=== PATIENT | female | born 1945 | race Caucasian/White ===

== ENCOUNTER 2022-01-03 09:57 | Emergency (ER) | payer OTHER ==
--- OUTSIDE RECORDS SUMMARY | 2022-01-03 09:59 | XMS REPORT | Continuity of Care Document ---
:1945 Author Organization [facility] t Address [address] [place] [address] Care Team Providers Name Role Phone UNKNOWN Primary Care Physician Unavailable Lisbet OLMSTEAD Attending Clinician Unavailable Aysha LOPEZ, L Attending Clinician ALFRED Attending Clinician Unavailable Brea Attending Clinician Unavailable ALFRED Admitting Clinician Unavailable Brea Admitting Clinician Unavailable Payers Payer Name Policy Type Policy Number Effective Date Expiration Date S rubi [employer]ET[employer] MEDICARE ADV [id number] 2018 00:00:00 [place]IC[place]: [id number] 1997 [place] 00:00:00 Problems Condition Condition Condition Status Onset Resolution Last Treating Co mments Source Name Details Category Date Date Treatment Clinician Date No known No known Disease Unive rs active active ity of problems problems [facility] Allergies, Adverse Reactions, Alerts Allergy Allergy Status Severity Reaction(s) Onset Inactive Treating Comm ents Source Name Type Date Date Clinician Bromphen Propensi Active Unknown - Uni vers iramin-P ty to See comments it y of hen[place] adverse [place] rin-Dm reaction Medical s Branch Chlorpro Propensi Active Unknown - Uni vers mazine ty to See comments ity of adverse [place] reaction Medical s Branch Codeine Propensi Active Unknown - Univ ers ty to See comments ity of adverse [place] reaction Medical s Branch Duloxeti Propensi Active Unknown - Uni vers ne ty to See comments ity of adverse [place] reaction Medical s Branch Rosuvast Propensi Active Unknown - Uni vers atin ty to See comments ity of adverse [place] reaction Medical s Branch Simvasta Propensi Active Unknown - Uni vers tin ty to See comments ity of adverse [place] reaction Medical s Branch Tramadol Propensi Active Unknown - Uni vers ty to See comments ity of adverse [place] reaction Medical s Branch BROMPHEN DRUG Active Unknown-Cmnt Un rafa IRAMIN-P ity of [facility] RIN-DM Medical Branch CHLORPRO DRUG Active Unknown-Cmnt Un rafa MAZINE INGREDI ity of [facility] CODEINE DRUG Active Unknown-Cmnt Uni vers INGREDI ity of [facility] DULOXETI DRUG Active Unknown-Cmnt Un rafa NE INGREDI ity of [facility] ROSUVAST DRUG Active Unknown-Cmnt Un rafa ATIN INGREDI ity of [facility] SIMVASTA DRUG Active Unknown-Cmnt Un rafa TIN INGREDI ity of [facility] TRAMADOL DRUG Active Unknown-Cmnt Un rafa INGREDI ity of [facility] Social History Social Habit Start Date Stop Date Quantity Comments Source Tobacco use and 2018-12-23 2018-12-23 Never used [facility] exposure 00:00:00 00:00:00 Medical Branch Sex Ass[birth year] [facility] 00:00:00 00:00:00 Medical Branch Smoking Status Start Date Stop Date Source Never smoker [facility] [place] [facility] Medications Ordered Filled Start Stop Current Ordering Indication Dosage Frequency Signature Comments Components Source Medication Medication Date Date Medication? Clinician (SIG) Name Name Diclofenac 2020- No [id number] 25mg Take 25 mg Univers Potassium 6- 07-05 by mouth 3 ity of (ZIPSOR) 25 00:00[place] 04:59 [place]three[place] mg Cap 00 :00 times Medical daily for Branch 30 days. hydroCHLORO Yes hydrochlor Univers thiazide 1-28 othiazide ity of 12.5 mg 13:24: 12.5 mg [place] capsule 30 capsule Medical Take 1 Branch capsule every day by oral route. hydroCHLORO 2018- Yes hydrochlor Univers thiazide 1-28 othiazide ity of 12.5 mg 13:24: 12.5 mg [place] tablet 30 tablet Medical Take 1 Branch tablet every day by oral route. hydroCHLORO Yes hydrochlor Univers thiazide 25 1-28 othiazide ity of mg tablet 13:24: 25 mg [place] 30 tablet Medical Take 1 Branch tablet every day by oral route. HYDROcodone 2018- Yes hydrocodon Univers -acetaminop 1-28 e 10 ity of hen 10-325 13:24: mg-acetami [place] mg tablet 30 nophen 325 Medi pranay mg tablet Branch Take 1 tablet every 4 hours by oral route as needed. memantine Yes Namenda 10 Un rafa (NAMENDA) 1-28 mg tablet ity o f 10 mg 13:24: Take 1 [place] tablet 30 tablet Medical twice a Branch day by oral route. memantine Yes Namenda Unive rs HCl - Titration ity of (NAMENDA 13:24: Tre [place] TITRATION 30 Medical TRE ORAL) Branch amLODIPine Yes amlodipine U nivers 5 mg tablet 1-25 5 mg ity of 09:51: tablet [place] 12 Take 1 Medical tablet Branch every day by oral route. spironolact Yes spironolac Univers one 25 mg 1-25 tone 25 mg ity of tablet 09:51: tablet [place] 12 Take 0.5 Medical tablets Branch every day by oral route. rivaroxaban Yes Xarelto 15 Univers (XARELTO) 1-25 mg tablet ity o f 15 mg 09:51: Take 1 [place] tablet 12 tablet Medical every day Branch by oral route. lithium Yes lithium Univers carbonate 1-25 carbonate ity o f CR 450 mg 09:51: ER 450 mg Berny as SR tablet 12 tablet,ext Medi pranay ended Branch release Take 1 tablet twice a day by oral route. oxybutynin Yes Univers chloride 5 1-09 ity of mg tablet 00:00: [place] 00 Medical Branch Vital Signs Vital Name Observation Time Observation Value Comments Source Systolic blood 2021-05-02 13:49:00 140 mm[Hg] [facility] [place] [facility] Diastolic blood 2021-05-02 13:49:00 86 mm[Hg] Unive rsity of [facility] Heart rate 2021-05-02 13:49:00 71 /min Universi ty of [facility] Body height 2021-05-02 13:49:00 165.1 cm [facility] Body weight 2021-05-02 13:49:00 49.442 kg [facility] BMI 2021-05-02 13:49:00 18.14 kg/m2 [facility] Procedures This patient has no known procedures. Encounters Start End Encounter Admission Attending Care Care Encounter Source Date/Time Date/Time Type Type Clinicians Facility Department ID 2021-05-02 2021-05-02 [facility] [id number] Univers 09:15:00 09:15:00 ANNEMARIE [id number] [facility] 2021-05-02 2021-05-02 [facility] [id number] Univers 09:15:00 09:15:00 [facility] 2021-05-02 2021-05-02 Office Aysha [facility] [id number] Univers 08:36:22 09:11:01 [facility] [id number] it y of Surgical [id number] Berny as Specialti [id number] Ri dical es [address] [place] 2020-08-30 2020-08-[address] [facility] [id number] Univers 11:40:00 11:40:00 [facility] 2020-08-30 2020-08-[address] [facility] [id number] Univers 11:40:00 11:40:00 [facility] 2016-07-15 2016-07-15 Outpatient Maluf_C [facility] [id number] [id number] [place] 04:35:00 04:35:00 [facility] Results Test Description Test Time Test Comments Results Result Comments Source Sed Rate ESR ([place]) 2017-06-30 05:03:00 Test Item Value Reference Range Interpretation Comme nts ESR (test code = HESR) 4 mm/Hr 0-20 N Thyroid Stimulating Hormone (TSH)2017-06-29 23:23:00 Test Item Value Reference Range Interpretation Comments TSH (test code = TSH) 1.38 mIU/mL 0.270-4.200 N Comprehensive Metabolic [id number] 23:20:00 Test Item Value Reference Range Interpretation Comments Sodium (test code = 139 mmol/L 135-145 N NA) Potassium (test 4.0 mmol/L 3.5-5.1 N code = K) Chloride (test code 103 mmol/L 98-105 N = CL) Carbon Dioxide 24 mmol/L 22-29 N (test code = CO2) Glucose (test code 106 mg/dL 70-115 N = GLU) Blood Urea Nitrogen 10 mg/dL 8-23 N (test code = BUN) Creatinine (test 1.1 mg/dL 0.5-0.9 H code = CREAT) Calcium (test code 10.6 mg/dL 8.3-10.5 H = CA) Prot Total (test 7.7 g/dL 6.4-8.3 N code = TP) Albumin (test code 4.4 g/dL 3.5-5.2 N = ALB) A/G Ratio (test 1.3 Ratio code = AGRATIO) Globulin (test code 3.3 2.9-3.1 H = GLOB) Bili Total (test 1.0 mg/dL 0.1-0.9 H code = TBIL) Alk Phos (test code 88 U/L 35-104 N = APHOS) AST (test code = 18 U/L 1-32 N AST) ALT (test code = 14 U/L 1-33 N ALT) BUN/Creatinine 9.1 Ratio (test code = BCRATIO) Anion Gap (test 12 mmol/L 7-16 N code = AGAP) Estimated GFR (test 52 eGFR (es timated code = GFR) mL/min/1.73m2 Glomerular Capo tration Rate) is an est imated value,calculate d from the patient's s daily creatinine usin g the MDRD equation.I t is NOT the patient 's actual GFR. The eGFR provides a more clinicallyusefu l measure of kidn ey disease than se rum creatinine alone.This calculation hali es sex and race into account, if the informationis provided. If th e race is not provided , and the patient isAfrican-Ameri can, multiply by 1.2 12. If sex is not prov ided, and thepatient is female, multipl y by 0.742. Results for patients <18 ye ars ofage have not been validated by th e MDRD study and liban d be interpretedwith caution.eGFR Re sult Interpretation: eGFR > or = 60 is in t he Normal RangeeGF R < 60 may mean kidney diseaseeGFR < 1 5 may mean kidney failureRange s recommended by the National Kidney Foundation,http ://nkd ep.nih.gov Lipid [id number] 23:20:00 Test Item Value Reference Range Interpretation Comments Cholesterol (test 213 mg/dL 0-200 H code = CHOL) Triglycerides (test 142 mg/dL 9-200 N code = TRIG) HDL (test code = 53 mg/dL 50-60 N HDL) Chol/HDL (test code 4.0 Ratio 0.0-4.4 N = CHOLPHDL) LDL, Calculated 132 0-130 H (NOTE)RISK O F HEART (test code = LDLC) DISEASEPu blished by [place]an Heart AssociationAnal yte Optim al Boderline Increased RiskC HOL <200 200-239 >240TRI G <150 150-199 >200HDL Male: >60 <40HDL Female: >60 <50 LDL < 100 130-15 9 >160 LDL NEAR OPTIMAL IS 100- 129 VLDL (test code = 28 mg/dL 5-40 N VLDL) LDL/HDL (test code = 2 LDLPHDL) [id number] 23:20:00 Test Item Value Reference Range Interpretation Comments NT ProBnp (test code = PBNP) 601 pg/mL 0-124 H [id number] 23:20:00 Test Item Value Reference Range Interpretation Comments [place] (test code = LI) 1.09 mmol/L 0.6-1.2 N CBC with [id number] 22:20:00 Test Item Value Reference Range Interpretation Comments WBC (test code = WBC) 7.9 K/cumm 4.4-10.5 N RBC (test code = RBC) 4.82 M/cumm 3.75-5.20 N Hemoglobin (test code = HGB) 15.1 gm/dL 12.2-14.8 H Hematocrit (test code = HCT) 48.4 % 36.5-44.4 H MCV (test code = MCV) 100.5 fL 80-100 H MCH (test code = MCH) 31.3 pg 27.0-32.5 N MCHC (test code = MCHC) 31.1 g/dL 32.0-37.5 L RDW (test code = RDW) 13.9 % 11.5-14.5 N Platelet Count (test code = 235 K/cumm 140-440 N PLTCT) MPV (test code = MPV) 10.8 fL Diff Method (test code = DIFFM) Auto Neutrophil (test code = NEUT) 63.3 % 36-70 N Lymphocyte (test code = LYMPH) 28.9 % 12-44 N Monocyte (test code = MONO) 5.8 % 0-11 N Eosinophil (test code = EOS) 1.5 % 0-7 N Basophil (test code = BASO) 0.7 % 0-2 N Neutro Abs (test code = ANEUT) 5.0 K/cumm 1.6-7.4 N Lymph Abs (test code = ALYMPH) 2.3 K/cumm 0.5-4.6 N [place] Abs (test code = AMONO) 0.5 K/cumm 0.0-1.2 N Eos Abs (test code = AEOS) 0.12 K/cumm 0.00-0.74 N Baso Abs (test code = ABASO) 0.1 K/cumm 0.00-0.21 N Hypochromic (test code = HYPO) Slight
--- NOTE | 2022-01-03 11:00 | RAD REPORT ---
EXAM DESCRIPTION: CT - Head C Spine Mpr Wo Con - 01/03/2022 10:34 am CLINICAL HISTORY: Head and neck injury status post fall. Head and neck pain COMPARISON: [address] TECHNIQUE: Computed axial tomography of the head and cervical spine was obtained. Sagittal and coronal reconstruction was performed. All CT scans are performed using dose optimization technique as appropriate and may include automated exposure control or mA/KV adjustment according to patient size. FINDINGS: An intracranial bleed is not seen. The ventricles are normal in caliber. An extra-axial fl uid collection is not noted.Fluid within the visualized sinuses and mastoids is not seen A cervical fracture is not visualized. No dislocation is noted. Mild anterior subluxation C4 on C5. 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 A cervical fracture is not visualized. If the patient continues to have symptoms to suggest intracra nial /spinal cord/ligamentous pathology then MRI would be recommended
--- NOTE | 2022-01-03 11:05 | RAD REPORT ---
EXAM DESCRIPTION: CT - Pelvis Wo Cont - 01/03/2022 10:41 am CLINICAL HISTORY: Pelvic pain status post fall COMPARISON: None. TECHNIQUE: Computed axial tomography of the pelvis was obtained. Coronal and sagittal reconstruction performed All CT scans are performed using dose optimization technique as appropriate and may include automated exposure control or mA/KV adjustment according to patient size. FINDINGS: The bones are osteoporotic. No fracture or dislocation is seen. Mild osteoarthritis involves the hips Muscles are normal size and density. No significant joint effusion IMPRESSION: No fracture seen
--- NOTE | 2022-01-03 11:24 | EDPHYS ---
Physician Documentation [facility] Name: Devonte Hager Age: 76 yrs Sex: Female : 1945 Arrival Date: 01/03/2022 Time: 10:00 Bed 19 Private MD: ED Physician Ras Peña HPI: 01/03 10:17 This 76 yrs old Female presents to ER via EMS with complaints of Fall Injury. kb 10:17 Details of fall: The patient fell from an upright position, while standing. Onset: The kb symptoms/episode began/occurred just prior to arrival. Associated injuries: The patient sustained injury to the head, pain, injury to the low back, pain. Severity of symptoms: At their worst the symptoms were moderate, in the emergency department the symptoms are unchanged. The patient has not experienced similar symptoms in the past. The patient has not recently seen a physician. Pt reports she fell in the shower just block captain. States she hit her head a few times, initially when she fell then more as she tried and failed to get up. States she was unable to get herself up so she banged on the wall until her neighbor heard her and called 911. Reports pain to tailbone and head only. . Historical: - Home Meds: 10:03 amlodipine 5 mg tab 1 tab once daily [Active]; amiodarone 200 mg Oral tab 1 tab once culeln daily [Active]; apixaban 5 mg oral tab 1 tab 2 times per day [Active]; cholecalciferol (vitamin D3) 125 mcg (5,000 unit) oral cap daily [Active]; diclofenac sodium 75 mg oral TbEC 1 tab 2 times per day [Active]; lithium carbonate 300 mg Oral tab 1 tab 2 times per day [Active]; oxybutynin chloride 5 mg Oral tr24 1 tab once daily [Active]; rivaroxaban 15 mg oral tab 1 tab once daily [Active]; spironolactone 25 mg Oral tab 1 tab once daily [Active]; - PMHx: 10:03 Unable to Obtain; cullen - PSHx: 10:03 Unable to Obtain; cullen - Immunization history:: Adult Immunizations up to date. - Social history:: Smoking status: Patient denies any tobacco usage or history of. ROS: 10:15 Constitutional: Negative for fever, chills, and weight loss. kb 10:15 Back: Positive for pain at rest, pain with movement, of the sacrum. 10:15 Neuro: Positive for headache. 10:15 All other systems are negative. Exam: 10:16 Constitutional: This is a well developed, well nourished patient who is awake, alert, kb and in no acute distress. Head/Face: Normocephalic, atraumatic. ENT: Moist Mucous membranes Cardiovascular: Regular rate and rhythm with a normal S1 and S2. No gallops, murmurs, or rubs. No pulse deficits. Respiratory: Respirations even and unlabored. No increased work of breathing. Talking in full sentences Skin: Warm, dry with normal turgor. Normal color. MS/ Extremity: Pulses equal, no cyanosis. Neurovascular intact. Full, normal range of motion. Psych: Awake, alert, with orientation to person, place and time. Behavior, mood, and affect are within normal limits. 10:16 Neuro: Orientation: is normal, Mentation: is normal, Motor: moves all fours. Vital Signs: 10:00 BP 132 / 82; Pulse 86; Resp 18; Pulse Ox 100% on R/A; Weight 44.45 kg; Height 5 ft. 5 cullen in. (165.10 cm); 11:12 BP 108 / 72; Pulse 59; Resp 16; Pulse Ox 100% on R/A; cullen 10:00 Body Mass Index 16.31 (44.45 kg, 165.10 cm) cullen MDM: 10:04 Patient medically screened. kb 10:14 Data reviewed: vital signs, nurses notes. Data interpreted: Pulse oximetry: on room air kb is 100 %. Interpretation: normal. 11:16 Counseling: I had a detailed discussion with the patient and/or guardian regarding: the kb historical points, exam findings, and any diagnostic results supporting the discharge/admit diagnosis, radiology results, the need for outpatient follow up, a family practitioner, to return to the emergency department if symptoms worsen or persist or if there are any questions or concerns that arise at home. 01/03 10:12 Order name: CT Head C Spine; Complete Time: 11:09 kb 01/03 10:12 Order name: CT Pelvis wo Cont; Complete Time: 11:09 kb Administered Medications: No medications were administered Disposition: 14:45 Co-signature as Attending Physician, Ras Peña MD I agree with the assessment and rn plan of care. Attestation: The patient's history, exam findings, diagnostics, and a summary of any interventions or procedures was reviewed in detail with Faviola ORTEZ. Disposition Summary: 01/03/22 11:23 Discharge Ordered Location: Home kb Condition: Stable kb Diagnosis - Fall on same level from slipping, tripping and stumbling without subsequent kb striking against object - Unspecified injury of head, initial encounter kb - Low back pain kb Followup: kb - With: Emergency Department - When: As needed - Reason: Worsening of condition Followup: kb - With: Private Physician - When: 2 - 3 days - Reason: Recheck today's complaints, Continuance of care, Re-evaluation by your physician Discharge Instructions: - Discharge Summary Sheet kb - Musculoskeletal Pain kb - Head Injury, Adult, [id number] kb - Fall Prevention in the Home, Adult, [id number] kb Forms: - Medication Reconciliation Form kb - Thank You Letter kb - Antibiotic Education kb - Prescription Opioid Use kb Signatures: Dispatcher [employer] EDMS Faviola Mcdonald, [employer] AD[employer]ISTRATOR-Ckb Ras Peña MD MD rn Au-StagerTaylor RN RN cullen
--- NOTE | 2022-01-03 11:24 | ER ---
Nurse's Notes [facility] Name: Devonte Hager Age: 76 yrs Sex: Female : 1945 Arrival Date: 01/03/2022 Time: 10:00 Bed 19 Private MD: Diagnosis: Fall on same level from slipping, tripping and stumbling without subsequent striking against object;Unspecified injury of head, initial encounter;Low back pain Presentation: 01/03 10:00 Chief complaint: Patient states: slip and fell hitting back of head. pt denies LOC. pt cullen reports back pain d/t being on the floor for about an hour. Coronavirus screen: Vaccine status: Patient reports receiving the 2nd dose of the covid vaccine. Ebola Screen: Patient denies travel to an Ebola-affected area in the 21 days before illness onset. Initial Sepsis Screen: Does the patient meet any 2 criteria? No. Patient's initial sepsis screen is negative. Does the patient have a suspected source of infection? No. Patient's initial sepsis screen is negative. Risk Assessment: Do you want to hurt yourself or someone else? Patient reports no desire to harm self or others. Onset of symptoms was January 03, 2022. 10:00 Method Of Arrival: EMS: [facility] cullen 10:00 Acuity: INGRIS 4 cullen Triage Assessment: 10:03 General: Appears in no apparent distress. Behavior is calm, cooperative. Pain: cullen Complains of pain in back. Historical: - Home Meds: 10:03 amlodipine 5 mg tab 1 tab once daily [Active]; amiodarone 200 mg Oral tab 1 tab once cullen daily [Active]; apixaban 5 mg oral tab 1 tab 2 times per day [Active]; cholecalciferol (vitamin D3) 125 mcg (5,000 unit) oral cap daily [Active]; diclofenac sodium 75 mg oral TbEC 1 tab 2 times per day [Active]; lithium carbonate 300 mg Oral tab 1 tab 2 times per day [Active]; oxybutynin chloride 5 mg Oral tr24 1 tab once daily [Active]; rivaroxaban 15 mg oral tab 1 tab once daily [Active]; spironolactone 25 mg Oral tab 1 tab once daily [Active]; - PMHx: 10:03 Unable to Obtain; cullen - PSHx: 10:03 Unable to Obtain; cullen - Immunization history:: Adult Immunizations up to date. - Social history:: Smoking status: Patient denies any tobacco usage or history of. Screenin:08 Abuse screen: Denies threats or abuse. Denies injuries from another. Nutritional cullen screening: No deficits noted. Tuberculosis screening: No symptoms or risk factors identified. Fall Risk Fall in past 12 months (25 points). Vital Signs: 10:00 BP 132 / 82; Pulse 86; Resp 18; Pulse Ox 100% on R/A; Weight 44.45 kg; Height 5 ft. 5 cullen in. (165.10 cm); 11:12 BP 108 / 72; Pulse 59; Resp 16; Pulse Ox 100% on R/A; cullen 10:00 Body Mass Index 16.31 (44.45 kg, 165.10 cm) cullen ED Course: 10:00 Patient arrived in ED. cullen 10:03 Triage completed. cullen 10:03 Arm band placed on. cullen 10:04 Faviola Mcdonald FNP-C is [facility]. kb 10:04 Ras Peña MD is Attending Physician. kb 10:08 Patient has correct armband on for positive identification. Bed in low position. cullen 10:08 No provider procedures requiring assistance completed. cullen 10:34 CT Head C Spine In Process Unspecified. EDMS 10:41 CT Pelvis wo Cont In Process Unspecified. EDMS 13:09 Patient did not have IV access during this emergency room visit. cullen Administered Medications: No medications were administered Outcome: 11:23 Discharge ordered by . kb 13:08 Discharged to home with friend. cullen 13:08 Condition: good 13:08 Discharge instructions given to patient. 13:09 Patient left the ED. cullen Signatures: Dispatcher [employer] EDMS Faviola Mcdonald FNP-C FNP-Ckb Au-StageTaylor amezcua RN RN cullen
[2022-01-03 13:19] VITALS: O2SAT 100
[2022-01-03 13:21] VITALS: BP 108/72
== END 2022-01-03 13:09 | disposition home or self-care (01) ==
LOC: ER 09:57
DX: S09.90XA Unspecified injury of head, initial encounter (principal); M54.50 Low back pain, unspecified; W18.2XXA Fall in (into) shower or empty bathtub, initial encounter; Y93.E1 Activity, personal bathing and showering
CPT/HCPCS: 70450; 72125; 72192; 99283

== ENCOUNTER 2022-04-03 11:19 | Day surgery (SDC) | payer OTHER ==
[2022-03-31 14:17] LABS: Absolute Lymphocytes (CBC) 1.7 K/uL (0.7-4.9); Hematocrit 37.5 % (36.0-45.0); Lymphocytes % 26.4 % (15.3-44.8); MPV 7.5 fL (7.6-11.3); RBC Red Blood Cell Count 3.83 M/uL (3.86-4.86)
--- NOTE | 2022-03-31 14:22 | RAD REPORT ---
EXAM DESCRIPTION: RAD - Chest Pa And Lat (2 Views) - 03/31/2022 2:12 pm CLINICAL HISTORY: pre op pending mass removal, pending ankle surgery COMPARISON: Single-view chest 05/06/2011 TECHNIQUE: Frontal and lateral views of the chest were obtained. FINDINGS: The lungs are fibrotic. Diaphragm is flattened with increased retrosternal space. An acute infiltrate or mass is not identified. Fibrosis could potentially mask an infiltrate but this is not suspected. Two lead left subclavian pacemaker has been placed since the prior study. Heart size is normal and central vasculature is within normal limits. No pleural effusion or pneumothorax seen. Prominent bilateral shoulder joint degenerative changes are present. Bony hypertrophy of the anterior right first rib creates nodular appearance to the right apex. No acute aortic finding. 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 No acute chest finding suspected.
[2022-03-31 14:30] LABS: Potassium 4.2 mmol/L (3.5-5.1)
--- NOTE | 2022-04-01 12:55 | EKG ---
Test Date: 2022-03-31 Test Time: 12:50:06 Inspector Poising: CATARINA MEASUREMENT RESULTS: Intervals: Rate: 60 VA: QRSD: 84 QT: 472 QTc: 472 [place]: P: VA: QRS: 61 T: 41 INTERPRETIVE STATEMENTS: Electronic atrial pacemaker Compared to ECG 05/25/2011 15:19:08 Sinus bradycardia no longer present Sinus arrhythmia no longer present Electronically Signed On 04-01-22 12:52:13 CDT by Amauri Jimenez
[2022-04-03] MEDS ORDERED: Ringers Lactate 1,000 ML IV ONE (11:42)
[2022-04-03] MEDS ORDERED: NA CHLORIDE 0.9% 50 ML ONE (11:42)
[2022-04-03] MEDS ORDERED: LIDOCAINE 1% MPF 5 ML VIAL ONE (12:43)
[2022-04-03] MEDS ORDERED: ONDANSETRON 4 MG/2 ML VIAL ONE (12:43)
[2022-04-03] MEDS ORDERED: FENTANYL CITR 100 MCG/2 ML ONE (12:43)
[2022-04-03] MEDS ORDERED: propofoL 200 MG/20 ML VIAL IV ONE (12:43)
[2022-04-03] MEDS ORDERED: MIDAZOLAM HCL 2 MG/2 ML INJ ONE (12:43)
[2022-04-03] MEDS: BUPIVACAINE 0.5% Inj,MDV 50 mL VIAL ONE ×3 (13:46→14:10)
[2022-04-03] MEDS: CEFAZOLIN SODIUM 1 GM/VIAL ONE ×2 (13:50→13:56)
--- NOTE | 2022-04-03 14:26 | P.BOP ---
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
[2022-04-03 16:13] VITALS: BP 124/80; TEMP 97; O2SAT 97
--- NOTE | 2022-04-04 02:49 | DS ---
Date of Discharge: 04/03/2022 Diagnosis: Left heel squamous cell carcinoma. Procedure: Wide excision of left heel squamous cell carcinoma. Disposition: Home. Discharge Instructions: Keep area dry for 48 hours, then may remove dressings. Clean with soap and water. Put Neosporin and a Band-Aid on it. Followup: Follow up in my office in 1 week. Call for appointment [phone]. Discharge Medications: For pain, she is going to use an anti-inflammatory that she is not allergic t o. JACKELINE/SHANA Voice ID: [id number] Report ID: [id number]
--- NOTE | 2022-04-04 02:49 | OP ---
Date of Procedure: 04/03/2022 Surgeon: Michelet Cao MD Preoperative Diagnosis: Ulcerated mass, left heel. Postoperative Diagnosis: Ulcerated mass, left heel. Left heel squamous cell carcinoma. Procedure: Wide excision with frozen section of left heel squamous cell carcinoma. Estimated Blood Loss: Less than 10 mL. Specimen: Mass. Findings: Left heel squamous cell carcinoma, margin free of tumor per Dr. Kahn. Anesthesia: General plus local. Indications For Procedure: This is the case of a female, who comes to us with an ulcerated mass on t he left heel area. Patient is scheduled for wide excision with frozen section since it is suspicious for cancer. The benefits, alternatives, and risks of excision were fully explained which include, b ut not limited to infection, bleeding, damage to adjacent structures, anesthesia complication, nonhea ling wound, LA, and even . She also understands this may require wound care. She understood, s igned a consent. The area of concern was marked by me and the patient in the holding room. We speci fied to her before surgery even though she has a sensitivity to codeine that she claims is not an all ergy; sensitivity, nausea. When I discussed today with the hospital staff, they are not sure if it i s only nausea, so the prescriptions were called in to the patient and that will be Tylenol No.3, aske d her not to take that prescription. She can only take Motrin or regular Tylenol for pain since she might be also allergic to Ultracef. She understood, the family next her understood. She is not anthony g to fill a prescription of Tylenol No.3. Procedure In Detail: She was brought to the operating room, placed in supine position. Anesthesia w as done without complication. Left heel was prepped and draped in usual sterile fashion. A local an esthesia was applied followed by wide excision of the area to make sure we include the mass completel y and have gross negative margins. This goes all the way down to near the Achilles tendon, but the t endon is not exposed. Specimen sent for the pathologist who shows the margins free of tumor. The ar ea was irrigated. Hemostasis obtained. Because of how wide it we cannot close this area completely, so we proceeded to accommodate and close some of the skin with mattress suture 3-0 nylon and the res t just covered with wet-to-dry dressing. The patient tolerated the procedure well. JACKELINE/SHANA Voice ID: [id number] Report ID: [id number]
== END 2022-04-03 15:57 | disposition home or self-care (01) ==
LOC: OR 11:19
PROVIDERS: ATTEND Surgery
PROC: 0JBR0ZZ Excision of Left Foot Subcutaneous Tissue and Fascia, Open Approach (ICD-10-PCS; principal; 2022-04-03 13:15)
DX: C44.729 Squamous cell carcinoma of skin of left lower limb, including hip (principal); Z20.822 Contact with and (suspected) exposure to COVID-19
CPT/HCPCS: 93005; 85025; 80048; 36415; 88331; 88332; 88305; 71046; 11624; U0003; J2704; J3010; J7120; J2405; J0690; J2250

== ENCOUNTER 2022-04-12 00:19 | Emergency (ER) | payer OTHER ==
--- OUTSIDE RECORDS SUMMARY | 2022-04-12 00:21 | XMS REPORT | Continuity of Care Document ---
:1945 Author Organization [facility] t Address [address] [place] [address] Care Team Providers Name Role Phone UNKNOWN Primary Care Physician Unavailable Lisbet OLMSTEAD Attending Clinician Unavailable Aysha LOPEZ L Attending Clinician ALFRED Attending Clinician Unavailable Brea Attending Clinician Unavailable ALFRED Admitting Clinician Unavailable Brea Admitting Clinician Unavailable Payers Payer Name Policy Type Policy Number Effective Date Expiration Date S rubi [employer] MEDICARE ADV [id number] 2018 00:00:00 MEDICARE B-[place]: [id number] 1997 [employer] 00:00:00 Problems Condition Condition Condition Status Onset Resolution Last Treating Co mments Source Name Details Category Date Date Treatment Clinician Date No known No known Disease Unive rs active active ity of problems problems [facility] Allergies, Adverse Reactions, Alerts Allergy Allergy Status [...] Active Unknown-Cmnt Un rafa IRAMIN-P ity of [facility] RIN-DM Medical Branch CHLORPRO DRUG Active Unknown-Cmnt Un rafa MAZINE [facility]GR[facility]I ity of [facility] CODEINE DRUG Active Unknown-Cmnt Uni vers [facility]GREDI ity of [facility] DULOXETI DRUG Active Unknown-Cmnt Un rafa NE INGREDI ity of [facility] ROSUVAST DRUG Active Unknown-Cmnt Un rafa ATIN INGREDI ity of [facility] SIMVASTA DRUG Active Unknown-Cmnt Un rafa TIN INGREDI ity of [facility] TRAMADOL DRUG Active Unknown-Cmnt Un rafa INGREDI ity of [facility] Social History Social Habit Start Date Stop Date Quantity Comments Source Tobacco use and 2018-12-23 2018-12-23 Never used [facility] exposure 00:00:00 00:00:00 Medical Branch Sex Ass[birth year] [facility] 00:00:00 00:00:00 Medical Branch Smoking Status Start Date Stop Date Source Never smoker [facility] Medications Ordered Filled Start Stop Current Ordering Indication Dosage Frequency Signature Comments Components Source Medication Medication Date Date Medication? Clinician (SIG) Name Name Diclofenac 202- No [id number] 25mg Take 25 mg [facility] Potassium 6- [...] 5 1-09 ity of mg tablet 00:00: [place] 00 [facility] Vital Signs Vital Name Observation Time Observation Value Comments Source Systolic blood 2021-05-02 13:49:00 140 mm[Hg] [facility] [place] pressure [facility] Diastolic blood 2021-05-02 13:49:00 86 mm[Hg] [facility] [place] pressure [facility] Heart rate 2021-05-02 13:49:00 71 /min [facility] Body height 2021-05-02 13:49:00 165.1 cm [facility] Body weight 2021-05-02 13:49:00 49.442 kg [facility] BMI 2021-05-02 13:49:00 18.14 kg/m2 [facility] Procedures This patient has no known procedures. Encounters Start End Encounter Admission Attending Care Care Encounter Source Date/Time Date/Time Type Type Clinicians Facility Department ID 2021-05-02 2021-05-02 [facility] [id number] [facility] 09:15:00 09:15:00 ANNEMARIE [facility] 2021-05-02 2021-05-02 [facility] [id number] Univers 09:15:00 09:15:00 ANNEMARIE [id number] [facility] 2021-05-02 2021-05-02 [facility] [id number] Univers 08:36:22 09:11:01 Visit [facility] [id number] it y of Surgical [id number] Berny as Specialti [id number] Nv dical es [address] [place] 2020-08-30 2020-08-30 Outpatient R [facility] [id number] Univers 11:40:00 11:40:00 [facility] 2020-08-30 2020-08-30 Outpatient R [facility] [id number] Univers 11:40:00 11:40:00 [facility] 2016-07-15 2016-07-15 Outpatient Maluf_C [id number] [place] 04:35:00 04:35:00 [id number] Results Test Description Test Time Test Comments Results Result Comments Source Sed Rate ESR ([place]) 2017-06-30 05:03:00 Test Item Value Reference Range Interpretation Comme nts ESR (test code = HESR) 4 mm/Hr 0-20 N Thyroid Stimulating Hormone (TSH)2017-06-29 23:23:00 Test Item Value Reference Range Interpretation Comments TSH (test code = TSH) 1.38 mIU/mL 0.270-4.200 N Lipid [id number] 23:20:00 Test Item Value Reference Range Interpretation Comments Cholesterol (test 213 mg/dL 0-200 H code = CHOL) Triglycerides (test 142 mg/dL 9-200 N code = TRIG) HDL (test code = 53 mg/dL 50-60 N HDL) Chol/HDL (test code 4.0 Ratio 0.0-4.4 N = CHOLPHDL) LDL, Calculated 132 0-130 H (NOTE)RISK O F HEART (test code = LDLC) DISEASEPu blished by [place] Heart AssociationAnal yte Optim al Boderline Increased RiskC HOL <200 200-239 >240TRI G <150 150-199 >200HDL Male: >60 <40HDL Female: >60 <50 LDL < 100 130-15 9 >160 LDL NEAR OPTIMAL IS 100- 129 VLDL (test code = 28 mg/dL 5-40 N VLDL) LDL/HDL (test code = 2 LDLPHDL) [id number] 23:20:00 Test Item Value Reference Range Interpretation Comments NT ProBnp (test code = PBNP) 601 pg/mL 0-124 H [id number] 23:20:00 Test Item Value Reference Range Interpretation Comments Railroad (test code = LI) 1.09 mmol/L 0.6-1.2 N Comprehensive Metabolic [id number] 23:20:00 Test Item Value Reference Range Interpretation [...] validated by th e MDRD study and shoul d be interpretedwith caution.eGFR Re sult Interpretation: eGFR > or = 60 is in t he Normal RangeeGF R < 60 may mean kidney diseaseeGFR < 1 5 may mean kidney failureRange s recommended by the National Kidney Foundation,http ://nkd ep.nih.gov CBC with [id number] 22:20:00 Test Item Value Reference Range Interpretation [...] code = ALYMPH) 2.3 K/cumm 0.5-4.6 N [place] Abs (test code = AMONO) 0.5 K/cumm 0.0-1.2 N Eos Abs (test code = AEOS) 0.12 K/cumm 0.00-0.74 N Baso Abs (test code = ABASO) 0.1 K/cumm 0.00-0.21 N Hypochromic (test code = HYPO) Slight
[2022-04-12 01:06] LABS: Absolute Lymphocytes (CBC) 1.2 K/uL (0.7-4.9); Hematocrit 35.5 % (36.0-45.0); Lymphocytes % 13.2 % (15.3-44.8); MPV 7.6 fL (7.6-11.3); RBC Red Blood Cell Count 3.69 M/uL (3.86-4.86)
[2022-04-12 01:19] LABS: Potassium 4.5 mmol/L (3.5-5.1)
--- NOTE | 2022-04-12 02:59 | ER ---
Nurse's Notes [facility] Name: Devonte Hager Age: 76 yrs Sex: Female : 1945 Arrival Date: 04/12/2022 Time: 00:25 Bed 30 Private MD: Diagnosis: Fall on same level, unspecified Presentation: 04/12 00:28 Chief complaint: EMS states: 2 fallls today. first was around 5p, she was in her closet jb4 and fell into her door knocking it off the hinges. The second fall was at 2300, she was getting out of bed slipped, fell and hit her head on the bed frame. She hit her head about 5 more times as she was trying to get back up and continuously slipped falling back down. Coronavirus screen: At this time, the client does not indicate any symptoms associated with coronavirus-19. Ebola Screen: No symptoms or risks identified at this time. Initial Sepsis Screen: Does the patient meet any 2 criteria? No. Patient's initial sepsis screen is negative. Does the patient have a suspected source of infection? No. Patient's initial sepsis screen is negative. Risk Assessment: Do you want to hurt yourself or someone else? Patient reports no desire to harm self or others. Onset of symptoms was April 12, 2022. Transition of care: patient was not received from another setting of care. 00:28 Method Of Arrival: EMS: [facility] jb4 00:28 Acuity: INGRIS 2 jb4 00:28 Care prior to arrival: None. Mechanism of Injury: Fall from standing position. Trauma jb4 event details: Injury occurred in the [facility]. Historical: - Allergies: 00:36 codeine sulfate; jb4 00:36 thorezine; jb4 00:36 Dimetapp Cold-Congestion; jb4 00:36 Zocor; jb4 00:36 Crestor; jb4 00:36 Vioxx; jb4 00:36 Tramadol HCl; jb4 00:36 Cymbalta; jb4 - Home Meds: 00:36 spironolactone 25 mg Oral tab 1 tab once daily [Active]; amlodipine 5 mg tab 1 tab once jb4 daily [Active]; cholecalciferol (vitamin D3) 125 mcg (5,000 unit) Oral cap daily [Active]; diclofenac sodium 75 mg Oral TbEC 1 tab 2 times per day [Active]; amiodarone 200 mg Oral tab 1 tab once daily [Active]; apixaban 5 mg Oral tab 1 tab 2 times per day [Active]; lithium carbonate 300 mg Oral tab 1 tab 2 times per day [Active]; rivaroxaban 15 mg Oral tab 1 tab once daily [Active]; oxybutynin chloride 5 mg Oral cp24 1 tab once daily [Active]; - PSHx: 00:36 tubligation; hysterectomy; jb4 - Immunization history:: Adult Immunizations up to date. - Social history:: Smoking status: Patient denies any tobacco usage or history of. - Immunization history: Last tetanus immunization: unknown. - : The history from the nurse's notes was reviewed and I agree with what is documented. Screenin:36 Abuse screen: Denies threats or abuse. Nutritional screening: No deficits noted. jb4 Tuberculosis screening: No symptoms or risk factors identified. Fall Risk Fall in past 12 months (25 points). Total Sheth Fall Scale indicates Low Risk Score (25-44 pts). Fall prevention measures have been instituted. Side Rails Up X 2 Placed close to Nursing Station Frequent Obs/Assesments occuring As available Patient and Family Educated on Fall Prevention Program and strategies. Primary Survey: 00:28 NO uncontrolled hemorrhage observed. A: The client is awake and alert. The airway is jb4 patent. Breathing/Chest: Spontaneous respiratory effort, equal unlabored respirations, breath sounds clear bilaterally, regular pattern, symmetrical chest rise and fall. Circulation: No external hemorrhage present. Regular and strong central pulse, skin warm/dry/normal color. Disability Client is alert. Exposure/Environment: All clothing and personal items were removed. Forensic evidence collection is not deemed to be indicated at this time. Items placed in patient belonging bag. 01:30 Reassessment Alertness and Airway: Awake and alert. The airway is patent. Breathing: jb4 Spontaneous respiratory effort, equal unlabored respirations, breath sounds clear bilaterally, regular pattern with symmetrical chest rise and fall. Circulation: No external hemorrhage noted. Regular and strong central pulse, skin warm/dry/normal color. Disability: Alert. Assessment: 00:35 General: Appears in no apparent distress. comfortable, Behavior is calm, cooperative, jb4 appropriate for age. Pain: Complains of pain in neck Pain does not radiate. Pain currently is 8 out of 10 on a pain scale. Neuro: Level of Consciousness is awake, alert, obeys commands, Oriented to person, place, time, situation. Cardiovascular: Patient's skin is warm and dry. Respiratory: Airway is patent Respiratory effort is even, unlabored, Respiratory pattern is regular, symmetrical. GI: No signs and/or symptoms were reported involving the gastrointestinal system. : No signs and/or symptoms were reported regarding the genitourinary system. EENT: No signs and/or symptoms were reported regarding the EENT system. Derm: Skin is intact, Skin is pink, warm \T\ dry. Musculoskeletal: Circulation, motion, and sensation intact. Range of motion: intact in all extremities. 01:30 Reassessment: Patient appears in no apparent distress at this time. Patient and/or jb4 family updated on plan of care and expected duration. Pain level reassessed. Patient is alert, oriented x 3, equal unlabored respirations, skin warm/dry/pink. 02:30 Reassessment: Patient appears in no apparent distress at this time. Patient and/or jb4 family updated on plan of care and expected duration. Pain level reassessed. Patient is alert, oriented x 3, equal unlabored respirations, skin warm/dry/pink. 03:30 Reassessment: Patient appears in no apparent distress at this time. Patient and/or jb4 family updated on plan of care and expected duration. Pain level reassessed. Patient is alert, oriented x 3, equal unlabored respirations, skin warm/dry/pink. 03:30 Reassessment: Patient appears in no apparent distress at this time. Patient and/or jb4 family updated on plan of care and expected duration. Pain level reassessed. Patient is alert, oriented x 3, equal unlabored respirations, skin warm/dry/pink. Pt voiced concern over going home and being able to get around. Provider notified of concern and current walking ability. Pt given non- slip socks to take home, provider wrote prescription for wheelchair. pt verbalized understanding of d/c and follow up instructions. Assisted out of ED via wheelchair. Vital Signs: 00:45 BP 129 / 73; Pulse 59; Resp 16; Temp 98.7(TE); Pulse Ox 99% on R/A; Weight 42.64 kg jb4 (R); Height 5 ft. 5 in. (165.10 cm); Pain 6/10; 01:45 BP 113 / 72; Pulse 59; Resp 16; Pulse Ox 100% on R/A; jb4 03:00 BP 106 / 68; Pulse 60; Resp 16; Pulse Ox 99% on R/A; jb4 00:45 Body Mass Index 15.64 (42.64 kg, 165.10 cm) jb4 Peggy Coma Score: 00:45 Eye Response: spontaneous(4). Verbal Response: oriented(5). Motor Response: obeys jb4 commands(6). Total: 15. 01:45 Eye Response: spontaneous(4). Verbal Response: oriented(5). Motor Response: obeys jb4 commands(6). Total: 15. 03:00 Eye Response: spontaneous(4). Verbal Response: oriented(5). Motor Response: obeys jb4 commands(6). Total: 15. Trauma Score (Adult): 00:45 Eye Response: spontaneous(1); Verbal Response: oriented(1); Motor Response: obeys jb4 commands(2); Systolic BP: > 89 mm Hg(4); Respiratory Rate: 10 to 29 per min(4); Peggy Score: 15; Trauma Score: 12 01:45 Eye Response: spontaneous(1); Verbal Response: oriented(1); Motor Response: obeys jb4 commands(2); Systolic BP: > 89 mm Hg(4); Respiratory Rate: 10 to 29 per min(4); [place] Score: 15; Trauma Score: 12 03:00 Eye Response: spontaneous(1); Verbal Response: oriented(1); Motor Response: obeys jb4 commands(2); Systolic BP: > 89 mm Hg(4); Respiratory Rate: 10 to 29 per min(4); Peggy Score: 15; Trauma Score: 12 ED Course: 00:25 Patient arrived in ED. jb4 00:27 Navi Costa DO is Attending Physician. ms3 00:28 Chaz Aguila, EDILBERTO is Primary Nurse. jb4 00:36 Triage completed. jb4 00:36 Arm band placed on right wrist. jb4 00:36 Patient has correct armband on for positive identification. Bed in low position. Call jb4 light in reach. Side rails up X 1. Client placed on continuous cardiac and pulse oximetry monitoring. NIBP monitoring applied. 00:45 Patient maintains SpO2 saturation greater than 95% on room air. jb4 01:04 Maintain EMS IV. Dressing intact. Good blood return noted. Site clean \T\ dry. Gauge \T\ ll 3 site: 20 G RFA. 01:05 Initial lab(s) drawn, by me, sent to lab. ll3 01:22 CT Head C Spine In Process Unspecified. EDMS 02:28 No provider procedures requiring assistance completed. jb4 04:09 Primary Nurse role handed off by Chaz Aguila, RN jb4 04:28 IV discontinued, intact, bleeding controlled, No redness/swelling at site. Pressure jb4 dressing applied. Administered Medications: No medications were administered Outcome: 02:59 Discharge ordered by MD. ms3 03:53 Patient left the ED. ag7 04:28 Discharged to home via wheelchair. jb4 04:28 Condition: stable 04:28 Discharge instructions given to patient, friend, Instructed on discharge instructions, follow up and referral plans. Demonstrated understanding of instructions, follow-up care, Prescriptions given X 1. 04:28 Patient's length of stay was not longer than 2 hours. jb4 04:30 Patient left the ED. jb4 Signatures: Dispatcher [employer] EDMS Chaz Aguila, RN RN jb4 Navi Costa DO DO ms3 Gianna Blevins, RN RN ll3 Mari Grewal, RN RN ag7 Corrections: (The following items were deleted from the chart) 01:05 01:04 Maintain EMS IV. Dressing intact. ll3 ll3 09:57 09:48 The history from the nurse's notes was reviewed and I agree with what is ms3 documented. ms3
--- NOTE | 2022-04-12 02:59 | EDPHYS ---
Physician Documentation [facility] Name: Devonte Hager Age: 76 yrs Sex: Female : 1945 Arrival Date: 04/12/2022 Time: 00:25 Bed 30 Private MD: ED Physician Navi Costa HPI: 04/12 02:59 This 76 yrs old Female presents to ER via EMS with complaints of fall. ms3 02:59 Details of fall: The patient fell from an upright position, while standing. Onset: The ms3 symptoms/episode began/occurred Fell at 5 PM and 11 PM. Associated injuries: The patient sustained injury to the head, pain, neck injury, pain, pain with movement, tenderness. Severity of symptoms: At their worst the symptoms were mild, in the emergency department the symptoms are unchanged. The patient has not experienced similar symptoms in the past. Historical: - Allergies: 00:36 codeine sulfate; jb4 00:36 thorezine; jb4 00:36 Dimetapp Cold-Congestion; jb4 00:36 Zocor; jb4 00:36 Crestor; jb4 00:36 Vioxx; jb4 00:36 Tramadol HCl; jb4 00:36 Cymbalta; jb4 - Home Meds: 00:36 spironolactone 25 mg Oral tab 1 tab once daily [Active]; amlodipine 5 mg tab 1 tab once jb4 daily [Active]; cholecalciferol (vitamin D3) 125 mcg (5,000 unit) Oral cap daily [Active]; diclofenac sodium 75 mg Oral TbEC 1 tab 2 times per day [Active]; amiodarone 200 mg Oral tab 1 tab once daily [Active]; apixaban 5 mg Oral tab 1 tab 2 times per day [Active]; lithium carbonate 300 mg Oral tab 1 tab 2 times per day [Active]; rivaroxaban 15 mg Oral tab 1 tab once daily [Active]; oxybutynin chloride 5 mg Oral cp24 1 tab once daily [Active]; - PSHx: 00:36 tubligation; hysterectomy; jb4 - Immunization history:: Adult Immunizations up to date. - Social history:: Smoking status: Patient denies any tobacco usage or history of. - Immunization history: Last tetanus immunization: unknown. - : The history from the nurse's notes was reviewed and I agree with what is documented. ROS: 02:59 Constitutional: Negative for fever, and chills. Eyes: Negative for injury, pain, ms3 redness, and discharge, Cardiovascular: Negative for chest pain, and palpitations. Respiratory: Negative for shortness of breath, cough, wheezing, and pleuritic chest pain, Abdomen/GI: Negative for abdominal pain, nausea, vomiting, diarrhea, and constipation, MS/Extremity: Negative for injury and deformity, Skin: Negative for injury, rash, and discoloration. 02:59 Neck: Positive for pain with movement. 02:59 All other systems are negative. Exam: 02:59 Respiratory: Lungs have equal breath sounds bilaterally, clear to auscultation and ms3 percussion. No rales, rhonchi or wheezes noted. No increased work of breathing, no retractions or nasal flaring. Abdomen/GI: Soft, non-tender, with normal bowel sounds. No distension or tympany. No guarding or rebound. No evidence of tenderness throughout. Skin: Warm, dry with normal turgor. Normal color with no rashes, no lesions, and no evidence of cellulitis. MS/ Extremity: Pulses equal, no cyanosis. Neurovascular intact. Full, normal range of motion. Psych: Awake, alert, with orientation to person, place and time. Behavior, mood, and affect are within normal limits. 02:59 Constitutional: This is a well developed, well nourished patient who is awake, alert, and in no acute distress. Head/Face: Normocephalic, atraumatic. Eyes: Pupils equal round and reactive to light, extra-ocular motions intact. Lids and lashes normal. Conjunctiva and sclera are non-icteric and not injected. Periorbital areas with no swelling, redness, or edema. 02:59 Neck: External neck: is normal, no acute changes, C-spine: no acute changes, C-collar placed [employer] E[employer], Trachea: is midline with no obvious abnormalities. Vital Signs: 00:45 BP 129 / 73; Pulse 59; Resp 16; Temp 98.7(TE); Pulse Ox 99% on R/A; Weight 42.64 kg jb4 (R); Height 5 ft. 5 in. (165.10 cm); Pain 6/10; 01:45 BP 113 / 72; Pulse 59; Resp 16; Pulse Ox 100% on R/A; jb4 03:00 BP 106 / 68; Pulse 60; Resp 16; Pulse Ox 99% on R/A; jb4 00:45 Body Mass Index 15.64 (42.64 kg, 165.10 cm) jb4 Peggy Coma Score: 00:45 Eye Response: spontaneous(4). Verbal Response: oriented(5). Motor Response: obeys jb4 commands(6). Total: 15. 01:45 Eye Response: spontaneous(4). Verbal Response: oriented(5). Motor Response: obeys jb4 commands(6). Total: 15. 03:00 Eye Response: spontaneous(4). Verbal Response: oriented(5). Motor Response: obeys jb4 commands(6). Total: 15. Trauma Score (Adult): 00:45 Eye Response: spontaneous(1); Verbal Response: oriented(1); Motor Response: obeys jb4 commands(2); Systolic BP: > 89 mm Hg(4); Respiratory Rate: 10 to 29 per min(4); [place] Score: 15; Trauma Score: 12 01:45 Eye Response: spontaneous(1); Verbal Response: oriented(1); Motor Response: obeys jb4 commands(2); Systolic BP: > 89 mm Hg(4); Respiratory Rate: 10 to 29 per min(4); Peggy Score: 15; Trauma Score: 12 03:00 Eye Response: spontaneous(1); Verbal Response: oriented(1); Motor Response: obeys jb4 commands(2); Systolic BP: > 89 mm Hg(4); Respiratory Rate: 10 to 29 per min(4); [place] Score: 15; Trauma Score: 12 MDM: 00:33 Patient medically screened. ms3 02:59 Differential diagnosis: abrasion, closed head injury, contusion, fracture. Data ms3 reviewed: vital signs, nurses notes, lab test result(s), radiologic studies, CT scan. 04/12 00:33 Order name: Basic Metabolic Panel; Complete Time: 02:25 ms3 04/12 00:33 Order name: CBC with Diff; Complete Time: 02:25 ms3 04/12 00:33 Order name: Type And Screen; Complete Time: 02:25 ms3 04/12 00:33 Order name: CT Head C Spine ms3 04/12 00:33 Order name: Labs collected and sent; Complete Time: 01:03 ms3 Administered Medications: No medications were administered Disposition Summary: 04/12/22 02:59 Discharge Ordered Location: Home ms3 Condition: Stable ms3 Diagnosis - Fall on same level, unspecified ms3 Followup: ms3 - With: Private Physician - When: 2 - 3 days - Reason: Recheck today's complaints Discharge Instructions: - Discharge Summary Sheet ms3 - Contusion, [id number] ms3 Forms: - Medication Reconciliation Form ms3 - Thank You Letter ms3 - Antibiotic Education ms3 - Prescription Opioid Use ms3 Prescriptions: - Wheelchair - One wheelchair unit; ; Refills: 0, Product Selection Permitted ms3 Signatures: Dispatcher [employer] EDChaz Cheung RN RN jb4 Navi Costa DO DO ms3 Corrections: (The following items were deleted from the chart) 09:54 09:48 Differential diagnosis: abrasion, closed head injury, contusion, fracture, ms3 ms3 09:54 09:48 Data reviewed: vital signs, nurses notes, lab test result(s), radiologic studies, ms3 CT scan, ms3 09:55 09:48 Constitutional: Negative for fever, and chills. Eyes: Negative for injury, pain, ms3 redness, and discharge, Cardiovascular: Negative for chest pain, and palpitations. Respiratory: Negative for shortness of breath, cough, wheezing, and pleuritic chest pain, Abdomen/GI: Negative for abdominal pain, nausea, vomiting, diarrhea, and constipation, MS/Extremity: Negative for injury and deformity, Skin: Negative for injury, rash, and discoloration, ms3 :55 09:48 All other systems are negative, ms3 ms3 09:55 09:48 Neck: Positive for pain with movement, ms3 ms3 09:55 09:48 Constitutional: This is a well developed, well nourished patient who is awake, ms3 alert, and in no acute distress. Head/Face: Normocephalic, atraumatic. Eyes: Pupils equal round and reactive to light, extra-ocular motions intact. Lids and lashes normal. Conjunctiva and sclera are non-icteric and not injected. Periorbital areas with no swelling, redness, or edema. ms3 09:55 09:48 Neck: External neck: is normal, no acute changes, C-spine: no acute changes, ms3 C-collar placed [employer], Trachea: is midline with no obvious abnormalities, ms3 09:55 09:48 Respiratory: Lungs have equal breath sounds bilaterally, clear to auscultation ms3 and percussion. No rales, rhonchi or wheezes noted. No increased work of breathing, no retractions or nasal flaring. Abdomen/GI: Soft, non-tender, with normal bowel sounds. No distension or tympany. No guarding or rebound. No evidence of tenderness throughout. Skin: Warm, dry with normal turgor. Normal color with no rashes, no lesions, and no evidence of cellulitis. MS/ Extremity: Pulses equal, no cyanosis. Neurovascular intact. Full, normal range of motion. Psych: Awake, alert, with orientation to person, place and time. Behavior, mood, and affect are within normal limits. ms3 09:56 09:48 Details of fall: The patient fell from an upright position, while standing, ms3 ms3 09:56 09:48 Onset: The symptoms/episode began/occurred Fell at 5 PM and 11 PM, ms3 ms3 09:56 09:48 Associated injuries: The patient sustained injury to the head, pain, neck injury, ms3 pain, pain with movement, tenderness, ms3 09:56 09:48 Severity of symptoms: At their worst the symptoms were mild, in the emergency ms3 department the symptoms are unchanged, ms3 09:56 09:48 The patient has not experienced similar symptoms in the past, ms3 ms3 09:56 09:48 This 76 yrs old Female presents to ER via EMS with complaints of fall. ms3 ms3 09:57 09:48 The history from the nurse's notes was reviewed and I agree with what is ms3 documented. ms3
[2022-04-12 04:04] VITALS: TEMP 98.7
[2022-04-12 04:47] VITALS: BP 106/68; O2SAT 99
--- NOTE | 2022-04-13 10:54 | RAD REPORT ---
EXAM DESCRIPTION: CT - Head C Spine Mpr Wo Con - 04/12/2022 6:59 am CLINICAL HISTORY: 76 years, Female, fall COMPARISON: 01/03/2022 FINDINGS: Multiple transaxial tomograms of the brain were obtained from the base of the skull to the vertex without contrast. 2-D multiplanar reformats and the coronal and sagittal plane were performed and reviewed. Multiple axial CT images through the cervical spine were obtained at 2 mm slice thickness at 2 mm int erval reconstruction. In addition 2-D multiplanar reformats and the sagittal coronal plane were perfo rmed and reviewed. This exam was performed according to our departmental dose-optimization protocol, which includes auto mated exposure control, adjustment of the mA and/or kV according to patient size and/or use of iterat lillie reconstruction technique. CT head: Brain parenchyma demonstrate minimal prominence of the sulci and gyri are corresponding to m ild brain atrophy. There is no midline shift and/or mass effect. There is no evidence for acute hemor rhage and/or infarction. Lateral ventricles and cisterns displace normal appearance. No intra or extra axial fluid collections were seen. The calvarium is intact with no evidence for fracture. The v isualized portions of the paranasal sinuses and orbits demonstrate to be clear. CT C-spine: The alignment of the vertebral bodies are normal. There is no evidence of fracture or s ubluxation. There is degenerative disc disease with decreased intervertebral disc height, anterior sp ondylosis and posterior osteophyte complex at C5-C7. There is mild anterolisthesis of C4 over C5 from uncovertebral degenerative changes. There is slight reversal of the lordosis of the lower cervical s pine most likely related to cervical collar. There are no significant spinal canal stenosis. There is mild right neural foraminal narrowing at C5-C7. There are uncovertebral degenerative changes C2-T1. There is no prevertebral soft tissue swelling. Sagittal coronal reformatted images demonstrate no s ubluxation or bony abnormalities. IMPRESSION: No acute intracranial hemorrhage. Mild brain atrophy. No evidence of acute fracture or subluxation of the cervical spine. Degenerative disc disease at C5-C7 with mild right neural foraminal narrowing at C5-C7. Overall no si gnificant interval change in comparison with prior study. Electronically signed by: Ilia Maciel MD 04/12/2022 1:54 AM CDT Due to temporary technical issues with the PACS/Fluency reporting system, reports are being signed by the in house radiologist without review as a courtesy to ensure prompt reporting. The interpreting r adiologist is fully responsible for the content of the report.
== END 2022-04-12 04:30 | disposition home or self-care (01) ==
LOC: ER 00:19
DX: Z04.3 Encounter for examination and observation following other accident (principal); W18.30XA Fall on same level, unspecified, initial encounter
CPT/HCPCS: 36415; 70450; 72125; 80048; 85025; 86850; 86900; 86901; 99284

== ENCOUNTER 2022-04-13 07:23 | Emergency (ER) | payer OTHER ==
--- OUTSIDE RECORDS SUMMARY | 2022-04-13 07:26 | XMS REPORT | Continuity of Care Document ---
:1945 Author Organization [facility] t Address [address] [place] [address] Care Team Providers Name Role Phone Pxaton Primary Care Physician Lisbet OLMSTEAD Attending Clinician Unavailable Leonardo LOPEZ L Attending Clinician ALFRED Attending Clinician Unavailable Brea Attending Clinician Unavailable ALFRED Admitting Clinician Unavailable Brea Admitting Clinician Unavailable Payers Payer Name Policy Type Policy Number Effective Date Expiration Date S rubi [employer] MEDICARE ADV [id number] 2018 00:00:00 MEDIC[place]: [id number] 1997 [employer] 00:00:00 Problems Condition Condition Condition Status Onset Resolution Last Treating Co mments Source Name Details Category Date Date Treatment Clinician Date No known No known Disease Unive rs active active ity of problems problems [facility] Allergies, Adverse Reactions, Alerts Allergy [...] Active Unknown-Cmnt Un rafa IRAMIN-P ity of [facility] [place] RIN-DM [facility] CHLORPRO DRUG Active Unknown-Cmnt Un rafa MAZINE INGREDI ity of [facility] CODEINE DRUG Active Unknown-Cmnt Uni vers INGREDI ity of [facility] DULOXETI DRUG Active Unknown-Cmnt Un rafa NE INGREDI ity of [facility] ROSUVAST DRUG Active Unknown-Cmnt Un rafa ATIN INGREDI ity of [facility] SIMVASTA DRUG Active Unknown-Cmnt Un rafa TIN INGREDI ity of [facility] TRAMADOL DRUG Active Unknown-Cmnt Un rafa INGREDI ity of [facility] Social History Social Habit Start Date Stop Date Quantity Comments Source Tobacco use and 2018-12-23 2018-12-23 Never used [facility] exposure 00:00:00 00:00:00 Medical Branch Sex Ass[birth year] [facility] 00:00:00 00:00:00 Medical Branch Smoking Status Start Date Stop Date Source Never smoker [facility] [place] [facility] Medications Ordered Filled Start Stop Current Ordering Indication Dosage Frequency Signature Comments Components Source Medication Medication Date Date Medication? Clinician (SIG) Name Name Diclofenac 0 202- No [id number] 25mg Take 25 mg [facility] Potassium 6-04 07-05 by mouth 3 ity of (ZIPSOR) 25 00:00: 04:59 (three) [place] mg Cap 00 :00 times Medical daily for Branch 30 days. hydroCHLORO 2018- Yes hydrochlor [facility] thiazide 1-28 othiazide ity of 12.5 mg 13:24: 12.5 mg [place] capsule 30 capsule Medical Take 1 Branch capsule every day by oral route. hydroCHLORO Yes hydrochlor [facility] thiazide 1-28 othiazide [...] route. memantine Yes Namenda Unive rs HCl -28 Titration ity of (NAMENDA 13:24: Tre [place] [...] 5 1-09 ity of mg tablet 00:00: [place] 00 [facility] Vital Signs Vital Name Observation Time Observation Value Comments Source Systolic blood 2021-05-02 13:49:00 140 mm[Hg] [facility] Diastolic blood 2021-05-02 13:49:00 86 mm[Hg] Unive rsity of [facility] Heart rate 2021-05-02 13:49:00 71 /min [facility] Body height 2021-05-02 13:49:00 165.1 cm [facility] Body weight 2021-05-02 13:49:00 49.442 kg [facility] BMI 2021-05-02 13:49:00 18.14 kg/m2 [facility] Procedures This patient has no known procedures. Encounters Start End Encounter Admission Attending Care Care Encounter Source Date/Time Date/Time Type Type Clinicians Facility Department ID 2021-05-02 2021-05-02 [id number] Univers 09:15:00 09:15:00 MAUNALOA [id number] [facility] 2021-05-02 2021-05-02 [facility] [id number] Univers 09:15:00 09:15:00 ANNEMARIE [facility] 2021-05-02 2021-05-02 [id number] Univers 08:36:22 09:11:01 Visit [facility] [id number] it y of Surgical [id number] Berny as Specialti [id number] Ak dical [address] 2020-08-30 2020-08-30 Outpatient R [facility] [id number] Univers 11:40:00 11:40:00 [facility] 2020-08-30 2020-08-30 Outpatient [facility] [id number] Univers 11:40:00 11:40:00 [facility] 2016-07-15 2016-07-15 Outpatient Maluf_C [facility] [id number] [place] 04:35:00 04:35:00 [id number] da Medical [...] TSH) 1.38 mIU/mL 0.270-4.200 N Comprehensive [facility]abolic [id number] 23:20:00 Test Item Value Reference Range Interpretation [...] ars ofage have not been validated by shruthi ann MDRD study and liban [place] be interpretedwith caution.eGFR Re sult Interpretation: eGFR > or = 60 is in t he Normal RangeeGF R < 60 may mean kidney diseaseeGFR < 1 5 may mean kidney failureRange s recommended by the National Kidney Foundation,http ://nkd ep.nih.gov Lipid [id number] 23:20:00 Test Item Value Reference Range Interpretation Comments Cholesterol (test 213 mg/dL 0-200 H code = CHOL) Triglycerides (test 142 mg/dL 9-200 N code = TRIG) HDL (test code = 53 mg/dL 50-60 N HDL) Chol/HDL (test code 4.0 Ratio 0.0-4.4 N = CHOLPHDL) LDL, Calculated 132 0-130 H (NOTE)RISK O F HEART (test code = LDLC) DISEASEPu blished by [place] Heart AssociationAnal yte Optim al Boderline Increased RiskC HOL <200 200-239 >240TRI G <150 150-199 >200HDL Male: >60 <40HDL Female: >60 <50 LDL < 100 130-15 9 >160 LDL NEAR OPTIMAL IS 100- 129 VLDL (test code = 28 mg/dL 5-40 N VLDL) LDL/HDL (test code = 2 LDLPHDL) [id number] 23:20:00 Test Item Value Reference Range Interpretation Comments NT ProBnp (test code = PBNP) 601 pg/mL 0-124 H [id number] 23:20:00 Test Item Value Reference Range Interpretation Comments Chilo (test code = LI) 1.09 mmol/L 0.6-1.2 N CBC with [id number] 22:20:00 Test Item Value Reference Range Interpretation [...] code = ALYMPH) 2.3 K/cumm 0.5-4.6 N [place] Abs (test code = AMONO) 0.5 K/cumm 0.0-1.2 N Eos Abs (test code = AEOS) 0.12 K/cumm 0.00-0.74 N Baso Abs (test code = ABASO) 0.1 K/cumm 0.00-0.21 N Hypochromic (test code = HYPO) Slight
--- NOTE | 2022-04-13 08:32 | RAD REPORT ---
EXAM DESCRIPTION: CT - Head C Spine Mpr Wo Con - 04/13/2022 7:52 am CLINICAL HISTORY: Head and neck injury status post fall. Head and neck pain COMPARISON: April 12, 2022 TECHNIQUE: Computed axial tomography of the head and cervical spine was obtained. Sagittal and coronal reconstruction was performed. All CT scans are performed using dose optimization technique as appropriate and may include automated exposure control or mA/KV adjustment according to patient size. FINDINGS: An intracranial bleed is not seen. The ventricles are normal in caliber. An extra-axial fl uid collection is not noted.Fluid within the visualized sinuses and mastoids is not seen A cervical fracture is not visualized. No dislocation is noted. Spondylosis involves cervical spine IMPRESSION: No acute intracranial abnormality is seen. A cervical fracture is not visualized. If the patient continues to have symptoms to suggest intracra nial /spinal cord pathology then MRI would be recommended
--- NOTE | 2022-04-13 09:13 | EDPHYS ---
Physician Documentation [facility] [place] [place] Name: Devonte Hager Age: 76 yrs Sex: Female : 1945 Arrival Date: 04/13/2022 Time: 07:29 Bed 13 Private MD: ED Physician Jayro Hankins HPI: 04/13 09:08 This 76 yrs old Female presents to ER via EMS with complaints of Fall Injury. divina 09:08 Details of fall: The patient fell from a height, off furniture, approximately 2 feet. divina Onset: The symptoms/episode began/occurred just prior to arrival. Associated injuries: The patient sustained injury to the head, neck injury. Severity of symptoms: At their worst the symptoms were mild, in the emergency department the symptoms are unchanged. The patient has not experienced similar symptoms in the past. Historical: - Allergies: 07:35 codeine sulfate; ww 07:35 Crestor; ww 07:35 Cymbalta; ww 07:35 Dimetapp Cold-Congestion; ww 07:35 thorezine; ww 07:35 Tramadol HCl; ww 07:35 Vioxx; ww 07:35 Zocor; ww - PMHx: 07:35 Atrial fibrillation; ww - PSHx: 07:35 hysterectomy; tubligation; ww - Immunization history: Last tetanus immunization: - up to date. - Social history:: Smoking status: Patient denies any tobacco usage or history of. - Family history:: not pertinent. ROS: 09:08 Constitutional: Negative for fever, chills, and weight loss, Eyes: Negative for injury, divina pain, redness, and discharge, ENT: Negative for injury, pain, and discharge, Cardiovascular: Negative for chest pain, palpitations, and edema, Respiratory: Negative for shortness of breath, cough, wheezing, and pleuritic chest pain, Abdomen/GI: Negative for abdominal pain, nausea, vomiting, diarrhea, and constipation, Back: Negative for injury and pain, : Negative for injury, bleeding, discharge, and swelling, MS/Extremity: Negative for injury and deformity, Skin: Negative for injury, rash, and discoloration, Neuro: Negative for headache, weakness, numbness, tingling, and seizure, Psych: Negative for depression, anxiety, suicide ideation, homicidal ideation, and hallucinations, Allergy/Immunology: Negative for hives, rash, and allergies, Endocrine: Negative for neck swelling, polydipsia, polyuria, polyphagia, and marked weight changes, Hematologic/Lymphatic: Negative for swollen nodes, abnormal bleeding, and unusual bruising. Exam: 09:08 Constitutional: This is a well developed, well nourished patient who is awake, alert, divina and in no acute distress. Head/Face: Normocephalic, atraumatic. Eyes: Pupils equal round and reactive to light, extra-ocular motions intact. Lids and lashes normal. Conjunctiva and sclera are non-icteric and not injected. Cornea within normal limits. Periorbital areas with no swelling, redness, or edema. ENT: Nares patent. No nasal discharge, no septal abnormalities noted. Tympanic membranes are normal and external auditory canals are clear. Oropharynx with no redness, swelling, or masses, exudates, or evidence of obstruction, uvula midline. Mucous membranes moist. Chest/axilla: Normal chest wall appearance and motion. Nontender with no deformity. No lesions are appreciated. Cardiovascular: Regular rate and rhythm with a normal S1 and S2. No gallops, murmurs, or rubs. Normal PMI, no JVD. No pulse deficits. Respiratory: Lungs have equal breath sounds bilaterally, clear to auscultation and percussion. No rales, rhonchi or wheezes noted. No increased work of breathing, no retractions or nasal flaring. Abdomen/GI: Soft, non-tender, with normal bowel sounds. No distension or tympany. No guarding or rebound. No evidence of tenderness throughout. Back: No spinal tenderness. No costovertebral tenderness. Full range of motion. Female : Normal external genitalia. Skin: Warm, dry with normal turgor. Normal color with no rashes, no lesions, and no evidence of cellulitis. MS/ Extremity: Pulses equal, no cyanosis. Neurovascular intact. Full, normal range of motion. Neuro: Awake and alert, GCS 15, oriented to person, place, time, and situation. Cranial nerves II-XII grossly intact. Motor strength 5/5 in all extremities. Sensory grossly intact. Cerebellar exam normal. Normal gait. Psych: Awake, alert, with orientation to person, place and time. Behavior, mood, and affect are within normal limits. 09:08 Neck: External neck: is normal, no acute changes, ROM/movement: is normal, no acute changes, pain, is not appreciated, limited range of motion, is not appreciated. Vital Signs: 07:29 BP 120 / 75; Pulse 60; Resp 18; Pulse Ox 98% on R/A; Weight 40.37 kg; Height 5 ft. 5 ww in. (165.10 cm); Pain 5/10; 07:29 Body Mass Index 14.81 (40.37 kg, 165.10 cm) ww [place] Coma Score: 07:29 Eye Response: spontaneous(4). Verbal Response: oriented(5). Motor Response: obeys commands(6). Total: 15. Trauma Score (Adult): 07:29 Eye Response: spontaneous(1); Verbal Response: oriented(1); Motor Response: obeys commands(2); Systolic BP: > 89 mm Hg(4); Respiratory Rate: 10 to 29 per min(4); Peggy Score: 15; Trauma Score: 12 MDM: 07:48 Patient medically screened. divina 09:10 Differential diagnosis: closed head injury, contusion, fracture, multiple trauma, divina sprain, strain. Data reviewed: vital signs, nurses notes, radiologic studies, CT scan. Data interpreted: monitoring manager: rate is 98 beats/min, rhythm is regular, Pulse oximetry: on room air is 98 %. Counseling: I had a detailed discussion with the patient and/or guardian regarding: the historical points, exam findings, and any diagnostic results supporting the discharge/admit diagnosis, radiology results, the need for outpatient follow up, for definitive care, 04/13 07:40 Order name: CT C Spine 04/13 07:50 Order name: Head C Spine Mpr Wo Con EDMS Administered Medications: No medications were administered Disposition Summary: 04/13/22 09:12 Discharge Ordered Location: Home divina Problem: new divina Symptoms: have improved divina Condition: Stable divina Diagnosis - Fall (on) (from) other stairs and steps - chair divina - Unspecified injury of head, initial encounter divina Followup: divina - With: Private Physician - When: 2 - 3 days - Reason: Recheck today's complaints, Continuance of care, Re-evaluation by your physician Discharge Instructions: - Discharge Summary Sheet divina - Head Injury, Adult divina - Fall Prevention in the Home, Adult divina - Fall Prevention in the Home, Adult, [id number] divina - Head Injury, Adult, [id number] divina Forms: - Medication Reconciliation Form divina - Thank You Letter divina - Antibiotic Education divina - Prescription Opioid Use divina Signatures: Dispatcher [employer] EDJayro James MD MD cha Wood, Whitney RN RN ww Corrections: (The following items were deleted from the chart) 07:50 07:43 Head Brain Wo Cont+CT.RAD.BRZ ordered. EDMS EDMS 07:51 07:45 C Spine Wo Con ordered. EDMS EDMS
--- NOTE | 2022-04-13 09:13 | ER ---
Nurse's Notes [facility] Name: Devonte Hager Age: 76 yrs Sex: Female : 1945 Arrival Date: 04/13/2022 Time: 07:29 Bed 13 Private MD: Diagnosis: Fall (on) (from) other stairs and steps-chair;Unspecified injury of head, initial encounter Presentation: 04/13 07:29 Chief complaint: Patient states: Fell from standing position and hit the back of her ww head. Complaining of pain in the back of the head radiating to the neck. Denies any LOC. Patient admits to having recent falls since Wednesday and was seen here in the Emergency room. Care prior to arrival: c-collar applied. Mechanism of Injury: Fall from standing position. Trauma event details: Injury occurred: at home. Injury occurred: April 13, 2022 Injury occurred at: 07:31. 07:29 Acuity: [facility] 3 ww 07:29 Method Of Arrival: EMS: [facility] 07:35 Coronavirus screen: Client denies travel out of the [place] in the last 14 days. Ebola ww Screen: Patient denies travel to an Ebola-affected area in the 21 days before illness onset. Initial Sepsis Screen: Does the patient meet any 2 criteria? No. Patient's initial sepsis screen is negative. Does the patient have a suspected source of infection? No. Patient's initial sepsis screen is negative. Risk Assessment: Do you want to hurt yourself or someone else? Patient reports no desire to harm self or others. Onset of symptoms was April 13, 2022. Trauma Activation: Physician: ED Physician; Name: Cr; Notified At: ; Arrived At: Physician: General Surgeon; Name: ; Notified At: ; Arrived At: Physician: Radiology; Name: ; Notified At: ; Arrived At: Physician: Respiratory; Name: ; Notified At: ; Arrived At: Physician: Lab; Name: ; Notified At: ; Arrived At: Historical: - Allergies: :35 codeine sulfate; 07:35 Crestor; 07:35 Cymbalta; 07:35 Dimetapp Cold-Congestion; 07:35 thorezine; 07:35 Tramadol HCl; 07:35 Vioxx; ww 07:35 Zocor; ww - PMHx: 07:35 Atrial fibrillation; ww - PSHx: 07:35 hysterectomy; tubligation; ww - Immunization history: Last tetanus immunization: - up to date. - Social history:: Smoking status: Patient denies any tobacco usage or history of. - Family history:: not pertinent. Screenin:29 Abuse screen: Denies threats or abuse. Denies injuries from another. Tuberculosis ww screening: No symptoms or risk factors identified. 07:40 Nutritional screening: No deficits noted. Fall Risk Fall in past 12 months (25 points). ww Secondary diagnosis (15 points) impaired mobility, No IV (0 pts). Ambulatory Aid- Crutches/Cane/Walker (15 pts). Gait- Weak (10 pts.). Mental Status- Oriented to own ability (0 pts). Total Sheth Fall Scale indicates High Risk Score (45 or more points). Fall prevention measures have been instituted. Side Rails Up X 2 Placed Close to Nursing Station 1:1 Attendant Assigned Frequent Obs/Assessments Occuring Family Present and informed to notify staff if the need to leave the bedside As available patient and family educated on Fall Prevention Program and Strategies. Primary Survey: 07:29 NO uncontrolled hemorrhage observed. Breathing/Chest: Spontaneous respiratory effort, ww equal unlabored respirations, breath sounds clear bilaterally, regular pattern, symmetrical chest rise and fall. Respiratory effort: unlabored, Breath sounds: clear, Respiratory pattern: regular. Circulation: No external hemorrhage present. Regular and strong central pulse, skin warm/dry/normal color. Skin temperature: warm. Disability Client is alert. Exposure/Environment: There is no evidence of uncontrolled external bleeding. No obvious injuries are noted at this time. 10:12 Reassessment Alertness and Airway: Awake and alert. The airway is patent. Airway Patent ww Breathing: Spontaneous respiratory effort, equal unlabored respirations, breath sounds clear bilaterally, regular pattern with symmetrical chest rise and fall. Respiratory effort Unlabored. Assessment: 07:29 General: Appears in no apparent distress. Behavior is cooperative. Pain: Complains of ww pain in scalp. Neuro: Level of Consciousness is awake, alert, obeys commands, Oriented to person, place, time, situation, Moves all extremities. tremors in all extremities. Speech is normal. Cardiovascular: Capillary refill Patient's skin is warm and dry. Chest pain is denied. Respiratory: Airway is patent Respiratory effort is even, unlabored, Respiratory pattern is regular, symmetrical. GI: No signs and/or symptoms were reported involving the gastrointestinal system. : No signs and/or symptoms were reported regarding the genitourinary system. Derm: Skin is fragile, is thin. 07:40 Reassessment: Discussed case with Dr. Valle and CT head and CT c-spine verbally ww ordered. 08:24 Reassessment: Patient appears in no apparent distress at this time. No changes from ww previously documented assessment. Patient and/or family updated on plan of care and expected duration. Pain level reassessed. Patient is alert, oriented x 3, equal unlabored respirations, skin warm/dry/pink. 09:35 Reassessment: Patient appears in no apparent distress at this time. No changes from ww previously documented assessment. Patient and/or family updated on plan of care and expected duration. Pain level reassessed. Patient is alert, oriented x 3, equal unlabored respirations, skin warm/dry/pink. informed patient of being discharged and contacting ride. Vital Signs: 07:29 BP 120 / 75; Pulse 60; Resp 18; Pulse Ox 98% on R/A; Weight 40.37 kg; Height 5 ft. 5 ww in. (165.10 cm); Pain 5/10; 07:29 Body Mass Index 14.81 (40.37 kg, 165.10 cm) ww [place] Coma Score: 07:29 Eye Response: spontaneous(4). Verbal Response: oriented(5). Motor Response: obeys commands(6). Total: 15. Trauma Score (Adult): 07:29 Eye Response: spontaneous(1); Verbal Response: oriented(1); Motor Response: obeys commands(2); Systolic BP: > 89 mm Hg(4); Respiratory Rate: 10 to 29 per min(4); Peggy Score: 15; Trauma Score: 12 ED Course: 07:29 Patient arrived in ED. ww 07:29 Patient has correct armband on for positive identification. Bed in low position. Call ww light in reach. Side rails up X2. 07:31 Triage completed. ww 07:33 Bronson Valle MD is Attending Physician. [facility] 07:41 No provider procedures requiring assistance completed. ww 07:47 Attending Physician role handed off by Bronson Valle MD [facility] 07:47 Jayro Hankins MD is Attending Physician. [facility] 07:53 Head C Spine Mpr Wo Con In Process Unspecified. EDWA 08:12 Yahaira Gibson, RN is Primary Nurse. ww 10:14 Patient did not have IV access during this emergency room visit. ww 10:14 Patient maintains SpO2 saturation greater than 95% on room air. ww Administered Medications: No medications were administered Medication: 10:14 VIS not applicable for this client. ww Output: 10:13 Urine: 0ml; Total: 0ml. ww Outcome: 09:12 Discharge ordered by . [facility] 10:13 Discharged to home via wheelchair, with friend. ww 10:13 Condition: stable 10:13 Patient's length of stay was not longer than 2 hours. 10:13 Discharge instructions given to patient, friend, Instructed on discharge instructions, ww follow up and referral plans. safety practices, Demonstrated understanding of instructions, follow-up care. 10:14 Patient left the ED. ww Signatures: Dispatcher [employer] EDWA Jayro Hankins MD MD cha Holmes, Maurice, MD MD [facility] Yahaira Gibson, RN RN ww
[2022-04-13 10:47] VITALS: BP 120/75; O2SAT 98
== END 2022-04-13 10:14 | disposition home or self-care (01) ==
LOC: ER 07:23
DX: S09.90XA Unspecified injury of head, initial encounter (principal); W10.9XXA Fall (on) (from) unspecified stairs and steps, initial encounter; Y93.9 Activity, unspecified; Y92.9 Unspecified place or not applicable; Z88.6 Allergy status to analgesic agent; Z88.8 Allergy status to other drugs, medicaments and biological substances; I48.91 Unspecified atrial fibrillation
CPT/HCPCS: 70450; 72125; 99284

== ENCOUNTER 2022-08-07 08:44 | Emergency (ER) | payer OTHER ==
--- OUTSIDE RECORDS SUMMARY | 2022-08-07 08:49 | XMS REPORT | Continuity of Care Document ---
:1945 Author Organization [facility] t Address [address] [place] [address] Care Team Providers Name Role Phone Kaitlyn Matta Primary Care Physician [id number] Attending Clinician Unavailable Doctor Unassigned, [place] Attending Clinician Unavailable Josh Osuna Attending Clinician Unavailable ANNEMARIE OLMSTEAD Attending Clinician Unavailable Annemarie Olmstead MD Attending Clinician STEVO SIMON Attending Clinician Unavailable Brea Attending Clinician Unavailable [id number] Admitting Clinician Unavailable Josh Osuna Admitting Clinician Unavailable STEVO SIMON Admitting Clinician Unavailable Brea Admitting Clinician Unavailable Payers Payer Name Policy Type Policy Number Effective Date Expiration Date S rubi AETNA MEDICARE HMO [id number] 2021 POS 00:00:00 AETM AETM [id number] AETNA MEDICARE ADV [id number] 2018 00:00:00 MEDICARE B-[place]: [id number] 1997 Twitter 00:00:00 Problems Condition Condition Condition Status Onset Resolution Last Treating Co mments Source Name Details Category Date Date Treatment Clinician Date No known No known Disease Unive rs active active ity of problems problems [place] [facility] Allergies, Adverse Reactions, Alerts Allergy Allergy Status Severity Reaction(s) Onset Inactive Treating Comm ents Source Name Type Date Date Clinician tramadol DA Active U UNKNOWN 2021-0 [facility] 5[facility]24 [place] 00:00: d 00 [facility] dextrome DA Active U UNKNOWN 2021-0 [facility] thorphan 5-24 [place] 00:00: d 00 [facility] chlorpro DA Active U UNKNOWN 2021-0 [facility] mazine 5-24 [place] 00:00: d 00 [facility] diphenhy DA Active U UNKNOWN 2021-0 [facility] dramine 5-24 [place] 00:00: d 00 [facility] chlorpro DA Active U UNKNOWN 2021-0 [facility] ethazine 5-24 [place] 00:00: d 00 [facility] rofecoxi DA Active U UNKNOWN 2021-0 [facility] b 5-24 [place] 00:00: d 00 [facility] duloxeti DA Active U UNKNOWN 2021-0 [facility] ne 5-24 [place] 00:00: d 00 [facility] rosuvast DA Active U UNKNOWN 2021-0 [facility] atin 5-24 [place] 00:00: d 00 [facility] guaifene DA Active U UNKNOWN 2021-0 [facility] sin 5-24 [place] 00:00: d 00 [facility] codeine DA Active U UNKNOWN 2021-0 [facility] 5-24 [place] 00:00: d 00 [facility] phenylep DA Active U UNKNOWN 2021-0 [facility] hrine 5-24 [place] 00:00: d 00 [facility] pseudoep DA Active U UNKNOWN 2021-0 [facility] hedrine 5-24 [place] 00:00: d 00 [facility] simvasta DA Active U UNKNOWN 2021-0 [facility] tin 5-24 [place] 00:00: d 00 [facility] Bromphen Propensi Active Unknown - Uni vers [...] Active Unknown-Cmnt Un rafa [facility] CHLORPRO DRUG Active Unknown-Cmnt Un rafa MAZINE INGREDI ity of [facility] CODEINE DRUG Active Unknown-Cmnt Uni vers INGREDI ity of [facility] DULOXETI DRUG Active Unknown-Cmnt Un rafa NE INGREDI ity of [facility] ROSUVAST DRUG Active Unknown-Cmnt Un rafa ATIN INGREDI ity of [facility] SIMVASTA DRUG Active Unknown-Cmnt Un rafa TIN INGREDI ity of [facility] TRAMADOL DRUG Active Unknown-Cmnt Un rafa INGREDI ity of [facility] Social History Social Habit Start Date Stop Date Quantity Comments Source Tobacco use and 2018-12-23 2018-12-23 Never used [facility] [place] exposure 00:00:00 00:00:00 Medical Branch Sex Assigned At [address] [facility] 00:00:00 00:00:00 [facility] Smoking Status Start Date Stop Date Source Never smoker [facility] xa Medical Branch Medications Ordered Filled Start Stop Current Ordering Indication Dosage Frequency Signature Comments Components Source Medication Medication Date Date Medication? Clinician (SIG) Name Name diclofenac Yes 75mg Take 1 Unive rs 75 mg EC 6-04 tablet by ity of tablet 00:00: mouth 2 [place] 00 (two) Medical times Branch daily with meals. Diclofenac 2020- No [id number] 25mg Take 25 mg Univers Potassium - 07-05 by mouth 3 ity of (ZIPSOR) [...] tablet every day by oral route. HYDROcodone Yes hydrocodon Univers -acetaminop 1-28 e 10 [...] route. memantine Yes Namenda Unive rs HCl 1-28 Titration ity of (NAMENDA 13:24: Tre [place] TITRATION 30 Medical TRE ORAL) Branch hydroCHLORO Yes hydrochlor Univers thiazide 1-28 othiazide [...] tablet every day by oral route. HYDROcodone Yes hydrocodon Univers -acetaminop 1-28 e 10 [...] route. memantine Yes Namenda Unive rs HCl 1-28 Titration ity of (NAMENDA 13:24: Tre [place] [...] tablet twice a day by oral route. amLODIPine Yes amlodipine U nivers 5 mg [...] mg tablet 00:00: [place] 00 Medical Branch oxybutynin Yes Univers chloride 5 1-09 ity of mg tablet 00:00: [place] 00 [facility] Branch Vital Signs Vital Name Observation Time Observation Value Comments Source Systolic blood 2021-05-02 13:49:00 140 mm[Hg] [facility]iver [facility] Diastolic blood 2021-05-02 13:49:00 86 mm[facility]Hg[facility] 2021-05-02 13:49:00 71 /min [facility] Body height 2021-05-02 13:49:00 165.1 cm [facility] Body weight 2021-05-02 13:49:00 49.442 kg [facility] BMI 2021-05-02 13:49:00 18.14 kg/m2 [facility] Procedures Procedure Date / Time Performed Performing Clinician Sourc e EXTERNAL PROVIDER 2022-05-16 05:01:00 Doctor Unassigned, No Univ [facility] RECORDS Name Medical Branch [id number] 2022-04-21 00:00:00 ARMRO.01 [facility] Plan of Care Planned Activity Planned Date Details Comments Source Future Scheduled 2022-07-30 INFLUENZA VACCINE (#1) [facility] 00:00:00 [code = INFLUENZA Medical Ce nter VACCINE (#1)] Future Scheduled 2022-02-[address] [facility] [facility] 00:00:00 WELLNESS (YEAR 2 or Medical Center FIRST YEAR if no IPPE) [code = MEDICARE ANNUAL WELLNESS (YEAR 2 or FIRST YEAR if no IPPE)] Future Scheduled 2021-11-29 FALLS RISK SCREENING [facility] 00:00:00 [code = FALLS RISK Medical C enter SCREENING] Future Scheduled 2021-11-[address] [facility] 00:00:00 (12+) [code = Medical Center DEPRESSION SCREENING (12+)] Future Scheduled 2008 PNEUMOCOCCAL 65+ YRS [facility] Test 00:00:00 (1 - PCV) [code = Medical Ce nter PNEUMOCOCCAL 65+ YRS (1 - PCV)] Future Scheduled 1993 SHINGLES VACCINES ([address] [facility] 00:00:00 of 2) [code = SHINGLES Medic al Center VACCINES (1 of 2)] Future Scheduled 1962 DTAP/TDAP/TD VACCINES [facility] 00:00:00 (1 - Tdap) [code = Medical C enter DTAP/TDAP/TD VACCINES (1 - Tdap)] Future Scheduled 1961 HEPATITIS C SCREENING [facility] 00:00:00 [code = HEPATITIS C Medical Center SCREENING] Future Scheduled 1945 COVID-19 VACCINE (#1) [facility] 00:00:00 [code = COVID-[address] VACCINE (#1)] Future Scheduled 1945 DXA SCAN [code = DXA [facility] Test 00:00:00 SCAN] Medical Center Encounters Start End Encounter Admission Attending Care Care Encounter Source Date/Time Date/Time Type Type Clinicians Facility Department ID 2022-04-[address] [facility] Neurology [id number] 01:21:33 [facility] 2022-04-19 Outpatient 3 [id number] ENC[facility] MAGO [id number] E[facility] 10:56:51 5212022-04-17 Outpatient 3 [id number] ENCPL MAGO [id number] E[facility] 09:53:42 5192022-04-16 Outpatient 3 [id number] ENCPL MAGO [id number] E[facility] 11:08:53 5182022-04-15 Outpatient 3 [id number] ENCPL REF [id number] ENC[facility] 10:49:31 5172022-05-16 2022-05-16 Orders Doctor WIMLAN [id number] Univers 00:00:00 00:00:00 Only Unassigned, RUSLAN [id number] ity of [place] [facility] [id number] Berny as [phone] [address] 2022-04-21 2022-04-24 Inpatient NICOLAS McfarlaneOsunaTARUN max TELE [id number] [facility] 06:28:00 13:57:00 Josh [id number] [facility] 2022-04-21 2022-04-24 Inpatient NICOLAS Osuna SETHJOEY TELE [id number] [facility] 06:28:00 13:57:00 Josh 30 [facility] 2021-05-02 2021-05-02 Outpatient Sheila OLMSTEAD [facility] [id number] Univers 08:47:28 23:59:00 [facility]05[facility]02 2021-05-02 Outpatient Sheila OLMSTEAD [facility] [id number] [id number] Univers 09:15:00 09:15:00 [facility] [id number] [facility] 2021-05-02 2021-05-02 [facility] [id number] Univers 08:36:22 09:11:01 Visit [facility]arie [facility] [id number] it y of Surgical [id number] Berny as Specialti [id number] Ca dical es [address] [facility] 2020-08-30 2020-08-30 Outpatient R [facility] [id number] Univers 11:40:00 11:40:00 ity [facility] [place] 2020-08-30 2020-08-30 Outpatient R [facility] [id number] Univers 11:40:00 11:40:00 [facility] 2016-07-15 2016-07-15 [place] [id number] [place] 04:35:00 04:35:00 0319 [facility] Results Test Description Test Time Test Comments Results Result Comments Source COMPREHENSIVE METABOLIC PANEL 2022-04-24 13:27:00 Test Item Value Reference Range Interpretation Comme nts SODIUM (test code = NA) 135 mmol/l 134.0-147.0 N POTASSIUM (test code = K) 4.7 mmol/L 3.6-5.2 N CHLORIDE (test code = CL) 102 mmol/l 98.0-107.0 N CARBON DIOXIDE (test code = CO2) 28.5 mmol/l 21.0-33.0 N ANION GAP (test code = GAP) 9.2 0-20 N GLUCOSE (test code = GLU) 109 mg/dl 70.0-110.0 N BLOOD UREA NITROGEN (test code = BUN) 38 mg/dl 7.0-18.0 H CREATININE (test code = CREAT) 1.27 mg/dL 0.60-1.30 N GFR NON BLACK (test code = GFRNONBLACK) 43 mL/min 70-80 L GFR BLACK (test code = GFRBLACK) 52 mL/min 85-97 L TOTAL PROTEIN (test code = PROT) 6.8 gm/dL 6.4-8.2 N ALBUMIN (test code = ALB) 3.2 gm/dl 3.2-4.7 N CALCIUM (test code = CA) 10.0 mg/dl 8.0-10.5 N BILIRUBIN TOTAL (test code = BILT) 0.4 mg/dl 0.0-1.0 N SGOT/AST (test code = AST) 18 Units/L 15-37 N SGPT/ALT (test code = ALT) 32 Units/L 12.0-78.0 N ALKALINE PHOSPHATASE TOTAL (test code = ALKP) 64 Units/L 50.0-136 .0 N [id number] 13:27:00 Test Item Value Reference Range Interpretation Comments MAGNESIUM (test code = MAG) 2.5 mg/dl 1.8-2.4 H CBC W/AUTO [id number] 13:15:00 Test Item Value Reference Range Interpretation Comments WHITE BLOOD CELL (test code = 6.8 K/mm3 4.5-11.0 N WBC) RED BLOOD CELL (test code = 3.51 M/mm3 3.80-5.20 L RBC) HEMOGLOBIN (test code = HGB) 11.4 gm/dL 12.0-16.0 L HEMATOCRIT (test code = HCT) 36.7 % 36.0-48.0 N MEAN CELL VOLUME (test code = 104.6 UM3 82.0-99.0 H MCV) MEAN CELL HGB (test code = MCH) 32.5 UUG 25.5-32.5 N MEAN CELL HGB CONCETRATION 31.1 gm/dL 29.0-35.5 N (test code = MCHC) RED CELL DISTRIBUTION WIDTH 13.2 % 11.5-15.0 N (test code = RDW) RED CELL DISTRIBUTION WIDTH SD 50.9 fL 34.8-50.2 H (test code = RDW-SD) PLATELET COUNT (test code = 253 K/mm3 150-400 N PLT) MEAN PLATELET VOLUME (test code 9.6 fl 7.4-10.4 N = MPV) NEUTROPHIL % (test code = NT%) 67.7 % 49.0-76.0 N IMMATURE GRANULOCYTE % (test 0.9 % 0.0-0.4 H code = IG%) LYMPHOCYTE % (test code = LY%) 20.3 % 23.0-38.0 L MONOCYTE % (test code = MO%) 7.7 % 1.0-10.0 N EOSINOPHIL % (test code = EO%) 2.7 % 1.0-5.0 N BASOPHIL % (test code = BA%) 0.7 % 0.0-1.0 N NUCLEATED RBC % (test code = 0.0 % 0.0-0.1 N NRBC%) NEUTROPHIL # (test code = NT#) 4.6 K/mm3 2.4-6.3 N IMMATURE GRANULOCYTE # (test 0.06 x10 3/uL 0.00-0.07 N code = IG#) LYMPHOCYTE # (test code = LY#) 1.4 K/mm3 1.2-4.0 N MONOCYTE # (test code = MO#) 0.5 K/mm3 0.0-0.6 N EOSINOPHIL # (test code = EO#) 0.2 K/MM3 0.0-0.7 N BASOPHIL # (test code = BA#) 0.1 K/mm3 0.0-0.2 N NUCLEATED RBC # (test code = 0.00 X10 3uL 0.00-0.01 N NRBC#) TROP-I HIGH [id number] 18:48:00 Test Item Value Reference Range Interpretation Comments TROP-I HIGH <4.0 pg/mL 0.0-51.4 N CAUTION: Units of the SENSITIVITY (test current TR OPI-HS test code = TROPIHS) methodology( pg/mL) differ from the prior test methodolog y (ng/mL) by afac tor of 1000. ------- ------- -----99 th Percentile: Females: 0.0-51 .4 pg/mL Males: 0. 0-76.2 pg/mLThese resu lts [facility] u [facility]. Re sults from different methodologies s hould not becompared to one another as quantitative re sults may vary bymeth od. COMPREHENSIVE METABOLIC [id number] 10:49:00 Test Item Value Reference Range Interpretation Comments SODIUM (test code = NA) 136 mmol/l 134.0-147.0 N POTASSIUM (test code = K) 4.7 mmol/L 3.6-5.2 N CHLORIDE (test code = CL) 105 mmol/l 98.0-107.0 N CARBON DIOXIDE (test code = CO2) 24.1 mmol/l 21.0-33.0 N ANION GAP (test code = GAP) 11.6 0-20 N GLUCOSE (test code = GLU) 112 mg/dl 70.0-110.0 H BLOOD UREA NITROGEN (test code = 22 mg/dl 7.0-18.0 H BUN) CREATININE (test code = CREAT) 1.11 mg/dL 0.60-1.30 N GFR NON BLACK (test code = 50 mL/min 70-80 L GFRNONBLACK) GFR BLACK (test code = GFRBLACK) 61 mL/min 85-97 L TOTAL PROTEIN (test code = PROT) 7.8 gm/dL 6.4-8.2 N ALBUMIN (test code = ALB) 3.6 gm/dl 3.2-4.7 N CALCIUM (test code = CA) 10.6 mg/dl 8.0-10.5 H BILIRUBIN TOTAL (test code = 0.5 mg/dl 0.0-1.0 N BILT) SGOT/AST (test code = AST) 32 Units/L 15-37 N SGPT/ALT (test code = ALT) 49 Units/L 12.0-78.0 N ALKALINE PHOSPHATASE TOTAL (test 72 Units/L 50.0-136.0 N code = ALKP) [id number] 10:49:00 Test Item Value Reference Range Interpretation Comments MAGNESIUM (test code = MAG) 2.3 mg/dl 1.8-2.4 N THYROID STIMULATING [id number] 10:49:00 Test Item Value Reference Range Interpretation Comments THYROID STIMULATING 1.58 IU/ML 0.47-5.01 N Result i s in HORMONE (test code = Interna tional TSH) Units/millilite r CBC W/AUTO [id number] 10:32:00 Test Item Value Reference Range Interpretation Comments WHITE BLOOD CELL (test code = 10.4 K/mm3 4.5-11.0 N WBC) RED BLOOD CELL (test code = 3.87 M/mm3 3.80-5.20 N RBC) HEMOGLOBIN (test code = HGB) 12.2 gm/dL 12.0-16.0 N HEMATOCRIT (test code = HCT) 39.6 % 36.0-48.0 N MEAN CELL VOLUME (test code = 102.3 UM3 82.0-99.0 H MCV) MEAN CELL HGB (test code = MCH) 31.5 UUG 25.5-32.5 N MEAN CELL HGB CONCETRATION 30.8 gm/dL 29.0-35.5 N (test code = MCHC) RED CELL DISTRIBUTION WIDTH 13.2 % 11.5-15.0 N (test code = RDW) RED CELL DISTRIBUTION WIDTH SD 49.3 fL 34.8-50.2 N (test code = RDW-SD) PLATELET COUNT (test code = 301 K/mm3 150-400 N PLT) MEAN PLATELET VOLUME (test code 9.8 fl 7.4-10.4 N = MPV) NEUTROPHIL % (test code = NT%) 76.9 % 49.0-76.0 H IMMATURE GRANULOCYTE % (test 1.1 % 0.0-0.4 H code = IG%) LYMPHOCYTE % (test code = LY%) 15.4 % 23.0-38.0 L MONOCYTE % (test code = MO%) 5.1 % 1.0-10.0 N EOSINOPHIL % (test code = EO%) 0.8 % 1.0-5.0 L BASOPHIL % (test code = BA%) 0.7 % 0.0-1.0 N NUCLEATED RBC % (test code = 0.0 % 0.0-0.1 N NRBC%) NEUTROPHIL # (test code = NT#) 8.0 K/mm3 2.4-6.3 H IMMATURE GRANULOCYTE # (test 0.11 x10 3/uL 0.00-0.07 H code = IG#) LYMPHOCYTE # (test code = LY#) 1.6 K/mm3 1.2-4.0 N MONOCYTE # (test code = MO#) 0.5 K/mm3 0.0-0.6 N EOSINOPHIL # (test code = EO#) 0.1 K/MM3 0.0-0.7 N BASOPHIL # (test code = BA#) 0.1 K/mm3 0.0-0.2 N NUCLEATED RBC # (test code = 0.00 X10 3uL 0.00-0.01 N NRBC#) - CT HEAD/BRAIN W/O [id number] 09:27:00 [facility] : 1945 Sex: F FAX: Kaitlynn Garza MD [phone] [place]: St: [facility] FAX: Dayo Messina [facility] [phone] Name: IRMA BRUCE [facility] : 1945 Age/S: 76/F [address] [facility] Unit: [id number] Loc: [address] Phys: [place] [id number] Acct: [id number] Dis Date: Status: ADM IN PHONE #: [phone] Exam Date: 04/21/2022905 FAX #: [phone] Reason: RULE OUT STROKE EXAMS: CPT CODE: [id number] CT HEAD/BRAIN W/O CONT 93705 INDICATION:Stroke TECHNIQUE: Noncontrast CT of the head is obtained. Comparison: No prior studies for comparison. Location: C3 CT DLP Dose: 806 mGy-cm. One or more of the following dose reduction techniques were used: Automated exposure control, adjustment of the mA and/or kV according to patient size, and/or iterative reconstruction. FINDINGS: There is mild generalized cerebralatrophy with scattered periventricular and deep white matter low-density changes. There is no CT evid ence of an acute cerebrovascular accident. There is no evidence of intracerebral hemorrhage. No masseffect is seen. No mass is seen. The brainstem structures are unremarkable. There is mild cerebellaratrophy. There is no evidence of an acute cerebrovascular accident involving the cerebellar hemispheres. The cisterns are patent. The ventricular system is unremarkable. The calvarium and skull base are normal. No calvarial or skull base fracture is seen. The extracranial soft tissues are unremarkable. Vascular calcifications are noted in the carotid siphons. IMPRESSION: 1. Mild generalized cerebral atrophy and scattered periventricular and deep white matter changes, consistent with chronic microvasc ular disease. 2. No evidence of acute stroke, hemorrhage or mass. at 09 Reported and signed by: ANTHONY GALICIA M.D. PAGE 1 Signed Report (CONTINUED) FAX: Kaitlynn Garza MD [phone] [place]: St: [facility] FAX: Dayo Messina III Name: IRMA BRUCE [facility] : 1945 Age/S: 76/F [address] [facility] Unit: [id number] Loc: [address] Phys: [place] [id number] Acct: [id number] Dis Date: Status: ADM IN PHONE #: [phone] Exam Date: 04/21/2022905 FAX #: [phone] Reason: RULE OUT STROKE EXAMS: CPT CODE: [id number] CT HEAD/BRAIN W/O CONT [id number] (Continued) CC: Kaitlynn Howe MD; Dayo Perdomo III, MD Technologist: AVIS Dyer Trnhird Dt/Tm: 04/21/2022 ([id number]) [id number] Orig Print D/T: S: 04/21/2022 ([id number] PAGE 2 Signed ReportSed Rate ESR ([place])2017-06-30 05:03:00 Test Item Value Reference Range Interpretation Comments ESR (test code = HESR) 4 mm/Hr 0-20 N Thyroid Stimulating Hormone (TSH)2017-06-29 23:23:00 Test Item Value Reference Range Interpretation Comments TSH (test code = TSH) 1.38 mIU/mL 0.270-4.200 N Comprehensive Metabolic [id number] 23:20:00 Test Item Value Reference Range Interpretation [...] the National Kidney Foundation,http ://nkd ep.nih.gov Lipid [id number] 23:20:00 Test Item Value Reference Range Interpretation Comments Cholesterol (test 213 mg/dL 0-200 H code = CHOL) Triglycerides (test 142 mg/dL 9-200 N code = TRIG) HDL (test code = 53 mg/dL 50-60 N HDL) Chol/HDL (test code 4.0 Ratio 0.0-4.4 N = CHOLPHDL) LDL, Calculated 132 0-130 H (NOTE)RISK O F HEART (test code = LDLC) DISEASEPu blished by [place] Heart AssociationAnal yte Optimal Boderli ne Increased RiskC HOL <200 200-239 >240TRI G <150 150-199 >200HDL Male: >60 <40HDL Fema le: >60 <50LDL <100 13 0-159 >160LDL NEAR OP TIMAL IS 100-129 VLDL (test code = 28 mg/dL 5-40 N VLDL) LDL/HDL (test code = 2 LDLPHDL) [id number] 23:20:00 Test Item Value Reference Range Interpretation Comments NT ProBnp (test code = PBNP) 601 pg/mL 0-124 H [id number] 23:20:00 Test Item Value Reference Range Interpretation Comments [place] (test code = LI) 1.09 mmol/L 0.6-1.2 N CBC with [id number] 22:20:00 Test Item Value Reference Range Interpretation [...] code = ALYMPH) 2.3 K/cumm 0.5-4.6 N [place] Abs (test code = AMONO) 0.5 K/cumm 0.0-1.2 N Eos Abs (test code = AEOS) 0.12 K/cumm 0.00-0.74 N Baso Abs (test code = ABASO) 0.1 K/cumm 0.00-0.21 N Hypochromic (test code = HYPO) Slight
[2022-08-07 09:15] LABS: Absolute Lymphocytes (CBC) 1.1 K/uL (0.7-4.9); Lymphocytes % 15.8 % (15.3-44.8); MCV 95.2 fL (80-100); MPV 7.3 fL (7.6-11.3)
[2022-08-07] MEDS ORDERED: ASPIRIN 81 MG CHEWABLE TABLET ONE (09:17)
--- NOTE | 2022-08-07 10:20 | RAD REPORT ---
EXAM DESCRIPTION: RAD - Chest Single View - 08/07/2022 9:51 am CLINICAL HISTORY: CHEST PAIN Chest pain. COMPARISON: Chest Pa And Lat (2 Views) dated 03/31/2022; CHEST SINGLE VIEW dated 05/06/2011; CHEST SINGL E VIEW dated 05/05/2011; CHEST PA AND LAT 2 VIEW dated 03/11/2009 FINDINGS: Portable technique limits examination quality. The lungs are grossly clear. The heart is upper limit of normal in size. No displaced fractures.Dual lead pacer device. IMPRESSION: No acute intrathoracic process suspected.
[2022-08-07 12:24] LABS: BUN Blood Urea Nitrogen 18 mg/dL (7-18); Bicarbonate 26 mmol/L (21-32); Glomerular Filtration Rate 40 ml/min (=/>90); Glucose Level 117 mg/dL (74-106); Potassium 4.5 mmol/L (3.5-5.1); Sodium Level 136 mmol/L (136-145)
[2022-08-07 12:46] LABS: Troponin High Sensitivity < 3.0 pg/mL (<58.9)
--- NOTE | 2022-08-07 12:52 | ER ---
Nurse's Notes [facility] Name: Devonte Hager Age: 77 yrs Sex: Female : 1945 Arrival Date: 08/07/2022 Time: 08:45 Bed 18 Private MD: Diagnosis: Chest pain, unspecified Presentation: 08/07 08:47 Chief complaint: Patient states: Chest pain that began at 0800 this morning while ss watching TV. Pt reports her chest feels much better at this time, but wants to be sure she is ok. Coronavirus screen: Client denies travel out of the [place] in the last 14 days. Ebola Screen: Patient denies exposure to infectious person. Patient denies travel to an Ebola-affected area in the 21 days before illness onset. Initial Sepsis Screen: Does the patient meet any 2 criteria? No. Patient's initial sepsis screen is negative. Does the patient have a suspected source of infection? No. Patient's initial sepsis screen is negative. Risk Assessment: Do you want to hurt yourself or someone else? Patient reports no desire to harm self or others. Onset of symptoms was August 07, 2022. 08:47 Method Of Arrival: Ambulatory ss 08:47 Acuity: [facility] 3 ss Historical: - Allergies: 09:01 codeine sulfate; ss 09:01 Crestor; ss 09:01 Cymbalta; ss 09:01 Dimetapp Cold-Congestion; ss 09:01 thorezine; ss 09:01 Tramadol HCl; ss 09:01 Vioxx; ss 09:01 Zocor; ss - PMHx: 09:01 Atrial fibrillation; ss - PSHx: 09:01 hysterectomy; tubligation; Pacemaker; ss - Immunization history:: Client reports receiving the 2nd dose of the Covid vaccine. - Social history:: Smoking status: Patient denies any tobacco usage or history of. Screenin:00 Abuse screen: Denies threats or abuse. Nutritional screening: No deficits noted. aa5 Tuberculosis screening: No symptoms or risk factors identified. Fall Risk IV access (20 points). Ambulatory Aid- Crutches/Cane/Walker (15 pts). Gait- Weak (10 pts.). Total Sheth Fall Scale indicates High Risk Score (45 or more points). Fall prevention measures have been instituted. Side Rails Up X 2 Placed Close to Nursing Station. Assessment: 09:00 General: Appears comfortable, Behavior is calm, cooperative. Pain: Complains of pain in aa5 chest Pain does not radiate. Pain currently is 1 out of 10 on a pain scale. Quality of pain is described as pressure, Pain began this morning while watching TV Is continuous. Neuro: Level of Consciousness is awake, alert, obeys commands, Oriented to person, place, time, situation. Cardiovascular: Reports chest pain, Denies diaphoresis, lightheadedness, nausea, palpitations, shortness of breath, syncope, vomiting, Heart tones S1 S2 present Rhythm is Paced. Respiratory: Airway is patent Respiratory effort is even, unlabored, Respiratory pattern is regular, symmetrical, Breath sounds are clear bilaterally. Denies cough, shortness of breath. GI: Abdomen is flat, Patient currently denies nausea, vomiting. : No signs and/or symptoms were reported regarding the genitourinary system. EENT: No signs and/or symptoms were reported regarding the EENT system. Derm: Skin is pink, warm \T\ dry. Musculoskeletal: Pt is ambulatory with walker. 09:20 Reassessment: Pt given warm blankets, awaiting lab and radiology results, pt notified aa5 of wait time. . Cardiovascular: Rhythm is paced. 10:52 Reassessment: Patient is alert, oriented x 3, equal unlabored respirations, skin aa5 warm/dry/pink. Pain: Pain currently is 1 out of 10 on a pain scale. Cardiovascular: Rhythm is paced. 12:00 Reassessment: Patient is alert, oriented x 3, equal unlabored respirations, skin aa5 warm/dry/pink. Pt sitting up in bed watching TV. Awaiting troponin result, lab reported delay on troponin results today. . 12:00 Pain: Pain currently is 1 out of 10 on a pain scale. aa5 14:00 Reassessment: Patient is alert, oriented x 3, equal unlabored respirations, skin aa5 warm/dry/pink. Vital Signs: 08:47 BP 151 / 80; Pulse 58; Resp 15; Temp 98.3(O); Pulse Ox 99% on R/A; Weight 40.37 kg; ss Height 5 ft. 5 in. (165.10 cm); Pain 2/10; 10:55 BP 111 / 73; Pulse 60; Resp 18 S; Pulse Ox 97% on R/A; aa5 12:00 BP 118 / 70; Pulse 60; Resp 16 S; Temp 98.0(TE); Pulse Ox 98% on R/A; aa5 13:30 BP 119 / 66; Pulse 60; Resp 18 S; Temp 97.8(TE); Pulse Ox 97% on R/A; aa5 08:47 Body Mass Index 14.81 (40.37 kg, 165.10 cm) ED Course: 08:45 Patient arrived in ED. rg4 08:50 Ilia Strange is PHCP. jl9 08:50 Jayro Hankins MD is Attending Physician. jl9 08:50 Tuyet Lora, RN is Primary Nurse. aa5 09:00 Arm band placed on right wrist. aa5 09:00 Patient has correct armband on for positive identification. Placed in gown. Bed in low aa5 position. Call light in reach. Side rails up X2. 09:00 Client placed on continuous cardiac and pulse oximetry monitoring. NIBP monitoring aa5 applied. 09:00 Initial lab(s) drawn, by ak, sent to lab. Inserted saline lock: 22 gauge in right aa5 forearm, using aseptic technique. Blood collected. 09:01 Triage completed. 09:52 XRAY Chest (1 view) In Process Unspecified. EDMS 12:00 No provider procedures requiring assistance completed. Patient maintains SpO2 aa5 saturation greater than 95% on room air. 14:00 IV discontinued, intact, bleeding controlled, No redness/swelling at site. Pressure aa5 dressing applied. Administered Medications: 09:11 Drug: Aspirin Chewable Tablet 324 mg Route: PO; aa5 10:55 Follow up: Response: No adverse reaction aa5 Medication: 14:00 VIS not applicable for this client. aa5 Outcome: 12:51 Discharge ordered by . jl9 14:00 Discharged to home via wheelchair. aa5 14:00 Condition: stable 14:00 Discharge instructions given to patient, Instructed on discharge instructions, follow up and referral plans. Demonstrated understanding of instructions, follow-up care. 14:18 Patient left the ED. dh3 Signatures: Dispatcher [employer] EDKY Tuyet Lora, EDILBERTO CASANOVA aa5 Kristal Groves RN RN Veronica Jefferson 4 Joyce Winn dh3 Ilia Strange jl9 Corrections: (The following items were deleted from the chart) 09:22 09:01 Arm band placed on right wrist. aa5
--- NOTE | 2022-08-07 12:52 | EDPHYS ---
Physician Documentation [facility] Name: Devonte Hager Age: 77 yrs Sex: Female : 1945 Arrival Date: 08/07/2022 Time: 08:45 Bed 18 Private MD: JOSE ALFREDO Physician Jayro Hankins HPI: 08/07 08:55 This 77 yrs old Female presents to ER via Ambulatory with complaints of Chest jl9 Pain. Patient reports having an episode of chest pain earlier today that has since resolved. Episode lasted approxiately 10 minutes and was sharp in nature.. 08:55 Onset: The symptoms/episode began/occurred this morning. Associated signs and symptoms: jl9 The patient has no apparent associated signs or symptoms. Modifying factors: The patient symptoms are alleviated by nothing, the patient symptoms are aggravated by nothing. The patient has not experienced similar symptoms in the past. Historical: - Allergies: 09:01 codeine sulfate; ss 09:01 Crestor; ss 09:01 Cymbalta; ss 09:01 Dimetapp Cold-Congestion; ss 09:01 thorezine; ss 09:01 Tramadol HCl; ss 09:01 Vioxx; ss 09:01 Zocor; ss - PMHx: 09:01 Atrial fibrillation; ss - PSHx: 09:01 hysterectomy; tubligation; Pacemaker; ss - Immunization history:: Client reports receiving the 2nd dose of the Covid vaccine. - Social history:: Smoking status: Patient denies any tobacco usage or history of. ROS: 09:00 Constitutional: Negative for fever, chills, and weight loss, Eyes: Negative for injury, jl9 pain, redness, and discharge, ENT: Negative for injury, pain, and discharge, Neck: Negative for injury, pain, and swelling. 09:00 Respiratory: Negative for shortness of breath, cough, wheezing, and pleuritic chest pain, Abdomen/GI: Negative for abdominal pain, nausea, vomiting, diarrhea, and constipation, Back: Negative for injury and pain, : Negative for injury, bleeding, discharge, and swelling, MS/Extremity: Negative for injury and deformity, Skin: Negative for injury, rash, and discoloration, Neuro: Negative for headache, weakness, numbness, tingling, and seizure, Psych: Negative for depression, anxiety, suicide ideation, homicidal ideation, and hallucinations, Allergy/Immunology: Negative for hives, rash, and allergies, Endocrine: Negative for neck swelling, polydipsia, polyuria, polyphagia, and marked weight changes, Hematologic/Lymphatic: Negative for swollen nodes, abnormal bleeding, and unusual bruising. 09:00 Cardiovascular: Positive for chest pain. Exam: 09:00 Constitutional: This is a well developed, well nourished patient who is awake, alert, jl9 and in no acute distress. Head/Face: Normocephalic, atraumatic. Eyes: Pupils equal round and reactive to light, extra-ocular motions intact. Lids and lashes normal. Conjunctiva and sclera are non-icteric and not injected. Cornea within normal limits. Periorbital areas with no swelling, redness, or edema. ENT: Mucous membranes moist. Neck: Trachea midline, no thyromegaly or masses palpated, and no cervical lymphadenopathy. Supple, full range of motion without nuchal rigidity, or vertebral point tenderness. No Meningismus. Chest/axilla: Normal chest wall appearance and motion. Nontender with no deformity. No lesions are appreciated. Cardiovascular: Regular rate and rhythm with a normal S1 and S2. No gallops, murmurs, or rubs. Normal PMI, no JVD. No pulse deficits. Respiratory: Lungs have equal breath sounds bilaterally, clear to auscultation and percussion. No rales, rhonchi or wheezes noted. No increased work of breathing, no retractions or nasal flaring. Abdomen/GI: Soft, non-tender, with normal bowel sounds. No distension or tympany. No guarding or rebound. No evidence of tenderness throughout. Back: No spinal tenderness. No costovertebral tenderness. Full range of motion. Skin: Warm, dry with normal turgor. Normal color with no rashes, no lesions, and no evidence of cellulitis. MS/ Extremity: Pulses equal, no cyanosis. Neurovascular intact. Full, normal range of motion. Neuro: Awake and alert, GCS 15, oriented to person, place, time, and situation. Cranial nerves II-XII grossly intact. Motor strength 5/5 in all extremities. Sensory grossly intact. Cerebellar exam normal. Normal gait. Psych: Awake, alert, with orientation to person, place and time. Behavior, mood, and affect are within normal limits. Vital Signs: 08:47 BP 151 / 80; Pulse 58; Resp 15; Temp 98.3(O); Pulse Ox 99% on R/A; Weight 40.37 kg; ss Height 5 ft. 5 in. (165.10 cm); Pain 2/10; 10:55 BP 111 / 73; Pulse 60; Resp 18 S; Pulse Ox 97% on R/A; aa5 12:00 BP 118 / 70; Pulse 60; Resp 16 S; Temp 98.0(TE); Pulse Ox 98% on R/A; aa5 13:30 BP 119 / 66; Pulse 60; Resp 18 S; Temp 97.8(TE); Pulse Ox 97% on R/A; aa5 08:47 Body Mass Index 14.81 (40.37 kg, 165.10 cm) ss MDM: 08:50 Patient medically screened. [facility] 08:52 Test interpretation: by ED physician or midlevel provider: ECG, Paced.. [facility] 12:51 Data reviewed: vital signs, nurses notes. Counseling: I had a detailed discussion with [facility] the patient and/or guardian regarding: the historical points, exam findings, and any diagnostic results supporting the discharge/admit diagnosis, lab results, radiology results, the need for outpatient follow up, to return to the emergency department if symptoms worsen or persist or if there are any questions or concerns that arise at home. 08/07 08:54 Order name: Basic Metabolic Panel; Complete Time: 12:49 08/07 08:54 Order name: CBC with Diff; Complete Time: 10:22 08/07 08:54 Order name: Troponin HS; Complete Time: 12:49 08/07 08:54 Order name: XRAY Chest (1 view); Complete Time: 10:22 08/07 08:54 Order name: EKG; Complete Time: 08:54 08/07 08:54 Order name: Cardiac monitoring; Complete Time: 08:58 08/07 08:54 Order name: EKG - Nurse/Tech; Complete Time: 08:58 08/07 08:54 Order name: IV Saline Lock; Complete Time: 09:03 08/07 08:54 Order name: Labs collected and sent; Complete Time: 09:03 08/07 08:54 Order name: O2 Per Protocol; Complete Time: 08:58 jl9 08/07 08:54 Order name: O2 Sat Monitoring; Complete Time: 08:58 jl9 Administered Medications: 09:11 Drug: Aspirin Chewable Tablet 324 mg Route: PO; aa5 10:55 Follow up: Response: No adverse reaction aa5 Disposition Summary: 08/07/22 12:51 Discharge Ordered Location: Home jl9 Problem: new jl9 Symptoms: are resolved jl9 Condition: Stable jl9 Diagnosis - Chest pain, unspecified jl9 Followup: jl9 - With: Private Physician - When: 1 - 2 days - Reason: Recheck today's complaints, Continuance of care, Re-evaluation by your physician Discharge Instructions: - Discharge Summary Sheet jl9 - Nonspecific Chest Pain, Adult, [id number] jl9 Forms: - Medication Reconciliation Form jl9 - Thank You Letter jl9 - Antibiotic Education jl9 - Prescription Opioid Use jl9 Signatures: Dispatcher [employer] Tuyet Velez RN RN aa5 Kristal Groves RN RN ss Ilia Strange jl9
[2022-08-07 14:40] VITALS: TEMP 98.3
[2022-08-07 14:42] VITALS: BP 111/73; O2SAT 97
--- NOTE | 2022-08-10 15:12 | EKG ---
Test Date: 2022-08-07 Test Time: 08:52:19 Yoga Instructor: ANAHI MEASUREMENT RESULTS: Intervals: Rate: 60 OK: 222 QRSD: 84 QT: 490 QTc: 490 [place]: P: 83 OK: 222 QRS: 95 T: 80 INTERPRETIVE STATEMENTS: Atrial-paced rhythm with prolonged AV conduction Rightward axis Prolonged QT Abnormal ECG Compared to ECG 03/31/2022 12:50:06 Right-axis deviation now present Prolonged QT interval now present Electronically Signed On 08-10-22 15:09:57 CDT by Alek Feliciano
== END 2022-08-07 14:18 | disposition home or self-care (01) ==
LOC: ER 08:44
DX: R07.9 Chest pain, unspecified (principal); I48.91 Unspecified atrial fibrillation; Z95.0 Presence of cardiac pacemaker; Z88.5 Allergy status to narcotic agent; Z88.8 Allergy status to other drugs, medicaments and biological substances
CPT/HCPCS: 36415; 71045; 80048; 84484; 85025; 93005; 99284

== ENCOUNTER 2023-08-13 11:17 | Emergency (ER) | payer OTHER ==
--- OUTSIDE RECORDS SUMMARY | 2023-08-13 11:21 | XMS REPORT | Continuity of Care Document ---
:1945 Author Organization [facility] t Address [address] [place] [address] [address] [place] [address] Care Team Providers Name Role Phone Kaitlyn Matta Primary Care Physician [id number] Attending Clinician Unavailable UZAIR ZULUAGA Attending Clinician Unavailable Doctor Unassigned, [place] Attending Clinician Unavailable Josh Osuna Attending Clinician Unavailable ANNEMARIE OLMSTEAD Attending Clinician Unavailable Annemarie [place] MD Attending Clinician STEVO SIMON Attending Clinician Unavailable Brea Attending Clinician Unavailable [id number] Admitting Clinician Unavailable Josh Osuna Admitting Clinician Unavailable STEVO SIMON Admitting Clinician Unavailable Brea Admitting Clinician Unavailable Payers Payer Name Policy Type Policy Number Effective Date Expiration Date S rubi MEDICARE PART A [id number] 2023 AND B 00:00:00 AETNA MEDICARE HMO [id number] 2021 POS 00:00:00 AETM AETM [id number] AETNA MEDICARE HMO [id number] 2021 00:00:00 AETNA MEDICARE ADV [id number] 2018 00:00:00 MEDIC[place] B-[place]: [id number] 1997 NOVITAS AccuRev 00:00:00 Problems Condition Condition Condition Status Onset Resolution Last Treating Co mments Source Name Details Category Date Date Treatment Clinician Date No known No known Disease Unive rs active active ity of problems problems [facility] Allergies, Adverse Reactions, Alerts Allergy Allergy Status Severity Reaction(s) Onset Inactive Treating Comm ents Source Name Type Date Date Clinician codeine DA Active U UNKNOWN 2021-0 [facility] 00:00: d 00 [facility] phenylep DA Active U UNKNOWN 2021-0 [facility] hrine 5-24 [place] 00:00: d 00 [facility] pseudoep DA Active U UNKNOWN 2021-0 [facility] hedrine 5-24 [place] 00:00: d 00 [facility] simvasta DA Active U UNKNOWN 2021-0 [facility] tin 5-24 [facility] 00:00: d 00 [facility] tramadol DA Active U UNKNOWN 2021-0 [facility] 00:00: d 00 [facility] dextrome DA Active U UNKNOWN 2021-0 [facility] thorphan 5-24 [facility] 00:00: d 00 [facility] chlorpro DA Active U UNKNOWN 2021-0 [facility] mazine 5-24 [place] 00:00: d 00 [facility] diphenhy DA Active U UNKNOWN 2021-0 [facility] dramine 5-24 [place] 00:00: d 00 [facility] chlorpro DA Active U UNKNOWN 2021-0 [facility] ethazine 5-24 [place] 00:00: d 00 [facility] rofecoxi DA Active U UNKNOWN 2021-0 [facility] b 5-24 [place] 00:00: d 00 [facility] duloxeti DA Active U UNKNOWN 2021-0 [facility] ne 5-24 [facility] 00:00: d 00 [facility] rosuvast DA Active U UNKNOWN 2021-0 [facility] atin 5-24 [place] 00:00: d 00 [facility] guaifene DA Active U UNKNOWN 2021-0 [facility] sin 5-24 [facility] 00:00: d 00 [facility] Bromphen Propensi Active Unknown - Uni [...] Unknown-Cmnt Un rafa IRAMIN-P ity of [place] RIN-DM Medical Branch CHLORPRO DRUG Active Unknown-Cmnt Un rafa MAZINE INGREDI ity of [facility] CODEINE DRUG Active Unknown-Cmnt Uni vers INGREDI ity of [facility] DULOXETI DRUG Active Unknown-Cmnt Un rafa NE INGREDI ity of [facility] ROSUVAST DRUG Active Unknown-Cmnt Un rafa ATIN INGREDI ity of [facility] SIMVASTA DRUG Active Unknown-Cmnt Un rafa TIN INGREDI ity of [facility] TRAMADOL DRUG Active Unknown-Cmnt Un rafa INGREDI ity of [facility] Social History Social Habit Start Date Stop Date Quantity Comments Source Tobacco use and 2018-12-23 2018-12-23 Never used [facility] [place] exposure 00:00:00 00:00:00 Medical Branch Sex Ass[birth year] [facility] 00:00:00 00:00:00 [facility] Smoking Status Start Date Stop Date Source Never smoker [facility] Branch Medications Ordered Filled Start Stop Current Ordering Indication Dosage Frequency Signature Comments Components Source Medication Medication Date Date Medication? Clinician (SIG) Name Name diclofenac Yes 75mg Take 1 Unive rs 75 mg EC 05-02 tablet by ity of tablet 00:00: mouth 2 (two) Medical times Branch daily with meals. Diclofenac 2020- No [id number] 25mg Take 25 mg Univers Potassium 05-02 07-05 by mouth 3 ity of (ZIPSOR) [...] 5 1-09 ity of mg tablet 00:00: [place] 00 Medical Branch Vital Signs Vital Name Observation Time Observation Value Comments Source Systolic blood 2021-05-02 13:49:00 140 mm[Hg] Univer [facility] pressure [facility] Diastolic blood 2021-05-02 13:49:00 86 mm[facility]Hg[facility] rate 2021-05-02 13:49:00 71 /min [facility] Body height 2021-05-02 13:49:00 165.1 cm [facility] Body weight 2021-05-02 13:49:00 49.442 kg [facility] BMI 2021-05-02 13:49:00 18.14 kg/m2 [facility] Procedures Procedure Date / Time Performed Performing Clinician Sour e EXTERNAL PROVIDER 2022-05-16 05:01:00 Doctor Unassigned, No Univ [facility] RECORDS Name Medical Branch [id number] 2022-04-21 00:00:00 DEEPAK.Keily [facility] Plan of Care Planned Activity Planned Date [...] YEAR if no IPPE)] Future Scheduled 2021-11-[address] [facility] Test 00:00:00 (12+) [code = Medical Center DEPRESSION SCREENING (12+)] Future Scheduled 2021-11-29 FALLS RISK SCREENING [facility] Test 00:00:00 [code = FALLS RISK Medical C enter SCREENING] Future Scheduled 2008 PNEUMOCOCCAL 65+ YRS [facility] [...] Date/Time Type Type Clinicians Facility Department ID 2023-05-04 Outpatient [facility] [id number] [place] 16:19:[id number] [place] [address] 2022-04-21 Inpatient UR [facility] Neurology [id number] 01:21:33 [facility] 2022-04-19 Outpatient 3 [id number] ENCPL MAGO [id number] [facility] 10:56:51 [facility] [place] 2022-04-17 Outpatient 3 [id number] ENCPL MAGO [id number] [facility] 09:53:42 [facility] [place] 2022-04-16 Outpatient 3 [id number] ENCPL MAGO [id number] [facility] 11:08:53 [facility] [place] 2022-04-15 Outpatient 3 [id number] ENCPL REF [id number] [facility] 10:49:31 [facility] [place] 2023-07-16 2023-07-16 Outpatient ZAN [facility] [id number] [place] 14:30:00 14:30:00 [facility] 2022-05-16 2022-05-16 Orders Doctor STOVALL [id number] Univers 00:00:00 00:00:00 Only Unassigned, RUSLAN [id number] ity of [place] [facility] 4.2.7.2.686 Berny as [id number] [place] [address] Branch 2022-04-21 2022-04-24 [facility] [id number] 32-20 [facility] 06:28:00 13:57:00 Josh [id number] [facility] 2022-04-21 2022-04-24 In[facility] [id number] [facility] 06:28:00 13:57:00 Josh 30 [facility] 2021-05-02 2021-05-02 [facility] [id number] Univers 08:47:28 23:59:00 ANNEMARIE [facility] 2021-05-02 2021-05-02 Office [facility] [id number] Univers 08:36:22 09:11:01 Visit Annemarie [facility] [id number] it of Surgical 4.2.7.2.686 Berny as Specialti [phone] Ak dical es 198 Branch [place] 2020-08-30 2020-08-30 Outpatient R [facility] [id number] Univers 11:40:00 11:40:00 [facility] 2016-07-15 2016-07-15 Outpatient Maluf_C MMG MMG [id number] [place] 04:35:00 04:35:00 0319 da Medical [...] = ALKP) 64 Units/L 50.0-136 .0 N [id number] 13:27:00 Test Item Value Reference Range Interpretation Comments MAGNESIUM (test code = MAG) 2.5 mg/dl 1.8-2.4 H CBC W/AUTO [id number] 13:15:00 Test Item Value Reference Range Interpretation [...] X10 3uL 0.00-0.01 N NRBC#) TROP-I HIGH [id number] 18:48:00 Test Item Value Reference Range Interpretation Comments TROP-I HIGH <4.0 pg/mL 0.0-51.4 N CAUTION: Units of the SENSITIVITY (test current TR OPI-HS test code = TROPIHS) methodology( pg/mL) differ from the prior test methodolog y (ng/mL) by afac tor of 1000. ------- ------- -----99 th Percentile: Females: 0.0-51 .4 pg/mL Males: 0. 0-76.2 pg/mLThese resu lts were obtained u [facility]. Re sults from different methodologies s hould not becompared to one another as quantitative re sults may vary bymeth od. COMPREHENSIVE METABOLIC [id number] 10:49:00 Test Item Value Reference Range Interpretation [...] 72 Units/L 50.0-136.0 N code = ALKP) [id number] 10:49:00 Test Item Value Reference Range Interpretation Comments MAGNESIUM (test code = MAG) 2.3 mg/dl 1.8-2.4 N THYROID STIMULATING [id number] 10:49:00 Test Item Value Reference Range Interpretation Comments THYROID STIMULATING 1.58 IU/ML 0.47-5.01 N Result i s in HORMONE (test code = Interna tional TSH) Units/millilite r CBC W/AUTO [id number] 10:32:00 Test Item Value Reference Range Interpretation [...] 0.00-0.01 N NRBC#) - CT HEAD/BRAIN W/O [id number] 09:27:00 [facility] : 1945 Sex: F FAX: Kaitlynn Garza MD [phone] [place]: St: [facility] FAX: Dayo Messina [facility] [phone] Name: IRMA BRUCE [facility] : 1945 Age/S: 76/F [address] [facility] Unit: [id number] Loc: [address] Phys: [place] [id number] Acct: [id number] Dis Date: Status: ADM IN PHONE #: [phone] Exam Date: 04/21/2022905 FAX #: [phone] Reason: RULE OUT STROKE EXAMS: CPT CODE: [id number] CT HEAD/BRAIN W/O CONT 84953 INDICATION:Stroke TECHNIQUE: Noncontrast CT of the head is obtained. Comparison: No prior studies for comparison. Location: C3 CT DLP Dose: 806 mGy-cm. One or more of the following dose reduction techniques were used: Automated exposure control, adjustment of the mA and/or kV according to patient size, and/or iterative reconstruction. FINDINGS: There is mild generalized cerebral atrophy with scattered periventricular and deep white matter low-density changes. There is no CT evide nce of an acute cerebrovascular accident. There is no evidence of intracerebral hemorrhage. No mass effect is seen. No mass is seen. The brainstem structures are unremarkable. There is mild cerebellar atrophy. There is no evidence of an acute cerebrovascular accident involving the cerebellar hemispheres. The cisterns are patent. The ventricular system is unremarkable. The calvarium and skull base are normal. No calvarial or skull base fracture is seen. The extracranial soft tissues are unremarkable. Vascular calcifications are noted in the carotid siphons. IMPRESSION: 1. Mild generalized cerebralatrophy and scattered periventricular and deep white matter changes, consistent with chronic microvascular disease. 2. No evidence of acute stroke, hemorrhage or mass. at 0983 Reported and signed by: ANTHONY GALICIA M.D. PAGE 1 SignedReport (CONTINUED) FAX: Kaitlynn Garza MD [phone] [place]: St: [facility] FAX: Dayo Messina [facility] [phone] Name: IRMA BRUCE [facility] : 1945 Age/S: 76/F [address] [facility] Unit: [id number]: [address] [place], [place]: [place] [id number] Acct: [id number] Dis Date: Status: ADM INPHONE #: [phone] Exam Date: 04/21/2022905 FAX #: [phone] Reason: RULE OUT STROKE EXAMS:CPT CODE: [id number] CT HEAD/BRAIN W/O CONT 96116 (Continued) CC: Kaitlynn Howe MD; Dayo Perdomo III, MD Technologist: AVIS TAVERAS; Avis Dyer Trnscrd Dt/Tm: 04/21/2022 (9217) DanteR.[id number] Orig Print D/T: S: 04/21/2022 (9591 PAGE 2 Signed ReportSed Rate ESR ([place])2017-06-30 05:03:00 Test Item Value Reference Range Interpretation Comments ESR (test code = HESR) 4 mm/Hr 0-20 N Thyroid Stimulating Hormone (TSH)2017-06-29 23:23:00 Test Item Value Reference Range Interpretation Comments TSH (test code = TSH) 1.38 mIU/mL 0.270-4.200 N Comprehensive Metabolic [id number] 23:20:00 Test Item Value Reference Range Interpretation [...] the National Kidney Foundation,http ://nkd ep.nih.gov Lipid [id number] 23:20:00 Test Item Value Reference Range Interpretation Comments Cholesterol (test 213 mg/dL 0-200 H code = CHOL) Triglycerides (test 142 mg/dL 9-200 N code = TRIG) HDL (test code = 53 mg/dL 50-60 N HDL) Chol/HDL (test code 4.0 Ratio 0.0-4.4 N = CHOLPHDL) LDL, Calculated 132 0-130 H (NOTE)RISK O F HEART (test code = LDLC) DISEASEPu blished by [place] Heart AssociationAnal yte Optimal Boderli ne Increased RiskC HOL <200 200-239 >240TRI G <150 150-199 >200HDL Male: >60 <40HDL Fema le: >60 <50LDL <100 130 -159 >160LDL NEAR OP TIMAL IS 100-129 VLDL (test code = 28 mg/dL 5-40 N VLDL) LDL/HDL (test code = 2 LDLPHDL) [id number] 23:20:00 Test Item Value Reference Range Interpretation Comments NT ProBnp (test code = PBNP) 601 pg/mL 0-124 H [id number] 23:20:00 Test Item Value Reference Range Interpretation Comments [place] (test code = LI) 1.09 mmol/L 0.6-1.2 N CBC with [id number] 22:20:00 Test Item Value Reference Range Interpretation [...] code = ALYMPH) 2.3 K/cumm 0.5-4.[address] [facility] Abs (test code = AMONO) 0.5 K/cumm 0.0-1.2 N Eos Abs (test code = AEOS) 0.12 K/cumm 0.00-0.74 N Baso Abs (test code = ABASO) 0.1 K/cumm 0.00-0.21 N Hypochromic (test code = HYPO) Slight Notes Date/Time Note Provider Source 2022-05-14 06:25:00-00:00 [id number] [facility] [address] [place] [id number] PATIENT NAME: IRMA BRUCE ADMIT DATE: 2 ACCOUNT NO: [id number] DISCHARGE DATE: 2 ROOM NO: E.415 REPORT TYPE: 360 - QUERY RESPONSE DOCUMENT DATE OF : [birth year] AGE: 76 SEX: F ADMITTING PHYSICIAN:Josh Osuna MD ATTENDING PHYSICIAN:Josh Osuna MD Provider Query QUERY TEXT: Condition General 360MD Query related questions should be directed to:Ronny mcarthur [facility] Coding Query Helpline Based on your medical judgement and the clinical indicators listed below kindly specify the underlying cause of the patient's AMS (Metabolic encephalopathy, Toxic encephalopathy, Dementia, unspecified, or other more appropriate diagnosis)? The patient's Clinical Indicators include: AMS- Hospitalist History and Physical 04/21/2022 Acute metabolic encephalopathy-Hospitalist Histo ry and Physical 04/21/2022 Dementia with behavioral disturbance-Hospitalist History and Physical 04/21/2022 LITHIUM CARBONATE 300 MG CAPSULE Options provided: -- Respond - Create new note now -- Dismiss - Not applicable / Not valid -- Dismiss - Clinically unable to determine / Un known -- Assign to another provider QUERY RESPONSE: Metabolic encephalopathy Query created by: Conchita Muro on 2 9:06 PM Electronically Signed by MD nga Mejias 05/14/22 at 0625 PATIENT NAME: IRMA BRUCE 0230 2022-04-24 17:35:00-00:00 [id number] [facility] and [facility] [address] [place] [id number] PATIENT NAME: IRMA BRCUE ADMIT DATE: 2 ACCOUNT NO: [id number] ROOM NO: E.415 AGE: 76 REPORT TYPE: ECHOCARDIOGRAM REPORT DATE OF : [birth year] SEX: F ADMITTING PHYSICIAN:Josh Osuna MD ATTENDING PHYSICIAN:Josh Osuna MD *[facility] [place] [facility]* [address] [place] [address] Transthoracic Echocardiogram Patient: Irma Bruce Study Date: 04/23/2022 BP: Location: [facility] URN: [id number] 230 : 1945 Age: 76 Height: 65 in / 165.1 cm Gender: F Weight: 97. 8 lb / 44.5 kg BMI/BSA: 16.3 kg/m 2 / 1.46 m 2 *Ordering Physician: * Zoë Ruano *Interpreting Physician: * Naman Chris *Histotechnician: * Cindy Maharaj RVT, CHELSEA Indications: HX AFIB. Study data: Transthoracic echocardiogram. Proced ure: Transthoracic echocardiography was performed. Images were obta ined using a [employer]18 cardiac ultrasound machine. The study was technically li mited due to poor acoustic window availability. Complete 2D, compl ete spectral Doppler, and color Doppler. Findings Left ventricle: The cavity size is normal. Wall thickness is normal. Systolic function is normal. The estimated eject ion fraction is 55-60%. Wall motion is normal; there are no regional wal l motion abnormalities. Doppler parameters are consistent with abnormal left ventricular relaxation (grade 1 diastolic dysfunction). Right ventricle: The cavity size is normal. Syst olic function is normal. PATIENT NAME: IRMA BRUCE 0230 Left atrium: The atrium is normal in size. Right atrium: The atrium is normal in size. Aorta: Aortic root: The aortic root is normal in size. Aortic valve: Not well visualized. The valve is trileaflet. The leaflets are mildly calcified. There is no evide nce of stenosis. There is no regurgitation. Mitral valve: The valve is structurally normal. There is no evidence of stenosis. There is trivial regurgita tion. Tricuspid valve: The valve is structurally chano l. There is mild regurgitation. Pulmonic valve: Not well visualized. The valve i s structurally normal. There is no regurgitation. Pericardium: There is no pericardial effusion. Pulmonary arteries: The main pulmonary artery is normal-sized. Systemic veins: Inferior vena cava: The vessel is normal in size . Measurements Left ventricle Value Ref JAIR, LAX 4.3 cm 3.8 - 5.2 ESD, LAX 3.0 cm 2.2 - 3.5 ESD/bsa, LAX 2.1 cm/m 2 1.3 - 2.1 FS, LAX 30 % 27 - 45 ESD/bsa major ax, A4C 4.3 cm/m 2 --------- JAIR/bsa minor ax, A4C 4.3 cm/m 2 --------- JAIR major ax, A2C 7.2 cm --------- JAIR/bsa major ax, A2C 4.9 cm/m 2 --------- PW, ED 1.0 cm 0.6 - 0.9 IVS/PW, ED 0.91 --------- EF 57 % 54 - 74 E', lat edmar, TDI 10.9 cm/sec >=10.0 E/e', lat edmar, TDI 6 --------- E', med edmar, TDI 9.4 cm/sec >=7.0 E/e', med edmar, TDI 7 --------- E', avg, TDI 10.2 cm/sec --------- E/e', avg, TDI 7 <=14 LVOT Value Ref Peak naima, S 0.94 m/sec --------- Mean naima, S 0.58 m/sec --------- VTI, S 17.9 cm --------- Peak grad, S 4 mm Hg --------- Mean grad, S 2 mm Hg --------- Ventricular septum Value Ref IVS, ED 0.9 cm 0.6 - 0.9 Right ventricle Value Ref Pressure, S 29 mm Hg --------- Left atrium Value Ref Vol/bsa, ES, 1-p A4C 8 ml/m 2 11 - 40 Vol/bsa, ES, A/L 10 ml/m 2 16 - 34 PATIENT NAME: IRMA BRUCE 0230 AP dim, ES MM 2.2 cm 2.7 - 3.8 LA/Ao root ratio, MM 0.78 --------- Right atrium Value Ref Area, ES 10 cm 2 10 - 18 SI dim, ES, A4C 4.2 cm 3.4 - 5.3 SI dim/bsa, ES, A4C 2.9 cm/m 2 1.9 - 3.1 Vol, ES, A/L 22 ml --------- Vol, ES, 1-p A4C 21 ml --------- Vol/bsa, ES, 1-p A4C 14 ml/m 2 9 - 33 Aortic valve Value Ref Leaflet sep, MM 1.69 cm --------- Peak v, S 1.35 m/sec --------- Mean v, S 0.92 m/sec --------- VTI, S 30.3 cm --------- Mean grad, S 3.9 mm Hg --------- Peak grad, S 7.3 mm Hg --------- LVOT/AV, VTI ratio 0.59 --------- LVOT/AV, Vpeak ratio 0.69 --------- Mitral valve Value Ref Peak E 0.67 m/sec --------- Peak A 0.73 m/sec --------- Decel time 259 ms --------- Peak E/A ratio 0.92 --------- Tricuspid valve Value Ref TR peak v 2.2 m/sec <=2.8 Peak RV-RA grad, S 19 mm Hg --------- Aortic root Value Ref Root diam, ED MM 2.86 cm --------- Pulmonary artery Value Ref Pressure, S 27.0 mm Hg --------- Systemic veins Value Ref Estimated CVP 10 mm Hg --------- Conclusions Summary: 1. Left ventricle: The cavity size is normal. Wa ll thickness is normal. Systolic function is normal. The estimated ejec tion fraction is 55-60%. Wall motion is normal; there are no reg ional wall motion abnormalities. Doppler parameters are consisten t with abnormal left ventricular relaxation (grade 1 diastolic dysfu nction). 2. Right ventricle: The RV pressure during systo le by Doppler is 29 mm Hg. 3. Pericardium, extracardiac: There is no perica rdial effusion. Prepared and electronically signed by PATIENT NAME: IRMA BRUCE 0230 Neema Chris MD 04/24/2022 17:35 at 1735 PATIENT NAME: IRMA BRUCE 0230 2022-04-24 17:29:00-00:00 [id number] [facility] [address] [place] [address] PATIENT NAME: IRMA BRUCE ADMIT DATE: 2 ACCOUNT NO: [id number] [facility] 76 REPORT TYPE: eVASCULAR STUDY DATE OF : 04/30 SEX: F ADMITTING PHYSICIAN:Josh Osuna MD ATTENDING PHYSICIAN:Josh Osuna MD *[facility]* [address] [place] [address] Carotid Duplex Study Patient: Irma Bruce Study Date: 04/23/2022 BP: Location: [facility] URN: [id number] 230 : 1945 Age: 76 Height: / Gender: F Weight: / BMI/BSA: / *Ordering Physician: * Zoë RuanoInterpreting Physician: * Naman Chris *Histotechnician: * Cindy Maharaj RVT, CHELSEA Indications: Dizziness. Study data: Carotid duplex study. Bilateral eval uation with grayscale 2D imaging, color Doppler imaging, and spectral Doppler analysis. Findings Carotid/vertebral arteries: Right common carotid: The vessel is normal; it h as no evidence of disease. Right internal carotid: The vessel has plaque. Right external carotid: The vessel is normal; it has no evidence of disease. Right vertebral: The arterial flow direction is antegrade. Left vertebral: The arterial flow direction is a ntegrade. Left common carotid: The vessel is normal; it cullen s no evidence of disease. Left internal carotid: The vessel has plaque. Left external carotid: The vessel is normal; it has no evidence of disease. PATIENT NAME: IRMA BRUCE 0230 Arterial flow: Location PSV* EDV* PSV ratio Location PSV* EDV* PSV ratio R subclavian, 59 0 --------- L subclavian, 131 0 --------- prox prox R CCA, prox 91 12 --------- L CCA, prox 77 12 -- ------- R CCA, mid 85 12 --------- L CCA, mid 85 18 ---- ----- R CCA, distal 80 13 --------- L CCA, distal 92 1 4 --------- R ICA, prox 64 13 0.7 L ICA, prox 55 16 0.6 R ICA, mid 63 18 0.69 L ICA, mid 89 28 0.97 R ICA, distal 74 20 0.81 L ICA, distal 115 37 1. 25 R ECA 68 4 --------- L ECA 65 5 --------- R vertebral 94 14 --------- L vertebral 56 9 --- ------ *Velocities are expressed in cm/sec, Diameters are expressed in cm Conclusions 1. Study suggests 1-19% stenosis involving the r ight internal carotid artery and left internal carotid artery. 2. Antegrade flow noted in the right vertebral a rtery. 3. Antegrade flow noted in the left vertebral ar bismark. Prepared and electronically signed by Neema Chris MD 04/24/2022 17:28 at 1729 PATIENT NAME: IRMA BRUCE 0230 2022-04-24 10:39:00-00:00 [facility] ([facility] Neurology Progress Note REPORT#:[id number] REPORT STATUS: Signed DATE:04/24/22 TIME: 1039 PATIENT: IRMA BRUCE UNIT #: [id number] ROOM/BED: [place] [address] : [birth year] AGE: 76 SEX: F ATTEND: Sheila Osuna MD ADM AUTHOR: Kaitlynn Howe MD * ALL edits or amendments must be made on the [employer]/computer document * Subjective HPI: Doing ok no new issues Review of Systems Constitutional: Denies: chills, fatigue, fev er, generalized weakness, lethargy, malaise, recent wt loss, other. Skin: Denies: abrasion, bruising, contusion, diaphores is, ecchymosis, itching, laceration, rash, swelling, other. Objective General VS: Last Documented: Result Date Time Pulse Ox 98 04/24 0802 B/P 113/74 04/24 0802 B/P Mean 0.0 04/24 08 O2 Delivery Room air 04/24 802 Temp 36.6 04/24 08 Pulse 60 04/24 08 Resp 16 04/24 08 O2 Flow Rate 2 04/21 2330 PATIENT WEIGHT: Weight (lb): 98 Weight (oz): Weight (kg): [phone] Medications Current Home Medications APIXABAN (ELIQUIS) 2.5 MG PO BID Active Meds + DC'd Last 24 Hrs Apixaban (ELIQUIS 2.5MG TABLET) 2.5 MG BID PO [place] Carbonate (ESKALITH) 300 MG BEDTIME PO Ketorolac Tromethamine (TORADOL) 15 MG Q6H PRN P RN IV Nutrition assessment: The data set between the solid lines has been im ported from the dietitian's assessment. Any exceptions have been noted under Provider comments. BMI Calculated: Nutrition related diagnosis: Underweight Nutrition diagnosis details: BMI 19.9 or less Nutrition problem: Moderate malnutrition Nutrition etiology: Chronic disease Nutrition signs and symptoms: MODERATE MUSCLE LO SS TO , QUADRICEPS, TEMPORAL, BUCCAL, MODERATE SUBCUTANEOUS FAT , LOSS TO ORBI JOHN Nutrition prescription: 1. RECOMMMEND ENSURE ENL VIDHI TID TOLERATED 2. CONTUINE REGULAR/GROUND/EXTRA GRAVIES/SAUCES/[address] TO FOLLOW Dietitian name: Fabi Cao, [employer] Assessment completed: 04/22/22 Provider comments on imported dietitian assessme nt: Physical Exam General appearance: awake Head/Eyes: atraumatic ENT: moist mucosal membranes Neck: appears to be extended and rotated to the right with chronic mostly cervical dystonia Cardiovascular: regular rate and rhythm Respiratory: aerating well Neuro comment: AAOx2 CN II-XII grossly intact, neck with cervical dy stonia Speech normal Motor 3/5 in all extremities, BLE 2/5 Rest of exam deferred as patient cannot coopera te due to pain/weakness Diagnosis, Assessment Plan Problem List/A P: 1. Encephalopathy Free Text A P: Encephalopathy - improving now, toxic/metabolic/ septic in nature mostly No need for eeg or mri brain IVF hydration non-focal exam Repeat ct head wo contrast - reviewed get carotid usg - pending will need cardiology input for afib and starting noac vs antiplatelet (if lone afib) DVT/Gi px telemetry aspiration precautions Kaitlynn Howe MD, MPH Electronically Signed by Kaitlynn Howe MD on 03/30 06/19 at 1039 RPT #:[id number] END OF REPORT 2022-04-24 10:33:00-00:00 [facility] ([facility]) Hospitalist Discharge Summary REPORT#:[id number] REPORT STATUS: Signed DATE:04/24/22 TIME: 1033 PATIENT: IRMA BRUCE UNIT #: [id number] ROOM/BED: [place] [address] : 43 AGE: 76 SEX: F ATTEND: Sheila Osuna MD ADM AUTHOR: Dafne Rankin * ALL edits or amendments must be made on the [employer]/computer document * General Information Date of admission: Observation Start Date: Date of admission: 04/21/22 Discharge date: 04/24/22 Admission diagnosis: AMS Discharge diagnosis: AMS, resolved Hospital course: 76yo female with hx of demen tia comes from OSH for altered mental status. She is unable to tell me anything. She has a kn own hx of afib, HTN, and dementia. She does not know who she lives with but she told ca se mgmt that whoever it is kicked her out. She denies a ny complaints. Knows nothing. CT head unremarkable. Pt. condition on discharge: improved, stable Free Text DxA P Notes Free text DxA P notes: 1. acute metabolic encephalopathy unknown cause Resolved 2. Dementia with behavioral disturbance try to get a hold of family labs work 3. Afib unkown home med list attempt to find family resume meds 4. chronic pain prn meds 04/22 still have no idea where she lives or what her h istory is she told me she fell and her friend called ems b ecause she fell 04/23 Continues to improve. Pt mor e awake and alert today, she has provided a name to case management and they are attempting to get a hold of them. Continue same. 04/24 Room mate has been reached, agress to gage logan pt back. Pt is at her baseline, she can DC home and f/u as outpt. Med Rec Med Rec Discharge meds: Start taking the following new medications: APIXABAN (ELIQUIS) 2.5 MG TAB 2.5 MILLIGRAM ORAL TWICE DAILY. Qty = 60 No Refills Objective VS/I O Last Documented: Result Date Time Pulse Ox 98 04/24 0802 B/P 113/74 04/24 0802 B/P Mean 0.0 04/24 0802 O2 Delivery Room air 04/24 0802 Temp 97.9 04/24 0802 Pulse 60 04/24 0802 Resp 16 04/24 0802 O2 Flow Rate 2 04/21 2330 24 hour I O ending at 0700: 04/24 0700 04/23 1900 Intake Total 480 Output Total 1750 200 Balance -1750 280 Intake, Oral 480 Output, Urine 1750 200 General appearance: alert, awake, oriented Head/Eyes: atraumatic, EOMI, normocephalic ENT: moist mucosal membranes, normal nose Neck: non-tender, no JVD, no masses or swelling Cardiovascular: normal heart sounds, regular rat e rhythm Respiratory: aerating well, symmetric expansion, no distress Abdomen: non-tender, soft, no distention Rectal: deferred Extremities: moves all, no calf tenderness Musculoskeletal: no CVA tenderness, no m idline vertebral tend, no muscle spasm Neuro/CHEMICAL HANDLER: alert, CNII-XII intact, normal speech Skin: dry, intact, no rash Psychiatry: normal affect, normal mood Free Text Obj Notes Free Text Obj Notes: General appearance: awake Head/Eyes: atraumatic ENT: moist mucosal membranes Neck: appears to be extended and rotated to the right with chronic mostly cervical dystonia Cardiovascular: regular rate and rhythm Respiratory: aerating well Neuro comment: AAOx2 CN II-XII grossly intact, neck with cervical dys rosa isela Speech normal Motor 3/5 in all extremities, BLE 2/5 Rest of exam deferred as patient cannot cooperat e due to pain/weakness Discharge Instructions PCP PCP follow-up: PCP: No Primary or Family Physician Discharge to: Home/Self Care Additional Discharge Routines: PCP Follow-Up Diet: Resume Home Diet/Feeds Activity: Fall precautions Discharge management: face to face encounter, DC time 38 min Follow-up Appointments PCP follow-up: PCP: No Primary or Family Physician PCP follow up timeframe: In 1-2 weeks at 1034 Electronically Signed by Jenny Daly MD on at 2207 RPT #:[id number] END OF REPORT 2022-04-24 08:48:00-00:00 [facility] ([facility]) Cardiology Progress Note REPORT#:[id number] REPORT STATUS: Signed DATE:04/24/22 TIME: 0848 PATIENT: IRMA BRUCE UNIT #: [id number] ROOM/BED: [place] [address] : 43 AGE: 76 SEX: F ATTEND: Sheila Osuna MD ADM AUTHOR: Zoë Ruano TEXTILE SCIENCE TECHNICIAN * ALL edits or amendments must be made on the [employer]/computer document * Zoë Ruano 04/24/22 0848: Subjective Chief complaint: denies chest pain, palpitations Objective General VS/I O: 24 hour I O ending at 0700: 04/24 0700 04/23 1900 Intake Total 480 Output Total 1750 200 Balance -1750 280 Intake, Oral 480 Output, Urine 1750 200 Vital Signs: Date Time Temp Pulse Resp B/P B/P Pulse O2 O2 F low FiO2 Mean Ox Delivery Rate 04/24 0802 36.6 60 16 113/74 0.0 98 Room air 04/24 0258 36.7 60 15 114/67 82.9 98 Room air 04/23 2329 60 16 107/69 82.0 97 04/23 1901 36.9 59 16 117/68 84.1 97 04/23 1530 36.8 60 16 116/70 85.3 97 Room air 04/23 1050 36.7 60 16 115/72 0.0 97 Room air PATIENT WEIGHT: Weight (lb): 98 Weight (oz): Weight (kg): 44.176025 Medications: Active Meds + DC'd Last 24 Hrs Apixaban (ELIQUIS 2.5MG TABLET) 2.5 MG BID PO Eastpointe Carbonate (ESKALITH) 300 MG BEDTIME PO Ketorolac Tromethamine (TORADOL) 15 MG Q6H PRN P RN IV Physical Exam General appearance: alert, awake, oriented, no a cute distress Head/Eyes: atraumatic ENT: moist mucosal membranes Neck: no bruit/NL carotids, no JVD Cardiovascular: CV assessment: regular rate and rhythm, normal heart sounds Respiratory: clear to auscultation, no distress Abdomen: soft, non-tender Neuro/CHEMICAL HANDLER: alert, oriented X 3, normal speech Psychiatry: normal affect Diagnosis, Assessment Plan Free Text DxA P Notes Free Text DxA P Notes: Assessment/ Plan: This is a 76 years old female with past medical history of afib, has ST he pacemaker in place ,HTN came s /p fall, AMS. 1. AMS cont per PCP and neurology 2. h/o afib sinus now , will get echo cont eliqu is 2.5 mg BID, she is good candidate for watchman procedure, follow up as o utpatient. 3. ST He pacemaker interrogation showed A pace d 84% , V paced 41% , normal lead testing, last interrogation 02/05/22 , 23 AF episoes , last on 04/18/22 longest episode 22 hours, wi ll resume eliquis 2.5 mg BID ( pt reports she takes 2.5 mg BID at home) due to h/o fall. POC discussed with Evelin Rivera 05/06/22 1539: Attestations Physician Attestation Agree w/findings plan: I have seen and examined the patient at bedside. I have reviewed the relevant test results and formulated the assessment and p josie. I agree with the note by Zoë Ruano NP. at 1549 Electronically Signed by Zoë Ruano NP on 04/29 02/17 at 1047 RPT #:[id number] END OF REPORT 2022-04-23 16:11:00-00:00 [facility] ([facility]) Hospitalist Progress Note REPORT#:[id number] REPORT STATUS: Signed DATE:04/23/22 TIME: 161 PATIENT: IRMA BRUCE UNIT #: [id number] ROOM/BED: [place] [address] : 43 AGE: 76 SEX: F ATTEND: Sheila Osuna MD ADM AUTHOR: Dafne Rankin * ALL edits or amendments must be made on the [employer] document * Subjective Chief complaint: she is very unpleasant and keeps yelling at me says her whole body hurts does not wnt to tell me her friends name because she says she doesn't want me to know 04/23 Pt pleasant today and willing to talk. She is much more awake and alert. ROS unremarkable Patient reports: Yes: pain controlled, resting comfortably. No: a bdominal pain, chest pain, chills, cough, diarrhea, diz ziness, fever, headache, nausea, shortness of breath , vomiting. Objective General VS/I O: Vital Signs: Date Time Temp Pulse Resp B/P B/P Pulse O2 O2 F low FiO2 Mean Ox Delivery Rate 04/23 1530 98.2 60 16 116/70 85.3 97 Room air 04/23 1050 98.1 60 16 115/72 0.0 97 Room air 04/23 0702 97.9 59 15 111/71 84.8 97 Room air 04/23 0333 97.9 60 16 122/73 89.6 97 04/22 2322 97.5 59 14 119/68 85.1 98 Room air 04/22 1914 98.1 60 15 130/82 98.0 99 Room air 24 hour I O ending at 0700: 04/23 0700 04/22 1900 Intake Total 0 Output Total Balance 0 Intake, Oral 0 Patient 44.452 kg Weight PATIENT WEIGHT: Weight (lb): 98 Weight (oz): Weight (kg): 44.498337 Physical Exam General appearance: alert, awake Head/Eyes: atraumatic, EOMI, normocephalic ENT: moist mucosal membranes, normal nose Neck: non-tender, no JVD, no masses or swelling Cardiovascular: normal heart sounds, regular rat e rhythm Respiratory: aerating well, symmetric expansion, no distress Abdomen: non-tender, soft, no distention Rectal: deferred Extremities: moves all, no calf tenderness Musculoskeletal: no CVA tenderness, no m idline vertebral tend, no muscle spasm Neuro/CHEMICAL HANDLER: alert, CNII-XII intact, normal speech Skin: dry, intact, no rash Psychiatry: normal affect, normal mood Results Findings/Data: Laboratory Tests 04/22 1815 Chemistry Troponin I High Sens (0.0 - 51.4 pg/mL) <4.0 Free Text Obj Notes Free Text Obj Notes: General appearance: awake Head/Eyes: atraumatic ENT: moist mucosal membranes Neck: appears to be extended and rotated to the right with chronic mostly cervical dystonia Cardiovascular: regular rate and rhythm Respiratory: aerating well Neuro comment: AAOx2 CN II-XII grossly intact, neck with cervical dys rosa isela Speech normal Motor 3/5 in all extremities, BLE 2/5 Rest of exam deferred as patient cannot cooperat e due to pain/weakness Diagnosis, Assessment Plan Plan discussed with: patient, collaborating MD, nurse, CM Free Text DxA P Notes Free text DxA P notes: 1. acute metabolic encephalopathy unknown cause seems to be resolved 2. Dementia with behavioral disturbance try to get a hold of family labs work 3. Afib unkown home med list attempt to find family resume meds 4. chronic pain prn meds 04/22 still have no idea where she lives or what her h istory is she told me she fell and her friend called ems b ecause she fell 04/23 Continues to improve. Pt mor e awake and alert today, she has provided a name to case management and they are attempting to get a hold of them. Continue same. at 1614 Electronically Signed by Jenny Daly MD on at 2201 RPT #:[id number] END OF REPORT 2022-04-23 11:04:00-00:00 [facility] ([facility]) Cardiology Consultation REPORT#:[id number] REPORT STATUS: Signed DATE:04/23/22 TIME: 110 PATIENT: IRMA BRUCE UNIT #: [id number] ROOM/BED: [place] [address] : 43 AGE: 76 SEX: F ATTEND: Sheila Osuna MD ADM AUTHOR: Zoë Ruano TEXTILE SCIENCE TECHNICIAN * ALL edits or amendments must be made on the [employer]/computer document * Zoë Ruano 04/23/22 1104: History of Present Illness HPI Reason for consult: h/o afib Free Text HPI Notes Free Text HPI Notes: This is a 76 years old female with past medical history of afib, has ST he pacemaker in place ,HTN came s/p fall, AMS, She denies chest pain, palpitations. History - Adult longitudinal Additional medical history: not pertinen Additional surgical history: not pertinent Additional family history: not pertinent Smoking status: Smoking status for patients 13 years old or old er: Never Smoker Allergies: Coded Allergies: chlorproethazine (UNKNOWN 04/21/22) chlorpromazine (From THORAZINE) (UNKNOWN 2) codeine (UNKNOWN 04/21/22) dextromethorphan (From DIMETAPP COLD-CONGESTION) (UNKNOWN 04/21/22) diphenhydramine (From DIMETAPP COLD-CONGESTION) (UNKNOWN 04/21/22) duloxetine (UNKNOWN 04/21/22) guaifenesin (From DIMETAPP COLD-CONGESTION) (UNK NOWN 04/21/22) phenylephrine (From DIMETAPP COLD-CONGESTION) (U NKNOWN 04/21/22) pseudoephedrine (From DIMETAPP COLD-CONGESTION) (UNKNOWN 04/21/22) rofecoxib (From VIOXX) (UNKNOWN 04/21/22) rosuvastatin (UNKNOWN 04/21/22) simvastatin (UNKNOWN 04/21/22) tramadol (UNKNOWN 04/21/22) Review of Systems Cardiovascular: Denies: chest pain, edema, palpitations. All systems rev neg: except as marked Objective General VS/I O: Vital Signs: Date Time Temp Pulse Resp B/P B/P Pulse O2 O2 F low FiO2 Mean Ox Delivery Rate 04/23 1050 36.7 60 16 115/72 0.0 97 Room air 04/23 0702 36.6 59 15 111/71 84.8 97 Room air 04/23 0333 36.6 60 16 122/73 89.6 97 04/22 2322 36.4 59 14 119/68 85.1 98 Room air 04/22 1914 36.7 60 15 130/82 98.0 99 Room air 04/22 1340 59 18 134/77 96.1 98 Room air 04/22 1111 36.9 59 18 122/74 90.0 96 Room air 24 hour I O ending at 0700: 04/23 0700 04/22 1900 Intake Total 0 Output Total Balance 0 Intake, Oral 0 Patient 44.452 kg Weight PATIENT WEIGHT: Weight (lb): 98 Weight (oz): Weight (kg): 44.077861 Medications: Active Meds + DC'd Last 24 Hrs Eastpointe Carbonate (ESKALITH) 300 MG BEDTIME PO Ketorolac Tromethamine (TORADOL) 15 MG Q6H PRN P RN IV Physical Exam General appearance: alert, awake Head/Eyes: atraumatic ENT: moist mucosal membranes Neck: no bruit/NL carotids, no JVD Cardiovascular: CV assessment: regular rate and rhythm, normal heart sounds Respiratory: clear to auscultation, no distress Abdomen: soft, non-tender Lower extremity: LE assessment: no edema Neuro/CHEMICAL HANDLER: alert, oriented X 3, normal speech Skin: dry, intact Psychiatry: normal affect Results Findings/Data: Laboratory Tests 04/22 1815 Chemistry Troponin I High Sens (0.0 - 51.4 pg/mL) <4.0 Diagnosis, Assessment Plan Free Text DxA P Notes Free Text DxA P Notes: Assessment/ Plan: This is a 76 years old female with past medical history of afib, has ST he pacemaker in place ,HTN came s /p fall, AMS. 1. AMS cont per PCP and neurology 2. h/o afib sinus now , will get echo cont eliqu is 2.5 mg BID, she is good candidate for watchman procedure, 3. St he pacemaker interrogation showed A pace d 84% , V paced 41% , normal lead testing, last interrogation 02/05/22 , 23 AF episoes , last on 04/18/22 longest episode 22 hours, wi ll resume eliquis 2.5 mg BID ( pt reports she takes 2.5 mg BID at home) due to h/o fall. POC discussed with Evelin Rivera 05/06/22 1539: Attestations Physician Attestation Agree w/findings plan: I have seen and examined the patient at bedside. I have reviewed the relevant test results and formulated the assessment and p josie. I agree with the note by Zoë Ruano NP. at 1549 Electronically Signed by Zoë Ruano NP on 04/29 02/17 at 1048 RPT #:[id number] END OF REPORT 2022-04-23 08:59:00-00:00 [facility] ([facility] Neurology Progress Note REPORT#:[id number] REPORT STATUS: Signed DATE:04/23/22 TIME: 858 PATIENT: IRMA BRUCE UNIT #: [id number] ROOM/BED: [place] [address] : 43 AGE: 76 SEX: F ATTEND: Sheila Osuna MD ADM AUTHOR: Kaitlynn Howe MD * ALL edits or amendments must be made on the [employer]/computer document * Subjective HPI: Doing ok Review of Systems Constitutional: Denies: chills, fatigue, fev er, generalized weakness, lethargy, malaise, recent wt loss, other. Skin: Denies: abrasion, bruising, contusion, diaphores is, ecchymosis, itching, laceration, rash, swelling, other. Objective General VS: Last Documented: Result Date Time Pulse Ox 97 04/23 07 B/P 111/71 04/23 702 B/P Mean 84.8 04/23 702 O2 Delivery Room air 04/23 07 Temp 36.6 04/23 07 Pulse 59 04/23 07 Resp 15 04/23 702 O2 Flow Rate 2 04/21 2330 PATIENT WEIGHT: Weight (lb): 98 Weight (oz): Weight (kg): 44.309497 Medications Active Meds + DC'd Last 24 Hrs Eastpointe Carbonate (ESKALITH) 300 MG BEDTIME PO Ketorolac Tromethamine (TORADOL) 15 MG Q6H PRN P RN IV Nutrition assessment: The data set between the solid lines has been im ported from the dietitian's assessment. Any exceptions have been noted under Provider comments. BMI Calculated: Nutrition related diagnosis: Underweight Nutrition diagnosis details: BMI 19.9 or less Nutrition problem: Moderate malnutrition Nutrition etiology: Chronic disease Nutrition signs and symptoms: MODERATE MUSCLE LO SS TO , QUADRICEPS, TEMPORAL, BUCCAL, MODERATE SUBCUTANEOUS FAT , LOSS TO ORBI JOHN Nutrition prescription: 1. RECOMMMEND ENSURE ENL VIDHI TID TOLERATED 2. CONTUINE REGULAR/GROUND/EXTRA GRAVIES/SAUCES/[address] TO FOLLOW Dietitian name: Fabi Cao, [employer] Assessment completed: 04/22/22 Provider comments on imported dietitian assessme nt: Physical Exam General appearance: awake Head/Eyes: atraumatic ENT: moist mucosal membranes Neck: appears to be extended and rotated to the right with chronic mostly cervical dystonia Cardiovascular: regular rate and rhythm Respiratory: aerating well Neuro comment: AAOx2 CN II-XII grossly intact, neck with cervical dy stonia Speech normal Motor 3/5 in all extremities, BLE 2/5 Rest of exam deferred as patient cannot coopera te due to pain/weakness Diagnosis, Assessment Plan Problem List/A P: 1. Encephalopathy Free Text A P: Encephalopathy - improving now, toxic/metabolic/ septic in nature mostly No need for eeg or mri brain IVF hydration non-focal exam Repeat ct head wo contrast - reviewed get carotid usg - pending will need cardiology input for afib and starting noac vs antiplatelet (if lone afib) DVT/Gi px telemetry aspiration precautions Kaitlynn Howe MD, MPH Electronically Signed by Kaitlynn Howe MD on 03/30 05/20 at 0859 [facility] #:[id number] END OF REPORT 2022-04-22 14:53:00-00:00 [facility] ([facility]) Hospitalist Progress Note REPORT#:[id number] REPORT STATUS: Signed DATE:04/22/22 TIME: 1452 PATIENT: IRMA BRUCE UNIT #: [id number] ROOM/BED: [place] [address] : 43 AGE: 76 SEX: F ATTEND: Sheila Osuna MD ADM AUTHOR: Jenny Daly MD * ALL edits or amendments must be made on the [employer]/computer document * Subjective Chief complaint: she is very unpleasant and keeps yelling at me says her whole body hurts does not wnt to tell me her friends name because she says she doesn't want me to know ROS unremarkable Objective General VS/I O: Vital Signs: Date Time Temp Pulse Resp B/P B/P Pulse O2 O2 F low FiO2 Mean Ox Delivery Rate 04/22 1340 59 18 134/77 96.1 98 Room air 04/22 1111 36.9 59 18 122/74 90.0 96 Room air 04/22 0606 36.8 60 18 120/68 85.0 98 Room air 04/22 0308 36.5 60 14 131/71 91.2 96 04/21 2330 2 04/21 2253 37.0 60 16 132/68 89.3 95 04/21 1912 36.9 60 16 127/68 87.7 96 04/21 1511 37.1 60 17 150/83 105.5 97 Room air 24 hour I O ending at 0700: 04/22 0700 04/21 1900 Intake Total Output Total 300 Balance -300 Output, Urine 300 PATIENT WEIGHT: Weight (lb): 98 Weight (oz): Weight (kg): 44.401192 Medications: Active Meds + DC'd Last 24 Hrs Ketorolac Tromethamine (TORADOL) 15 MG Q6H PRN P RN IV Nutrition assessment: The data set between the solid lines has been im ported from the dietitian's assessment. Any exceptions have been noted under Provider comments. BMI Calculated: Nutrition related diagnosis: Underweight Nutrition diagnosis details: BMI 19.9 or less Nutrition problem: Moderate malnutrition Nutrition etiology: Chronic disease Nutrition signs and symptoms: MODERATE MUSCLE LO SS TO , QUADRICEPS, TEMPORAL, BUCCAL, MODERATE SUBCUTANEOUS FAT , LOSS TO ORBI JOHN Nutrition prescription: 1. RECOMMMEND ENSURE ENL VIDHI TID TOLERATED 2. CONTUINE REGULAR/GROUND/EXTRA GRAVIES/SAUCES/[address] TO FOLLOW Dietitian name: Fabi Cao, [employer] [facility] Assessment completed: 04/22/22 Provider comments on imported dietitian assessme nt: Free Text Obj Notes Free Text Obj Notes: General appearance: awake Head/Eyes: atraumatic ENT: moist mucosal membranes Neck: appears to be extended and rotated to the right with chronic mostly cervical dystonia Cardiovascular: regular rate and rhythm Respiratory: aerating well Neuro comment: AAOx2 CN II-XII grossly intact, neck with cervical dys rosa isela Speech normal Motor 3/5 in all extremities, BLE 2/5 Rest of exam deferred as patient cannot cooperat e due to pain/weakness Diagnosis, Assessment Plan Free Text DxA P Notes Free text DxA P notes: 1. acute metabolic encephalopathy unknown cause seems to be resolved 2. Dementia with behavioral disturbance try to get a hold of family labs work 3. Afib unkown home med list attempt to find family resume meds 4. chronic pain prn meds 04/22 still have no idea where she lives or what her h istory is she told me she fell and her friend called ems b ecause she fell Electronically Signed by Jenny Daly MD on at 1458 RPT #:[id number] END OF REPORT 2022-04-22 11:12[facility]00[facility] REPORT#:[id number] REPORT STATUS: Signed DATE:04/22/22 TIME: 1112 PATIENT: IRMA BRUCE UNIT #: [id number] ROOM/BED: [place] [address] : 43 AGE: 76 SEX: F ATTEND: Sheila Osuna MD ADM AUTHOR: Kaitlynn Howe MD * ALL edits or amendments must be made on the [employer]/computer document * Subjective HPI: no new changes. Improved now. Review of Systems Unable to obtain due to: ams Objective General VS: Last Documented: Result Date Time Pulse Ox 96 04/22 1111 B/P 122/74 04/22 1111 B/P Mean 90.0 04/22 1111 O2 Delivery Room air 04/22 1111 Temp 36.9 04/22 1111 Pulse 59 04/22 1111 Resp 18 04/22 1111 O2 Flow Rate 2 04/21 2330 PATIENT WEIGHT: Weight (lb): Weight (oz): Weight (kg): Medications Active Meds + DC'd Last 24 Hrs Ketorolac Tromethamine (TORADOL) 15 MG Q6H PRN P RN IV Nutrition assessment: The data set between the solid lines has been im ported from the dietitian's assessment. Any exceptions have been noted under Provider comments. BMI Calculated: Nutrition related diagnosis: Nutrition diagnosis details: Nutrition problem: Nutrition etiology: Nutrition signs and symptoms: Nutrition prescription: Dietitian name: Assessment completed: Provider comments on imported dietitian assessme nt: Physical Exam General appearance: awake Head/Eyes: atraumatic ENT: moist mucosal membranes Neck: appears to be extended and rotated to the right with chronic mostly cervical dystonia Cardiovascular: regular rate and rhythm Respiratory: aerating well Neuro comment: AAOx2 CN II-XII grossly intact, neck with cervical dy stonia Speech normal Motor 3/5 in all extremities, BLE 2/5 Rest of exam deferred as patient cannot coopera te due to pain/weakness Diagnosis, Assessment Plan Problem List/A P: 1. Encephalopathy Free Text A P: Encephalopathy - improving now, toxic/metabolic/ septic in nature mostly No need for eeg or mri brain IVF hydration non-focal exam Repeat ct head wo contrast - reviewed get carotid usg - pending will need cardiology input for afib and starting noac vs antiplatelet (if lone afib) DVT/Gi px telemetry aspiration precautions Kaitlynn Howe MD, MPH Electronically Signed by Kaitlynn Howe MD on 03/30 04/19 at 1126 RPT #:[id number] END OF REPORT 2022-04-21 09:52:00-00:00 [facility] ([facility]) Neurology Consultation Note REPORT#:[id number] REPORT STATUS: Signed DATE:04/21/22 TIME: 951 PATIENT: IRMA BRUCE UNIT #: [id number] ROOM/BED: [place] [address] : 43 AGE: 76 SEX: F ATTEND: Sheila Osuna MD ADM AUTHOR: Kaitlynn Howe MD * ALL edits or amendments must be made on the [employer]/computer document * History of Present Illness HPI Requesting clinician: Roland TEXTILE SCIENCE TECHNICIAN Reason for consult: ams HPI: 76 yo female who presents with [facility] with h/o afib, htn, cad, (on lithium) with worsening ams per primary team her e. patient was accepted as a direct admit with a ct head unremarkable at [facility]. patient has chronic pain with debilitati ng disablity and contractures/dystonic neck posture. History - Adult longitudinal Additional medical history: not pertinen Additional surgical history: not pertinent Additional family history: not pertinent Allergies: Coded Allergies: chlorproethazine (UNKNOWN 04/21/22) chlorpromazine (From THORAZINE) (UNKNOWN 2) codeine (UNKNOWN 04/21/22) dextromethorphan (From DIMETAPP COLD-CONGESTION) (UNKNOWN 04/21/22) diphenhydramine (From DIMETAPP COLD-CONGESTION) (UNKNOWN 04/21/22) duloxetine (UNKNOWN 04/21/22) guaifenesin (From DIMETAPP COLD-CONGESTION) (UNK NOWN 04/21/22) phenylephrine (From DIMETAPP COLD-CONGESTION) (U NKNOWN 04/21/22) pseudoephedrine (From DIMETAPP COLD-CONGESTION) (UNKNOWN 04/21/22) rofecoxib (From VIOXX) (UNKNOWN 04/21/22) rosuvastatin (UNKNOWN 04/21/22) simvastatin (UNKNOWN 04/21/22) tramadol (UNKNOWN 04/21/22) Review of Systems Constitutional: Denies: chills, fatigue, fev er, generalized weakness, lethargy, malaise, recent wt loss, other. Skin: Denies: abrasion, bruising, contusion, diaphores is, ecchymosis, itching, laceration, rash, swelling, other. Allergy/Immun: Denies: allergic reaction, anaphylaxis, hives, i tching, rhinorrhea, sneezing, other. Eyes: Denies: redness, discharge, visual loss/blurred, itching, diplopia, eye pain, photophobia, swelling, other. Respiratory: Denies: ALBRECHT (dyspnea on exertion), hemoptysis, n on productive cough, parox nocturnal dyspnea, pleurisy, pleuritic pain, pneumonia, productive cough (sputum ), SOB, wheezing, other. Cardiovascular: Denies: chest pain, ALBRECHT (dyspnea on exer tion), edema, orthopnea, palpitations, parox nocturnal dyspnea, other. Neuro: Reports: generalized weaknes s. Denies: bladder incontinence, bowel incontinence , change in LOC, confusion, dizziness, f ocal weakness, gait problem, headache, lightheaded, numbness, seizu re, slurred speech, spinning sensation, passed out, unable to speak, vision change, other. Psych: Denies: agitation, anxiety, auditory hallucinati on, change in mental status, confusion, delusional, depre ssion, homicidal ideation, hostile, insomnia, stress , suicidal ideation, visual hallucination, other . Objective General VS: Last Documented: Result Date Time Pulse Ox 96 04/21 700 B/P 147/81 04/21 700 B/P Mean 103.0 04/21 700 O2 Delivery Room air 04/21 700 Temp 36.8 04/21 700 Pulse 61 04/21 700 Resp 17 04/21 700 PATIENT WEIGHT: Weight (lb): Weight (oz): Weight (kg): Medications Active Meds + DC'd Last 24 Hrs Ketorolac Tromethamine (TORADOL) 15 MG Q6H PRN P RN IV Morphine Sulfate (morphine SULFATE) 2 MG Q4H PRN PRN IV (DC) Nutrition assessment: The data set between the solid lines has been im ported from the dietitian's assessment. Any exceptions have been noted under Provider comments. BMI Calculated: Nutrition related diagnosis: Nutrition diagnosis details: Nutrition problem: Nutrition etiology: Nutrition signs and symptoms: Nutrition prescription: Dietitian name: Assessment completed: Provider comments on imported dietitian assessme nt: Physical Exam General appearance: awake Head/Eyes: atraumatic ENT: moist mucosal membranes Neck: appears to be extended and rotated to the right with chronic mostly cervical dystonia Cardiovascular: regular rate and rhythm Respiratory: aerating well Neuro comment: AAOx2 CN II-XII grossly intact, neck with cervical dys rosa isela Speech normal Motor 3/5 in all extremities, BLE 2/5 Rest of exam deferred as patient cannot cooperat e due to pain/weakness Diagnosis, Assessment Plan Problem List/A P: 1. Encephalopathy Free Text DxA P Notes Free text DxA P notes: Encephalopaty - improving now, toxic/metabolic/s eptic in nature mostly No need for eeg or mri brain IVF hydration non-focal exam Repeat ct head wo contrast get carotid usg will need cardiology input for afib and starting noac vs antiplatelet (if lone afib) DVT/Gi px telemetry aspiration precautions Kaitlynn Howe MD, MPH Electronically Signed by Kaitlynn Howe MD on 03/30 03/20 at 0957 RPT #:[id number] END OF REPORT 2022-04-21 09:18:00-00:00 HCAMN [facility] ([facility]) Hospitalist History Physical REPORT#:[id number] REPORT STATUS: Signed DATE:04/21/22 TIME: 917 PATIENT: IRMA BRUCE UNIT #: [id number] ROOM/BED: [place] [id number] : 43 AGE: 76 SEX: F ATTEND: Sheila Osuna MD ADM AUTHOR: Jenny Daly MD * ALL edits or amendments must be made on the [employer]/computer document * History of Present Illness HPI Chief complaint: AMS HPI: 76yo female with hx of demen tia comes from OSH for altered mental status. She is unable to tell me anything. She has a kn own hx of afib, HTN, and dementia. She does not know who she lives with but she told ca se mgmt that whoever it is kicked her out. She denies a ny complaints. Knows nothing. CT head unremarkable./ History Medication/Allergy-Vaccine Hx Allergies: Coded Allergies: chlorproethazine (UNKNOWN 04/21/22) chlorpromazine (From THORAZINE) (UNKNOWN 2) codeine (UNKNOWN 04/21/22) dextromethorphan (From DIMETAPP COLD-CONGESTION) (UNKNOWN 04/21/22) diphenhydramine (From DIMETAPP COLD-CONGESTION) (UNKNOWN 04/21/22) duloxetine (UNKNOWN 04/21/22) guaifenesin (From DIMETAPP COLD-CONGESTION) (UNK NOWN 04/21/22) phenylephrine (From DIMETAPP COLD-CONGESTION) (U NKNOWN 04/21/22) pseudoephedrine (From DIMETAPP COLD-CONGESTION) (UNKNOWN 04/21/22) rofecoxib (From VIOXX) (UNKNOWN 04/21/22) rosuvastatin (UNKNOWN 04/21/22) simvastatin (UNKNOWN 04/21/22) tramadol (UNKNOWN 04/21/22) Review of Systems Unable to obtain due to: AMS Physical Exam VS/I O: Vital Signs Date Temp Pulse Resp B/P B/P Mean Pulse Ox FiO2 04/21 36.5-37.1 60-61 17 145-150/72-83 96.6-105 .5 96-97 Last Documented: Result Date Time Pulse Ox 97 04/21 1511 B/P 150/83 04/21 1511 B/P Mean 105.5 04/21 1511 O2 Delivery Room air 04/21 1511 Temp 37.1 04/21 1511 Pulse 60 04/21 1511 Resp 17 04/21 1511 O2 Flow Rate 2 04/21 1111 Patient Weight and BMI Weight (kg): BMI: Results Findings/Data: Laboratory Tests: 04/21 0942 Chemistry Sodium (134.0 - 147.0 mmol/l) 136 Potassium (3.6 - 5.2 mmol/L) 4.7 Chloride (98.0 - 107.0 mmol/l) 105 Carbon Dioxide (21.0 - 33.0 mmol/l) 24.1 Anion Gap (0 - 20) 11.6 BUN (7.0 - 18.0 mg/dl) 22 H Creatinine (0.60 - 1.30 mg/dL) 1.11 Est GFR ( Amer) (85 - 97 mL/min) 61 L Est GFR (Non-Af Amer) (70 - 80 mL/min) 50 L Glucose (70.0 - 110.0 mg/dl) 112 H Calcium (8.0 - 10.5 mg/dl) 10.6 H Magnesium (1.8 - 2.4 mg/dl) 2.3 Total Bilirubin (0.0 - 1.0 mg/dl) 0.5 AST (15 - 37 Units/L) 32 ALT (12.0 - 78.0 Units/L) 49 Total Alk Phosphatase (50.0 - 136.0 Units/L) 7 2 Total Protein (6.4 - 8.2 gm/dL) 7.8 Albumin (3.2 - 4.7 gm/dl) 3.6 TSH (0.47 - 5.01 IU/ML) 1.58 Hematology WBC (4.5 - 11.0 K/mm3) 10.4 RBC (3.80 - 5.20 M/mm3) 3.87 Hgb (12.0 - 16.0 gm/dL) 12.2 Hct (36.0 - 48.0 %) 39.6 MCV (82.0 - 99.0 UM3) 102.3 H MCH (25.5 - 32.5 UUG) 31.5 MCHC (29.0 - 35.5 gm/dL) 30.8 RDW (11.5 - 15.0 %) 13.2 Plt Count (150 - 400 K/mm3) 301 MPV (7.4 - 10.4 fl) 9.8 Neut % (Auto) (49.0 - 76.0 %) 76.9 H Lymph % (Auto) (23.0 - 38.0 %) 15.[address] [place] % (Auto) (1.0 - 10.0 %) 5.1 Eos % (Auto) (1.0 - 5.0 %) 0.8 L Baso % (Auto) (0.0 - 1.0 %) 0.7 Neut # (Auto) (2.4 - 6.3 K/mm3) 8.0 H Lymph # (Auto) (1.2 - 4.0 K/mm3) 1.6 [facility] [place] # (Auto) (0.0 - 0.6 K/mm3) 0.5 Eos # (Auto) (0.0 - 0.7 K/MM3) 0.1 Baso # (Auto) (0.0 - 0.2 K/mm3) 0.1 Absolute Nucleated RBC (0.00 - 0.01 X10 3uL) 0. 00 Immature Gran % (0.0 - 0.4 %) 1.1 H Nucleated RBC % (0.0 - 0.1 %) 0.0 Immature Gran # (0.00 - 0.07 x10 3/uL) 0.11 H Laboratory Tests 04/21/22 0942: [Embedded Image Not Available] Radiology data: Recent Impressions: CAT SCAN - CT HEAD/BRAIN W/O CONT 04/21 0906 Report Impression - Status: SIGNED Entered: 04/21/2022 0930 IMPRESSION: 1. Mild generalized cerebral atrophy and scatter ed periventricular and deep white matter changes, consistent with chron ic microvascular disease. 2. No evidence of acute stroke, hemorrhage or ma ss. Impression By: [email or web address] Kathy GALICIA M.D. Free Text PE Notes Free Text PE Notes: General appearance: awake Head/Eyes: atraumatic ENT: moist mucosal membranes Neck: appears to be extended and rotated to the right with chronic mostly cervical dystonia Cardiovascular: regular rate and rhythm Respiratory: aerating well Neuro comment: AAOx2 CN II-XII grossly intact, neck with cervical dys rosa isela Speech normal Motor 3/5 in all extremities, BLE 2/5 Rest of exam deferred as patient cannot cooperat e due to pain/weakness Diagnosis, Assessment Plan Free Text A P: 1. acute metabolic encephalopathy unknown cause seems to be resolved 2. Dementia with behavioral disturbance try to get a hold of family labs work 3. Afib unkown home med list attempt to find family resume meds 4. chronic pain prn meds Electronically Signed by Jenny Daly MD on at 1909 RPT #:[id number] END OF REPORT
--- NOTE | 2023-08-13 12:18 | RAD REPORT ---
[facility] am CLINICAL HISTORY: shortness of breath COMPARISON: Chest Single View dated 08/07/2022; Chest Pa And Lat (2 Views) dated 03/31/2022; CHEST SINGL E VIEW dated 05/06/2011; CHEST SINGLE VIEW dated 05/05/2011 TECHNIQUE: Portable AP view of the chest. FINDINGS: The lungs are clear. No pneumothorax or effusion. The cardiomediastinal contours are unre markable. Left chest wall pacer/AICD in place. IMPRESSION: No acute cardiopulmonary process.
[2023-08-13 12:22] LABS: Absolute Lymphocytes (CBC) 1.9 K/uL (0.7-4.9); Hematocrit 39.4 % (36.0-45.0); Lymphocytes % 18.9 % (15.3-44.8); MCV 95.7 fL (80-100); MPV 8.3 fL (7.6-11.3); Platelets 242 thou/uL (152-406); RBC Red Blood Cell Count 4.12 M/uL (3.86-4.86)
[2023-08-13 12:39] LABS: ALT/SGPT 17 U/L (13-56); AST/SGOT 11 U/L (15-37); Albumin 3.5 g/dL (3.4-5.0); Alkaline Phosphatase 90 U/L (45-117); BUN Blood Urea Nitrogen 17 mg/dL (7-18); Bicarbonate 24 mEq/L (21-32); Bilirubin Direct 0.2 mg/dL (0-0.2); Bilirubin Indirect, Calculated 0.7 mg/dL (0.2-0.8); Bilirubin Total 0.9 mg/dL (0.2-1.0); Glomerular Filtration Rate 34 ml/min (=/>90); Glucose Level 133 mg/dL (74-106); Magnesium 2.4 mg/dL (1.6-2.4); NT PRO-BNP 695 pg/mL (<450); Potassium 3.9 mEq/L (3.5-5.1); Protein, Total 7.7 g/dL (6.4-8.2); Sodium Level 136 mEq/L (136-145)
[2023-08-13 13:26] LABS: Troponin High Sensitivity < 3.0 pg/mL (<58.9)
--- NOTE | 2023-08-13 13:48 | RAD REPORT ---
EXAM DESCRIPTION: CT - Chest For Pe Angio - 08/13/2023 1:17 pm CLINICAL HISTORY: sob COMPARISON: None. TECHNIQUE: Dynamically enhanced axial 3 mm thick images of the chest were obtained during administra tion of 100 mL Isovue 370 IV contrast. Coronal and oblique reconstruction images were generated and r eviewed. Exam utilizes a protocol for optimal evaluation of pulmonary arterial tree. Maximum intensity projections 3D imaging was utilized All CT scans are performed using dose optimization technique as appropriate and may include automated exposure control or mA/KV adjustment according to patient size. FINDINGS: A pulmonary embolus is not seen. A thoracic aortic aneurysm is not noted. A pleural effusion is not seen. A pericardial effusion is not seen. A lung consolidation is not present. A 2 centimeter nodule left lobe thyroid gland Lobulated cystic masses right shoulder IMPRESSION: Negative for a pulmonary embolism. 2 centimeter nodule left lobe thyroid gland. Nonemergent thyroid ultrasound recommended Lobulated cystic masses right shoulder probably ganglion cyst. Nonemergent ultrasound recommended
--- NOTE | 2023-08-13 14:05 | ER ---
Nurse's Notes [facility] Name: Devonte Hager Age: 78 yrs Sex: Female : 1945 Arrival Date: 08/13/2023 Time: 11:17 Bed 20 Private MD: Diagnosis: Shortness of breath Presentation: 08/13 11:28 Chief complaint: Pt reports she has SOB and pain all over " all the time but today it hb is worse.". Coronavirus screen: Client presents with at least one sign or symptom that may indicate coronavirus-19. Provider contacted for isolation considerations. Ebola Screen: No symptoms or risks identified at this time. Initial Sepsis Screen: Does the patient meet any 2 criteria? No. Patient's initial sepsis screen is negative. Does the patient have a suspected source of infection? No. Patient's initial sepsis screen is negative. Risk Assessment: Do you want to hurt yourself or someone else? Patient reports no desire to harm self or others. Onset of symptoms is unknown. 11:28 Method Of Arrival: Carried hb 11:28 Acuity: INGRIS 3 hb Triage Assessment: 15:23 General: Appears in no apparent distress. Respiratory: Reports shortness of breath ap3 Onset: The symptoms/episode began/occurred gradually, the patient has mild shortness of breath. Historical: - Allergies: 11:30 codeine sulfate; hb 11:30 Crestor; hb 11:30 Cymbalta; hb 11:30 Dimetapp Cold-Congestion; hb 11:30 thorezine; hb 11:30 Tramadol HCl; hb 11:30 Vioxx; hb 11:30 Zocor; hb - Home Meds: 11:30 amiodarone 200 mg Oral tab 1 tab once daily [Active]; amlodipine 5 mg tab 1 tab once hb daily [Active]; apixaban 5 mg Oral tab 1 tab 2 times per day [Active]; cholecalciferol (vitamin D3) 125 mcg (5,000 unit) Oral cap daily [Active]; diclofenac sodium 75 mg Oral TbEC 1 tab 2 times per day [Active]; lithium carbonate 300 mg Oral tab 1 tab 2 times per day [Active]; oxybutynin chloride 5 mg Oral cp24 1 tab once daily [Active]; rivaroxaban 15 mg Oral tab 1 tab once daily [Active]; spironolactone 25 mg Oral tab 1 tab once daily [Active]; - PMHx: 11:30 Atrial fibrillation; hb - PSHx: 11:30 hysterectomy; pacemaker; tubligation; hb - Immunization history:: Adult Immunizations up to date. - Social history:: Smoking status: Patient denies any tobacco usage or history of. Screenin:52 [facility] ED Fall Risk Assessment (Adult) History of falling in the last 3 months, ap3 including since admission No falls in past 3 months (0 pts). Abuse screen: Denies threats or abuse. Nutritional screening: No deficits noted. Tuberculosis screening: No symptoms or risk factors identified. Assessment: 11:51 General: Appears in no apparent distress. Behavior is calm, cooperative, appropriate ap3 for age. Pain: Complains of pain in generalized body pain. Neuro: Level of Consciousness is awake, alert, obeys commands, Oriented to person, place, time, situation, Appropriate for age. Cardiovascular: Patient's skin is warm and dry. Respiratory: Airway is patent Respiratory effort is even, unlabored, Respiratory pattern is regular, symmetrical. 15:23 Cardiovascular: Rhythm is regular. Respiratory: Breath sounds are clear. ap3 Vital Signs: 11:28 BP 120 / 78; Pulse 76; Resp 24; Temp 99.4(O); Pulse Ox 96% on R/A; Weight 51.71 kg; hb Height 5 ft. 5 in. ; Pain 8/10; 12:56 BP 125 / 86; Pulse 70; Pulse Ox 98% on R/A; ap3 11:28 Body Mass Index 18.97 (51.71 kg, 165.1 cm) hb 11:28 Pain Scale: Adult hb ED Course: 11:28 Patient arrived in ED. hb 11:28 Navi Costa DO is Attending Physician. ms3 11:30 Triage completed. hb 11:32 Arm band placed on. hb 11:51 Stephanie Eastman, EDILBERTO is Primary Nurse. ap3 11:52 Patient has correct armband on for positive identification. Bed in low position. Call ap3 light in reach. Side rails up X2. 11:56 XRAY Chest (1 view) In Process Unspecified. EDMS 12:14 Initial lab(s) drawn, by me, sent to lab. Inserted saline lock: 20 gauge in left ap3 antecubital area, using aseptic technique. Blood collected. 13:18 CT Chest For PE Angio In Process Unspecified. EDMS 15:22 No provider procedures requiring assistance completed. IV discontinued, intact, ap3 bleeding controlled, No redness/swelling at site. Pressure dressing applied. 15:23 Provided Education on: discharge instructions. ap3 Administered Medications: No medications were administered Medication: 11:53 VIS not applicable for this client. ap3 Outcome: 14:04 Discharge ordered by MD. ms3 15:23 Discharged to home via wheelchair, with family. ap3 15:23 Condition: good 15:23 Discharge instructions given to patient, family, Instructed on discharge instructions, follow up and referral plans. Demonstrated understanding of instructions, follow-up care. 15:23 Patient left the ED. ap3 Signatures: Dispatcher [employer] EDMS Taylor Ricks, RN RN Stephanie Eastman RN RN ap3 Navi Costa, DO ms3 Corrections: (The following items were deleted from the chart) 12:03 11:54 Reassessment: nurse attempted to call report. no answer at this time, will ap3 attempt to call again ap3
--- NOTE | 2023-08-13 14:05 | EDPHYS ---
Physician Documentation [facility] Name: Devonte Hager Age: 78 yrs Sex: Female : 1945 Arrival Date: 08/13/2023 Time: 11:17 Bed 20 Private MD: ED Physician Navi Costa HPI: 08/13 11:42 This 78 yrs old Female presents to ER via Carried with complaints of Shortness Of ms3 Breath, Pain All Over. 11:42 78-year-old female with past medical history of atrial fibrillation presents for ms3 shortness of breath that has been ongoing for greater than 1 month. Patient notes she is also having generalized body aches that she rates an 8/10. Patient notes she did have a CT performed of her head yesterday at [place]. Patient denies nausea, vomiting, chest pain, abdominal pain.. Historical: - Allergies: 11:30 codeine sulfate; hb 11:30 Crestor; hb 11:30 Cymbalta; hb 11:30 Dimetapp Cold-Congestion; hb 11:30 thorezine; hb 11:30 Tramadol HCl; hb 11:30 Vioxx; hb 11:30 Zocor; hb - Home Meds: 11:30 amiodarone 200 mg Oral tab 1 tab once daily [Active]; amlodipine 5 mg tab 1 tab once hb daily [Active]; apixaban 5 mg Oral tab 1 tab 2 times per day [Active]; cholecalciferol (vitamin D3) 125 mcg (5,000 unit) Oral cap daily [Active]; diclofenac sodium 75 mg Oral TbEC 1 tab 2 times per day [Active]; lithium carbonate 300 mg Oral tab 1 tab 2 times per day [Active]; oxybutynin chloride 5 mg Oral cp24 1 tab once daily [Active]; rivaroxaban 15 mg Oral tab 1 tab once daily [Active]; spironolactone 25 mg Oral tab 1 tab once daily [Active]; - PMHx: 11:30 Atrial fibrillation; hb - PSHx: 11:30 hysterectomy; pacemaker; tubligation; hb - Immunization history:: Adult Immunizations up to date. - Social history:: Smoking status: Patient denies any tobacco usage or history of. ROS: 11:42 Neck: Negative for injury, pain, and swelling, Cardiovascular: Negative for chest pain, ms3 and palpitations. 11:42 MS/Extremity: Negative for injury and deformity, Skin: Negative for injury, rash, and discoloration. 11:42 Constitutional: Positive for body aches. 11:42 Respiratory: Positive for shortness of breath. 11:42 All other systems are negative. Exam: 11:42 Constitutional: This is a well developed, well nourished patient who is awake, alert, ms3 and in no acute distress. Head/Face: Normocephalic, atraumatic. Neck: Trachea midline, no cervical lymphadenopathy. Supple, full range of motion without nuchal rigidity, or vertebral point tenderness. No Meningismus. Chest/axilla: Normal chest wall appearance and motion. Nontender with no deformity. Cardiovascular: Regular rate and rhythm with a normal S1 and S2. No gallops, murmurs, or rubs. Normal PMI, no JVD. No pulse deficits. Respiratory: Lungs have equal breath sounds bilaterally, clear to auscultation and percussion. No rales, rhonchi or wheezes noted. No increased work of breathing, no retractions or nasal flaring. Abdomen/GI: Soft, non-tender, with normal bowel sounds. No distension or tympany. No guarding or rebound. No evidence of tenderness throughout. Skin: Warm, dry with normal turgor. Normal color with no rashes, no lesions, and no evidence of cellulitis. 13:07 ECG was reviewed by the Attending Physician. ms3 Vital Signs: 11:28 BP 120 / 78; Pulse 76; Resp 24; Temp 99.4(O); Pulse Ox 96% on R/A; Weight 51.71 kg; hb Height 5 ft. 5 in. ; Pain 8/10; 12:56 BP 125 / 86; Pulse 70; Pulse Ox 98% on R/A; ap3 11:28 Body Mass Index 18.97 (51.71 kg, 165.1 cm) hb 11:28 Pain Scale: Adult hb MDM: 11:41 Patient medically screened. ms3 11:42 Differential diagnosis: Anemia Bronchitis Pulmonary fibrosis 2/2 Amiodarone. ms3 14:04 Data reviewed: vital signs, nurses notes, and as a result, I will discharge patient. ms3 Consideration of Admission/Observation Escalation of care including admission/observation considered. Patient chest x-ray and CT without abnormalities, troponin negative.. Historians other than the Patient: Friend: . Counseling: I had a detailed discussion with the patient and/or guardian regarding the historical points, exam findings, and any diagnostic results supporting the discharge/admit diagnosis, lab results, radiology results, the need for outpatient follow up, to return to the emergency department if symptoms worsen or persist or if there are any questions or concerns that arise at home. Special discussion: I discussed with the patient/guardian in detail that at this point there is no indication for admission to the hospital. It is understood, however, that if the symptoms persist or worsen the patient needs to return immediately for re-evaluation. ED course: Discussed labs, chest x-ray, CT with patient. Patient to follow-up with her primary care physician in 2 to 3 days. Patient understands and agrees with plan. All questions were answered. Return precautions discussed include worsening symptoms, or any other concerns. On reevaluation patient is alert and oriented x4, in no apparent distress, nontoxic-appearing, speaking full sentences. 08/13 11:42 Order name: Basic Metabolic Panel; Complete Time: 13:32 ms3 08/13 11:42 Order name: CBC with Diff; Complete Time: 12:39 08/13 11:42 Order name: D-Dimer; Complete Time: 12:39 3 08/13 11:42 Order name: LFT's; Complete Time: 13:32 3 08/13 11:42 Order name: Magnesium; Complete Time: 13:32 3 08/13 11:42 Order name: NT PRO-BNP; Complete Time: 13:32 3 08/13 11:42 Order name: Troponin HS; Complete Time: 13:32 ms3 08/13 11:42 Order name: XRAY Chest (1 view); Complete Time: 12:39 ms3 08/13 12:40 Order name: CT Chest For PE Angio; Complete Time: 13:55 ms3 08/13 11:42 Order name: EKG; Complete Time: 11:42 ms3 08/13 11:42 Order name: Cardiac monitoring; Complete Time: 12:51 ms3 08/13 11:42 Order name: EKG - Nurse/Tech; Complete Time: 12:41 08/13 11:42 Order name: IV Saline Lock; Complete Time: 12:14 ms3 08/13 11:42 Order name: Labs collected and sent; Complete Time: 12:14 ms3 08/13 11:42 Order name: O2 Per Protocol; Complete Time: 12: ms3 08/13 11:42 Order name: O2 Sat Monitoring; Complete Time: 12: ms3 EC:07 Rate is 70 beats/min. Rhythm is regular. Left axis deviation noted. QRS interval is ms3 prolonged. Clinical impression: Ventricular-paced. Interpreted by me. Reviewed by me. Administered Medications: No medications were administered Disposition Summary: 08/13/23 14:04 Discharge Ordered Location: Home ms3 Condition: Stable ms3 Diagnosis - Shortness of breath ms3 Followup: ms3 - With: Private Physician - When: 2 - 3 days - Reason: Recheck today's complaints Discharge Instructions: - Discharge Summary Sheet ms3 - Shortness of Breath, Adult ms3 - Chronic Kidney Disease, Adult ms3 Forms: - Medication Reconciliation Form ms3 - Thank You Letter ms3 - Antibiotic Education ms3 - Prescription Opioid Use ms3 - Patient Portal Instructions ms3 - Leadership Thank You Letter ms3 Signatures: Dispatcher [employer] Taylor Hutchison, RN RN Navi Correa DO DO ms3
[2023-08-13 15:52] VITALS: BP 145/108; TEMP 98.2; O2SAT 100
--- NOTE | 2023-08-16 19:12 | EKG ---
Test Date: 2023-08-13 Test Time: 12:46:25 [employer] Builder: MEASUREMENT RESULTS: Intervals: Rate: 70 VA: QRSD: 174 QT: 492 QTc: 531 [place]: P: VA: QRS: -47 T: 94 INTERPRETIVE STATEMENTS: Ventricular-paced rhythm Abnormal ECG Compared to ECG 08/07/2022 08:52:19 Atrial-paced complex(es) or rhythm no longer present Right-axis deviation no longer present Prolonged QT interval no longer present Electronically Signed On 08-16-23 19:07:56 CDT by Alek Feliciano
== END 2023-08-13 15:23 | disposition home or self-care (01) ==
LOC: ER 11:17
DX: R06.02 Shortness of breath (principal); M79.10 Myalgia, unspecified site; I48.91 Unspecified atrial fibrillation; Z95.0 Presence of cardiac pacemaker; Z88.5 Allergy status to narcotic agent; Z88.6 Allergy status to analgesic agent; Z88.8 Allergy status to other drugs, medicaments and biological substances
CPT/HCPCS: 85025; 80048; 36415; 83735; 85379; 80076; 84484; 83880; 71275; 71045; 99283; Q9967; 93005

== ENCOUNTER 2024-01-21 18:15 | Observation (INO) | payer OTHER ==
--- OUTSIDE RECORDS SUMMARY | 2024-01-21 18:19 | XMS REPORT | Continuity of Care Document ---
Author Name Unknown Address [address] [place] [address] [employer] Address [address] [place] [address] 1 [address] [place] [address] Care Team Providers Care Human Services Supervisor Name Role Phone Maluf_C Attending Clinician Unavailable Maluf_C Admitting Clinician Unavailable Payers Payer Name Policy Type Policy Number Effective Date Expirati on Date Source MEDICARE [place]: [employer] [id number] 1997 00:00:00 Encounters Start Date/Time End Date/Time Encounter Type Admission Type Attending Clinicians Care Facility Care Department Encounter ID Source 2016-07-15 04:35:00 2016-07-15 04:35:00 Outpatient Maluf[facility]C [id number]
[2024-01-21] MEDS ORDERED: ALBUTEROL 2.5 MG/3 ML NEB SOL ONE (19:17)
[2024-01-21] MEDS ORDERED: IPRATROPIUM BROM 0.5MG/2.5ML ONE (19:17)
[2024-01-21] MEDS ORDERED: METHYLPREDNISOLONE 40 MG INJ ONE (19:17)
[2024-01-21 19:29] LABS: Absolute Lymphocytes (CBC) 0.8 K/uL (0.7-4.9); Hematocrit 42.4 % (36.0-45.0); Lymphocytes % 4.9 % (15.3-44.8); MCV 94.7 fL (80-100); MPV 7.8 fL (7.6-11.3); Platelets 266 thou/uL (152-406); RBC Red Blood Cell Count 4.48 M/uL (3.86-4.86)
[2024-01-21 19:42] LABS: SARS-CoV-2 Antigen Rapid Res Negative (Negative)
[2024-01-21 20:05] LABS: ALT/SGPT 24 U/L (13-56); AST/SGOT 16 U/L (15-37); Albumin 3.7 g/dL (3.4-5.0); Alkaline Phosphatase 100 U/L (45-117); BUN Blood Urea Nitrogen 32 mg/dL (7-18); Bicarbonate 26 mEq/L (21-32); Bilirubin Direct 0.2 mg/dL (0-0.2); Bilirubin Indirect, Calculated 0.4 mg/dL (0.2-0.8); Bilirubin Total 0.6 mg/dL (0.2-1.0); Glomerular Filtration Rate 28 ml/min (=/>90); Glucose Level 131 mg/dL (74-106); Magnesium 2.6 mg/dL (1.6-2.4); Potassium 4.2 mEq/L (3.5-5.1); Protein, Total 7.7 g/dL (6.4-8.2); Sodium Level 133 mEq/L (136-145)
--- NOTE | 2024-01-21 20:05 | RAD REPORT ---
EXAM DESCRIPTION: RADChest Single View01/21/2024 7:36 pm CLINICAL HISTORY: SOB COMPARISON: Chest Single View dated 01/04/2024; Chest Single View dated 08/13/2023; Chest Single View d ated 08/07/2022; Chest Pa And Lat (2 Views) dated 03/31/2022 TECHNIQUE: Portable AP view of the chest. FINDINGS: The lungs are clear. Left chest wall pacer/AICD in place. No pneumothorax or effusion. The cardiomediastinal contours are unremarkable. IMPRESSION: No acute cardiopulmonary process.
[2024-01-21 20:17] LABS: NT PRO-BNP 264 pg/mL (<450)
[2024-01-21 20:19] LABS: Troponin High Sensitivity < 3.0 pg/mL (<58.9)
[2024-01-21 20:49] LABS: Blood Morphology Comment NOT SEEN (NOT SEEN); Platelet Estimate ADEQ; White Blood Cell Scan OK (OK)
--- NOTE | 2024-01-21 22:34 | RAD REPORT ---
EXAM DESCRIPTION: CT - Thorax Wo Con - 01/21/2024 10:00 pm CLINICAL HISTORY: shortness of breath COMPARISON: Chest For Pe Angio dated 08/13/2023; Chest Single View dated 01/21/2024 TECHNIQUE: Axial thin cut images of the chest were obtained without IV contrast. Multiplanar reforma ts were generated and reviewed. All CT scans are performed using dose optimization technique as appropriate and may include automated exposure control or mA/KV adjustment according to patient size. FINDINGS: No mass or infiltrate in the lung parenchyma. Dependent atelectatic changes. No pleural th ickening or pleural effusion. No pneumothorax. No abnormal mediastinal or hilar masses or lymphadenopathy seen. No significant aortic or pulmonary a rtery findings. Assessment is limited in the absence of IV contrast. No chest wall mass or abnormal axillary lymphadenopathy. Evaluation of the solid abdominal structures reveals no suspicious findings. Nonnodular thickening of both adrenal glands, nonspecific. Right shoulder effusion with lobulated components extending in the periarticular spaces, stable jazzy red to the prior CT. IMPRESSION: No acute process within the chest. Stable findings as above, including right shoulder periarticular cystic changes suggestive of bursiti s and/or ganglion cysts.
--- NOTE | 2024-01-21 23:25 | ER ---
Nurse's Notes [facility] Name: Devonte Hager Age: 78 yrs Sex: Female : 1945 Arrival Date: 01/21/2024 Time: 18:15 Bed 8 Private MD: Dimas Rosario Diagnosis: Hypoxemia;Shortness of breath Presentation: 01/21 18:20 Chief complaint: Patient states: SOB continues even after last discharge 3 days ago. No ll1 fevers. Unable to urinate or produce bowel movement. Coronavirus screen: Client denies travel out of the [place] in the last 14 days. cough unrelated to allergies, difficulty breathing. Ebola Screen: Patient denies travel to an Ebola-affected area in the 21 days before illness onset. Initial Sepsis Screen: Does the patient meet any 2 criteria? No. Patient's initial sepsis screen is negative. Does the patient have a suspected source of infection? Yes: Productive cough/pneumonia. Risk Assessment: Do you want to hurt yourself or someone else? Patient reports no desire to harm self or others. Onset of symptoms was January 19, 2024. 18:20 Method Of Arrival: Wheelchair ll1 18:20 Acuity: INGRIS 2 ll1 Historical: - Allergies: 18:20 codeine sulfate; ll1 18:20 Crestor; ll1 18:20 Cymbalta; ll1 18:20 Dimetapp Cold-Congestion; ll1 18:20 thorezine; ll1 18:20 Tramadol HCl; ll1 18:20 Vioxx; ll1 18:20 Zocor; ll1 - PMHx: 18:20 Atrial fibrillation; ll1 - PSHx: 18:20 hysterectomy; pacemaker; tubligation; ll1 - Immunization history:: Adult Immunizations up to date. - Social history:: Smoking status: Patient denies any tobacco usage or history of. Screenin:34 [facility] ED Fall Risk Assessment (Adult) History of falling in the last 3 months, ld1 including since admission No falls in past 3 months (0 pts). Abuse screen: Denies threats or abuse. Denies injuries from another. Nutritional screening: No deficits noted. Tuberculosis screening: No symptoms or risk factors identified. Assessment: 18:33 General: Appears in no apparent distress. comfortable, Behavior is calm, cooperative, ld1 appropriate for age. Pain: Denies pain. Neuro: Level of Consciousness is awake, alert, obeys commands, Oriented to person, place, time, situation. Cardiovascular: Capillary refill < 3 seconds Patient's skin is warm and dry. Respiratory: Reports shortness of breath Airway is patent Respiratory effort is even, labored, the patient has moderate shortness of breath. GI: Abdomen is flat, non-distended. : No signs and/or symptoms were reported regarding the genitourinary system. EENT: No signs and/or symptoms were reported regarding the EENT system. Derm: No signs and/or symptoms reported regarding the dermatologic system. Musculoskeletal: No signs and/or symptoms reported regarding the musculoskeletal system. 19:23 General: Appears in no apparent distress. comfortable, Behavior is calm, cooperative. lg3 Pain: Denies pain. Neuro: No deficits noted. Souza Agitation-Sedation Scale (RASS): 0 - Alert and Calm Level of Consciousness is awake, alert, obeys commands, Oriented to person, place, time, situation. Cardiovascular: No deficits noted. Heart tones S1 S2 present Capillary refill < 3 seconds Clubbing of nail beds is absent JVD is absent Patient's skin is warm and dry. Respiratory: Reports shortness of breath Airway is patent Respiratory effort is even, unlabored, Respiratory pattern is regular, symmetrical, Breath sounds are clear bilaterally. the patient has mild shortness of breath. GI: No deficits noted. Abdomen is flat, non-distended, Reports constipation. : No deficits noted. Reports inability to void. EENT: No deficits noted. No signs and/or symptoms were reported regarding the EENT system. Derm: No deficits noted. Skin is intact, is thin, Skin is dry, Skin is normal, Skin temperature is warm Wound noted right shoulder. Musculoskeletal: No deficits noted. No signs and/or symptoms reported regarding the musculoskeletal system. Circulation, motion, and sensation intact. Range of motion: intact in all extremities. 20:10 Reassessment: Patient appears in no apparent distress at this time. No changes from tm6 previously documented assessment. 20:10 Reassessment: Patient and/or family updated on plan of care and expected duration. Pain tm6 level reassessed. Patient is alert, oriented x 3, equal unlabored respirations, skin warm/dry/pink. 21:15 Reassessment: Patient appears in no apparent distress at this time. No changes from tm6 previously documented assessment. Patient and/or family updated on plan of care and expected duration. Pain level reassessed. Patient is alert, oriented x 3, equal unlabored respirations, skin warm/dry/pink. 22:13 Reassessment: Patient appears in no apparent distress at this time. No changes from tm6 previously documented assessment. Patient and/or family updated on plan of care and expected duration. Pain level reassessed. Patient is alert, oriented x 3, equal unlabored respirations, skin warm/dry/pink. 23:01 Reassessment: Patient appears in no apparent distress at this time. No changes from tm6 previously documented assessment. Patient and/or family updated on plan of care and expected duration. Pain level reassessed. Patient is alert, oriented x 3, equal unlabored respirations, skin warm/dry/pink. 23:38 Reassessment: daughter updated on hospitalization. tm6 Vital Signs: 18:20 BP 135 / 74; Pulse 61; Resp 18; Temp 97.8; Pulse Ox 90% ; Weight 45.81 kg; Height 5 ft. ll1 5 in. ; Pain 8/10; 18:33 Pulse Ox 86% on R/A; ld1 18:33 BP 130 / 82; Pulse 60; Resp 14; Temp 98.3(TE); Pulse Ox 100% on 4 lpm NC; Weight 45.81 ld1 kg; Height 5 ft. 4 in. ; Pain 0/10; 19:23 BP 125 / 80; Pulse 60; Resp 16 S; Pulse Ox 100% on 3 lpm NC; lg3 20:09 BP 114 / 73; Pulse 60; Resp 12; Pulse Ox 96% on 2 lpm NC; Pain 4/10; tm6 21:15 BP 121 / 81; Pulse 60; Resp 13; Pulse Ox 98% on R/A; Pain 0/10; tm6 22:12 BP 112 / 75; Pulse 60; Resp 16; Pulse Ox 98% on R/A; Pain 0/10; tm6 23:01 BP 112 / 75; Pulse 60; Pulse Ox 97% on R/A; tm6 18:33 Body Mass Index 17.34 (45.81 kg, 162.56 cm) ld1 18:20 Pain Scale: Adult ll1 18:33 Pain Scale: Adult ld1 20:09 Pain Scale: Adult tm6 21:15 Pain Scale: Adult tm6 22:12 Pain Scale: Adult tm6 ED Course: 18:16 Patient arrived in ED. rg4 18:17 Dimas Rosario DO is Private Physician. rg4 18:18 Jayro Barajas PA is PHCP. cp 18:18 Ras Peña MD is Attending Physician. cp 18:21 Triage completed. ll1 18:21 Arm band placed on Patient placed in an exam room, on a stretcher. ll1 18:34 Patient has correct armband on for positive identification. Placed in gown. Bed in low ld1 position. Call light in reach. Side rails up X2. night monitor on. Pulse ox on. NIBP on. Door closed. Noise minimized. Warm blanket given. 18:34 No provider procedures requiring assistance completed. ld1 19:21 Influenza Screen (a \T\ B) Sent. lg3 19:21 COVID-19 SARS RT PCR Sent. lg3 19:21 Inserted saline lock: 22 gauge in left antecubital area, using aseptic technique. Blood lg3 collected. 19:22 Basic Metabolic Panel Sent. lg3 19:22 CBC with Diff Sent. lg3 19:22 LFT's Sent. lg3 19:22 Magnesium Sent. lg3 19:22 NT PRO-BNP Sent. lg3 19:22 Troponin HS Sent. lg3 19:23 Initial lab(s) drawn, by me, sent to lab. EKG done, COVID swab sent to lab. Flu and/or lg3 RSV swab sent to lab. 19:38 XRAY Chest (1 view) In Process Unspecified. EDMS 21:39 Pamella Friedman, RN is Primary Nurse. lg3 22:02 CT Chest Wo Con In Process Unspecified. EDMS 23:24 Taz Jones MD is Hospitalizing Provider. cp 01/22 00:31 Provided Education on: need for admit. tm6 00:31 Patient admitted, IV remains in place. tm6 Administered Medications: 01/21 19:26 Drug: MethylPrednisoLONE IVP 80 mg IVP once Route: IVP; Site: left antecubital; tm6 19:26 Drug: DuoNeb Nebulize (2.5 mg - 0.5 mg) 3 ml Nebulizer once Route: Nebulizer; tm6 01/22 00:08 Drug: Rocephin IV 1 grams IV at calculated rate once; Given slow IV push per pharmacy lg3 instructions Route: IV; Rate: calculated rate; Site: left antecubital; 00:09 Drug: Zithromax IVPB 500 mg IVPB once over 1 hrs; mix in 250 mL NS Route: IVPB; Infused lg3 Over: 1 hrs; Site: left antecubital; Medication: 01/21 18:33 VIS not applicable for this client. ld1 Outcome: 23:24 Decision to Hospitalize by Provider. evelin 01/22 00:31 Admitted to ER Hold. Please see [facility] for further documentation. tm6 Condition: stable Instructed on the need for admit, Demonstrated understanding of instructions, 11:20 Patient left the ED. hb Signatures: Dispatcher [employer] EDMS Jayro Barajas PA PA cp Taylor Ricks, RN RN Veronica Jefferson4 Pamella Friedman RN RN lg3 Cynthia Jackson RN RN ll1 Mallory Costa RN RN ld1 Jessica Johansen RN RN tm6 Corrections: (The following items were deleted from the chart) 01/21 18:34 18:20 Chief complaint: Patient states: SOB continues even after last discharge 3 days ld1 ago. No fevers ll1
--- NOTE | 2024-01-21 23:25 | EDPHYS ---
Physician Documentation [facility] Name: Devonte Hager Age: 78 yrs Sex: Female : 1945 Arrival Date: 01/21/2024 Time: 18:15 Bed 8 Private MD: Dimas Rosario ED Physician Ras Peña HPI: 01/21 18:50 This 78 yrs old Female presents to ER via Wheelchair with complaints of Shortness Of cp Breath. 18:50 The patient has shortness of breath at rest. Onset: The symptoms/episode began/occurred cp gradually, and became worse today. Duration: The symptoms are continuous, and are steadily getting worse. 18:50 Associated signs and symptoms: Pertinent positives: difficulty urinating and cp constipation, Pertinent negatives: chest pain, non-productive cough, diaphoresis, fever. Severity of symptoms: in the emergency department the symptoms have improved mildly. Historical: - Allergies: 18:20 codeine sulfate; ll1 18:20 Crestor; ll1 18:20 Cymbalta; ll1 18:20 Dimetapp Cold-Congestion; ll1 18:20 thorezine; ll1 18:20 Tramadol HCl; ll1 18:20 Vioxx; ll1 18:20 Zocor; ll1 - PMHx: 18:20 Atrial fibrillation; ll1 - PSHx: 18:20 hysterectomy; pacemaker; tubligation; ll1 - Immunization history:: Adult Immunizations up to date. - Social history:: Smoking status: Patient denies any tobacco usage or history of. ROS: 18:55 Eyes: Negative for injury, pain, redness, and discharge, cp 18:55 Constitutional: Negative for fever, poor PO intake, 18:55 ENT: Negative for drainage from ear(s), ear pain, sore throat, difficulty swallowing, difficulty handling secretions, 18:55 Cardiovascular: Negative for chest pain, edema, palpitations, 18:55 Respiratory: Positive for cough, with no reported sputum, shortness of breath, 18:55 Abdomen/GI: Positive for constipation, Negative for abdominal pain, 18:55 : Positive for difficulty urinating, 18:55 Neuro: Negative for altered mental status, headache, syncope, weakness, 18:55 All other systems are negative, Exam: 19:00 Constitutional: The patient appears in no acute distress, alert, awake, cp non-diaphoretic, non-toxic, well developed, frail, 19:00 Head/Face: Normocephalic, atraumatic. cp 19:00 Eyes: Periorbital structures: appear normal, Conjunctiva: normal, no exudate, no injection, Sclera: no appreciated abnormality, Lids and lashes: appear normal, bilaterally, 19:00 ENT: External ear(s): are unremarkable, Nose: is normal, Mouth: Lips: moist, Oral mucosa: pink and intact, moist, Posterior pharynx: Airway: no evidence of obstruction, patent, swelling, is not appreciated, erythema, is not appreciated, 19:00 Neck: ROM/movement: is normal, is supple, without pain, no range of motions limitations, no meningismus, 19:00 Chest/axilla: Inspection: normal, 19:00 Cardiovascular: Rate: normal, Rhythm: regular, Edema: is not appreciated, JVD: is not appreciated, 19:00 Respiratory: the patient does not display signs of respiratory distress, Respirations: labored breathing, that is mild, Breath sounds: decreased breath sounds, that are moderate, throughout, stridor, is not appreciated, wheezing: that is mild, is heard diffusely, 19:00 Abdomen/GI: Inspection: abdomen appears normal, Palpation: abdomen is soft and non-tender, in all quadrants, 19:00 Back: pain, is absent, ROM is normal, 19:00 Skin: cellulitis, is not appreciated, no rash present. 19:00 Neuro: Orientation: to person, place \T\ time. Mentation: is normal, Motor: moves all fours, no focal deficits, 19:18 ECG was reviewed by the Attending Physician. cp Vital Signs: 18:20 BP 135 / 74; Pulse 61; Resp 18; Temp 97.8; Pulse Ox 90% ; Weight 45.81 kg; Height 5 ft. ll1 5 in. ; Pain 8/10; 18:33 Pulse Ox 86% on R/A; ld1 18:33 BP 130 / 82; Pulse 60; Resp 14; Temp 98.3(TE); Pulse Ox 100% on 4 lpm NC; Weight 45.81 ld1 kg; Height 5 ft. 4 in. ; Pain 0/10; 19:23 BP 125 / 80; Pulse 60; Resp 16 S; Pulse Ox 100% on 3 lpm NC; lg3 20:09 BP 114 / 73; Pulse 60; Resp 12; Pulse Ox 96% on 2 lpm NC; Pain 4/10; tm6 21:15 BP 121 / 81; Pulse 60; Resp 13; Pulse Ox 98% on R/A; Pain 0/10; tm6 22:12 BP 112 / 75; Pulse 60; Resp 16; Pulse Ox 98% on R/A; Pain 0/10; tm6 23:01 BP 112 / 75; Pulse 60; Pulse Ox 97% on R/A; tm6 18:33 Body Mass Index 17.34 (45.81 kg, 162.56 cm) ld1 18:20 Pain Scale: Adult ll1 18:33 Pain Scale: Adult ld1 20:09 Pain Scale: Adult tm6 21:15 Pain Scale: Adult tm6 22:12 Pain Scale: Adult tm6 MDM: 18:18 Patient medically screened. 23:30 Data reviewed: vital signs, nurses notes, lab test result(s), EKG, radiologic studies, cp CT scan, plain films, and as a result, I will admit patient. 23:30 Differential diagnosis: CHF exacerbation, Myocardial Infarction pneumonia, Pneumothorax cp pulmonary edema, Pulmonary Embolism Sepsis. Consideration of Admission/Observation Patient was admitted/placed on observation. I considered the following discharge prescriptions or medication management in the emergency department Medications were administered in the Emergency Department. See MAR. Response to treatment: the patient's symptoms have markedly improved after treatment, and as a result, I will admit patient. 01/21 18:44 Order name: Basic Metabolic Panel; Complete Time: 21:36 cp 01/21 21:36 Interpretation: Normal except: NA 133; GLUC 131; BUN 32; CRE 1.83; GFR 28; CA 10.6. 01/21 18:44 Order name: CBC with Diff; Complete Time: 21:36 cp 01/21 21:36 Interpretation: Normal except: WBC 15.50; MAGO% 91.0; LYM% 4.9; NEUT A 14.1. cp 01/21 18:44 Order name: LFT's; Complete Time: 21:36 cp 01/21 21:37 Interpretation: Normal except: GLOB 4.0; A/G 0.9. cp 01/21 18:44 Order name: Magnesium; Complete Time: 21:36 cp 01/21 18:44 Order name: NT PRO-BNP; Complete Time: 21:36 cp 01/21 18:44 Order name: Troponin HS; Complete Time: 21:36 cp 01/21 18:58 Order name: COVID-19 SARS RT PCR cp 01/21 18:58 Order name: Influenza Screen (a \T\ B); Complete Time: 21:36 cp 01/21 19:21 Order name: SARS RAPID; Complete Time: 21:36 lg3 01/21 20:50 Order name: CBC Smear Scan; Complete Time: 21:36 EDMS 01/21 21:37 Order name: Urinalysis W/Microscopic cp 01/21 23:26 Order name: Lactate w/ 2H reflex if indic. cp 01/21 23:26 Order name: Blood Culture Adult (2) cp 01/22 01:45 Order name: CBC with Automated Diff EDMS 01/22 01:58 Order name: Basic Metabolic Panel EDMS 01/22 02:00 Order name: ABG Arterial Blood Gas EDMS 01/22 02:05 Order name: Talty EDMS 01/21 18:44 Order name: XRAY Chest (1 view); Complete Time: 21:36 cp 01/21 21:38 Order name: CT Chest Wo Con; Complete Time: 22:37 cp 01/21 23:38 Order name: Echo with Doppler EDMS 01/21 18:44 Order name: EKG; Complete Time: 18:44 cp 01/21 18:44 Order name: Cardiac monitoring; Complete Time: 19:14 cp 01/21 18:44 Order name: EKG - Nurse/Tech; Complete Time: 19:14 cp 01/21 18:44 Order name: IV Saline Lock; Complete Time: 19:21 cp 01/21 18:44 Order name: Labs collected and sent; Complete Time: 19:22 cp 01/21 18:44 Order name: O2 Per Protocol; Complete Time: 19:14 cp 01/21 18:44 Order name: O2 Sat Monitoring; Complete Time: 19:14 cp EC:18 Rate is 60 beats/min. Rhythm is regular, Paced. CO interval is normal. QRS interval is cp prolonged at 114 msec. QT interval is normal. Interpreted by me. Reviewed by me. Administered Medications: 19:26 Drug: MethylPrednisoLONE IVP 80 mg IVP once Route: IVP; Site: left antecubital; tm6 19:26 Drug: DuoNeb Nebulize (2.5 mg - 0.5 mg) 3 ml Nebulizer once Route: Nebulizer; tm6 01/22 00:08 Drug: Rocephin IV 1 grams IV at calculated rate once; Given slow IV push per pharmacy lg3 instructions Route: IV; Rate: calculated rate; Site: left antecubital; 00:09 Drug: Zithromax IVPB 500 mg IVPB once over 1 hrs; mix in 250 mL NS Route: IVPB; Infused lg3 Over: 1 hrs; Site: left antecubital; Disposition Summary: 01/21/24 23:24 Hospitalization Ordered Notes: Hospitalization Status: Observation cp Provider: Taz Jones cp Condition: Stable cp Problem: new cp Symptoms: have improved cp Bed/Room Type: Standard cp Location: Telemetry/MedSurg (observation)(01/22/24 10:40) eb Room Assignment: [facility](01/22/24 10:40) eb Diagnosis - Hypoxemia cp - Shortness of breath cp Forms: - Medication Reconciliation Form cp - SBAR form cp - Leadership Thank You Letter cp Signatures: Dispatcher [employer] EDMS Jayro Barajas PA PA cp Lubna Arzate Lacie RN RN lg3 Cynthia Jackson RN RN ll1 Deepti Brasher rv1 Jessica Johansen RN RN tm6 Corrections: (The following items were deleted from the chart) 01/21 23:56 23:24 Telemetry/MedSurg (observation) cp rv1 23:56 23:24 cp rv1 01/22 10:40 01/21 23:56 [facility] ER HOLD rv1 eb 01/22 10:40 01/21 23:56 ERHOLD- rv1 eb 01/23 02:54 01/22 18:55 Constitutional: Negative for fever, poor PO intake, cp cp 01/23 02:54 01/22 18:55 Cardiovascular: Negative for chest pain, edema, palpitations, cp cp 01/23 02:54 01/22 18:55 Respiratory: Positive for cough, with no reported sputum, shortness of cp breath, cp 01/23 02:54 01/22 18:55 Abdomen/GI: Positive for constipation, Negative for abdominal pain, cp cp 01/23 02:01/22 18:55 : Positive for difficulty urinating, cp cp 01/23 02:01/22 18:55 Eyes: Negative for injury, pain, redness, and discharge, cp cp 01/23 02:01/22 18:55 ENT: Negative for drainage from ear(s), ear pain, sore throat, difficulty cp swallowing, difficulty handling secretions, cp 01/23 02:01/22 18:55 Neuro: Negative for altered mental status, headache, syncope, weakness, cp cp 01/23 02:01/22 18:55 All other systems are negative, cp cp
--- NOTE | 2024-01-21 23:29 | P.HP ---
Certification for Inpatient Patient admitted to: Inpatient With expected LOS: >2 Midnights Practitioner: I am a practitioner with admitting privileges, knowledge of patient current condition, hospital course, and medical plan of care. Services: Services provided to patient in accordance with Admission requirements found in Title 42 Section 412.3 of the Code of Federal Regulations Patient History Date of Service: 01/22/24 Reason for admission: Hypoxemia History of Present Illness: Patient is a pleasant 78-year-old lady is a recurrent admissions to the hospital for shortness of breath has been complaining about dyspnea for the past month patient does see a rn employee health in [place] Dr. Miner denies any swelling of her lower extremity denies any coughing wheezing never smoked was found to have a sat of 86% Allergies brompheniramine [From Dimetapp (brompheniramine-PPA)] Allergy (Verified 04/03/22 12:10) Nausea/Vomiting chlorpromazine [From Thorazine] Allergy (Verified 04/03/22 12:10) Nausea/Vomiting codeine Allergy (Verified 04/03/22 12:10) Nausea/Vomiting duloxetine [From Cymbalta] Allergy (Verified 04/03/22 12:10) Body Aches, Confusion phenylpropanolamine [From Dimetapp (brompheniramine-PPA)] Allergy (Verified 04/03/22 12:10) Nausea/Vomiting rofecoxib [From Vioxx] Allergy (Verified 04/03/22 12:10) Unknown rosuvastatin [From Crestor] Allergy (Verified 04/03/22 12:10) Muscle tightening simvastatin [From Zocor] Allergy (Verified 04/03/22 12:10) Muscle tigthening tramadol Allergy (Verified 04/03/22 12:10) Itching Home Medications: Amiodarone HCl [Cordarone*] 200 mg PO DAILY 03/31/22 Amlodipine Besylate 5 mg PO DAILY 03/31/22 Reubens Carbonate [Lithobid] 300 mg PO BID 03/31/22 oxyBUTYnin chloride [Ditropan*] 5 mg PO DAILY 03/31/22 Apixaban [Eliquis *] 2.5 mg PO BID 01/04/24 Tizanidine HCl [Zanaflex] 2 mg PO BID 01/04/24 Ensure High Protein 237 ml PO AC #90 can 01/06/24 Furosemide [Lasix] 20 mg PO DAILY #30 tab 01/06/24 Potassium Chloride 10 meq PO DAILY #30 tab 01/06/24 - Past Medical/Surgical History Diabetic: No -: Atrial fibrillation -: Chronic anticoagulation -: CKD III (Dr. Rosario/ Dr. Mancini) -: HyperPTH/ Hypercalcemia -: Failure to thrive 01/04/2024 -: Skin cancer -: Permanent pacemaker -: Skin cancer excision -: Tubal ligation -: Hysterectomy - Family History Brother -: Lung disease Notes: secound brother SANDRO leg amputation reason unknown - Social History Alcohol use: No CD- Drugs: No Caffeine use: No Review of Systems 10-point ROS is otherwise unremarkable Respiratory: Shortness of Breath Physical Examination - Vital Signs Temperature: 97.8 F Blood Pressure: 135/74 Pulse: 61 Respirations: 18 Pulse Ox (%): 86 - Physical Exam General: Alert, In no apparent distress, Oriented x3 HEENT: Normocephalic Neck: Supple Respiratory: Clear to auscultation bilaterally, Diminished Cardiovascular: No edema, Regular rate/rhythm, Normal S1 S2 Gastrointestinal: Normal bowel sounds, Soft and benign Musculoskeletal: No clubbing Integumentary: No rashes, No breakdown Neurological: Cranial nerves 3-12 intact, Abnormal speech (Patient seems to have an akathisia) - Studies Laboratory Data (last 24 hrs) 01/21/24 01/21/24 19:16 19:16 WBC 15.50 H Hgb 14.4 Hct 42.4 Plt Count 266 Sodium 133 L Potassium 4.2 BUN 32 H Creatinine 1.83 H Glucose 131 H Magnesium 2.6 H Total Bilirubin 0.6 AST 16 ALT 24 Alkaline Phosphatase 100 Microbiology Data (last 24 hrs): 01/21/24 19:21 Nasopharnyx Influenza Type A Antigen Screen - Final 01/21/24 19:21 Nasopharnyx Influenza Type B Antigen Screen - Final Assessment and Plan - Problems (Diagnosis) (1) Hypoxemia Current Visit: Yes Status: Acute Plan: Patient is 78 years of age with a history of A-fib admitted with hypoxemia for the past month has never smoked no prior history of obstructive airways disease patient's chest x-ray is clear BNP is normal she is on Eliquis at home renal function is abnormal may be induced by diuretics will start patient on some IV fluids bronchodilators resume the Eliquis check an echocardiogram may have underlying pulmonary hypertension labs show mild hyponatremia creatinine is 1.83 white count is elevated to 15,000 predominance of neutrophils she does have a pacemaker patient is also mild hypercalcemia patient is also on lithium I am not sure why probably underlying bipolar disorder also check a lithium level Trial of bronchodilators and steroid she does not appear to be volume overloaded chest x-ray does not show any evidence of cardiomegaly or interstitial edema BNP is also less than 500 avoid diuretics for now echocardiogram (2) Cystitis Current Visit: Yes Status: Acute Plan: Patient's urinalysis is grossly abnormal may have underlying cystitis white count is also elevated start patient on Rocephin (3) Drug toxicity Current Visit: Yes Status: Acute Plan: Is possible that patient is experiencing toxic effects of lithium lithium level needs to be checked in addition she has hypercalcemia tremors impaired coordination and hyponatremia - Advance Directives Does patient have a Living Will: Yes Does patient have a Durable POA for Healthcare: Yes
[2024-01-21 23:32] LABS: Urine Bacteria <20 /HPF (<20); Urine Mucus Slight /HPF (None Seen)
[2024-01-21 23:38] LABS: Specific Gravity 1.012 (1.005-1.030); Urine Bilirubin NEGATIVE (Negative); Urine Blood 1+ (Negative); Urine Clarity Extremely Turbid (Clear); Urine Color Light-Yellow (Yellow); Urine Glucose NEGATIVE (Negative); Urine Protein NEGATIVE (Negative); Urine Urobilinogen Normal (Normal); Urine pH 6.5 (5.0-7.0)
[2024-01-21] MEDS: NACHLORIDE 0.45% 1,000 ML IV SCH (23:45)
[2024-01-21] MEDS: CEFTRIAXONE 1,000 MG in NA CHLORIDE 0.9% 50 ML IVPB SCH (23:56)
[2024-01-22] MEDS ORDERED: AZITHROMYCIN 500 MG INJ IVPB ONE
[2024-01-22] MEDS ORDERED: NA CHLORIDE 0.9% 250 ML ONE (00:01)
[2024-01-22] MEDS ORDERED: ARFORMOTEROL TARTRATE 15 MCG/2 ML VIAL.NEB ONE (00:46)
[2024-01-22] MEDS: ARFORMOTEROL TARTRATE 15 MCG/2 ML VIAL.NEB NEB SCH (00:50)
[2024-01-22 01:45] LABS: Absolute Lymphocytes (CBC) 0.5 K/uL (0.7-4.9); Hematocrit 38.8 % (36.0-45.0); Lymphocytes % 3.8 % (15.3-44.8); MCV 94.8 fL (80-100); MPV 7.8 fL (7.6-11.3); Platelets 246 thou/uL (152-406); RBC Red Blood Cell Count 4.09 M/uL (3.86-4.86)
[2024-01-22 01:58] LABS: Potassium 4.1 mEq/L (3.5-5.1)
[2024-01-22 01:59] LABS: Arterial Blood Carboxyhemoglob 0.8 % (0-1.5); Blood Gas Oxyhemoglobin 94.8 % (94-97); Blood O2 Saturation 97.2 % (92-98.5)
[2024-01-22] MEDS ORDERED: NACHLORIDE 0.45% 1,000 ML IV ONE (02:20)
[2024-01-22 02:29] VITALS: BMI 16.8
--- NOTE | 2024-01-22 08:26 | P.PN ---
Subjective Date of Service: 01/22/24 Chief Complaint: Hypoxemia 98% on room air, alert and oriented times, no complaints - Physical Exam General: Alert, In no apparent distress, Oriented x3 HEENT: Normocephalic Neck: Supple Respiratory: Clear to auscultation bilaterally, Diminished Cardiovascular: No edema, Regular rate/rhythm, Normal S1 S2 Gastrointestinal: Normal bowel sounds, Soft and benign Musculoskeletal: No clubbing Integumentary: No rashes, No breakdown Neurological: Cranial nerves 3-12 intact, Abnormal speech (Patient seems to have an akathisia) Review of Systems PER HPI Physical Examination - Vital Signs Temperature: 97.8 F Blood Pressure: 109/72 Pulse: 70 Respirations: 18 Pulse Ox (%): 98 - Studies Laboratory Data (last 24 hrs) 01/21/24 01/21/24 19:16 19:16 WBC 15.50 H Hgb 14.4 Hct 42.4 Plt Count 266 Sodium 133 L Potassium 4.2 BUN 32 H Creatinine 1.83 H Glucose 131 H Magnesium 2.6 H Total Bilirubin 0.6 AST 16 ALT 24 Alkaline Phosphatase 100 Microbiology Data (last 24 hrs): 01/21/24 19:21 Nasopharnyx Influenza Type A Antigen Screen - Final 01/21/24 19:21 Nasopharnyx Influenza Type B Antigen Screen - Final Assessment And Plan - Plan Assessment plan Acute hypoxic respiratory failure History of A-fib RVR History of permanent pacemaker Chronic anticoagulation O2 2 L keep sats greater than 92% CT of the chest IMPRESSION: No acute process within the chest. Stable findings as above, including right shoulder periarticular cystic changes suggestive of bursitis and/or ganglion cysts Chest x-ray no acute abnormalityLeft chest wall pacer/AICD in place. No pneumothorax or effusion. The cardiomediastinal contours are unremarkable Troponin normal less than 3 BNP 260 Leukocytosis Likely from acute cystitis WBCs 15.50, repeat 13.70, early left shift IV antibiotics Drug toxicity Hypercalcemia 10.6 Hyper magnesium 2.6 Trend calcium, mag museum Acute on chronic kidney injury Trend kidney function avoid nephrotoxic medication IV fluids Diet cardiac Full code DVT Eliquis 2.5 twice daily Discharge Plan: Home - Code Status/Comfort Care Code Status: Full Code Critical Care: No Time Spent Managing PTS Care (In Minutes): 35
[2024-01-22] MEDS: AMIODARONE HCL 200 MG TAB PO SCH (09:00)
[2024-01-22] MEDS: AMLODIPINE 5 MG TAB PO SCH (09:00)
[2024-01-22] MEDS: APIXABAN 2.5 MG TABLET PO SCH (09:00)
[2024-01-22] MEDS: METHYLPREDNISOLONE 40 MG INJ IV SCH (09:00)
[2024-01-22] MEDS ORDERED: CEFTRIAXONE 1000 MG/VIAL ONE ×2 (09:39)
[2024-01-22] MEDS ORDERED: AMLODIPINE 5 MG TAB ONE (09:39)
[2024-01-22] MEDS ORDERED: AMIODARONE HCL 200 MG TAB ONE (09:40)
[2024-01-22] MEDS ORDERED: METHYLPREDNISOLONE 40 MG INJ ONE (09:40)
[2024-01-22] MEDS ORDERED: NA CHLORIDE 0.9% 50 ML ONE (09:40)
[2024-01-23 03:38] LABS: Absolute Lymphocytes (CBC) 0.7 K/uL (0.7-4.9); Hematocrit 38.6 % (36.0-45.0); Lymphocytes % 4.1 % (15.3-44.8); MCV 95.6 fL (80-100); MPV 7.9 fL (7.6-11.3); Platelets 269 thou/uL (152-406); RBC Red Blood Cell Count 4.04 M/uL (3.86-4.86)
[2024-01-23 03:57] LABS: Bilirubin Total 0.5 mg/dL (0.2-1.0); Magnesium 2.5 mg/dL (1.6-2.4); Potassium 4.4 mEq/L (3.5-5.1); Protein, Total 6.4 g/dL (6.4-8.2)
--- NOTE | 2024-01-23 07:45 | P.PN ---
Subjective Date of Service: 01/23/24 Chief Complaint: Hypoxemia 98% on room air, alert and oriented times, no complaints - Physical Exam General: Alert, In no apparent distress, Oriented x3 HEENT: Normocephalic Neck: Supple Respiratory: Clear to auscultation bilaterally, Diminished Cardiovascular: No edema, Regular rate/rhythm, Normal S1 S2 Gastrointestinal: Normal bowel sounds, Soft and benign Musculoskeletal: No clubbing Integumentary: No rashes, No breakdown Neurological: Cranial nerves 3-12 intact, Abnormal speech (Patient seems to have an akathisia) Physical Examination - Vital Signs Temperature: 98.1 F Blood Pressure: 104/66 Pulse: 60 Respirations: 16 Pulse Ox (%): 98 Assessment And Plan - Plan Assessment plan Acute hypoxic respiratory failure History of A-fib RVR History of permanent pacemaker Chronic anticoagulation O2 2 L keep sats greater than 92% CT of the chest IMPRESSION: No acute process within the chest. Stable findings as above, including right shoulder periarticular cystic changes suggestive of bursitis and/or ganglion cysts Chest x-ray no acute abnormalityLeft chest wall pacer/AICD in place. No pneumothorax or effusion. The cardiomediastinal contours are unremarkable Troponin normal less than 3 BNP 260 Leukocytosis Likely from acute cystitis WBCs 15.50, repeat 13.70, early left shift IV antibiotics Drug toxicity Hypercalcemia 10.6 Hyper magnesium 2.6 Trend calcium, mag museum Acute on chronic kidney injury Trend kidney function avoid nephrotoxic medication IV fluids Diet cardiac Full code DVT Eliquis 2.5 twice daily
--- NOTE | 2024-01-23 09:01 | P.DS ---
Admission Date: 01/21/24 Discharge Date: 01/23/24 Disposition: ROUTINE DISCHARGE Discharge Condition: FAIR Reason for Admission: Hypoxemia Brief History of Present Illness: 78-year-old lady is a recurrent admissions to the hospital for shortness of breath has been complaining about dyspnea for the past month patient does see a chief controller in [place] Dr. Miner denies any swelling of her lower extremity denies any coughing wheezing never smoked was found to have a sat of 86% - Physical Exam General: Alert, In no apparent distress, Oriented x3 HEENT: Normocephalic Neck: Supple Respiratory: Clear to auscultation bilaterally, Diminished Cardiovascular: No edema, Regular rate/rhythm, Normal S1 S2 Gastrointestinal: Normal bowel sounds, Soft and benign Musculoskeletal: No clubbing Integumentary: No rashes, No breakdown Neurological: Cranial nerves 3-12 intact, Abnormal speech (Patient seems to have an akathisia) Hospital Course: 78-year-old female presented with shortness of breath, was noted to have some hypoxia, elevated lithium level, acute cystitis, leukocytosis. She was treated with IV antibiotics, steroids, O2 saturations improved to 92% on room air. Leukocytosis improved with IV antibiotics. Needs to follow-up with primary care after discharge. PROBLEM: abnormal lithium level 1.8 hypoxia UTI chronic pain leukocytosis reactive from steroid use Home rx cefdinir for UTI Prednisone for shortness of breath Tramadol as needed every [address] [facility], follow up with Dr Rosario, resume in in 5 days oxygen saturation 98% room air at DC Continue home medicines as previously prescribed GOAL: Clear understanding of disease process INSTRUCTIONS: Physician Discharge Instructions: -Follow-up with PCP in 1 to 2 weeks -Please call Dr. Goodrich at [phone] if any questions regarding hospital stay -Please call nursing station at [phone] if any nursing or medication questions -Return to the emergency room if symptoms worsen Diet: ADA, low sodium Activity: Fall precautions Vital Signs/Physical Exam: Temp Pulse Resp BP Pulse Ox 98.1 F 60 16 104/66 98 01/23/24 07:45 01/23/24 07:45 01/23/24 07:45 01/23/24 07:45 01/23/24 07:45 Laboratory Data at Discharge: WBC 18.00 thou/uL (4.3-10.9) H 01/23/24 03:21 Hgb 13.0 g/dL (12.0-15.0) 01/23/24 03:21 Hct 38.6 % (36.0-45.0) 01/23/24 03:21 Plt Count 269 thou/uL (152-406) 01/23/24 03:21 Sodium 136 mEq/L (136-145) 01/23/24 03:21 Potassium 4.4 mEq/L (3.5-5.1) 01/23/24 03:21 BUN 29 mg/dL (7-18) H 01/23/24 03:21 Creatinine 1.40 mg/dL (0.55-1.02) H 01/23/24 03:21 Glucose 163 mg/dL (74-106) H 01/23/24 03:21 Magnesium 2.5 mg/dL (1.6-2.4) H 01/23/24 03:21 Total Bilirubin 0.5 mg/dL (0.2-1.0) 01/23/24 03:21 AST 5 U/L (15-37) L 01/23/24 03:21 ALT 17 U/L (13-56) 01/23/24 03:21 Alkaline Phosphatase 84 U/L (45-117) 01/23/24 03:21 Home Medications: Amiodarone HCl [Cordarone*] 200 mg PO DAILY 03/31/22 Amlodipine Besylate 5 mg PO DAILY 03/31/22 oxyBUTYnin chloride [Ditropan*] 5 mg PO DAILY 03/31/22 Apixaban [Eliquis *] 2.5 mg PO BID 01/04/24 Furosemide [Lasix*] 20 mg PO DAILY #30 tab 01/06/24 Potassium Chloride 10 meq PO DAILY #30 tab 01/06/24 Arformoterol Tartrate [Brovana] 15 mcg NEB BIDRESP vial.neb 01/23/24 Cefdinir [Cefdinir*] 300 mg PO BID 5 Days #10 cap 01/23/24 Tramadol HCl [Ultram] 50 mg PO Q6H PRN 10 Days #20 mg 01/23/24 predniSONE [Prednisone*] 20 mg PO DAILY 5 Days #10 tab 01/23/24 New Medications: Cefdinir [Cefdinir*] 300 mg PO BID 5 Days #10 cap predniSONE [Prednisone*] 20 mg PO DAILY 5 Days #10 tab Tramadol HCl [Ultram] 50 mg PO Q6H PRN 10 Days #20 mg PRN Reason: Pain Scale 5-7 (Moderate) Physician Discharge Instructions: PROBLEM: abnormal lithium level 1.8 hypoxia UTI chronic pain leukocytosis reactive from steroid use Home rx cefdinir for UTI Prednisone for shortness of breath Tramadol as needed every [address] for [address] [facility], follow up with Dr Rosario, resume in in 5 days oxygen saturation 98% room air at DC Continue home medicines as previously prescribed GOAL: Clear understanding of disease process INSTRUCTIONS: Physician Discharge Instructions: -DC IV and DC home -Follow-up with PCP in 1 to 2 weeks -Please call Dr. Goodrich at [phone] if any questions regarding hospital stay -Please call nursing station at [phone] if any nursing or medication questions -Return to the emergency room if symptoms worsen Diet: ADA, low sodium Activity: Fall precautions Diet: AHA Activity: Fall precautions Followup: Dimas Rosario DO [Primary Care Provider] - 1-2 Weeks Time spent managing pt's care (in minutes): 55
[2024-01-23 13:19] VITALS: BP 126/67; TEMP 98.4
[2024-01-23 13:46] VITALS: O2SAT 98
--- NOTE | 2024-01-24 14:36 | EKG ---
Test Date: 2024-01-21 Test Time: 19:11:41 High Pressure Kettle Operator: CARLOS MEASUREMENT RESULTS: Intervals: Rate: 60 OK: 182 QRSD: 114 QT: 492 QTc: 492 [place]hler: P: OK: 182 QRS: 74 T: 75 INTERPRETIVE STATEMENTS: Electronic atrial pacemaker Nonspecific T wave abnormality Prolonged QT Abnormal ECG Compared to ECG 01/04/2024 09:42:45 Prolonged QT interval now present Atrial fibrillation no longer present Ventricular-paced complex(es) or rhythm no longer present T-wave abnormality still present Electronically Signed On 01-24-24 14:29:15 STATION INSTALLER by Alek Feliciano
== END 2024-01-23 13:38 | disposition home or self-care (01) ==
LOC: ER 18:15 → ERHOLD 23:31 → INTOOBSV 23:31 → 2ND 01-22 11:07 → ERHOLD 01-22 11:07 → 2ND 01-23 09:06
PROVIDERS: ADMIT Internal Medicine Sleep Medicine; ATTEND Hospitalist
DX: J96.01 Acute respiratory failure with hypoxia (principal); N17.9 Acute kidney failure, unspecified; N30.90 Cystitis, unspecified without hematuria; E87.1 Hypo-osmolality and hyponatremia; R25.1 Tremor, unspecified; R27.8 Other lack of coordination; I48.11 Longstanding persistent atrial fibrillation; Z79.01 Long term (current) use of anticoagulants; Z95.0 Presence of cardiac pacemaker; Z11.52 Encounter for screening for COVID-19
CPT/HCPCS: 87040 ×2; 85025 ×3; 81001; 80048 ×2; 36415 ×2; 83735 ×2; 80178; 80076; 83605; 84484; 80053; 83880; 87804 ×2; 71250; 71045; 94640; 82805; 87811; J7613; J7644; J7605 ×3; J7050; J2920 ×4; J0696 ×3; 93005; G0378

== ENCOUNTER 2024-03-03 05:42 | Emergency (ER) | payer OTHER ==
--- OUTSIDE RECORDS SUMMARY | 2024-03-03 05:44 | XMS REPORT | Continuity of Care Document ---
Author Name Unknown Address [address] [facility] [address] [employer] Address [address] [place] [address] [address] [place] [address] Care Team Providers Care Staffing Executive Name Role Phone DONAL AGULIERA Attending Clinician Unavailab le Brea Attending Clinician Unavailable Mariluz_C Admitting Clinician Unavailable Payers Payer Name Policy Type Policy Number Effective Date Expirati on Date Source [employer] 2 [id number] 2024 00:00:00 [place]: [employer] [id number] 1997 00:00:00 Encounters Start Date/Time End Date/Time Encounter Type Admission Type Attending Clinicians Care Facility Care Department Encounter ID Source 2024-03-21 15:30:00 2024-03-21 15:30:00 Outpatient DONAL AGUILERA [id number] Keyana Baumann 2016-07-15 04:35:00 2016-07-15 04:35:00 Outpatient Mariluz_Norman [facility] [id number] [facility]
[2024-03-03 06:36] LABS: Absolute Basophils 0.1 K/uL (0-0.5); Absolute Eosinophils 0.1 K/uL (0-0.5); Absolute Lymphocytes (CBC) 1.6 K/uL (0.7-4.9); Absolute Monocytes 0.7 K/uL (0.1-1.3); Absolute Neutrophil 6.5 K/uL (1.8-8.0); Basophils % 0.8 % (0-1.3); Eosinophils % 1.2 % (0-4.4); Hematocrit 35.5 % (36.0-45.0); Hemoglobin 11.9 g/dL (12.0-15.0); Lymphocytes % 17.3 % (15.3-44.8); MCH 33.1 pg (27.0-35.0); MCHC 33.6 g/dL (32.0-36.0); MCV 98.6 fL (80-100); MPV 8.2 fL (7.6-11.3); Monocytes % 8.2 % (3.3-12.3); Neutrophils % 72.5 % (41.7-73.7); Platelets 215 thou/uL (152-406); RBC Red Blood Cell Count 3.61 M/uL (3.86-4.86); Red Cell Distribution Width 14.7 % (12.1-15.2)
[2024-03-03 06:44] LABS: PT Prothrombin Time 11.3 SECONDS (9.5-12.5); Protime INR 1.03
[2024-03-03 06:49] LABS: Anion Gap 5.4 mEq/L (5.0-15.0); Potassium 3.4 mEq/L (3.5-5.1)
--- NOTE | 2024-03-03 09:47 | EDPHYS ---
Physician Documentation [facility] Name: Devonte Hager Age: 78 yrs Sex: Female : 1945 Arrival Date: 03/03/2024 Time: 05:42 Bed 6 Private MD: ED Physician Ras Peña HPI: 03/03 06:05 This 78 yrs old Female presents to ER via EMS with complaints of Fall Injury. sp3 06:05 78-year-old female with history of bipolar disease, atrial fibrillation not currently sp3 on any blood thinners because patient states that she "ran out" (previously on Plavix) presents to the ED with mechanical ground-level fall onto concrete due to slipping with chief complaint spine/back pain from mid back down. She recently moved into a new home. She denies loss of consciousness or head injury however she cannot fully recall the events. Normal vital signs for EMS as well as normal mentation. Review of systems negative for headache, neck pain, chest pain, shortness of breath, abdominal pain, nausea, vomiting, diarrhea, or any other signs or symptoms on ROS at this time.. Historical: - Allergies: 05:49 codeine sulfate; cm10 05:49 Crestor; cm10 05:49 Cymbalta; cm10 05:49 Dimetapp Cold-Congestion; cm10 05:49 thorezine; cm10 05:49 Tramadol HCl; cm10 05:49 Vioxx; cm10 05:49 Zocor; cm10 - PMHx: 05:49 Atrial fibrillation; Bipolar disorder; cm10 - PSHx: 05:49 hysterectomy; pacemaker; tubligation; cm10 - Immunization history:: Adult Immunizations up to date. - Infectious Disease History:: Denies. - Social history:: Smoking status: Patient denies any tobacco usage or history of. ROS: 06:11 Constitutional: Negative for fever, chills, and weight loss, Eyes: Negative for injury, sp3 pain, redness, and discharge, ENT: Negative for injury, pain, and discharge, Neck: Negative for injury, pain, and swelling, Cardiovascular: Negative for chest pain, palpitations, and edema, Respiratory: Negative for shortness of breath, cough, wheezing, and pleuritic chest pain, Abdomen/GI: Negative for abdominal pain, nausea, vomiting, diarrhea, and constipation, MS/Extremity: Negative for injury and deformity, Skin: Negative for injury, rash, and discoloration, Allergy/Immunology: Negative for hives, rash, and allergies, Endocrine: Negative for neck swelling, polydipsia, polyuria, polyphagia, and marked weight changes, Hematologic/Lymphatic: Negative for swollen nodes, abnormal bleeding, and unusual bruising, 06:11 All other systems are negative, Exam: 06:12 Constitutional: This is a well developed, well nourished patient who is awake, alert, sp3 and in no acute distress. Head/Face: Normocephalic, atraumatic. Eyes: Pupils equal round and reactive to light, extra-ocular motions intact. Lids and lashes normal. Conjunctiva and sclera are non-icteric and not injected. Cornea within normal limits. Periorbital areas with no swelling, redness, or edema. ENT: Nares patent. No nasal discharge, no septal abnormalities noted. External auditory canals are clear. Oropharynx with no redness, swelling, or masses, exudates, or evidence of obstruction, uvula midline. Mucous membranes moist. Neck: Trachea midline, no thyromegaly or masses palpated, and no cervical lymphadenopathy. Supple, full range of motion without nuchal rigidity, or vertebral point tenderness. No Meningismus. Chest/axilla: Normal chest wall appearance and motion. Nontender with no deformity. No lesions are appreciated. Cardiovascular: Regular rate and rhythm with a normal S1 and S2. No gallops, murmurs, or rubs. Normal PMI, no JVD. No pulse deficits. Respiratory: Lungs have equal breath sounds bilaterally, clear to auscultation and percussion. No rales, rhonchi or wheezes noted. No increased work of breathing, no retractions or nasal flaring. Abdomen/GI: Soft, non-tender, with normal bowel sounds. No distension or tympany. No guarding or rebound. No evidence of tenderness throughout. Skin: Warm, dry with normal turgor. Normal color with no rashes, no lesions, and no evidence of cellulitis. MS/ Extremity: Pulses equal, no cyanosis. Neurovascular intact. Full, normal range of motion. Neuro: Awake and alert, GCS 15, oriented to person, place, time, and situation. Cranial nerves II-XII grossly intact. Motor strength 5/5 in all extremities. Sensory grossly intact. Cerebellar exam normal. Normal gait. Psych: Awake, alert, with orientation to person, place and time. Behavior, mood, and affect are within normal limits. 06:12 Back: Pain to palpation along the spine and musculature of the mid to low back. No bony step-offs noted. Neurological exam is normal including distal extremities., 06:27 ECG was reviewed by the Attending Physician. EKG demonstrates atrial paced rhythm at 60 sp3 bpm with adequate capture. Vital Signs: 05:48 Weight 54.88 kg (M); cm10 05:57 BP 120 / 81; Pulse 60; Resp 17 S; Temp 97.9(O); Pulse Ox 99% on R/A; ha1 06:26 BP 114 / 73; Pulse 60; Resp 17 S; Pulse Ox 98% on R/A; ha1 07:26 BP 124 / 76; Pulse 62; Resp 14; Pulse Ox 98% ; ko1 08:37 BP 122 / 72; Pulse 60; Resp 14; Pulse Ox 99% ; ko1 09:10 BP 116 / 94; Pulse 60; Resp 15; Pulse Ox 99% ; ko1 09:53 BP 118 / 82; Pulse 60; Resp 15; Pulse Ox 100% ; ko1 MDM: 05:47 Patient medically screened. sp3 06:12 Data reviewed: vital signs, nurses notes, EMS record, lab test result(s), EKG, sp3 radiologic studies. ED course: 78-year-old female with probable mechanical fall with injury and pain to the back. I am not highly suspicious for medical prodrome but given her atrial fibrillation history with no current anticoagulants, we will assess EKG and troponin as well as baseline labs and CT scan of the head, C-spine, chest abdomen and pelvis and a noncontrast trauma protocol. If workup is negative, we will safely discharge patient home with follow-up with cardiology to assess anticoagulant needs.. 06:40 ED course: Patient will be signed out to daytime physician for final disposition and sp3 follow-up to radiology and labs.. 08:51 ED course: [id number]. rn 09:46 Differential diagnosis: closed head injury, contusion, fracture, sprain, strain. rn Counseling: I had a detailed discussion with the patient and/or guardian regarding the historical points, exam findings, and any diagnostic results supporting the discharge/admit diagnosis, lab results, radiology results, the need for outpatient follow up, to return to the emergency department if symptoms worsen or persist or if there are any questions or concerns that arise at home. Special discussion: I discussed with the patient/guardian in detail that at this point there is no indication for admission to the hospital. It is understood, however, that if the symptoms persist or worsen the patient needs to return immediately for re-evaluation. 09:46 ED course: CT chest abdomen pelvis initially not read by radiology with CT head and rn C-spine, eventually read and no acute traumatic findings. Will discharge home with return precautions.. 03/03 05:48 Order name: Basic Metabolic Panel; Complete Time: 07:06 sp3 03/03 05:48 Order name: CBC with Diff; Complete Time: 07:06 sp3 03/03 05:48 Order name: PT-INR; Complete Time: 07:06 sp3 03/03 06:04 Order name: Troponin High Sensitivity; Complete Time: 07:06 sp3 03/03 05:48 Order name: CT Traumagram (Head C Spine CAP wo con) sp3 / 06:04 Order name: EKG; Complete Time: 06:05 sp3 03/03 06:04 Order name: EKG - Nurse/Tech; Complete Time: 06:25 sp3 Administered Medications: No medications were administered Disposition Summary: 03/03/24 09:47 Discharge Ordered Notes: Location: Home rn Problem: new rn Symptoms: have improved rn Condition: Stable rn Diagnosis - Fall on same level, unspecified rn - Contusion of back wall of thorax rn Followup: rn - With: Private Physician - When: As needed - Reason: Recheck today's complaints, Re-evaluation by your physician Discharge Instructions: - Discharge Summary Sheet rn - Contusion rn - Fall Prevention in the Home, Adult rn Forms: - Medication Reconciliation Form rn - Thank You Letter rn - Antibiotic learning and development administrator - Prescription Opioid Use rn - Patient Portal Instructions rn - Leadership Thank You Letter rn Signatures: Dis[facility] Ras Peña MD MD rn Patel, Setul, MD MD sp3 Demetria Cao, EDILBERTO RN cm10 Corrections: (The following items were deleted from the chart) 05:48 05:48 BASIC METABOLIC PANEL+C.LAB.BRZ ordered. EDMS EDMS 05:48 05:48 CBC+H.LAB.BRZ ordered. EDMS EDMS 05:48 05:48 PROTIME (+INR)+COAG.LAB.BRZ ordered. EDMS EDMS 05:48 05:48 Head C Spine Cap Wo Con+CT.RAD.BRZ ordered. EDMS EDMS 06:41 06:05 78-year-old female with history of bipolar disease, atrial fibrillation not sp3 currently on any blood thinners because patient states that she "ran out" presents to the ED with mechanical ground-level fall onto concrete due to slipping with chief complaint spine/back pain from mid back down. She recently moved into a new home. She denies loss of consciousness or head injury however she cannot fully recall the events. Normal vital signs for EMS as well as normal mentation. Review of systems negative for headache, neck pain, chest pain, shortness of breath, abdominal pain, nausea, vomiting, diarrhea, or any other signs or symptoms on ROS at this time.. sp3
--- NOTE | 2024-03-03 09:47 | ER ---
Nurse's Notes [facility] Name: Devonte Hager Age: 78 yrs Sex: Female : 1945 Arrival Date: 03/03/2024 Time: 05:42 Bed 6 Private MD: Diagnosis: Fall on same level, unspecified;Contusion of back wall of thorax Presentation: 03/03 05:48 Chief complaint: EMS states: Pt got out of bed and slipped and fell. Pt states that she cm10 landed on her buttocks. Pt states that she was on the ground for approximately 1hr until she got her caregivers attention. Pt reports back and shoulder pain. No LOC. Coronavirus screen: Client denies travel out of the [place] in the last 14 days. At this time, the client does not indicate any symptoms associated with coronavirus-19. Ebola Screen: Patient denies travel to an Ebola-affected area in the 21 days before illness onset. No symptoms or risks identified at this time. Initial Sepsis Screen: Does the patient meet any 2 criteria? No. Patient's initial sepsis screen is negative. Does the patient have a suspected source of infection? No. Patient's initial sepsis screen is negative. Risk Assessment: Do you want to hurt yourself or someone else? Patient reports no desire to harm self or others. Onset of symptoms was March 03, 2024. 05:48 Method Of Arrival: EMS: [facility] 10 05:48 Acuity: INGRIS 3 cm10 05:50 Care prior to arrival: Medication(s) given: Tylenol, 1000 mg, IV initiated. 20 GA, in cm10 the right antecubital area, Glucose check: 119. Historical: - Allergies: 05:49 codeine sulfate; cm10 05:49 Crestor; cm10 05:49 Cymbalta; cm10 05:49 Dimetapp Cold-Congestion; cm10 05:49 thorezine; cm10 05:49 Tramadol HCl; cm10 05:49 Vioxx; cm10 05:49 Zocor; cm10 - PMHx: 05:49 Atrial fibrillation; Bipolar disorder; cm10 - PSHx: 05:49 hysterectomy; pacemaker; tubligation; cm10 - Immunization history:: Adult Immunizations up to date. - Infectious Disease History:: Denies. - Social history:: Smoking status: Patient denies any tobacco usage or history of. Screenin:58 [facility] ED Fall Risk Assessment (Adult) History of falling in the last 3 months, ha1 including since admission No falls in past 3 months (0 pts) Confusion or Disorientation Yes (5 pts) Intoxicated or Sedated No (0 pts) Impaired Gait Yes (1 pt) Mobility Assist Device Used Yes (1 pt) Altered Elimination No (0 pt) Score/Fall Risk Level 3 or more points = High Risk Oriented to surroundings, Maintained a safe environment, Educated pt \T\ family on fall prevention, incl call for assistance when getting out of bed, Hourly rounding (assess needs \T\ fall precautionary measures) done. Abuse screen: Denies threats or abuse. Denies injuries from another. Nutritional screening: No deficits noted. Tuberculosis screening: No symptoms or risk factors identified. Primary Survey: 05:59 NO uncontrolled hemorrhage observed. Breathing/Chest: Spontaneous respiratory effort, ha1 equal unlabored respirations, breath sounds clear bilaterally, regular pattern, symmetrical chest rise and fall. Respiratory effort: spontaneous. Circulation: No external hemorrhage present. Regular and strong central pulse, skin warm/dry/normal color. Disability Pupils are equal, round, reactive to light and accommodation. Exposure/Environment: All clothing and personal items were removed. Forensic evidence collection is not deemed to be indicated at this time. Items placed in patient belonging bag. Assessment: 05:47 General: Appears comfortable, Behavior is calm, cooperative, appropriate for age. Pain: ha1 Complains of pain in buttocks, right and left hip. Pain does not radiate. Pain currently is 7 out of 10 on a pain scale. Quality of pain is described as throbbing. Neuro: Level of Consciousness is awake, alert, obeys commands, Oriented to person, place, time, situation. Cardiovascular: Patient's skin is warm and dry. Respiratory: Airway is patent Respiratory effort is even, unlabored, Respiratory pattern is regular, symmetrical. GI: No signs and/or symptoms were reported involving the gastrointestinal system. : No signs and/or symptoms were reported regarding the genitourinary system. Derm: Skin is pink, warm \T\ dry. Musculoskeletal: Circulation, motion, and sensation intact. Reports pain in buttocks, right and left hip. 06:26 Reassessment: Patient and/or family updated on plan of care and expected duration. Pain ha1 level reassessed. Patient is alert, oriented x 3, equal unlabored respirations, skin warm/dry/pink. 07:36 Reassessment: Patient and/or family updated on plan of care and expected duration. Pain ap3 level reassessed. General: Appears in no apparent distress. Behavior is calm, cooperative, appropriate for age. Pain: Complains of pain in back. Neuro: Level of Consciousness is awake, alert, obeys commands, Oriented to person, place, time, situation. Cardiovascular: Patient's skin is warm and dry. Respiratory: Airway is patent Respiratory effort is even, unlabored, Respiratory pattern is regular, symmetrical. Vital Signs: 05:48 Weight 54.88 kg (M); cm10 05:57 BP 120 / 81; Pulse 60; Resp 17 S; Temp 97.9(O); Pulse Ox 99% on R/A; ha1 06:26 BP 114 / 73; Pulse 60; Resp 17 S; Pulse Ox 98% on R/A; ha1 07:26 BP 124 / 76; Pulse 62; Resp 14; Pulse Ox 98% ; ko1 08:37 BP 122 / 72; Pulse 60; Resp 14; Pulse Ox 99% ; ko1 09:10 BP 116 / 94; Pulse 60; Resp 15; Pulse Ox 99% ; ko1 09:53 BP 118 / 82; Pulse 60; Resp 15; Pulse Ox 100% ; ko1 ED Course: 05:47 Patient arrived in ED. cm10 05:47 Deanne Garcia MD is Attending Physician. sp3 05:47 Patient has correct armband on for positive identification. Placed in gown. Bed in low ha1 position. Call light in reach. Side rails up X 1. Adult w/ patient. 05:49 Triage completed. cm10 05:50 Arm band placed on Patient placed in an exam room, on a stretcher. cm10 05:53 Drea Felder RN is Primary Nurse. ha1 05:57 Maintain EMS IV. Dressing intact. Good blood return noted. Site clean \T\ dry. Gauge \T\ cullen 1 site: 20 gauge RAC. 06:00 Thermoregulation: warm blanket given to patient. ha1 06:24 CT Traumagram (Head C Spine CAP wo con) In Process Unspecified. EDMS 06:26 Basic Metabolic Panel Sent. ha1 06:26 CBC with Diff Sent. ha1 06:26 Troponin High Sensitivity Sent. ha1 06:26 PT-INR Sent. ha1 07:06 Attending Physician role handed off by Deanne Garcia MD rn 07:06 Ras Peña MD is Attending Physician. rn 07:15 Client placed on continuous cardiac and pulse oximetry monitoring. NIBP monitoring hb applied. nurse monitoring on. Pulse ox on. NIBP on. 09:02 Primary Nurse role handed off by Drea Felder RN ko1 09:02 Gudelia Coy, RN is Primary Nurse. ko1 09:04 Assisted with bedpan. ko1 09:53 Provided Education on: na. ko1 09:53 No provider procedures requiring assistance completed. IV discontinued, intact, ko1 bleeding controlled, No redness/swelling at site. Pressure dressing applied. Administered Medications: No medications were administered Medication: :53 VIS not applicable for this client. ko1 Output: 09:08 Urine: 450ml (Voided); Total: 450ml. ko1 Outcome: 09:47 Discharge ordered by . rn 10:01 Discharged to home via wheelchair, ko1 10:01 Condition: stable 10:01 Discharge instructions given to patient, Instructed on discharge instructions, follow up and referral plans. Demonstrated understanding of instructions, follow-up care, 10:14 Patient left the ED. ko1 Signatures: Dispatcher [employer] EDMI Ras Peña MD MD rn Baxter, Heather, RN RN Stephanie Eastman RN EDILBERTO ap3 Deanne Garcia MD MD sp3 Drea Felder RN RN ha1 Oliver, Kathy, RN RN Demetria Obrien, RN RN cm10
[2024-03-03 11:12] VITALS: BP 118/82; TEMP 97.9; O2SAT 100
--- NOTE | 2024-03-03 11:53 | EKG ---
Test Date: 2024-03-03 Test Time: 06:16:13 Gear Grinder: SETH MEASUREMENT RESULTS: Intervals: Rate: 60 OR: QRSD: 98 QT: 408 QTc: 408 Gem: P: OR: QRS: 38 T: 17 INTERPRETIVE STATEMENTS: Atrial-paced rhythm Nonspecific T wave abnormality Abnormal ECG Compared to ECG 01/21/2024 19:11:41 Prolonged QT interval no longer present T-wave abnormality still present Electronically Signed On 03-03-24 11:53:06 CDT by Alek Feliciano
--- NOTE | 2024-03-03 17:18 | RAD REPORT ---
EXAM DESCRIPTION: CT - Head C Spine Cap Wo Con - 03/03/2024 8:20 am ADDENDUM #1 Addendum report: EXAM: CT CHEST, ABDOMEN AND PELVIS WITHOUT CONTRAST DATE: 03/03/2024 5:48 AM CDT CLINICAL HISTORY: Trauma COMPARISON: None. TECHNIQUE: Volumetric CT acquisition of the abdomen and pelvis without the intravenous administratio n contrast. Axial, coronal and sagittal reconstructions. Oral contrast: None AEC, mA/kV adjustment by patient size, and/or iterative reconstruction technique were used, per located within [facility] dose-optimization program. FINDINGS: CT chest without contrast: Lines and tubes: Implanted pacemaker leads place via left subclavian approach. Lower neck: Visualized portions are unremarkable. Heart: Unremarkable. No pericardial effusion. Vasculature: Noncontrast appearance is grossly unremarkable. Coronary arterial calcifications. Lymph Nodes: There is no hilar, mediastinal, axillary, or internal mammary lymphadenopathy. Lungs: The trachea and major bronchi are patent. There are mild bilateral dependent atelectatic rodriguez es. Presence of a 4 mm subpleural lung nodule in the right lower lobe. There is no pleural effusion. CT abdomen and pelvis without contrast: Evaluation of the solid organs is limited by lack of intravenous contrast. Liver and biliary tree: Normal. Gallbladder: Cholecystectomy. Pancreas: Normal. Spleen: Normal. Adrenals: Normal. Kidneys and ureters: Normal. No hydronephrosis. Bladder: Distended. Reproductive organs: Absent. Gastrointestinal tract: Unremarkable with normal caliber. Appendix: The appendix is not visualized. Peritoneum and retroperitoneum: No ascites or free air. Lymph nodes: No pathologic adenopathy. Vasculature: Unremarkable. Bones: Degenerative changes in the lower lumbar spine. Degenerative changes in both shoulder joints. Levoscoliosis of the lumbar spine. Soft tissues: Large right shoulder joint effusion or distended subdeltoid subacromial bursa. Similar changes but to a lesser extent on the left side. IMPRESSION: 1. No acute findings. Presence of a 4 mm subpleural lung nodule in the right lower lob e. As per the Fleischner Society guidelines, no routine follow-up is recommended. 2. Degenerative changes in both shoulder joints. Large right shoulder joint effusion or distended s ubdeltoid subacromial bursa. Similar changes but to a lesser extent on the left side. SL: [id number] Electronically signed by: Tonya Marie MD 03/03/2024 09:35 AM CDT End of Addendum EXAM DESCRIPTION: CT HEAD AND CT C-SPINE WITHOUT CONTRAST: CLINICAL HISTORY: FALL, TRAUMA . COMPARISON: CT head without contrast April 13, 2022 TECHNIQUE: Contiguous axial sections are obtained as per protocol. Sagittal and coronal reformations are submitted Automatic exposure control (AEC), mA and/or kV adjustment by patient size, and/or iterative reconstru ctive technique was used, per departmental dose optimization program, during the performance of the C T examination. FINDINGS: CT HEAD: Ventricles, sulci and cisterns appear normal. Normal purdy-white matter differentiation is noted. No evidence of intra or extra-axial hemorrhage, hematoma, mass, mass effect or midline shift is noted. The posterior fossa structures appear normal. The bony calvarium appears intact. The soft tissues of the scalp appear unremarkable. Normal appearance of the orbits are noted. The paranasal sinuses and mastoids appear normal. CT C-SPINE: Normal alignment and appearance is noted on the partner integration planner views. Normal alignment of the cervical vertebr al bodies are noted without any evidence of fracture, deformity or subluxation. The odontoid process and the craniocervical junction appears unremarkable. Prevertebral soft tissues are normal. The zygap ophyseal joints and the facets demonstrate normal alignment. The bones are normally mineralized. Dege nerative anterolisthesis is noted at C4-C5 with severe left zygapophyseal joint hypertrophic changes and left C4-C5 foraminal stenosis. Similar changes are noted on the right side at C5-6. There is no e ncroachment upon the spinal canal. Presence of a 1.8 x 2.3 cm left thyroid nodule with focal calcification is noted. Recommend nonemerge nt thyroid ultrasound. IMPRESSION: 1. Unremarkable non contrast enhanced CT examination of brain. 2. No acute findings. Degenerative changes in the cervical spine. 3. Presence of a 1.8 x 2.3 cm left thyroid nodule with focal calcification. Recommend nonemergent t hyroid ultrasound. Electronically signed by: Tonya Marie MD 03/03/2024 07:19 AM CDT Due to temporary technical issues with the PACS/Fluency reporting system, reports are being signed by the in house radiologists without review as a courtesy to insure prompt reporting. The interpreting radiologist is fully responsible for the content of the report
== END 2024-03-03 10:14 | disposition home or self-care (01) ==
LOC: ER 05:42
DX: S20.229A Contusion of unspecified back wall of thorax, initial encounter (principal); W01.0XXA Fall on same level from slipping, tripping and stumbling without subsequent striking against object, initial encounter; I48.91 Unspecified atrial fibrillation; Z79.01 Long term (current) use of anticoagulants; Z95.0 Presence of cardiac pacemaker; Z88.5 Allergy status to narcotic agent; Z88.8 Allergy status to other drugs, medicaments and biological substances
CPT/HCPCS: 36415; 70450; 71250; 72125; 80048; 84484; 85025; 85610; 93005; 99285

== ENCOUNTER 2024-08-29 10:05 | Emergency (ER) | payer OTHER ==
[2024-08-29 11:44] LABS: Absolute Basophils 0.1 K/uL (0-0.5); Absolute Lymphocytes (CBC) 1.2 K/uL (0.7-4.9); Absolute Monocytes 1.1 K/uL (0.1-1.3); Absolute Neutrophil 13.9 K/uL (1.8-8.0); Basophils % 0.7 % (0-1.3); Eosinophils % 0.3 % (0-4.4); Hemoglobin 14.4 g/dL (12.0-15.0); Lymphocytes % 7.3 % (15.3-44.8); MCHC 32.8 g/dL (32.0-36.0); MCV 97.5 fL (80-100); MPV 8.2 fL (7.6-11.3); Monocytes % 6.5 % (3.3-12.3); Neutrophils % 85.2 % (41.7-73.7); Platelets 259 thou/uL (152-406); RBC Red Blood Cell Count 4.51 M/uL (3.86-4.86); Red Cell Distribution Width 14.4 % (12.1-15.2)
--- NOTE | 2024-08-29 11:48 | RAD REPORT ---
EXAM: CT brain without contrast HISTORY: TRAUMA COMPARISON: None TECHNIQUE: Multiple contiguous axial images were obtained and a CT of the brain without contrast. Sag ittal and coronal reformats were performed. One or more of the following dose reduction techniques were used: Automated exposure control, adjust ment of the mA and/or kV according to patient size, and/or iterative reconstruction. FINDINGS: No evidence of hydrocephalus, intracranial hemorrhage, or extra-axial fluid collection. Moderate brain atrophy with moderate periventricular and deep white matter chronic microvascular isc hemic changes present. No evidence of midline shift or areas of brain edema. The calvarium is intact. The visualized paranasal sinuses and mastoid air cells are essentially clear . IMPRESSION: No evidence of acute intracranial abnormality.
[2024-08-29 11:51] LABS: PT Prothrombin Time 11.4 SECONDS (9.4-12.5); PTT, Activated Partial Thromb 33.8 SECONDS (24.3-36.9); Protime INR 1.02
[2024-08-29] MEDS ORDERED: NA CHLORIDE 0.9% 1,000 ML ONE (11:52)
[2024-08-29 12:04] LABS: AST/SGOT 15 U/L (15-37); Albumin 3.5 g/dL (3.4-5.0); Albumin/Globulin Ratio 0.9 (1.1-1.8); Alkaline Phosphatase 90 U/L (45-117); Anion Gap 10.8 mEq/L (5.0-15.0); BUN Blood Urea Nitrogen 12 mg/dL (7-18); Bicarbonate 25 mEq/L (21-32); Bilirubin Total 1.5 mg/dL (0.2-1.0); Creatine Phosphokinase 122 U/L (26-192); Globulin 3.7 g/dL (2.3-3.5); Glomerular Filtration Rate 41 ml/min (=/>90); Glucose Level 115 mg/dL (74-106); NT PRO-BNP 666 pg/mL (<450); Potassium 3.8 mEq/L (3.5-5.1); Protein, Total 7.2 g/dL (6.4-8.2); Sodium Level 144 mEq/L (136-145); Troponin High Sensitivity 3.4 pg/mL (<58.9)
[2024-08-29 12:05] LABS: ALT/SGPT < 14 U/L (13-56)
[2024-08-29 12:29] LABS: Blood Morphology Comment NOT SEEN (NOT SEEN); Platelet Estimate ADEQ; White Blood Cell Scan OK (OK)
--- NOTE | 2024-08-29 12:34 | RAD REPORT ---
EXAMINATION: ONE VIEW CHEST XR CLINICAL INDICATION: DYSPNEA TECHNIQUE: Frontal chest projection is submitted. Examination is limited by patient positioning and t echnique. COMPARISON: 01/21/2024 FINDINGS: The lungs are well inflated and clear. The heart is normal in size. No displaced fractures identified . Multilead pacer device. IMPRESSION: No acute intrathoracic abnormalities.
[2024-08-29 12:44] LABS: Specific Gravity 1.007 (1.005-1.030); Sqamous Epithelial <5 /HPF (None Seen); Urine Bacteria None Seen /HPF (<20); Urine Bilirubin NEGATIVE (Negative); Urine Blood 1+ (Negative); Urine Clarity Clear (Clear); Urine Color Colorless (Yellow); Urine Culture Reflex Order NOT NEEDED; Urine Glucose NEGATIVE (Negative); Urine Ketones NEGATIVE (Negative); Urine Microscopic Reflex YN ORDER UMIC; Urine Mucus Slight /HPF (None Seen); Urine Nitrite NEGATIVE (Negative); Urine Protein NEGATIVE (Negative); Urine Urobilinogen Normal (Normal); Urine WBC <5 /HPF (<5); Urine pH 6.5 (5.0-7.0)
--- NOTE | 2024-08-29 16:44 | RAD REPORT ---
EXAMINATION: Hip Right 2 View CLINICAL INDICATION: Female, 79 years old. HS MAIN PAIN FALL TECHNIQUE: 2 view radiograph of the right hip were obtained. COMPARISON: No prior exam. FINDINGS: No evidence of fracture or dislocation. Normal alignment. No evidence of arthropathy or oth er focal bone lesion. Soft tissues are unremarkable. IMPRESSION: No acute or significant abnormalities.
--- NOTE | 2024-08-29 16:45 | RAD REPORT ---
EXAMINATION: Hip Left 2 View CLINICAL INDICATION: Female, 79 years old. [facility] MAIN PAIN FALL TECHNIQUE: 2 view radiograph of the left hip were obtained. COMPARISON: No prior exam. FINDINGS: No evidence of fracture or dislocation. Normal alignment. No evidence of arthropathy or oth er focal bone lesion. Soft tissues are unremarkable. IMPRESSION: No acute or significant abnormalities.
--- NOTE | 2024-08-29 16:46 | RAD REPORT ---
EXAMINATION: XR PELVIS CLINICAL INDICATION: Female, 79 years old. [facility] MAIN PAIN Bed Name: 24 TECHNIQUE: AP Pelvis radiograph was obtained. COMPARISON: No prior exam. FINDINGS: No evidence of fracture or dislocation. Normal alignment. Symphysis pubis degenerative gottlieb ges. No evidence of AVN. Soft tissues are unremarkable. IMPRESSION: No acute osseous abnormalities. Symphysis pubis degenerative changes.
--- NOTE | 2024-08-29 17:24 | EDPHYS ---
Physician Documentation [facility] Name: Devonte Hager Age: 79 yrs Sex: Female : 1945 Arrival Date: 08/29/2024 Time: 10:05 Bed 24 Private MD: ED Physician Comfort Cesar HPI: 08/29 17:25 This 79 yrs old Female presents to ER via EMS with complaints of General gb1 Weakness. 17:25 This 79 yrs old Female presents to ER via EMS with complaints of General gb1 Weakness. 17:20 79-year-old female with generalized weakness was putting some of her close weight in gb1 her new apartment and then felt very tired and laid down on the ground and then realized that she had difficulty getting up again. Patient denies any head strike any loss of consciousness she actually states that she has had no nausea vomiting or diarrhea and she has a history of bipolar disorder and atrial fibrillation. Patient has no pain anywhere else.. Historical: - Allergies: 10:33 codeine sulfate; iw 10:33 Crestor; iw 10:33 Cymbalta; iw 10:33 Dimetapp Cold-Congestion; iw 10:33 thorezine; iw 10:33 Tramadol HCl; iw 10:33 Vioxx; iw 10:33 Zocor; iw - PMHx: 10:33 Bipolar disorder; Atrial fibrillation; iw - PSHx: 10:33 hysterectomy; pacemaker; tubal ligation; iw - Immunization history:: Adult Immunizations up to date. - Infectious Disease History:: Denies. - Social history:: Smoking status: Patient denies any tobacco usage or history of. Exam: 17:20 Constitutional: This is a well developed, well nourished patient who is awake, alert, gb1 and in no acute distress. Head/Face: Normocephalic, atraumatic. Eyes: Pupils equal round and reactive to light, extra-ocular motions intact. Lids and lashes normal. Conjunctiva and sclera are non-icteric and not injected. Cornea within normal limits. Periorbital areas with no swelling, redness, or edema. ENT: Nares patent. No nasal discharge, no septal abnormalities noted. Tympanic membranes are normal and external auditory canals are clear. Oropharynx with no redness, swelling, or masses, exudates, or evidence of obstruction, uvula midline. Mucous membranes moist. Neck: Trachea midline, no thyromegaly or masses palpated, and no cervical lymphadenopathy. Supple, full range of motion without nuchal rigidity, or vertebral point tenderness. No Meningismus. Chest/axilla: Normal chest wall appearance and motion. Nontender with no deformity. No lesions are appreciated. Cardiovascular: Regular rate and rhythm with a normal S1 and S2. No gallops, murmurs, or rubs. Normal PMI, no JVD. No pulse deficits. Respiratory: Lungs have equal breath sounds bilaterally, clear to auscultation and percussion. No rales, rhonchi or wheezes noted. No increased work of breathing, no retractions or nasal flaring. Abdomen/GI: Soft, non-tender, with normal bowel sounds. No distension or tympany. No guarding or rebound. No evidence of tenderness throughout. Back: No spinal tenderness. No costovertebral tenderness. Full range of motion. Skin: Warm, dry with normal turgor. Normal color with no rashes, no lesions, and no evidence of cellulitis. MS/ Extremity: Pulses equal, no cyanosis. Neurovascular intact. Full, normal range of motion. Neuro: Awake and alert, GCS 15, oriented to person, place, time, and situation. Cranial nerves II-XII grossly intact. Motor strength 5/5 in all extremities. Sensory grossly intact. Cerebellar exam normal. Normal gait. Vital Signs: 10:46 BP 124 / 81; Pulse 71; Resp 16; Temp 98.1; Pulse Ox 100% on R/A; iw 11:49 Weight 52.16 kg; iw 12:00 BP 129 / 80; Pulse 70; Resp 13; Pulse Ox 98% on R/A; me1 13:00 BP 143 / 76; Pulse 90; Resp 15; Pulse Ox 99% ; me1 14:00 BP 132 / 84; Pulse 60; Resp 17; Pulse Ox 99% ; me1 15:00 BP 133 / 81; Pulse 60; Resp 19; Pulse Ox 99% ; me1 16:00 BP 111 / 83; Pulse 60; Resp 19; Pulse Ox 99% ; me1 17:00 BP 129 / 77; Pulse 60; Resp 15; Pulse Ox 99% ; me1 18:00 BP 125 / 82; Pulse 59; Resp 16; Temp 98.3; Pulse Ox 100% ; me1 MDM: 10:30 Patient medically screened. gb1 17:20 Differential Diagnosis. Data reviewed: vital signs, nurses notes. ED course: gb1 79-year-old female with weakness concern for lethargy at home brought in by EMS with history of bipolar NH and ablation. Patient lives alone in a new apartment was hanging up close as after mentioned that the history and physical and felt weak and laid down. At this time I cannot find any signs of sepsis or intracranial injury her CT of her brain is negative and her chest x-ray pelvis x-ray and left hip and right hip are all normal no signs of trauma I will discharge her home after she ambulates with assistance with the nurse. Patient has been givenreturn precautions which declined to at time of discharge. 17:24 ED course: No known no signs of UTI or any signs of rhabdomyolysis. CK is normal urine gb1 is normal. patient is awake and alert and at her baseline mental status. . 08/29 11:09 Order name: CBC with Diff; Complete Time: 12:56 gb1 08/29 11:09 Order name: CMP; Complete Time: 12:56 gb1 08/29 11:09 Order name: Lactate w/ 2H reflex if indic.; Complete Time: 12:56 gb1 08/29 11:09 Order name: Protime (+inr); Complete Time: 12:56 gb1 08/29 11:09 Order name: Ptt, Activated; Complete Time: 12:56 gb1 08/29 11:09 Order name: Urinalysis w/ reflexes; Complete Time: 12:56 gb1 08/29 11:09 Order name: CK; Complete Time: 12:56 gb1 08/29 11:09 Order name: Troponin High Sensitivity; Complete Time: 12:56 gb1 08/29 11:09 Order name: BNP; Complete Time: 12:56 gb1 08/29 12:29 Order name: CBC Smear Scan; Complete Time: 12:56 EDMS 08/29 11:09 Order name: Chest Single View XRAY; Complete Time: 12:56 gb1 08/29 11:16 Order name: Head Brain Wo Cont CT; Complete Time: 11:51 gb1 08/29 14:10 Order name: Pelvis XRAY; Complete Time: 17:06 gb1 08/29 14:26 Order name: Hip Right 2 View; Complete Time: 17:06 EDMS 08/29 14:26 Order name: Hip Left 2 View; Complete Time: 17:06 EDMS 08/29 11:09 Order name: Accucheck; Complete Time: 11:49 gb1 08/29 11:09 Order name: Cardiac monitoring; Complete Time: 11:49 gb1 08/29 11:09 Order name: EKG - Nurse/Tech; Complete Time: 14:04 gb1 08/29 11:09 Order name: IV Saline Lock - Large Bore; Complete Time: 11:49 gb1 08/29 11:09 Order name: Labs collected and sent; Complete Time: 11:49 gb1 08/29 11:09 Order name: O2 Per Protocol; Complete Time: 12:08 gb1 08/29 11:09 Order name: O2 Sat Monitoring; Complete Time: 11:49 gb1 08/29 11:09 Order name: Vital Signs; Complete Time: 11:49 gb1 08/29 17:18 Order name: Misc. Order: ambulate pt; Complete Time: 18:03 iw Administered Medications: 11:59 Drug: NS 0.9% IV (30 ml/kg) 30 ml/kg IV at bolus once; Sepsis Protocol Route: IV; Rate: iw bolus; Site: left antecubital; 15:34 Follow up: Response: No adverse reaction; IV Status: Completed infusion me1 Disposition Summary: 08/29/24 17:24 Discharge Ordered Notes: Location: Home gb1 Condition: Stable gb1 Diagnosis - Muscle weakness (generalized) gb1 Followup: gb1 - With: Private Physician - When: - Reason: If symptoms return Discharge Instructions: - Discharge Summary Sheet gb1 - Weakness gb1 Forms: - Medication Reconciliation Form gb1 - Antibiotic Education gb1 - Prescription Opioid Use gb1 - Patient Portal Instructions gb1 - Leadership Thank You Letter gb1 Signatures: Dispatcher [employer] Adriana De La Torre RN RN iw Cindy Hendricks RN RN nm1 Comfort Cesar MD MD gb1 Corrections: (The following items were deleted from the chart) 11:10 11:10 CBC+H.LAB.BRZ ordered. EDMS EDMS 11:10 11:10 COMPREHENSIVE METABOLIC PANEL+C.LAB.BRZ ordered. EDMS EDMS 11:10 11:10 LACTATE+C.LAB.BRZ ordered. EDMS EDMS 11:10 11:10 PROTIME (+INR)+COAG.LAB.BRZ ordered. EDMS EDMS 11:10 11:10 PTT, ACTIVATED+COAG.LAB.BRZ ordered. EDMS EDMS 11:10 11:10 Urinalysis+U.LAB.BRZ ordered. EDMS EDMS 11:10 11:10 CREATINE PHOSPHOKINASE+C.LAB.BRZ ordered. EDMS EDMS 11: 11:10 Troponin High Sensitivity+C.LAB.BRZ ordered. EDMS EDMS 11:10 11:10 PROBNP+C.LAB.BRZ ordered. EDMS EDMS 11:10 11:10 Chest Single View+RAD.RAD.BRZ ordered. EDMS EDMS
--- NOTE | 2024-08-29 17:24 | ER ---
Nurse's Notes [facility] Name: Devonte Hager Age: 79 yrs Sex: Female : 1945 Arrival Date: 08/29/2024 Time: 10:05 Bed 24 Private MD: Diagnosis: Muscle weakness (generalized) Presentation: 08/29 10:31 Chief complaint: Patient states: she was trying to lay on the ground to sleep, she fell iw to the ground and could not get back up , she has been moving into a new apartment and is feeling more weak than normal. Coronavirus screen: At this time, the client does not indicate any symptoms associated with coronavirus-19. Ebola Screen: No symptoms or risks identified at this time. Initial Sepsis Screen: Does the patient meet any 2 criteria? No. Patient's initial sepsis screen is negative. Does the patient have a suspected source of infection? No. Patient's initial sepsis screen is negative. Risk Assessment: Do you want to hurt yourself or someone else? Patient reports no desire to harm self or others. Onset of symptoms was August 28, 2024. 10:31 Method Of Arrival: EMS: [facility] iw 10:31 Acuity: [facility] 3 iw Historical: - Allergies: 10:33 codeine sulfate; iw 10:33 Crestor; iw 10:33 Cymbalta; iw 10:33 Dimetapp Cold-Congestion; iw 10:33 thorezine; iw 10:33 Tramadol HCl; iw 10:33 Vioxx; iw 10:33 Zocor; iw - PMHx: 10:33 Bipolar disorder; Atrial fibrillation; iw - PSHx: 10:33 hysterectomy; pacemaker; tubal ligation; iw - Immunization history:: Adult Immunizations up to date. - Infectious Disease History:: Denies. - Social history:: Smoking status: Patient denies any tobacco usage or history of. Screenin:50 [facility] ED Fall Risk Assessment (Adult) History of falling in the last 3 months, iw including since admission Yes- single mechanical fall (1 pt) Confusion or Disorientation No (0 pts) Intoxicated or Sedated No (0 pts) Impaired Gait Yes (1 pt) Mobility Assist Device Used No (0 pt) Altered Elimination No (0 pt) Score/Fall Risk Level 0 - 2 = Low Risk Oriented to surroundings, Educated pt \T\ family on fall prevention, incl call for assistance when getting out of bed. Abuse screen: Denies threats or abuse. Nutritional screening: No deficits noted. Tuberculosis screening: No symptoms or risk factors identified. Assessment: 11:49 Reassessment: Patient appears in no apparent distress at this time. Patient and/or iw family updated on plan of care and expected duration. Pain level reassessed. Patient is alert, oriented x 3, equal unlabored respirations, skin warm/dry/pink. 12:15 General: Appears uncomfortable, well groomed, well developed, well nourished, Behavior me1 is calm, cooperative, appropriate for age, Reports she was trying to lay on the ground to sleep, she fell to the ground and could not get back up , she has been moving into a new apartment and is feeling more weak than normal. Pain: Complains of pain in pelvis Pain does not radiate. Pain currently is 4 out of 10 on a pain scale. Quality of pain is described as tender, Pain began suddenly, Is continuous. Neuro: Level of Consciousness is awake, alert, obeys commands, Oriented to person, place, time, situation, Appropriate for age. Cardiovascular: Patient's skin is warm and dry. Respiratory: Airway is patent Respiratory effort is even, unlabored, Respiratory pattern is regular, symmetrical. GI: No signs and/or symptoms were reported involving the gastrointestinal system. : No signs and/or symptoms were reported regarding the genitourinary system. EENT: No signs and/or symptoms were reported regarding the EENT system. Derm: Skin is intact, is healthy with good turgor, Skin is pink, warm \T\ dry. Musculoskeletal: Reports pain in pelvis. 17:50 General: Discharge delayed waiting for ride home.. me1 Vital Signs: 10:46 BP 124 / 81; Pulse 71; Resp 16; Temp 98.1; Pulse Ox 100% on R/A; iw 11:49 Weight 52.16 kg; iw 12:00 BP 129 / 80; Pulse 70; Resp 13; Pulse Ox 98% on R/A; me1 13:00 BP 143 / 76; Pulse 90; Resp 15; Pulse Ox 99% ; me1 14:00 BP 132 / 84; Pulse 60; Resp 17; Pulse Ox 99% ; me1 15:00 BP 133 / 81; Pulse 60; Resp 19; Pulse Ox 99% ; me1 16:00 BP 111 / 83; Pulse 60; Resp 19; Pulse Ox 99% ; me1 17:00 BP 129 / 77; Pulse 60; Resp 15; Pulse Ox 99% ; me1 18:00 BP 125 / 82; Pulse 59; Resp 16; Temp 98.3; Pulse Ox 100% ; me1 ED Course: 10:12 Patient arrived in ED. kb3 10:16 Comfort Cesar MD is Attending Physician. gb1 10:24 Adriana Samayoa, RN is Primary Nurse. iw 10:33 Triage completed. iw 11:30 Missed attempt(s): 20 gauge in right antecubital area. Bleeding controlled, band aid iw applied, catheter tip intact. 11:42 CT completed. Patient tolerated procedure well. Note: 22 g diffusics to lt ac by mindi alw in ct. Note: labs collected and sent. Patient moved to CT via stretcher. Patient moved back from CT. 11:45 Head Brain Wo Cont CT In Process Unspecified. EDMS 11:50 Inserted saline lock: 20 gauge in left antecubital area, using aseptic technique. Blood iw collected. Flushed with 10 mL NS IV inserted by [facility]. 12:15 No provider procedures requiring assistance completed. me1 12:15 Patient has correct armband on for positive identification. Bed in low position. Call me1 light in reach. Side rails up X2. Provided Education on: POC. Verbalized understanding.. Client placed on continuous cardiac and pulse oximetry monitoring. NIBP monitoring applied. global human resources director on. Pulse ox on. NIBP on. 12:26 Chest Single View XRAY In Process Unspecified. EDMS 12:29 Urinalysis w/ reflexes Sent. me1 12:29 Urine collected: clean catch specimen, clear. me1 13:00 EKG done, by ED staff, reviewed by Comfort Cesar MD. me1 14:25 Pelvis XRAY In Process Unspecified. EDMS 14:36 Hip Right 2 View In Process Unspecified. EDMS 14:36 Hip Left 2 View In Process Unspecified. EDMS 18:04 Arm band placed on Patient placed in an exam room. me1 18:13 IV discontinued, intact, bleeding controlled, No redness/swelling at site. Pressure me1 dressing applied. Administered Medications: 11:59 Drug: NS 0.9% IV (30 ml/kg) 30 ml/kg IV at bolus once; Sepsis Protocol Route: IV; Rate: iw bolus; Site: left antecubital; 15:34 Follow up: Response: No adverse reaction; IV Status: Completed infusion me1 Medication: 11:50 VIS not applicable for this client. iw Outcome: 17:24 Discharge ordered by . gb1 18:55 Discharged to home via wheelchair, with friend, me1 18:55 Condition: stable 18:55 Discharge instructions given to patient, friend, Instructed on discharge instructions, follow up and referral plans. Demonstrated understanding of instructions, follow-up care, 18:55 Patient left the ED. me1 Signatures: Dispatcher [employer] EDMS Adriana Samayoa RN RN iw Kamar Melchor Kelly, RN RN kb3 Cindy Hendricks RN RN me1 Comfort Cesar MD MD gb1 Corrections: (The following items were deleted from the chart) 15:37 10:31 Chief complaint: Patient states: she was trying to lay on the ground to sleep, me1 she fell to the ground and could not get back up , she has been moving into a new apartment and is feeling more weak than normal iw
[2024-08-29 21:28] VITALS: BP 125/82; TEMP 98.3; O2SAT 100
--- NOTE | 2024-08-30 12:58 | EKG ---
Test Date: 2024-08-29 Test Time: 12:59:43 Hose Coupling Joiner: MEASUREMENT RESULTS: Intervals: Rate: 60 DC: 234 QRSD: 102 QT: 512 QTc: 512 Calvin: P: 57 DC: 234 QRS: 53 T: 33 INTERPRETIVE STATEMENTS: Atrial-paced rhythm with prolonged AV conduction T wave abnormality, consider anterior ischemia Prolonged QT Abnormal ECG Compared to ECG 03/03/2024 06:16:13 Possible ischemia now present Prolonged QT interval now present T-wave abnormality still present Electronically Signed On 08-30-24 12:54:44 CDT by Stanley Perez
== END 2024-08-29 18:55 | disposition home or self-care (01) ==
LOC: ER 10:05
DX: M62.81 Muscle weakness (generalized) (principal); I48.91 Unspecified atrial fibrillation; F31.9 Bipolar disorder, unspecified; Z95.0 Presence of cardiac pacemaker
CPT/HCPCS: 96365; 93005; 85025; 81001; 36415; 82550; 85610; 83605; 85730; 84484; 80053; 83880; 70450; 71045; 72170; 73502 ×2; 99285; 96366; J7030

== ENCOUNTER 2024-10-01 09:53 | Emergency (ER) | payer OTHER ==
--- NOTE | 2024-10-01 11:08 | RAD REPORT ---
EXAMINATION: CT HEAD WITHOUT CONTRAST CT CERVICAL SPINE WITHOUT CONTRAST CLINICAL INDICATION: Female, 79 years old. TRAUMA TECHNIQUE: Axial CT images from the skull base to the vertex without intravenous contrast. Axial CT i mages through the cervical spine were obtained without intravenous contrast. Sagittal and coronal reformatted images were created from the data set. Coronal and sagittal reformatted images were creat ed from the data set. One or more of the following dose reduction techniques were used: Automated exposure control, adjustment of the mA and/or kV according to patient size, and/or iterative reconstr uction. Unless otherwise specified, incidental findings do not require dedicated imaging follow-up. [id number]. COMPARISON: 09/08/2024, 03/03/2024 FINDINGS: Head: INTRACRANIAL: No acute intracranial hemorrhage. No hydrocephalus. No mass effect or midline shift. Ce rebral atrophy which is mild. VASCULATURE: No visualized abnormalities in the arteries or dural venous sinuses. SCALP/SKULL: No significant soft tissue or osseous abnormalities. SINUSES: The visualized paranasal sinuses and mastoid air cells are predominantly clear. Cervical spine: ALIGNMENT: Trace anterolisthesis of C4 on C5. BONE: Vertebral body heights are maintained. No aggressive osseous lesions. DEGENERATIVE CHANGES: Multilevel cervical spondylosis with varying degrees of neural foraminal narrow ing. At least mild central spinal stenosis is present at C5-6 and C6-7. SOFT TISSUE: No significant abnormalities in the soft tissue of the neck. The visualized lung apices are clear. IMPRESSION: No acute intracranial abnormality. No acute fracture or traumatic malalignment of the cervical spine.
--- NOTE | 2024-10-01 11:13 | ER ---
Nurse's Notes [facility] Name: Devonte Hager Age: 79 yrs Sex: Female : 1945 Arrival Date: 10/01/2024 Time: 09:53 Bed 8 Private MD: Diagnosis: Closed head injury, scalp hematoma Presentation: 10/01 10:02 Chief complaint: EMS states: Slipped in the bathtub and hit back of head, no loc, not rs5 on blood thinners. 10:02 Coronavirus screen: At this time, the client does not indicate any symptoms associated rs5 with coronavirus-19. Ebola Screen: No symptoms or risks identified at this time. Initial Sepsis Screen: Does the patient meet any 2 criteria? No. Patient's initial sepsis screen is negative. Does the patient have a suspected source of infection? No. Patient's initial sepsis screen is negative. Risk Assessment: Do you want to hurt yourself or someone else? Patient reports no desire to harm self or others. Onset of symptoms was October 01, 2024. 10:02 Method Of Arrival: EMS: [facility] rs5 10:02 Acuity: [facility] 3 rs5 Triage Assessment: 10:02 General: Appears in no apparent distress. comfortable, Behavior is calm, cooperative. rs5 Historical: - Allergies: 10:14 codeine sulfate; rs5 10:14 Crestor; rs5 10:14 Cymbalta; rs5 10:14 Dimetapp Cold-Congestion; rs5 10:14 thorezine; rs5 10:14 Tramadol HCl; rs5 10:14 Vioxx; rs5 10:14 Zocor; rs5 - PMHx: 10:14 Bipolar disorder; Atrial fibrillation; rs5 - PSHx: 10:14 hysterectomy; pacemaker; tubal ligation; rs5 - Immunization history:: Adult Immunizations up to date. - Infectious Disease History:: Denies. - Social history:: Smoking status: Patient denies any tobacco usage or history of. Screenin:02 [facility] ED Fall Risk Assessment (Adult) History of falling in the last 3 months, rs5 including since admission Yes- single mechanical fall (1 pt) Confusion or Disorientation No (0 pts) Intoxicated or Sedated No (0 pts) Impaired Gait Yes (1 pt) Mobility Assist Device Used Yes (1 pt) Altered Elimination No (0 pt) Score/Fall Risk Level 3 or more points = High Risk Oriented to surroundings, Maintained a safe environment. Abuse screen: Denies threats or abuse. Nutritional screening: No deficits noted. Tuberculosis screening: No symptoms or risk factors identified. Assessment: 10:02 General: Appears in no apparent distress. uncomfortable, Behavior is calm, cooperative. rs5 Pain: Complains of pain in back of head Pain currently is 3 out of 10 on a pain scale. Quality of pain is described as aching, Is continuous. 10:02 Neuro: Level of Consciousness is awake, alert, obeys commands, Oriented to person, rs5 place, time, situation. Cardiovascular: Patient's skin is warm and dry. Respiratory: Airway is patent Respiratory effort is even, unlabored, Respiratory pattern is regular, symmetrical. GI: Abdomen is round non-distended, Abd is soft and non tender X 4 quads. : No signs and/or symptoms were reported regarding the genitourinary system. EENT: No signs and/or symptoms were reported regarding the EENT system. Derm: Skin is intact, Skin is pink, warm \T\ dry. Musculoskeletal: Range of motion: intact in all extremities. 11:10 Reassessment: Patient and/or family updated on plan of care and expected duration. Pain rs5 level reassessed. Patient is alert, oriented x 3, equal unlabored respirations, skin warm/dry/pink. 11:55 Reassessment: Patient and/or family updated on plan of care and expected duration. Pain rs5 level reassessed. Patient is alert, oriented x 3, equal unlabored respirations, skin warm/dry/pink. Vital Signs: 10:02 BP 134 / 91; Pulse 84; Resp 17; Temp 98(O); Pulse Ox 99% on R/A; rs5 12:00 BP 130 / 84; Pulse 74; Resp 17; Pulse Ox 99% on R/A; rs5 ED Course: 10:01 Patient arrived in ED. sp3 10:01 Deanne Garcia MD is Attending Physician. sp3 10:02 Patient has correct armband on for positive identification. Placed in gown. Bed in low rs5 position. Call light in reach. Side rails up X2. 10:02 Arm band placed on right wrist. rs5 10:02 No provider procedures requiring assistance completed. rs5 10:12 Jose Rafael Cleveland, RN is Primary Nurse. rs5 10:14 Triage completed. rs5 10:42 CT Head C Spine In Process Unspecified. EDMS 12:08 Patient did not have IV access during this emergency room visit. rs5 Administered Medications: No medications were administered Medication: 12:00 VIS not applicable for this client. rs5 Outcome: 11:12 Discharge ordered by . sp3 12:08 Discharged to home ambulatory, rs5 12:08 Condition: stable rs5 12:08 Discharge instructions given to patient, family, Instructed on discharge instructions, follow up and referral plans. Demonstrated understanding of instructions, follow-up care, 12:10 Patient left the ED. rs5 Signatures: Dispatcher [employer] EDMA Deanne Garcia MD MD sp3 Jose Rafael Cleveland, RN RN rs5
--- NOTE | 2024-10-01 11:13 | EDPHYS ---
Physician Documentation [facility] Name: Devonte Hager Age: 79 yrs Sex: Female : 1945 Arrival Date: 10/01/2024 Time: 09:53 Bed 8 Private MD: ED Physician Deanne Garcia HPI: 10/01 10:33 This 79 yrs old Female presents to ER via EMS with complaints of head injury. sp3 10:33 79-year-old female with history of bipolar disease, atrial fibrillation who is not been sp3 taking her Eliquis now presents to the ED with mechanical fall in the bathtub where she struck the back of her head. She arrives via EMS who states that she has a hematoma on the back of her head and no other traumatic findings. Patient has no complaint other than headache. She denies any neck pain, chest pain, shortness of breath, back pain, extremity pain, medical prodrome prior to the fall and insist that she slipped, or any other signs or symptoms on ROS at this time. When asked why she has not been taking her Eliquis she states it is too expensive.. Historical: - Allergies: 10:14 codeine sulfate; rs5 10:14 Crestor; rs5 10:14 Cymbalta; rs5 10:14 Dimetapp Cold-Congestion; rs5 10:14 thorezine; rs5 10:14 Tramadol HCl; rs5 10:14 Vioxx; rs5 10:14 Zocor; rs5 - PMHx: 10:14 Bipolar disorder; Atrial fibrillation; rs5 - PSHx: 10:14 hysterectomy; pacemaker; tubal ligation; rs5 - Immunization history:: Adult Immunizations up to date. - Infectious Disease History:: Denies. - Social history:: Smoking status: Patient denies any tobacco usage or history of. ROS: 10:34 Constitutional: Negative for fever, chills, and weight loss, Eyes: Negative for injury, sp3 pain, redness, and discharge, ENT: Negative for injury, pain, and discharge, Neck: Negative for injury, pain, and swelling, Cardiovascular: Negative for chest pain, palpitations, and edema, Respiratory: Negative for shortness of breath, cough, wheezing, and pleuritic chest pain, Abdomen/GI: Negative for abdominal pain, nausea, vomiting, diarrhea, and constipation, Back: Negative for injury and pain, MS/Extremity: Negative for injury and deformity, Skin: Negative for injury, rash, and discoloration, Psych: Negative for depression, anxiety, suicide ideation, homicidal ideation, and hallucinations, Allergy/Immunology: Negative for hives, rash, and allergies, Endocrine: Negative for neck swelling, polydipsia, polyuria, polyphagia, and marked weight changes, Hematologic/Lymphatic: Negative for swollen nodes, abnormal bleeding, and unusual bruising, 10:34 All other systems are negative, Exam: 10:34 Constitutional: This is a well developed, well nourished patient who is awake, alert, sp3 and in no acute distress. Eyes: Pupils equal round and reactive to light, extra-ocular motions intact. Lids and lashes normal. Conjunctiva and sclera are non-icteric and not injected. Cornea within normal limits. Periorbital areas with no swelling, redness, or edema. ENT: Nares patent. No nasal discharge, no septal abnormalities noted. External auditory canals are clear. Oropharynx with no redness, swelling, or masses, exudates, or evidence of obstruction, uvula midline. Mucous membranes moist. Neck: Trachea midline, no thyromegaly or masses palpated, and no cervical lymphadenopathy. Supple, full range of motion without nuchal rigidity, or vertebral point tenderness. No Meningismus. Chest/axilla: Normal chest wall appearance and motion. Nontender with no deformity. No lesions are appreciated. Cardiovascular: Regular rate and rhythm with a normal S1 and S2. No gallops, murmurs, or rubs. Normal PMI, no JVD. No pulse deficits. Respiratory: Lungs have equal breath sounds bilaterally, clear to auscultation and percussion. No rales, rhonchi or wheezes noted. No increased work of breathing, no retractions or nasal flaring. Abdomen/GI: Soft, non-tender, with normal bowel sounds. No distension or tympany. No guarding or rebound. No evidence of tenderness throughout. Back: No spinal tenderness. No costovertebral tenderness. Full range of motion. Skin: Warm, dry with normal turgor. Normal color with no rashes, no lesions, and no evidence of cellulitis. MS/ Extremity: Pulses equal, no cyanosis. Neurovascular intact. Full, normal range of motion. Neuro: Awake and alert, GCS 15, oriented to person, place, time, and situation. Cranial nerves II-XII grossly intact. Motor strength 5/5 in all extremities. Sensory grossly intact. Cerebellar exam normal. Normal gait. Psych: Awake, alert, with orientation to person, place and time. Behavior, mood, and affect are within normal limits. 10:34 Head/face: Posterior occipital hematoma noted. Nexus criteria negative patient has no neck pain whatsoever. She is moving her neck on EMS stretcher. Patient is alert and oriented with normal neurological exam.. Vital Signs: 10:02 BP 134 / 91; Pulse 84; Resp 17; Temp 98(O); Pulse Ox 99% on R/A; rs5 12:00 BP 130 / 84; Pulse 74; Resp 17; Pulse Ox 99% on R/A; rs5 MDM: 10:01 Medical Screening Exam initiated sp3 10:35 Data reviewed: vital signs, nurses notes, radiologic studies. ED course: 79-year-old sp3 female with mechanical ground-level fall and back toe with posterior head trauma. Differential diagnosis includes hematoma, closed head injury, cranial hemorrhage, among others. Workup will include CT scan of the head and C-spine with discharge if negative.. 11:12 ED course: Negative CT scan of the head and C-spine. We will safely discharge patient sp3 home at this time.. 10/01 10:01 Order name: CT Head C Spine; Complete Time: 11:12 sp3 Administered Medications: No medications were administered Disposition Summary: 10/01/24 11:12 Discharge Ordered Notes: Location: Home sp3 Condition: Stable sp3 Diagnosis - Closed head injury, scalp hematoma sp3 Followup: sp3 - With: Private Physician - When: Upon discharge from the Emergency Department - Reason: Continuance of care Discharge Instructions: - Discharge Summary Sheet sp3 - Head Injury, Adult sp3 Forms: - Medication Reconciliation Form sp3 - Antibiotic Education sp3 - Prescription Opioid Use sp3 - Patient Portal Instructions sp3 - Leadership Thank You Letter sp3 Signatures: Dispatcher [employer] EDMS Deanne Garcia MD MD sp3 Jose Rafael Cleveland RN RN rs5
[2024-10-01 12:14] VITALS: BP 134/91; TEMP 98; O2SAT 99
== END 2024-10-01 12:10 | disposition home or self-care (01) ==
LOC: ER 09:53
DX: S00.03XA Contusion of scalp, initial encounter (principal); W18.2XXA Fall in (into) shower or empty bathtub, initial encounter; I48.91 Unspecified atrial fibrillation; Z95.0 Presence of cardiac pacemaker
CPT/HCPCS: 70450; 72125; 99283

== ENCOUNTER 2024-12-12 10:19 | Emergency (ER) | payer OTHER ==
--- NOTE | 2024-12-12 11:21 | RAD REPORT ---
EXAM: CT brain without contrast HISTORY: FALL COMPARISON: 10/06/2024 TECHNIQUE: Multiple contiguous axial images were obtained and a CT of the brain without contrast. Sag ittal and coronal reformats were performed. One or more of the following dose reduction techniques were used: Automated exposure control, adjust ment of the mA and/or kV according to patient size, and/or iterative reconstruction. FINDINGS: No evidence of hydrocephalus, intracranial hemorrhage, or extra-axial fluid collection. Moderate brain atrophy with moderate periventricular and deep white matter chronic microvascular isc hemic changes present. No evidence of midline shift or areas of brain edema. The calvarium is intact. The visualized paranasal sinuses and mastoid air cells are essentially clear . IMPRESSION: No evidence of acute intracranial abnormality. EXAM: CT of the cervical spine without contrast HISTORY: Neck pain, injury FALL TECHNIQUE: Multiple contiguous axial images were obtained in a CT of the cervical spine without contr ast. Sagittal and coronal reformats were performed. FINDINGS: The vertebral bodies demonstrate normal height. No evidence of acute fracture or subluxatio n.. 3 mm degenerative anterolisthesis of C3 on 4. Moderate disc thinning of posterior osteophyte lower cervical spine. No prevertebral soft tissue swelling is seen. Prominent bilateral facet arthrosis throughout the cervical spine noted. The lung apices are unremarkable. IMPRESSION: No evidence of acute osseous abnormality of the cervical spine. Moderate mid and lower cervical degenerative changes.
[2024-12-12] MEDS ORDERED: NA CHLORIDE 0.9% 500 ML ONE (11:25)
--- NOTE | 2024-12-12 11:28 | RAD REPORT ---
EXAM: CT CHEST, ABDOMEN AND PELVIS WITHOUT CONTRAST CLINICAL INDICATION: FALL TECHNIQUE: CT chest, abdomen and pelvis was performed without contrast, as per department protocol. A xial, sagittal and coronal reconstructions were obtained. One or more of the following dose reduction techniques were used: Automated exposure control, adjustment of the mA and/or kV according to patient size, and/or iterative reconstruction. Unless otherwise specified, incidental findings do not require dedicated imaging follow-up. Examination is limited by the lack of intravenous contrast material. COMPARISON: 10/06/2024 FINDINGS: LUNGS: Mild bibasilar linear opacities seen likely representing atelectasis. No focal consolidation t o indicate pneumonia. PLEURA: No pleural effusion. No pneumothorax. MEDIASTINUM AND LYMPH NODES: No mediastinal mass or fluid collection. Normal size mediastinal, hilar, and axillary lymph nodes. OSSEOUS STRUCTURES AND CHEST WALL: Severe osteoarthritis of both shoulder joints with moderate joint effusions. LIVER: Normal in size and contour. No focal lesion or biliary dilatation. Cholecystectomy clips. PANCREAS: No mass, ductal dilation, or pilar-pancreatic fluid. SPLEEN: Normal size. No focal lesion. ADRENALS: Mild adreniform thickening, unchanged. KIDNEYS: Normal size and contour. No hydronephrosis. URINARY BLADDER: Normal contour. GASTROINTESTINAL TRACT: No bowel obstruction, free air, significant free fluid or abscess. APPENDIX: Appendix not visualized, but no inflammatory changes in region of appendix. LYMPH NODES: No lymphadenopathy. MUSCULOSKELETAL: Moderate lumbar degenerative changes with levoscoliosis. OTHER: IMPRESSION: No trauma-related abnormality discerned.
[2024-12-12 11:42] LABS: Absolute Basophils 0.1 K/uL (0-0.5); Absolute Eosinophils 0.2 K/uL (0-0.5); Absolute Lymphocytes (CBC) 1.6 K/uL (0.7-4.9); Absolute Monocytes 0.6 K/uL (0.1-1.3); Absolute Neutrophil 4.2 K/uL (1.8-8.0); Eosinophils % 2.4 % (0-4.4); Hematocrit 38.4 % (36.0-45.0); Hemoglobin 12.7 g/dL (12.0-15.0); Lymphocytes % 24.1 % (15.3-44.8); MCHC 33.2 g/dL (32.0-36.0); MCV 96.5 fL (80-100); MPV 7.7 fL (7.6-11.3); Monocytes % 8.8 % (3.3-12.3); Neutrophils % 63.7 % (41.7-73.7); Nucleated Red Blood Cells % 0.1 % (0-0); Platelets 255 thou/uL (152-406); RBC Red Blood Cell Count 3.98 M/uL (3.86-4.86); Red Cell Distribution Width 13.4 % (12.1-15.2)
[2024-12-12 11:43] LABS: PT Prothrombin Time 10.8 SECONDS (9.4-12.5); Protime INR 1.03
[2024-12-12 12:01] LABS: Albumin 3.3 g/dL (3.4-5.0); Albumin/Globulin Ratio 0.9 (1.1-1.8); Alkaline Phosphatase 88 U/L (45-117); Anion Gap 3.1 mEq/L (5.0-15.0); BUN Blood Urea Nitrogen 7 mg/dL (7-18); Bicarbonate 33 mEq/L (21-32); Bilirubin Direct 0.2 mg/dL (0-0.2); Bilirubin Indirect, Calculated 0.5 mg/dL (0.2-0.8); Bilirubin Total 0.7 mg/dL (0.2-1.0); Globulin 3.7 g/dL (2.3-3.5); Glomerular Filtration Rate 47 ml/min (=/>90); Glucose Level 93 mg/dL (74-106); Magnesium 2.3 mg/dL (1.6-2.4); NT PRO-BNP 231 pg/mL (<450); Potassium 3.1 mEq/L (3.5-5.1); Sodium Level 142 mEq/L (136-145)
[2024-12-12 12:04] LABS: ALT/SGPT < 14 U/L (13-56); AST/SGOT < 10 U/L (15-37); Troponin High Sensitivity < 3.0 pg/mL (<58.9)
--- NOTE | 2024-12-12 12:15 | RAD REPORT ---
EXAMINATION: ONE VIEW CHEST XR CLINICAL INDICATION: PAIN TECHNIQUE: Frontal chest projection is submitted. Examination is limited by patient positioning and t echnique. COMPARISON: 10/06/2024 FINDINGS: The lungs are well inflated and clear. The heart is upper limit of normal in size. No displaced fract ures identified. Dual-lead pacer device. IMPRESSION: No acute intrathoracic abnormalities.
--- NOTE | 2024-12-12 12:17 | RAD REPORT ---
EXAMINATION: XR RIGHT SHOUDLER CLINICAL INDICATION: Female, 79 years old. PAIN TECHNIQUE: Multiple views of the right shoulder were obtained. COMPARISON: No prior exam. 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 Diffuse osteopenia. Shoulder joint effusion is likely present. No acute fracture appreciated.
--- NOTE | 2024-12-12 12:43 | ER ---
Nurse's Notes [facility] Name: Devonte Hager Age: 79 yrs Sex: Female : 1945 Arrival Date: 12/12/2024 Time: 10:19 Bed 13 Private MD: Diagnosis: History of falling;Repeated falls;Hypokalemia;Pain in right shoulder;Effusion of joint;Contusion of right hip;Presence of cardiac pacemaker Presentation: 12/12 10:20 Chief complaint: EMS states: Pain in right hip and shoulder after slipped getting out hb of shower this morning. Coronavirus screen: At this time, the client does not indicate any symptoms associated with coronavirus-19. Ebola Screen: No symptoms or risks identified at this time. Initial Sepsis Screen: Does the patient meet any 2 criteria? No. Patient's initial sepsis screen is negative. Does the patient have a suspected source of infection? No. Patient's initial sepsis screen is negative. Risk Assessment: Do you want to hurt yourself or someone else? Patient reports no desire to harm self or others. Onset of symptoms was December 12, 2024. 10:20 Method Of Arrival: EMS: [facility] hb 10:20 Acuity: [facility] 3 hb Historical: - Allergies: 10:22 codeine sulfate; hb 10:22 Crestor; hb 10:22 Cymbalta; hb 10:22 Dimetapp Cold-Congestion; hb 10:22 thorezine; hb 10:22 Tramadol HCl; hb 10:22 Vioxx; hb 10:22 Zocor; hb - PMHx: 10:22 Bipolar disorder; Hypertensive disorder; Congestive heart failure; Atrial fibrillation; hb COPD; - PSHx: 10:22 hysterectomy; tubal ligation; pacemaker; hb Screenin:31 [facility] ED Fall Risk Assessment (Adult) History of falling in the last 3 months, kc6 including since admission Yes- fall prone (multiple falls) (3 pts) Confusion or Disorientation No (0 pts) Intoxicated or Sedated No (0 pts) Impaired Gait Yes (1 pt) Mobility Assist Device Used Yes (1 pt) Altered Elimination No (0 pt) Score/Fall Risk Level 3 or more points = High Risk Oriented to surroundings, Maintained a safe environment, Educated pt \T\ family on fall prevention, incl call for assistance when getting out of bed, Assessed \T\ reinforced patient's understanding of fall precautions. Abuse screen: Denies threats or abuse. Denies injuries from another. Nutritional screening: No deficits noted. Tuberculosis screening: No symptoms or risk factors identified. Assessment: 10:20 General: Appears in no apparent distress. comfortable, well groomed, well developed, kc6 Behavior is calm, cooperative, appropriate for age. Pain: Complains of pain in right hip and anterior aspect of right shoulder. Neuro: Level of Consciousness is awake, alert, obeys commands, Oriented to person, place, time, situation, Appropriate for age. Cardiovascular: Capillary refill < 3 seconds. Respiratory: Airway is patent Trachea midline Respiratory effort is even, unlabored, Respiratory pattern is regular, symmetrical. GI: No signs and/or symptoms were reported involving the gastrointestinal system. : No signs and/or symptoms were reported regarding the genitourinary system. EENT: No signs and/or symptoms were reported regarding the EENT system. Derm: No signs and/or symptoms reported regarding the dermatologic system. Skin is intact, is fragile, is thin, with poor turgor Skin is dry, Skin is pink, warm \T\ dry. Skin temperature is warm. Musculoskeletal: No signs and/or symptoms reported regarding the musculoskeletal system. Circulation, motion, and sensation intact. Range of motion: intact in all extremities. 11:20 Reassessment: Patient appears in no apparent distress at this time. No changes from kc6 previously documented assessment. Patient and/or family updated on plan of care and expected duration. Pain level reassessed. Patient is alert, oriented x 3, equal unlabored respirations, skin warm/dry/pink. 12:20 Reassessment: Patient appears in no apparent distress at this time. No changes from kc6 previously documented assessment. Patient and/or family updated on plan of care and expected duration. Pain level reassessed. Patient is alert, oriented x 3, equal unlabored respirations, skin warm/dry/pink. 13:04 Reassessment: d/c pending transport home. spoke with Dulce Clark and she states she [facility] will try to arrange transport. Vital Signs: 10:20 BP 139 / 84; Pulse 68; Resp 16; Temp 98.3; Pulse Ox 100% on R/A; Pain 8/10; hb 12:29 BP 136 / 79; Pulse 63; Resp 15 S; Pulse Ox 100% on R/A; kc6 13:05 BP 147 / 58; Pulse 59; Resp 16 S; Pulse Ox 100% on R/A; kc6 10:20 Pain Scale: Adult hb Peggy Coma Score: 12:39 Eye Response: spontaneous(4). Motor Response: obeys commands(6). Verbal Response: divina oriented(5). Total: 15. 12:45 Eye Response: spontaneous(4). Motor Response: obeys commands(6). Verbal Response: divina oriented(5). Total: 15. ED Course: 10:20 Patient arrived in ED. hb 10:22 Triage completed. hb 10:24 Jayro Hankins MD is Attending Physician. divina 10:26 Sanaz Munoz, RN is Primary Nurse. kc6 10:56 Inserted saline lock: 22 gauge in right forearm, using aseptic technique. Blood kc6 collected. Flushed with 10 mL NS. 11:03 Head C Spine Mpr Wo Con In Process Unspecified. EDMS 11:03 Chest Abd Pelvis Wo Con In Process Unspecified. EDMS 11:31 Patient maintains SpO2 saturation greater than 95% on room air. kc6 11:31 Patient has correct armband on for positive identification. Bed in low position. Call kc6 light in reach. Side rails up X2. cardiac monitor on. Pulse ox on. NIBP on. Door closed. Noise minimized. Lights dimmed. Warm blanket given. Pillow given. 11:44 Shoulder Right 2+ Views In Process Unspecified. EDMS 11:44 Chest Single View In Process Unspecified. EDMS 12:29 Assisted with bedpan. Repositioned patient. Cleaned of incontinence. kc6 12:30 Arm band placed on. kc6 12:49 Brayden Dwyer MD is Referral Physician. divina 13:23 CM was approached by Primary RN Sanaz. Sanaz expressed concern for patient ane concerning transportation home. Sanaz explained that patient is elderly, came in by EMS, patient has her car keys and her vehicle is parked at her residence at [facility]. CM met with patient at the bedside in the ED exam room and reached out to Driver/Refuse Collector to inquire about a bus pass. In speaking with the patient, patient expressed fear about getting on a bus without her walker and during the discussion, her friend Tariq John called her cell phone to tell her she had her car keys. CM and patient asked if Tariq was able to drive patient's vehicle and transport patient home. Patient provided directions to the hospital and Tariq agreed to tile picker patient from the ED. CM sent message to Driver/Refuse Collector to provide update that patient currently has a plan for a ride home and that the bus pass would be a back up plan. CM handed the bus pass to the primary RN Sanaz and provided update on transportation plan. Sanaz verbalized understanding. CM team will continue to follow and assist as needed. 13:24 Hip Right 2 View In Process Unspecified. EDMS 13:55 No provider procedures requiring assistance completed. IV discontinued, intact, kc6 bleeding controlled, No redness/swelling at site. Pressure dressing applied. Administered Medications: 11:27 Drug: NS 0.9% IV 500 ml 500 ml IV at 1 bolus once; to be given as a bolus over 30 kc6 minutes Volume: 500 ml; Route: IV; Rate: 1 bolus; Site: right forearm; 12:29 Follow up: Response: No adverse reaction; IV Status: Completed infusion; IV Intake: kc6 500ml 13:04 Drug: Potassium PO Effervescent Tablet 50 mEq PO once; dissolve in 4 ounces of water or kc6 juice Route: PO; Medication: 13:55 VIS not applicable for this client. kc6 Intake: 12:29 IV: 500ml; Total: 500ml. kc6 Outcome: 12:43 Discharge ordered by . divina 13:55 Discharged to home via wheelchair, with friend, meryl 13:55 Condition: good 13:55 Discharge instructions given to patient, Instructed on discharge instructions, follow up and referral plans. medication usage, Demonstrated understanding of instructions, follow-up care, medications, Prescriptions given X 1, 13:56 Patient left the ED. kc6 Signatures: Dispatcher [employer] Jayro Olguin MD MD cha Baxter, Heather, RN RN hb Campbell, Kaitlyn, RN RN kc6 Elliott, Andie, RN RN ane Corrections: (The following items were deleted from the chart) 12:29 11:31 [facility] ED Fall Risk Assessment (Adult) History of falling in the last 3 months, kc6 including since admission No falls in past 3 months (0 pts) Confusion or Disorientation No (0 pts) Intoxicated or Sedated No (0 pts) Impaired Gait No (0 pts) Mobility Assist Device Used No (0 pt) Altered Elimination No (0 pt) Score/Fall Risk Level 0 - 2 = Low Risk Oriented to surroundings, Maintained a safe environment, Educated pt \T\ family on fall prevention, incl call for assistance when getting out of bed, kc6
--- NOTE | 2024-12-12 12:43 | EDPHYS ---
Physician Documentation [facility] Name: Devonte Hager Age: 79 yrs Sex: Female : 1945 Arrival Date: 12/12/2024 Time: 10:19 Bed 13 Private MD: ED Physician Jayro Hankins HPI: 12/12 12:38 This 79 yrs old Female presents to ER via EMS with complaints of Fall Injury. [facility] 12:38 Details of fall: The patient fell from an upright position, while standing, while divina walking. Onset: The symptoms/episode began/occurred just prior to arrival. Associated injuries: The patient sustained injury to the head, anterior aspect of right shoulder and posterior aspect of right shoulder, decreased range of motion, painful injury, swelling. Severity of symptoms: At their worst the symptoms were mild, in the emergency department the symptoms are unchanged. The patient has experienced similar episodes in the past. Historical: - Allergies: 10:22 codeine sulfate; hb 10:22 Crestor; hb 10:22 Cymbalta; hb 10:22 Dimetapp Cold-Congestion; hb 10:22 thorezine; hb 10:22 Tramadol HCl; hb 10:22 Vioxx; hb 10:22 Zocor; hb - PMHx: 10:22 Bipolar disorder; Hypertensive disorder; Congestive heart failure; Atrial fibrillation; hb COPD; - PSHx: 10:22 hysterectomy; tubal ligation; pacemaker; hb ROS: 12:39 Constitutional: Negative for fever, chills, and weight loss, Eyes: Negative for injury, divina pain, redness, and discharge, ENT: Negative for injury, pain, and discharge, Neck: Negative for injury, pain, and swelling, Cardiovascular: Negative for chest pain, palpitations, and edema, Respiratory: Negative for shortness of breath, cough, wheezing, and pleuritic chest pain, Abdomen/GI: Negative for abdominal pain, nausea, vomiting, diarrhea, and constipation, Back: Negative for injury and pain, : Negative for injury, bleeding, discharge, and swelling, Skin: Negative for injury, rash, and discoloration, Neuro: Negative for headache, weakness, numbness, tingling, and seizure, Psych: Negative for depression, anxiety, suicide ideation, homicidal ideation, and hallucinations, Allergy/Immunology: Negative for hives, rash, and allergies, Endocrine: Negative for neck swelling, polydipsia, polyuria, polyphagia, and marked weight changes, Hematologic/Lymphatic: Negative for swollen nodes, abnormal bleeding, and unusual bruising, 12:39 MS/extremity: Positive for injury or acute deformity, decreased range of motion, pain, tenderness, of the anterior aspect of right shoulder and posterior aspect of right shoulder, Exam: 12:39 Constitutional: This is a well developed, well nourished patient who is awake, alert, divina and in no acute distress. Head/Face: Normocephalic, atraumatic. Eyes: Pupils equal round and reactive to light, extra-ocular motions intact. Lids and lashes normal. Conjunctiva and sclera are non-icteric and not injected. Cornea within normal limits. Periorbital areas with no swelling, redness, or edema. ENT: Nares patent. No nasal discharge, no septal abnormalities noted. Tympanic membranes are normal and external auditory canals are clear. Oropharynx with no redness, swelling, or masses, exudates, or evidence of obstruction, uvula midline. Mucous membranes moist. Neck: Trachea midline, no thyromegaly or masses palpated, and no cervical lymphadenopathy. Supple, full range of motion without nuchal rigidity, or vertebral point tenderness. No Meningismus. Chest/axilla: Normal chest wall appearance and motion. Nontender with no deformity. No lesions are appreciated. Cardiovascular: Regular rate and rhythm with a normal S1 and S2. No gallops, murmurs, or rubs. Normal PMI, no JVD. No pulse deficits. Respiratory: Lungs have equal breath sounds bilaterally, clear to auscultation and percussion. No rales, rhonchi or wheezes noted. No increased work of breathing, no retractions or nasal flaring. Abdomen/GI: Soft, non-tender, with normal bowel sounds. No distension or tympany. No guarding or rebound. No evidence of tenderness throughout. Back: No spinal tenderness. No costovertebral tenderness. Full range of motion. Skin: Warm, dry with normal turgor. Normal color with no rashes, no lesions, and no evidence of cellulitis. Neuro: Awake and alert, GCS 15, oriented to person, place, time, and situation. Cranial nerves II-XII grossly intact. Motor strength 5/5 in all extremities. Sensory grossly intact. Cerebellar exam normal. Normal gait. Psych: Awake, alert, with orientation to person, place and time. Behavior, mood, and affect are within normal limits. 12:39 Musculoskeletal/extremity: ROM: limited active range of motion due to pain, in the posterior aspect of right shoulder, 12:49 ECG was reviewed by the Attending Physician. divina Vital Signs: 10:20 BP 139 / 84; Pulse 68; Resp 16; Temp 98.3; Pulse Ox 100% on R/A; Pain 8/10; hb 12:29 BP 136 / 79; Pulse 63; Resp 15 S; Pulse Ox 100% on R/A; kc6 13:05 BP 147 / 58; Pulse 59; Resp 16 S; Pulse Ox 100% on R/A; kc6 10:20 Pain Scale: Adult hb Bison Coma Score: 12:39 Eye Response: spontaneous(4). Motor Response: obeys commands(6). Verbal Response: divina oriented(5). Total: 15. 12:45 Eye Response: spontaneous(4). Motor Response: obeys commands(6). Verbal Response: divina oriented(5). Total: 15. MDM: 10:24 Medical Screening Exam initiated divina 12:45 Differential diagnosis: Contusion of Hematoma on Laceration of Intracranial bleed- [facility] Concussion cerebral contusion, Anterior dislocation with fracture, Anterior dislocation without fracture, humeral head fracture, glenoid fracture, DJD, tendonitis, hip fracture, intertrochanteric fracture, femoral neck fracture, femoral shaft fracture, bursitis, arthritis, strain. Differential diagnosis: abrasion, closed head injury, contusion, fracture, multiple trauma, sprain, strain. Data reviewed: vital signs, nurses notes, EMS record, lab test result(s), EKG, radiologic studies, plain films. Consideration of Admission/Observation Escalation of care including admission/observation considered. I considered the following discharge prescriptions or medication management in the emergency department Medications were administered in the Emergency Department. See MAR. Independent interpretation of the following test(s) in the Emergency Department EKG: See my EKG interpretation above. Test considered but Not performed: MRI: no mri. Historians other than the Patient: pt well informed. Care significantly affected by the following chronic conditions: Hypertension, Congestive Heart Failure, Chronic Obstructive Pulmonary Disease, bipolar, a fib. Counseling: I had a detailed discussion with the patient and/or guardian regarding the historical points, exam findings, and any diagnostic results supporting the discharge/admit diagnosis, lab results, radiology results, the need for outpatient follow up, for definitive care, a family practitioner, a orthopedic surgeon. 12/12 11:24 Order name: Basic Metabolic Panel EDMS 12/12 11:24 Order name: Liver (Hepatic) Function EDMS 12/12 11:24 Order name: Troponin High Sensitivity EDMS 12/12 11:24 Order name: NT PRO-BNP EDMS 12/12 11:24 Order name: Magnesium EDMS 12/12 11:24 Order name: CBC with Automated Diff EDMS 12/12 11:24 Order name: Protime (+INR) EDMS 12/12 11:43 Order name: Protime (+INR); Complete Time: 12:35 EDMS 12/12 11:44 Order name: CBC with Automated Diff; Complete Time: 12:35 EDMS 12/12 12:04 Order name: Basic Metabolic Panel; Complete Time: 12:35 EDMS 12/12 12:04 Order name: Liver (Hepatic) Function; Complete Time: 12:35 EDMS 12/12 12:04 Order name: Troponin High Sensitivity; Complete Time: 12:35 EDMS 12/12 12:04 Order name: NT PRO-BNP; Complete Time: 12:35 EDMS 12/12 12:04 Order name: Magnesium; Complete Time: 12:35 EDMS 12/12 12:20 Order name: Urinalysis w/ reflexes EDMS 12/12 12:46 Order name: Urinalysis w/ reflexes; Complete Time: 13:09 EDMS 12/12 10:54 Order name: Head C Spine Mpr Wo Con EDMS 12/12 10:54 Order name: Chest Abd Pelvis Wo Con EDMS 12/12 10:59 Order name: Shoulder Right 2+ Views EDMS 12/12 10:59 Order name: Chest Single View EDMS 12/12 11:22 Order name: CT; Complete Time: 12:35 EDMS 12/12 11:30 Order name: CT; Complete Time: 12:35 EDMS 12/12 12:15 Order name: RAD; Complete Time: 12:35 EDMS 12/12 12:17 Order name: RAD; Complete Time: 12:35 EDMS 12/12 13:13 Order name: Hip Right 2 View EDMS 12/12 10:25 Order name: Cardiac monitoring; Complete Time: 10:35 [facility] 12/12 10:25 Order name: EKG - Nurse/Tech; Complete Time: 10:35 [facility] 12/12 10:25 Order name: IV Saline Lock; Complete Time: 10:55 [facility] 12/12 10:25 Order name: Labs collected and sent; Complete Time: 10:55 [facility] 12/12 10:25 Order name: O2 Per Protocol; Complete Time: 10: [facility] 12/12 10:25 Order name: O2 Sat Monitoring; Complete Time: : [facility] 12/12 12:36 Order name: PO challenge: juice; Complete Time: 12:53 [facility] EC:49 Rate is 60 beats/min. Rhythm is regular. QRS [place] is Normal. [place] interval is normal. QRS divina interval is normal. QT interval is normal. No Q waves. T waves are Normal. No ST changes noted. Clinical impression: NSR w/ Non-specific ST/T Changes and No evidence of ischemia. Interpreted by me. Reviewed by me. Administered Medications: 11:27 Drug: NS 0.9% IV 500 ml 500 ml IV at 1 bolus once; to be given as a bolus over 30 kc6 minutes Volume: 500 ml; Route: IV; Rate: 1 bolus; Site: right forearm; 12:29 Follow up: Response: No adverse reaction; IV Status: Completed infusion; IV Intake: kc6 500ml 13:04 Drug: Potassium PO Effervescent Tablet 50 mEq PO once; dissolve in 4 ounces of water or kc6 juice Route: PO; Disposition Summary: 12/12/24 12:43 Discharge Ordered Notes: Location: Home divina Problem: new divina Symptoms: have improved divina Condition: Stable divina Diagnosis - History of falling divina - Repeated falls divina - Hypokalemia divina - Pain in right shoulder divina - Effusion of joint divina - Contusion of right hip divina - Presence of cardiac pacemaker divina Followup: divina - With: Private Physician - When: 2 - 3 days - Reason: Recheck today's complaints, Continuance of care, Re-evaluation by your physician Followup: divina - With: Brayden Dwyer MD - When: 2 - 3 days - Reason: Recheck today's complaints, Re-evaluation by your physician Discharge Instructions: - Discharge Summary Sheet divina - Joint Pain divina - Arthritis divina - Potassium Content of Foods divina - Fall Prevention in the Home, Adult divina - Musculoskeletal Pain divina - Shoulder Pain divina - How to Use Cold Therapy, [id number]-bm-[id number] divina - Shoulder Pain, Jfba-ad-Osqz divina - Arthritis, Gsmj-hb-Xvch divina - Joint Pain, Sekz-jg-Dzos divina - Hypokalemia divina Forms: - Medication Reconciliation Form divina - Antibiotic Education divina - Prescription Opioid Use divina - Patient Portal Instructions divina - Leadership Thank You Letter divina Prescriptions: - Tylenol 325 mg Oral tablet - take 2 tablets ORAL route every 6 hours as needed; 36 tablet; Refills: 0, divina Product Selection Permitted Signatures: Dispatcher [employer] EDMS Jayro Hankins MD MD cha Baxter, Heather, RN Sanaz Vazquez RN RN kc6 Corrections: (The following items were deleted from the chart) 10:26 10:26 BASIC METABOLIC PANEL+C.LAB.BRZ ordered. EDMS EDMS 10: 10:26 CBC+H.LAB.BRZ ordered. EDMS EDMS 10: 10:26 HEPATIC FUNCTION+C.LAB.BRZ ordered. EDMS EDMS 10: 10:26 MAGNESIUM+C.LAB.BRZ ordered. EDMS EDMS 10:26 10:26 PROBNP+C.LAB.BRZ ordered. EDMS EDMS 10:26 10:26 PROTIME (+INR)+COAG.LAB.BRZ ordered. EDMS EDMS 10:26 10:26 Troponin High Sensitivity+C.LAB.BRZ ordered. EDMS EDMS 10:26 10:26 Urinalysis+U.LAB.BRZ ordered. EDMS EDMS 10:26 10:26 Chest Single View+RAD.RAD.BRZ ordered. EDMS EDMS 10:26 10:26 Head C Spine Cap Wo Con+CT.RAD.BRZ ordered. EDMS EDMS 10: 10:26 Shoulder Right 2 View+RAD.RAD.BRZ ordered. EDMS EDMS 13:50 12:37 Hip Right 2 View+RAD.RAD.BRZ ordered. EDMS EDMS
[2024-12-12 12:46] LABS: Specific Gravity 1.005 (1.005-1.030); Sqamous Epithelial <5 /HPF (None Seen); Urine Bacteria <20 /HPF (<20); Urine Bilirubin NEGATIVE (Negative); Urine Blood Trace (Negative); Urine Clarity Turbid (Clear); Urine Color Colorless (Yellow); Urine Culture Reflex Order NOT NEEDED; Urine Glucose NEGATIVE (Negative); Urine Ketones NEGATIVE (Negative); Urine Microscopic Reflex YN ORDER UMIC; Urine Nitrite NEGATIVE (Negative); Urine Protein NEGATIVE (Negative); Urine RBC <5 /HPF (None Seen); Urine Urobilinogen Normal (Normal); Urine WBC <5 /HPF (<5)
[2024-12-12] MEDS ORDERED: POTASSIUM 25 MEQ EFFERV TAB ONE (12:57)
--- NOTE | 2024-12-12 13:42 | RAD REPORT ---
Exam:Hip Right 2 View HISTORY: Right hip pain FINDINGS: No fracture or dislocation seen. Osteoporosis
--- NOTE | 2024-12-14 11:59 | EKG ---
Test Date: 2024-12-12 Test Time: 10:32:59 Day Care Aide: ANAHI MEASUREMENT RESULTS: Intervals: Rate: 60 NV: 240 QRSD: 98 QT: 386 QTc: 386 [place]: P: NV: 240 QRS: 73 T: 29 INTERPRETIVE STATEMENTS: Electronic atrial pacemaker Nonspecific T wave abnormality Abnormal ECG Compared to ECG 12/12/2024 10:32:23 Possible ischemia no longer present T-wave abnormality still present Electronically Signed On 12-14-24 11:56:24 [employer] by Stanley Perez
--- NOTE | 2024-12-14 11:59 | EKG ---
Test Date: 2024-12-12 Test Time: 10:32:23 Field Logistics Coordinator: ANAHI MEASUREMENT RESULTS: Intervals: Rate: 60 MD: QRSD: 92 QT: 418 QTc: 418 [place]: P: MD: QRS: 72 T: 13 INTERPRETIVE STATEMENTS: Electronic atrial pacemaker T wave abnormality, consider inferior ischemia or digitalis effect T wave abnormality, consider anterolateral ischemia or digitalis effect Abnormal ECG Compared to ECG 10/06/2024 13:39:30 T-wave abnormality now present Possible ischemia now present Ventricular-paced complex(es) or rhythm no longer present Electronically Signed On 12-14-24 11:56:27 [employer] by Stanley Perez
[2024-12-15 01:23] VITALS: BP 147/58; TEMP 98.3; O2SAT 100
== END 2024-12-12 13:56 | disposition home or self-care (01) ==
LOC: ER 10:19
DX: M25.411 Effusion, right shoulder (principal); S70.01XA Contusion of right hip, initial encounter; E87.6 Hypokalemia; R29.6 Repeated falls; Z91.81 History of falling; Z95.0 Presence of cardiac pacemaker; I10 Essential (primary) hypertension
CPT/HCPCS: 93005 ×2; 85025; 81001; 80048; 36415; 83735; 85610; 80076; 84484; 83880; 70450; 71250; 72125; 74176; 71045; 73502; 73030; 96360; 99285; J7040

== ENCOUNTER 2025-01-02 19:27 | Emergency (ER) | payer OTHER ==
[2025-01-02] MEDS ORDERED: TDAP (DIPHTH,PERTUSS(ACELL),TET VAC) 0.5 ML VIAL IMVAC ONE (20:05)
--- NOTE | 2025-01-02 20:28 | RAD REPORT ---
EXAMINATION: Elbow Right 3 View CLINICAL INDICATION: Female, 79 years old. PAIN RIGHT COMPARISON: No prior exam. VIEWS: Three views FINDINGS: No acute fracture. No malalignment/dislocation. No significant focal degenerative change. Other: n/a IMPRESSION: No acute osseous abnormality.
--- NOTE | 2025-01-02 20:52 | RAD REPORT ---
EXAMINATION: CT HEAD WITHOUT CONTRAST CT CERVICAL SPINE WITHOUT CONTRAST CLINICAL INDICATION: Female, 79 years old. fall TECHNIQUE: Axial CT images from the skull base to the vertex without intravenous contrast. Axial CT i mages through the cervical spine were obtained without intravenous contrast. Sagittal and coronal reformatted images were created from the data set. Coronal and sagittal reformatted images were creat ed from the data set. One or more of the following dose reduction techniques were used: Automated exposure control, adjustment of the mA and/or kV according to patient size, and/or iterative reconstr uction. Unless otherwise specified, incidental findings do not require dedicated imaging follow-up. [id number]. COMPARISON: 12/12/2024 FINDINGS: Head: INTRACRANIAL: No acute intracranial hemorrhage. No hydrocephalus. No mass effect or midline shift. Mi ld chronic small vessel ischemic changes. VASCULATURE: No visualized abnormalities in the arteries or dural venous sinuses. SCALP/SKULL: No significant soft tissue or osseous abnormalities. SINUSES: The visualized paranasal sinuses and mastoid air cells are predominantly clear. Cervical spine: ALIGNMENT: 2 mm anterolisthesis of C4 on C5. BONE: Vertebral body heights are maintained. No aggressive osseous lesions. DEGENERATIVE CHANGES: Multilevel cervical spondylosis with varying degrees of neural foraminal narrow ing. This is most pronounced at C3-4 and C4-5. SOFT TISSUE: No significant abnormalities in the soft tissue of the neck. The visualized lung apices are clear. IMPRESSION: No acute intracranial abnormality. No acute fracture or traumatic malalignment of the cervical spine.
--- NOTE | 2025-01-02 21:10 | ER ---
Nurse's Notes [facility] Name: Devonte Hager Age: 79 yrs Sex: Female : 1945 Arrival Date: 01/02/2025 Time: 19:27 Bed 18 Private MD: Diagnosis: Fall on same level, unspecified;Abrasion of right elbow Presentation: 01/02 19:34 Chief complaint: Patient states: had a fall,landed on her back, did not hit her head, aa10 no loss of conscoiusness. Care prior to arrival: None. Mechanism of Injury: Fall from from standing to the ground Trauma event details: Injury occurred in the [facility], Injury occurred: at home. Injury occurred: January 02, 2025 Injury occurred at: 18:00. Activity prior to arrival: None. 19:34 Acuity: INGRIS 3 aa10 19:34 Method Of Arrival: EMS: [facility] aa10 19:50 Coronavirus screen: Vaccine status: Patient reports receiving the 2nd dose of the covid aa10 vaccine. Ebola Screen: Patient negative for fever greater than or equal to 101.5 degrees Fahrenheit, and additional compatible Ebola Virus Disease symptoms Patient denies exposure to infectious person. Patient denies travel to an Ebola-affected area in the 21 days before illness onset. No symptoms or risks identified at this time. Initial Sepsis Screen: Does the patient meet any 2 criteria? No. Patient's initial sepsis screen is negative. Does the patient have a suspected source of infection? No. Patient's initial sepsis screen is negative. Risk Assessment: Do you want to hurt yourself or someone else? Patient reports no desire to harm self or others. Onset of symptoms was January 02, 2025. Triage Assessment: 19:48 General: see trauma assessment. aa10 Trauma Activation: Physician: ED Physician; Name: Dr corrigan; Notified At: 19:36; Arrived At: 19:37 Physician: General Surgeon; Name: ; Notified At: 19:36; Arrived At: Physician: Radiology; Name: ; Notified At: 19:36; Arrived At: Physician: Respiratory; Name: ; Notified At: 19:36; Arrived At: Physician: Lab; Name: ; Notified At: 19:36; Arrived At: Historical: - Allergies: 19:49 codeine sulfate; aa10 19:49 Cymbalta; aa10 19:49 Crestor; aa10 19:49 Dimetapp Cold-Congestion; aa10 19:49 thorezine; aa10 19:49 Tramadol HCl; aa10 19:49 Vioxx; aa10 19:49 Zocor; aa10 - Home Meds: 19:49 amiodarone 200 mg Oral tab 1 tab once daily [Active]; amlodipine 5 mg tab 1 tab once aa10 daily [Active]; apixaban 5 mg Oral tab 1 tab 2 times per day [Active]; cholecalciferol (vitamin D3) 125 mcg (5 Oral cap daily [Active]; diclofenac sodium 75 mg Oral TbEC 1 tab 2 times per day [Active]; lithium carbonate 300 mg Oral tab 1 tab 2 times per day [Active]; oxybutynin chloride 5 mg Oral cp24 1 tab once daily [Active]; rivaroxaban 15 mg Oral tab 1 tab once daily [Active]; spironolactone 25 mg Oral tab 1 tab once daily [Active]; - PMHx: 19:49 Atrial fibrillation; Bipolar disorder; Congestive heart failure; COPD; Hypertensive aa10 disorder; - PSHx: 19:49 hysterectomy; pacemaker; tubal ligation; aa10 - Immunization history: Last tetanus immunization: unknown. - Infectious Disease History:: Denies. - Social history:: Smoking status: unknown. Screenin:47 Abuse screen: Denies threats or abuse. Denies injuries from another. Nutritional aa10 screening: No deficits noted. Tuberculosis screening: No symptoms or risk factors identified. Fall risk At risk due to injury, age, immobility, prior history of falls. Exposure risk/Travel Screening: None identified. 19:51 [facility] ED Fall Risk Assessment (Adult) History of falling in the last 3 months, aa10 including since admission Yes- single mechanical fall (1 pt) Confusion or Disorientation No (0 pts) Intoxicated or Sedated No (0 pts) Impaired Gait Yes (1 pt) Mobility Assist Device Used No (0 pt) Altered Elimination No (0 pt) Score/Fall Risk Level 3 or more points = High Risk Oriented to surroundings, Maintained a safe environment, Educated pt \T\ family on fall prevention, incl call for assistance when getting out of bed, Assessed \T\ reinforced patient's understanding of fall precautions, Provided non-skid footwear, Hourly rounding (assess needs \T\ fall precautionary measures) done, Used ambulatory aids as needed (educated on \T\ assisted with), Implemented a Fall Risk Plan of Care, Apply high fall risk patient identification: yellow non skid footwear/ fall signage. Primary Survey: 19:42 NO uncontrolled hemorrhage observed. A: The client is alert. Airway: patent. aa10 Breathing/Chest: Spontaneous respiratory effort, equal unlabored respirations, breath sounds clear bilaterally, regular pattern, symmetrical chest rise and fall. Respiratory effort: spontaneous, Breath sounds: clear, Respiratory pattern: regular, Chest inspection: symmetrical rise and fall of the chest. Circulation: No external hemorrhage present. Regular and strong central pulse, skin warm/dry/normal color. Hemorrhage: No external hemorrhage noted. Pulses: palpable right brachial artery, right femoral artery, bilateral radial, brachial, femoral, popliteal, posterior tibial, and dorsalis pedis arteries., left carotid pulse and right carotid pulse. Skin color: pink, Skin temperature: warm, dry, Cardiac rhythm: sinus rhythm. Disability Pupils are equal, round, reactive to light and accommodation. Client is alert. Exposure/Environment: All clothing and personal items were removed. Forensic evidence collection is not deemed to be indicated at this time. Items placed in patient belonging bag. There is no evidence of uncontrolled external bleeding. Obvious injury(ies) are noted at this time: bruises to the right elbow. Reassessment Alertness and Airway: Awake and alert. The airway is patent. Airway Patent Breathing: Spontaneous respiratory effort, equal unlabored respirations, breath sounds clear bilaterally, regular pattern with symmetrical chest rise and fall. Respiratory effort Spontaneous Circulation: No external hemorrhage noted. Regular and strong central pulse, skin warm/dry/normal color. Heart rhythm Sinus rhythm Disability: Pupils Pupils are equal, round, reactive to light and accomodation. Secondary Survey: 19:44 HEENT: No deficits noted. Head No injury/deformity Face No injury/deformity Eyes: No aa10 injury or deformity noted. to bilateral eyes. Ears: clear bilaterally. Nose: clear Throat: No injury or deformity noted. is clear with gag reflex present. Gastrointestinal: No deficits noted. Palpation No deficit noted. : No deficits noted. Musculoskeletal: No deficits noted. Capillary refill < 3 seconds. Injury Description: Abrasion sustained to right arm. Assessment: 19:37 General: Appears in no apparent distress. comfortable, well groomed, Behavior is calm, aa10 cooperative, appropriate for age, quiet. Pain: Complains of pain in right arm. Pain: Complains of pain in posterior chest Pain does not radiate. Pain currently is 7 out of 10 on a pain scale. at worst was 6 out of 10 on a pain scale. Quality of pain is described as aching, throbbing, Pain began suddenly, Is lasting more than 1 hour. Alleviated by rest, relaxation, Aggravated by increased activity, Noted to be Also complains of. Neuro: No deficits noted. Level of Consciousness is awake, alert, obeys commands, Oriented to person, place, time, situation, Appropriate for age Gait is shuffling, EENT: No deficits noted. Cardiovascular: No deficits noted. Capillary refill < 3 seconds Patient's skin is warm and dry. Respiratory: No deficits noted. Airway is patent. 20:07 Reassessment: patient give tetanus toxoid ,0.5mls, IM,LOT:[id number],exp date:02/14/27. aa10 Vital Signs: 19:45 BP 136 / 76; Pulse 62; Resp 18; Temp 98.6; Pulse Ox 99% on R/A; aa10 20:55 BP 120 / 74; Pulse 68; Resp 20 S; Temp 98.6; Pulse Ox 99% on R/A; aa10 21:43 BP 135 / 71; Pulse 92; Resp 20 S; Temp 98.2; Pulse Ox 98% on R/A; aa10 Garrett Coma Score: 19:45 Eye Response: spontaneous(4). Motor Response: obeys commands(6). Verbal Response: aa10 oriented(5). Total: 15. Trauma Score (Adult): 19:45 Eye Response: spontaneous(1); Verbal Response: oriented(1); Motor Response: obeys aa10 commands(2); Systolic BP: > 89 mm Hg(4); Respiratory Rate: 10 to 29 per min(4); Peggy Score: 15; Trauma Score: 12 ED Course: 19:28 Patient arrived in ED. rv1 19:29 Navi Corrigan DO is Attending Physician. ms3 19:33 Carly Garcia, RN is Primary Nurse. aa10 19:37 Triage completed. aa10 19:47 Patient has correct armband on for positive identification. Allergy band placed. Fall aa10 risk band placed. Placed in gown. Bed in low position. Call light in reach. Side rails up X2. Patient maintains SpO2 saturation greater than 95% on room air. 19:47 No provider procedures requiring assistance completed. Inserted saline lock: 18 gauge aa10 in right forearm, using aseptic technique. 19:49 Thermoregulation: warm blanket given to patient. aa10 19:52 Arm band placed on right wrist. Patient placed on a stretcher, on youth nutritional monitor. aa10 19:52 Provided Education on: about plan of care. aa10 20:11 Elbow Right 3 View XRAY In Process Unspecified. EDMS 20:34 CT Head C Spine In Process Unspecified. EDMS 20:36 Attending Physician role handed off by Navi Corrigan DO sp4 20:36 Abdirizak Duron MD is Attending Physician. sp4 20:54 IV discontinued. aa10 21:08 Attending Physician role handed off by Abdirizak Duron MD ms3 21:08 Navi Corrigan DO is Attending Physician. ms3 21:29 IV discontinued. aa10 Administered Medications: 20:06 Drug: Boostrix Tdap IM 0.5 ml IM once; as a single dose Route: IM; Site: left deltoid; aa10 20:17 Follow up: Response: No adverse reaction aa10 Medication: 20:06 Vaccine Information Statement (VIS) provided today. Questions and/or concerns aa10 addressed. VIS edition date: January 02, 2025. Intake: 19:45 PO: 0ml; IV: 0ml; Tubes: 0ml (); Total: 0ml. aa10 Output: 19:45 Urine: 0ml; Gastric: 0ml; Stool: 0; EBL: 0ml; Drainage: 0ml; Other: 0; Total: 0ml. aa10 Outcome: 19:53 Patient's length of stay was not longer than 2 hours. aa10 21:09 Discharge ordered by . ms3 21:42 Discharged to home via wheelchair, aa10 21:42 Condition: good 21:42 Discharge instructions given to patient, Instructed on discharge instructions, follow up and referral plans. 21:43 Patient left the ED. aa10 Signatures: Dispatcher [employer] EDMS Navi Corrigan DO DO ms3 Deepti Brasher rv1 Abdirizak Duron MD MD sp4 Carly Garcia, RN RN aa10
--- NOTE | 2025-01-02 21:10 | EDPHYS ---
Physician Documentation [facility] Name: Devonte Hager Age: 79 yrs Sex: Female : 1945 Arrival Date: 01/02/2025 Time: 19:27 Bed 18 Private MD: ED Physician Navi Costa HPI: 01/02 19:59 This 79 yrs old Female presents to ER via EMS with complaints of Fall Injury. ms3 19:59 Devonte Hager, an 79-year-old female, presents to the emergency department after ms3 experiencing a mechanical fall while making her bed. She lost her balance and fell backwards, hitting her head on the wall and her right elbow on the floor. She sustained a superficial abrasion to the right elbow with some swelling. The bleeding was controlled, and she reports not having lost consciousness. She does not take blood thinners. She reports chronic pain, particularly in her arms, which sometimes makes it difficult for her to reach her head to comb her hair. . Historical: - Allergies: 19:49 codeine sulfate; aa10 19:49 Cymbalta; aa10 19:49 Crestor; aa10 19:49 Dimetapp Cold-Congestion; aa10 19:49 thorezine; aa10 19:49 Tramadol HCl; aa10 19:49 Vioxx; aa10 19:49 Zocor; aa10 - Home Meds: 19:49 amiodarone 200 mg Oral tab 1 tab once daily [Active]; amlodipine 5 mg tab 1 tab once aa10 daily [Active]; apixaban 5 mg Oral tab 1 tab 2 times per day [Active]; cholecalciferol (vitamin D3) 125 mcg (5 Oral cap daily [Active]; diclofenac sodium 75 mg Oral TbEC 1 tab 2 times per day [Active]; lithium carbonate 300 mg Oral tab 1 tab 2 times per day [Active]; oxybutynin chloride 5 mg Oral cp24 1 tab once daily [Active]; rivaroxaban 15 mg Oral tab 1 tab once daily [Active]; spironolactone 25 mg Oral tab 1 tab once daily [Active]; - PMHx: 19:49 Atrial fibrillation; Bipolar disorder; Congestive heart failure; COPD; Hypertensive aa10 disorder; - PSHx: 19:49 hysterectomy; pacemaker; tubal ligation; aa10 - Immunization history: Last tetanus immunization: unknown. - Infectious Disease History:: Denies. - Social history:: Smoking status: unknown. ROS: 19:59 Constitutional: Negative for fever, and chills. Cardiovascular: Negative for chest ms3 pain, and palpitations. Respiratory: Negative for shortness of breath, cough, wheezing, and pleuritic chest pain, Abdomen/GI: Negative for abdominal pain, nausea, vomiting, diarrhea, and constipation, 19:59 MS/extremity: Positive for pain, 19:59 Skin: Positive for abrasion(s), Exam: 19:59 Constitutional: This is a well developed, well nourished patient who is awake, alert, ms3 and in no acute distress. Cardiovascular: Regular rate and rhythm with a normal S1 and S2. No gallops, murmurs, or rubs. Normal PMI, no JVD. No pulse deficits. Respiratory: Lungs have equal breath sounds bilaterally, clear to auscultation and percussion. No rales, rhonchi or wheezes noted. No increased work of breathing, no retractions or nasal flaring. Abdomen/GI: Soft, non-tender, with normal bowel sounds. No distension or tympany. No guarding or rebound. No evidence of tenderness throughout. 19:59 Skin: injury, abrasion(s), small abrasion noted, of the right elbow, Vital Signs: 19:45 BP 136 / 76; Pulse 62; Resp 18; Temp 98.6; Pulse Ox 99% on R/A; aa10 20:55 BP 120 / 74; Pulse 68; Resp 20 S; Temp 98.6; Pulse Ox 99% on R/A; aa10 21:43 BP 135 / 71; Pulse 92; Resp 20 S; Temp 98.2; Pulse Ox 98% on R/A; aa10 Peggy Coma Score: 19:45 Eye Response: spontaneous(4). Motor Response: obeys commands(6). Verbal Response: aa10 oriented(5). Total: 15. Trauma Score (Adult): 19:45 Eye Response: spontaneous(1); Verbal Response: oriented(1); Motor Response: obeys aa10 commands(2); Systolic BP: > 89 mm Hg(4); Respiratory Rate: 10 to 29 per min(4); Maud Score: 15; Trauma Score: 12 MDM: 19:34 Medical Screening Exam initiated ms3 19:59 Differential diagnosis: abrasion, closed head injury, contusion, fracture, sprain, ms3 strain. 21:12 Data reviewed: vital signs, nurses notes, radiologic studies, and as a result, I will ms3 discharge patient. I considered the following discharge prescriptions or medication management in the emergency department Medications were administered in the Emergency Department. See MAR. Historians other than the Patient: EMS: [facility]. Counseling: I had a detailed discussion with the patient and/or guardian regarding the historical points, exam findings, and any diagnostic results supporting the discharge/admit diagnosis, radiology results, the need for outpatient follow up, to return to the emergency department if symptoms worsen or persist or if there are any questions or concerns that arise at home. Special discussion: I discussed with the patient/guardian in detail that at this point there is no indication for admission to the hospital. It is understood, however, that if the symptoms persist or worsen the patient needs to return immediately for re-evaluation. ED course: Discussed radiographs with patient. Patient to follow-up with primary care physician in 2 to 3 days. Patient understands and agrees with plan. All questions were answered. Return precautions discussed include worsening symptoms, or any other concerns. On reevaluation patient is alert, no apparent distress, nontoxic-appearing, speaking full sentences.. 01/02 19:34 Order name: CT Head C Spine; Complete Time: 21:09 ms3 01/02 19:34 Order name: Elbow Right 3 View XRAY; Complete Time: 20:34 ms3 Administered Medications: 20:06 Drug: Boostrix Tdap IM 0.5 ml IM once; as a single dose Route: IM; Site: left deltoid; aa10 20:17 Follow up: Response: No adverse reaction aa10 Disposition Summary: 01/02/25 21:09 Discharge Ordered Notes: Location: Home ms3 Condition: Stable ms3 Diagnosis - Fall on same level, unspecified ms3 - Abrasion of right elbow ms3 Followup: ms3 - With: Private Physician - When: 2 - 3 days - Reason: Recheck today's complaints Discharge Instructions: - Discharge Summary Sheet ms3 - Fall Prevention in the Home, Adult ms3 Forms: - Medication Reconciliation Form ms3 - Antibiotic Education ms3 - Prescription Opioid Use ms3 - Patient Portal Instructions ms3 - Leadership Thank You Letter ms3 Signatures: Dispatcher Navi Suggs, DO LOVE ms3 Carly Garcia, RN RN aa10
[2025-01-02 21:50] VITALS: TEMP 98.6; O2SAT 99
[2025-01-02 21:51] VITALS: BP 120/74
== END 2025-01-02 21:43 | disposition home or self-care (01) ==
LOC: ER 19:27
DX: S50.311A Abrasion of right elbow, initial encounter (principal); W18.30XA Fall on same level, unspecified, initial encounter; Z95.0 Presence of cardiac pacemaker
CPT/HCPCS: 70450; 72125

== ENCOUNTER 2025-01-11 16:39 | Inpatient (IN) | payer OTHER ==
[2025-01-11 17:46] LABS: Sqamous Epithelial None Seen /HPF (None Seen); Urine Bacteria <20 /HPF (<20); Urine Bilirubin NEGATIVE (Negative); Urine Blood Trace (Negative); Urine Clarity Clear (Clear); Urine Color Light-Yellow (Yellow); Urine Culture Reflex Order NOT NEEDED; Urine Glucose NEGATIVE (Negative); Urine Ketones TRACE (Negative); Urine Micro Reflex YN NO BILL MICROSCOPIC; Urine Mucus Slight /HPF (None Seen); Urine Nitrite NEGATIVE (Negative); Urine Protein NEGATIVE (Negative); Urine RBC <5 /HPF (None Seen); Urine Urobilinogen Normal (Normal); Urine WBC <5 /HPF (<5); Urine pH 6.5 (5.0-7.0)
[2025-01-11] MEDS ORDERED: NA CHLORIDE 0.9% 500 ML ONE (18:21)
[2025-01-11 18:42] LABS: Absolute Lymphocytes (CBC) 1.3 K/uL (0.7-4.9); Absolute Monocytes 0.5 K/uL (0.1-1.3); Absolute Neutrophil 2.2 K/uL (1.8-8.0); Basophils % 1.2 % (0-1.3); Eosinophils % 0.8 % (0-4.4); Hematocrit 39.6 % (36.0-45.0); Hemoglobin 13.1 g/dL (12.0-15.0); Lymphocytes % 32.8 % (15.3-44.8); MCH 31.4 pg (27.0-35.0); MCHC 33.2 g/dL (32.0-36.0); MCV 94.4 fL (80-100); Monocytes % 11.2 % (3.3-12.3); Platelets 178 thou/uL (152-406); RBC Red Blood Cell Count 4.19 M/uL (3.86-4.86); Red Cell Distribution Width 13.2 % (12.1-15.2)
--- NOTE | 2025-01-11 18:44 | RAD REPORT ---
EXAMINATION: ONE VIEW CHEST XR CLINICAL INDICATION: Female, 79 years old.,weakness TECHNIQUE: Frontal chest projection is submitted. Examination is limited by patient positioning and t echnique. COMPARISON: 12/12/2024 FINDINGS: The lungs are well inflated and clear. No pneumothorax or sizable effusion. The heart is normal in s ize. Mediastinal contours are unremarkable. IMPRESSION: No acute intrathoracic abnormalities.
[2025-01-11 18:46] LABS: SARS-CoV-2 Antigen CONTROL BLUE LINE VIS/BG OK
[2025-01-11 18:48] LABS: SARS-CoV-2 Antigen Rapid Res Positive (Negative)
[2025-01-11 19:32] LABS: ALT/SGPT 19 U/L (13-56); AST/SGOT 21 U/L (15-37); Albumin 2.9 g/dL (3.4-5.0); Albumin/Globulin Ratio 0.7 (1.1-1.8); Alkaline Phosphatase 84 U/L (45-117); BUN Blood Urea Nitrogen 11 mg/dL (7-18); Bicarbonate 26 mEq/L (21-32); Bilirubin Total 0.6 mg/dL (0.2-1.0); Globulin 3.9 g/dL (2.3-3.5); Glomerular Filtration Rate 46 ml/min (=/>90); Glucose Level 78 mg/dL (74-106); Magnesium 2.4 mg/dL (1.6-2.4); Protein, Total 6.8 g/dL (6.4-8.2); Sodium Level 141 mEq/L (136-145)
[2025-01-11 19:33] LABS: Bilirubin Direct < 0.2 mg/dL (0-0.2); Bilirubin Indirect, Calculated 0.4 mg/dL (0.2-0.8); Troponin High Sensitivity < 3.0 pg/mL (<58.9)
--- NOTE | 2025-01-11 21:22 | ER ---
Nurse's Notes [facility] Name: Devonte Hager Age: 79 yrs Sex: Female : 1945 Arrival Date: 01/11/2025 Time: 16:39 Bed 2 Private MD: Diagnosis: Weakness;COVID-19 Presentation: 01/11 16:50 Chief complaint: EMS states: Pt from home, c/o generalized weakness, SOB w/ exertion ph and decreased appetite. BGL 69, VSS. 16:53 Coronavirus screen: Vaccine status: Patient reports being unvaccinated. Ebola Screen: ph No symptoms or risks identified at this time. Initial Sepsis Screen: Does the patient meet any 2 criteria? No. Patient's initial sepsis screen is negative. Does the patient have a suspected source of infection? No. Patient's initial sepsis screen is negative. Risk Assessment: Do you want to hurt yourself or someone else? Patient reports no desire to harm self or others. Onset of symptoms was January 11, 2025. 16:53 Method Of Arrival: Ambulatory ph 16:53 Acuity: INGRIS 3 ph Triage Assessment: 16:52 General: Appears in no apparent distress. comfortable, Behavior is calm, cooperative. ph Pain: Denies pain. Neuro: Level of Consciousness is awake, alert, obeys commands, Oriented to person, place, time, situation, Reports weakness. Respiratory: Reports shortness of breath on exertion. Historical: - Allergies: 16:52 codeine sulfate; ph 16:52 Crestor; ph 16:52 Cymbalta; ph 16:52 Dimetapp Cold-Congestion; ph 16:52 thorezine; ph 16:52 Tramadol HCl; ph 16:52 Vioxx; ph 16:52 Zocor; ph - PMHx: 16:52 Atrial fibrillation; Bipolar disorder; Congestive heart failure; COPD; Hypertensive ph disorder; - PSHx: 16:52 hysterectomy; pacemaker; tubal ligation; ph - Immunization history:: Adult Immunizations unknown. - Infectious Disease History:: Denies. - Social history:: Smoking status: unknown. - Family history:: not pertinent. Screenin:31 [facility] ED Fall Risk Assessment (Adult) History of falling in the last 3 months, ph including since admission No falls in past 3 months (0 pts) Confusion or Disorientation No (0 pts) Intoxicated or Sedated No (0 pts) Impaired Gait No (0 pts) Mobility Assist Device Used Yes (1 pt) Altered Elimination No (0 pt) Score/Fall Risk Level 0 - 2 = Low Risk Oriented to surroundings, Maintained a safe environment, Hourly rounding (assess needs \T\ fall precautionary measures) done. Abuse screen: Denies threats or abuse. Denies injuries from another. Nutritional screening: No deficits noted. Tuberculosis screening: No symptoms or risk factors identified. Assessment: 18:26 General: Appears in no apparent distress. comfortable, Behavior is calm, cooperative. ph Pain: Denies pain. Neuro: Level of Consciousness is awake, alert, obeys commands, Oriented to person, place, time, situation, Reports weakness. Cardiovascular: Capillary refill < 3 seconds in bilateral fingers Patient's skin is warm and dry. Respiratory: Reports shortness of breath on exertion Airway is patent Respiratory effort is even, unlabored. Derm: Skin is pink, warm \T\ dry. 19:17 General: Appears in no apparent distress. comfortable, Behavior is calm, cooperative, bm8 appropriate for age. Pain: Denies pain. Neuro: No deficits noted. Level of Consciousness is awake, alert, obeys commands, Oriented to person, place, time, situation. Cardiovascular: Denies chest pain, lightheadedness, shortness of breath, Capillary refill < 3 seconds in bilateral fingers Patient's skin is warm and dry. Respiratory: Airway is patent Respiratory effort is even, unlabored, Denies shortness of breath. GI: No signs and/or symptoms were reported involving the gastrointestinal system. : No signs and/or symptoms were reported regarding the genitourinary system. EENT: No signs and/or symptoms were reported regarding the EENT system. Derm: Skin is pink, warm \T\ dry. Bruising that is dark purple, right arm. Musculoskeletal: No signs and/or symptoms reported regarding the musculoskeletal system. 21:41 Reassessment: Patient appears in no apparent distress at this time. No changes from bm8 previously documented assessment. Patient and/or family updated on plan of care and expected duration. Pain level reassessed. Patient is alert, oriented x 3, equal unlabored respirations, skin warm/dry/pink. Patient denies pain at this time. Patient states feeling better. Vital Signs: 16:53 BP 134 / 86; Pulse 77; Resp 18; Temp 97.8; Pulse Ox 98% on R/A; Weight 49.44 kg; Height ph 5 ft. 3 in. ; 18:20 BP 129 / 85; Pulse 70; Resp 18; Pulse Ox 96% on R/A; ph 19:00 BP 136 / 87; Pulse 70; Resp 18; Temp 97.8; Pulse Ox 99% on R/A; Pain 0/10; bm8 21:41 BP 131 / 95; Pulse 71; Resp 18; Temp 97.8; Pulse Ox 97% on R/A; Pain 0/10; bm8 16:53 Body Mass Index 19.31 (49.44 kg, 160.02 cm) ph 19:00 Pain Scale: Adult bm8 21:41 Pain Scale: Adult bm8 Vitals: 18:20 Cardiac Rhythm Assessment Paced. ph [place] Coma Score: 19:00 Eye Response: spontaneous(4). Motor Response: obeys commands(6). Verbal Response: bm8 oriented(5). Total: 15. 21:41 Eye Response: spontaneous(4). Motor Response: obeys commands(6). Verbal Response: bm8 oriented(5). Total: 15. ED Course: 16:46 Patient arrived in ED. ph 16:47 Bandar Garcias MD is Attending Physician. rt 16:50 Mallory Sam, RN is Primary Nurse. ph 16:53 Arm band placed on Patient placed in an exam room, on a stretcher. ph 16:54 Triage completed. ph 17:27 Urine collected: straight cath specimen, clear. Straight cath inserted, using sterile ph technique, 14 Fr. Returned clear yellow urine. Patient tolerated well. 17:40 XRAY Chest (1 view) In Process Unspecified. EDMS 18:19 SARS RAPID Sent. ph 18:19 Influenza Screen (a \T\ B) Sent. ph 18:19 Basic Metabolic Panel Sent. ph 18:19 CBC with Diff Sent. ph 18:19 LFT's Sent. ph 18:19 Magnesium Sent. ph 18:19 Troponin HS Sent. ph 18:20 Patient has correct armband on for positive identification. Bed in low position. Call ph light in reach. Side rails up X 1. Client placed on continuous cardiac and pulse oximetry monitoring. NIBP monitoring applied. monitor worker on. Door closed. Noise minimized. Warm blanket given. Pillow given. 18:20 Initial lab(s) drawn, by me, sent to lab. EKG done, by ED staff, reviewed by Bandar Garcias MD. Inserted saline lock: 22 gauge in right antecubital area, using aseptic technique. Blood collected. Flushed with 10 mL NS. 19:00 No provider procedures requiring assistance completed. IV is patent, with fluids bm8 infusing freely, with good blood return, Flushed right antecubital with 5 ml normal saline. Patient maintains SpO2 saturation greater than 95% on room air. 19:22 Lab(s) recollected, by me, sent to lab. bm8 21:21 Prince Arciniega MD is Hospitalizing Provider. rt 21:41 Provided Education on: need for admission. bm8 21:41 Patient admitted, IV remains in place. bm8 Administered Medications: 17:03 Not Given (Duplicate Order): ns 0.9% 1000 ml IV at 1 bolus Per protocol; to be given as rt a bolus over 60 minutes 18:32 Drug: NS 0.9% IV 500 ml 500 ml IV at 1 bolus once; to be given as a bolus over 30 ph minutes Volume: 500 ml; Route: IV; Rate: 1 bolus; Site: right antecubital; 19:22 Follow up: Response: No adverse reaction; IV Status: Completed infusion; IV Intake: bm8 500ml Medication: 17:31 VIS not applicable for this client. ph Intake: 19:22 IV: 500ml; Total: 500ml. bm8 Outcome: 21:22 Decision to Hospitalize by Provider. rt 22:29 Admitted to Tele accompanied by tech, via wheelchair, room 404, with chart, bm8 22:29 Condition: stable 22:29 Instructed on the need for admit, Demonstrated understanding of instructions, follow-up care, 22:58 Patient left the ED. bm8 Signatures: Dispatcher [employer] Mallory Ryan, EDILBERTO RN Bandar Kay MD MD rt Leonides Patterson RN RN bm8 Corrections: (The following items were deleted from the chart) 18:32 18:26 Respiratory: Airway is patent Respiratory effort is even, unlabored, ph ph
--- NOTE | 2025-01-11 21:22 | EDPHYS ---
Physician Documentation [facility] Name: Devonte Hager Age: 79 yrs Sex: Female : 1945 Arrival Date: 01/11/2025 Time: 16:39 Bed 2 Private MD: ED Physician Bandar Garcias HPI: 01/11 18:11 This 79 yrs old Female presents to ER via Ambulatory with complaints of General rt Weakness. 18:11 Patient presents to the ED with progressively worsening generalized weakness. Patient rt states that is hard for her to get up and walk, states that her legs feel very weak. She states that she has had falls recently but none since last time she was evaluated in the emergency department. Denies other acute complaints at this time, symptoms are moderate in severity, no other aggravating or alleviating factors.. Historical: - Allergies: 16:52 codeine sulfate; ph 16:52 Crestor; ph 16:52 Cymbalta; ph 16:52 Dimetapp Cold-Congestion; ph 16:52 thorezine; ph 16:52 Tramadol HCl; ph 16:52 Vioxx; ph 16:52 Zocor; ph - PMHx: 16:52 Atrial fibrillation; Bipolar disorder; Congestive heart failure; COPD; Hypertensive ph disorder; - PSHx: 16:52 hysterectomy; pacemaker; tubal ligation; ph - Immunization history:: Adult Immunizations unknown. - Infectious Disease History:: Denies. - Social history:: Smoking status: unknown. - Family history:: not pertinent. ROS: 18:11 Constitutional: Negative for fever, chills, and weight loss, Cardiovascular: Negative rt for chest pain, palpitations, and edema, Respiratory: Negative for shortness of breath, cough, wheezing, and pleuritic chest pain, Abdomen/GI: Negative for abdominal pain, nausea, vomiting, diarrhea, and constipation, MS/Extremity: Negative for injury and deformity, Skin: Negative for injury, rash, and discoloration, 18:11 Neuro: Positive for weakness, Negative for loss of consciousness, Exam: 18:11 Constitutional: This is a well developed, well nourished patient who is awake, alert, rt and in no acute distress. Chest/axilla: Normal chest wall appearance and motion. Nontender with no deformity. No lesions are appreciated. Cardiovascular: Regular rate and rhythm with a normal S1 and S2. No gallops, murmurs, or rubs. Normal PMI, no JVD. No pulse deficits. Respiratory: Lungs have equal breath sounds bilaterally, clear to auscultation and percussion. No rales, rhonchi or wheezes noted. No increased work of breathing, no retractions or nasal flaring. Abdomen/GI: Soft, non-tender, with normal bowel sounds. No distension or tympany. No guarding or rebound. No evidence of tenderness throughout. Skin: Warm, dry with normal turgor. Normal color with no rashes, no lesions, and no evidence of cellulitis. MS/ Extremity: Pulses equal, no cyanosis. Neurovascular intact. Full, normal range of motion. Neuro: Awake and alert, GCS 15, oriented to person, place, time, and situation. Cranial nerves II-XII grossly intact. Motor strength 5/5 in all extremities. Sensory grossly intact. Cerebellar exam normal. Normal gait. 18:11 ENT: Dry mucous membranes. 18:19 ECG was reviewed by the Attending Physician. rt Vital Signs: 16:53 BP 134 / 86; Pulse 77; Resp 18; Temp 97.8; Pulse Ox 98% on R/A; Weight 49.44 kg; Height ph 5 ft. 3 in. ; 18:20 BP 129 / 85; Pulse 70; Resp 18; Pulse Ox 96% on R/A; ph 19:00 BP 136 / 87; Pulse 70; Resp 18; Temp 97.8; Pulse Ox 99% on R/A; Pain 0/10; bm8 21:41 BP 131 / 95; Pulse 71; Resp 18; Temp 97.8; Pulse Ox 97% on R/A; Pain 0/10; bm8 16:53 Body Mass Index 19.31 (49.44 kg, 160.02 cm) ph 19:00 Pain Scale: Adult bm8 21:41 Pain Scale: Adult bm8 [place] Coma Score: 19:00 Eye Response: spontaneous(4). Motor Response: obeys commands(6). Verbal Response: bm8 oriented(5). Total: 15. 21:41 Eye Response: spontaneous(4). Motor Response: obeys commands(6). Verbal Response: bm8 oriented(5). Total: 15. MDM: 16:51 Medical Screening Exam initiated rt 21:49 Differential Diagnosis Debility, viral syndrome, anemia, dysrhythmia, dehydration. Data rt reviewed: vital signs, nurses notes. Consideration of Admission/Observation Patient was admitted/placed on observation. Management of patient was discussed with the following: Hospitalist: Agrees to admit. I considered the following discharge prescriptions or medication management in the emergency department Medications were administered in the Emergency Department. See MAR. Independent interpretation of the following test(s) in the Emergency Department X-Ray: My interpretation is No infiltrate seen on interpretation of x-ray images. Test considered but Not performed: CT: No head trauma since last evaluation, no headache, CT scan is not indicated. Care significantly affected by the following chronic conditions: Chronic Obstructive Pulmonary Disease. Counseling: I had a detailed discussion with the patient and/or guardian regarding the historical points, exam findings, and any diagnostic results supporting the discharge/admit diagnosis, lab results, radiology results, the need for further work-up and treatment in the hospital. Response to treatment: There is no appreciated change of the patient's symptoms at this time. 01/11 17:03 Order name: Basic Metabolic Panel; Complete Time: 19:35 rt 01/11 17:03 Order name: CBC with Diff; Complete Time: 18:53 rt 01/11 17:03 Order name: LFT's; Complete Time: 19:35 rt 01/11 17:03 Order name: Magnesium; Complete Time: 19:35 rt 01/11 17:03 Order name: Troponin HS; Complete Time: 19:35 rt 01/11 17:03 Order name: UAM; Complete Time: 18:10 rt 01/11 17:03 Order name: Influenza Screen (a \T\ B); Complete Time: 18:53 rt 01/11 17:03 Order name: SARS RAPID; Complete Time: 18:53 rt 01/11 21:57 Order name: Lactate w/ 2H reflex if indic. EDMS 01/11 21:57 Order name: Magnesium EDMS 01/11 21:57 Order name: Phosphorus EDMS 01/11 21:57 Order name: Urinalysis w/ reflexes EDMS 01/11 21:57 Order name: Basic Metabolic Panel EDMS 01/11 21:57 Order name: Basic Metabolic Panel EDMS 01/11 21:57 Order name: CBC with Automated Diff EDMS 01/11 21:57 Order name: CBC with Automated Diff EDMS 01/11 21:57 Order name: Lipid Profile [facility] 01/11 21:57 Order name: Lipid Profile [facility] 01/11 22:08 Order name: Creatine Phosphokinase [facility] 01/11 22:08 Order name: T3 Free [facility] 01/11 22:08 Order name: T4 Free [facility] 01/11 22:08 Order name: Thyroid Stimulating Hormone [facility] 01/11 17:03 Order name: XRAY Chest (1 view); Complete Time: 18:53 rt 01/11 17:03 Order name: EKG; Complete Time: 17:04 rt 01/11 21:59 Order name: Occupational Therapy Consult [facility] 01/11 21:59 Order name: Physical Therapy Consult [facility] 01/11 17:03 Order name: Cardiac monitoring; Complete Time: 18:11 rt 01/11 17:03 Order name: EKG - Nurse/Tech; Complete Time: 18:11 rt 01/11 17:03 Order name: IV Saline Lock; Complete Time: 18:19 rt 01/11 17:03 Order name: Labs collected and sent; Complete Time: 18:19 rt 01/11 17:03 Order name: O2 Per Protocol; Complete Time: 17:32 rt 01/11 17:03 Order name: O2 Sat Monitoring; Complete Time: 17:32 rt 01/11 17:03 Order name: Straight Cath; Complete Time: 17:32 rt 01/11 18:42 Order name: Misc. Order: RECOLLECT LIGHT GREEN ; Complete Time: 19:08 rv1 EC:19 Rate is 70 beats/min. Rhythm is regular, Paced with No ectopy, ST, T waves, conduction rt consistent with ventricularly paced rhythm. QT interval is prolonged at 510 msec. No Q waves. Administered Medications: 17:03 Not Given (Duplicate Order): ns 0.9% 1000 ml IV at 1 bolus Per protocol; to be given as rt a bolus over 60 minutes 18:32 Drug: NS 0.9% IV 500 ml 500 ml IV at 1 bolus once; to be given as a bolus over 30 ph minutes Volume: 500 ml; Route: IV; Rate: 1 bolus; Site: right antecubital; 19:22 Follow up: Response: No adverse reaction; IV Status: Completed infusion; IV Intake: bm8 500ml Disposition Summary: 01/11/25 21:22 Hospitalization Ordered Notes: Hospitalization Status: Observation rt Provider: Prince Demian rt Location: Telemetry/MedSurg (observation) rt Condition: Stable rt Problem: new rt Symptoms: are unchanged rt Bed/Room Type: Standard rt Room Assignment: 404(01/11/25 22:13) rv1 Diagnosis - Weakness rt - COVID-19 rt Forms: - Medication Reconciliation Form rt - SBAR form rt - Leadership Thank You Letter rt Signatures: Dispatcher [employer] EDMS Mallory Sam, RN RN Bandar Garcias MD MD rt Deepti Brasher rv1 Leonides Patterson RN bm8 Corrections: (The following items were deleted from the chart) 17:04 17:04 BASIC METABOLIC PANEL+C.LAB.BRZ ordered. EDMS EDMS 17:04 17:04 CBC+H.LAB.BRZ ordered. EDMS EDMS 17:04 17:04 HEPATIC FUNCTION+C.LAB.BRZ ordered. EDMS EDMS 17:04 17:04 MAGNESIUM+C.LAB.BRZ ordered. EDMS EDMS 17:04 17:04 Troponin High Sensitivity+C.LAB.BRZ ordered. EDMS EDMS 17:04 17:04 Urinalysis W/Microscopic+U.LAB.BRZ ordered. EDMS EDMS 17:04 17:04 Influenza Screen (A \T\ B)+BA.LAB.BRZ ordered. EDMS EDMS 17:04 17:04 SARS-COV-2 Antigen Rapid+I.LAB.BRZ ordered. EDMS EDMS 22:13 21:22 rt rv1
[2025-01-11] MEDS ORDERED: ONDANSETRON 4 MG/2 ML VIAL IV PRN (21:52)
[2025-01-11] MEDS: PANTOPRAZOLE 40 MG INJ IVP SCH (21:55)
[2025-01-11] MEDS ORDERED: SODIUM CHLORIDE 0.9% 10ML INJ IV PRN (21:55)
[2025-01-11] MEDS: ZINC SULFATE 220 MG CAP PO SCH (21:56)
[2025-01-11] MEDS: ASCORBIC ACID 500 MG TABLET PO SCH (21:56)
[2025-01-11] MEDS: VITAMIN D 1000 UNIT TAB PO SCH (21:57)
--- NOTE | 2025-01-11 22:04 | P.HP ---
Certification for Inpatient Patient admitted to: Observation With expected LOS: <2 Midnights Practitioner: I am a practitioner with admitting privileges, knowledge of patient current condition, hospital course, and medical plan of care. Services: Services provided to patient in accordance with Admission requirements found in Title 42 Section 412.3 of the Code of Federal Regulations Patient History Date of Service: 01/11/25 Reason for admission: generalized weakness History of Present Illness: Patient is a 79 year old female who presents with generalized weakness and malaise. Patient has a history of atrial fibrillation on amiodarone, CKD and vitamin D deficiency. She has had similar presentation in the past. She was reportedly independent in her ADLs using a walker until recently.during this current episode, she was unable to get out of bed due to the severity of her sx. She denies recent diarrhea or vomiting. Her appetite hasn't changed much. She reports subjective fever and shortness of breath. She tested postive for COVID 19. Her CXR is unremarkable. She was on room air during my evaluation. Patient usually with walker at home. Allergies brompheniramine [From Dimetapp (brompheniramine-PPA)] Allergy (Verified 04/03/22 12:10) Nausea/Vomiting chlorpromazine [From Thorazine] Allergy (Verified 04/03/22 12:10) Nausea/Vomiting codeine Allergy (Verified 04/03/22 12:10) Nausea/Vomiting duloxetine [From Cymbalta] Allergy (Verified 04/03/22 12:10) Body Aches, Confusion phenylpropanolamine [From Dimetapp (brompheniramine-PPA)] Allergy (Verified 04/03/22 12:10) Nausea/Vomiting rofecoxib [From Vioxx] Allergy (Verified 04/03/22 12:10) Unknown rosuvastatin [From Crestor] Allergy (Verified 04/03/22 12:10) Muscle tightening simvastatin [From Zocor] Allergy (Verified 04/03/22 12:10) Muscle tigthening tramadol Allergy (Verified 04/03/22 12:10) Itching Home Medications: Amiodarone HCl [Cordarone*] 200 mg PO DAILY 03/31/22 Amlodipine Besylate 5 mg PO DAILY 03/31/22 Furosemide [Lasix*] 20 mg PO DAILY #30 tab 01/06/24 Acetaminophen [Tylenol Extra Strength] 500 mg PO Q4HP PRN 10/07/24 Diclofenac Sodium 1% Gel 2 g TOP QID PRN 10/07/24 [place] Carbonate [[place] Carbonate ER] 300 mg PO BID 10/07/24 Loratadine [Claritin*] 10 mg PO DAILY 10/07/24 Memantine HCl 10 mg PO DAILY 10/07/24 Oxybutynin Chloride [Oxybutynin Chloride ER] 10 mg PO DAILY 10/07/24 Spironolactone 25 mg PO DAILY 10/07/24 Tizanidine HCl 2 mg PO BID PRN 10/07/24 Amiodarone HCl [Cordarone*] 200 mg PO DAILY tab 10/12/24 Amlodipine [Norvasc*] 5 mg PO DAILY tab 10/12/24 Furosemide [Lasix*] 20 mg PO DAILY tab 10/12/24 [place] Carbonate [Lithotabs *] 300 mg PO BID cap 10/12/24 Memantine HCl [Namenda*] 10 mg PO DAILY 10/12/24 Pieter/Polym/Hc [Cortisporin Opth Drops*] 4 drops OPTH QID bottle 10/12/24 Spironolactone [Aldactone*] 25 mg PO DAILY tab 10/12/24 - Past Medical/Surgical History Diabetic: No -: Atrial fibrillation -: Chronic anticoagulation -: CKD III (Dr. Rosario/ Dr. Mancini) -: HyperPTH/ Hypercalcemia -: Failure to thrive 01/04/2024 -: Skin cancer -: Permanent pacemaker -: Skin cancer excision -: Tubal ligation -: Hysterectomy - Family History Brother -: Lung disease Notes: secound brother SANDRO leg amputation reason unknown - Social History Alcohol use: No CD- Drugs: No Caffeine use: Yes Physical Examination - Physical Exam General: Cooperative, Acute distress HEENT: Atraumatic, Normocephalic Respiratory: Normal air movement Cardiovascular: Normal pulses, Regular rate/rhythm, Normal S1 S2 Neurological: Normal speech - Studies Laboratory Data (last 24 hrs) 01/11/25 01/11/25 19:06 18:30 WBC 4.00 L Hgb 13.1 Hct 39.6 Plt Count 178 Sodium 141 Potassium 4.0 BUN 11 Creatinine 1.19 H Glucose 78 Magnesium 2.4 Total Bilirubin 0.6 AST 21 ALT 19 Alkaline Phosphatase 84 Microbiology Data (last 24 hrs): 01/11/25 18:15 Nasopharnyx Influenza Type A Antigen Screen - Final 01/11/25 18:15 Nasopharnyx Influenza Type B Antigen Screen - Final Assessment and Plan - Problems (Diagnosis) (1) Atrial fibrillation Current Visit: No Status: Acute (2) Congestive heart failure Current Visit: No Status: Acute (3) Failure to thrive in adult Current Visit: No Status: Acute (4) Generalized weakness Current Visit: No Status: Acute (5) COVID-19 Current Visit: Yes Status: Acute - Plan Assessment Patient is a 79-year-old female with a past medical history of atrial fibrillation and congestive heart failure. She is being admitted after she presented with generalized weakness. She tested positive for COVID-19. She is on room air. Chest x-ray without infiltrates. Patient is staying for supportive care and therapy. Generalized weakness Failure to thrive Atrial fibrillation Congestive heart failure COVID-19 Plan: Will admit under observation with telemetry Metabolic panel sent including thyroid function test, CPK and vitamin D levels Therapy ordered. PT/OT History of COVID-19, will treat with multivitamins and zinc DVT and GI prophylaxis Will hold off advanced therapy such as steroids and antiviral due to lack of hypoxia and infiltrates on chest x-ray Resume rest of home medication upon reconciliation - Advance Directives Does patient have a Living Will: No Does patient have a Durable POA for Healthcare: No
[2025-01-11 23:51] VITALS: BMI 18.1
[2025-01-12 06:22] LABS: Absolute Lymphocytes (CBC) 1.1 K/uL (0.7-4.9); Absolute Monocytes 0.4 K/uL (0.1-1.3); Absolute Neutrophil 2.2 K/uL (1.8-8.0); Basophils % 0.7 % (0-1.3); Eosinophils % 0.9 % (0-4.4); Hematocrit 40.4 % (36.0-45.0); Hemoglobin 13.5 g/dL (12.0-15.0); MCH 31.6 pg (27.0-35.0); MCHC 33.5 g/dL (32.0-36.0); MCV 94.4 fL (80-100); MPV 8.6 fL (7.6-11.3); Monocytes % 11.2 % (3.3-12.3); Neutrophils % 59.2 % (41.7-73.7); Nucleated Red Blood Cells % 0.2 % (0-0); Platelets 189 thou/uL (152-406); RBC Red Blood Cell Count 4.28 M/uL (3.86-4.86); Red Cell Distribution Width 13.5 % (12.1-15.2)
[2025-01-12 06:48] LABS: Anion Gap 7.4 mEq/L (5.0-15.0); Magnesium 2.3 mg/dL (1.6-2.4); Phosphorus 2.7 mg/dL (2.5-4.9); Potassium 3.4 mEq/L (3.5-5.1); T3 Free 1.03 pg/mL (2.18-3.98); Thyroid Stimulating Hormone 0.762 uIU/mL (0.358-3.740)
--- NOTE | 2025-01-12 07:08 | P.PN ---
Subjective Date of Service: 01/12/25 Patient still really weak. States she does not feel much better. She is does not really want to go to rehab when she is really weak and with [employer] also it would be who have her to try to do everything she can to rebuild her strength prior to going back home and living by herself. Will get physical therapy evaluation. Continue with medical management. Review etiology for myopathy. Review of Systems 10-point ROS is otherwise unremarkable Physical Examination - Vital Signs Temperature: 97 F Blood Pressure: 102/66 Pulse: 70 Respirations: 17 Pulse Ox (%): 97 - Physical Exam General: Alert, In no apparent distress, Oriented x1 Respiratory: Clear to auscultation bilaterally, Normal air movement Cardiovascular: Regular rate/rhythm, Normal S1 S2, No murmurs Gastrointestinal: Normal bowel sounds, Soft and benign, Non-distended, No tenderness Musculoskeletal: No clubbing, No swelling, No tenderness Integumentary: No rashes Neurological: Sensation intact, Cranial nerves 3-12 intact, Abnormal strength - Studies Laboratory Data (last 24 hrs) 01/11/25 01/11/25 19:06 18:30 WBC 4.00 L Hgb 13.1 Hct 39.6 Plt Count 178 Sodium 141 Potassium 4.0 BUN 11 Creatinine 1.19 H Glucose 78 Magnesium 2.4 Total Bilirubin 0.6 AST 21 ALT 19 Alkaline Phosphatase 84 Microbiology Data (last 24 hrs): 01/11/25 18:15 Nasopharnyx Influenza Type A Antigen Screen - Final 01/11/25 18:15 Nasopharnyx Influenza Type B Antigen Screen - Final Medications List Reviewed: Yes Assessment & Plan - Problems (Diagnosis) (1) COVID-19 Current Visit: Yes Status: Acute (2) Atrial fibrillation Current Visit: No Status: Acute (3) Congestive heart failure Current Visit: No Status: Acute (4) Dehydration Current Visit: No Status: Acute (5) Failure to thrive in adult Current Visit: No Status: Acute (6) Generalized weakness Current Visit: No Status: Acute (7) Hypokalemia Current Visit: No Status: Acute - Plan Plan: 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 Will get physical therapy evaluation 2.Atrial fibrillation; Continue with medication for rate control and will continue with anticoagulation as long as hemoglobin is stable 3.Congestive heart failure; Heart failure compensated 4.Hypokalemia; Continue with supplementation as needed 5.Failure to thrive; Encourage nutritional support 6.Generalized weakness; Continue with physical therapy and may benefit from longterm facility placement. Discharge Plan: Intermediate Plan to discharge in: Greater than 2 days - Advance Directives Does patient have a Living Will: No Does patient have a Durable POA for Healthcare: No - Code Status/Comfort Care Code Status Assessed: Yes Code Status: Full Code Critical Care: No Time Spent Managing PTS Care (In Minutes): 35
[2025-01-12] MEDS: POTASSIUM CL SA 10 MEQ TAB PO ONE (07:46)
[2025-01-12] MEDS: ENOXAPARIN 30 MG/0.3 ML SQ SCH (07:46)
[2025-01-12] MEDS: ACETAMINOPHEN 500 MG TAB PO PRN (11:16)
[2025-01-12] MEDS: METHYLPREDNISOLONE 40 MG INJ IV SCH (11:16)
[2025-01-12] MEDS ORDERED: HOME MED 1 EA UNK (Tizanidine Hcl [Tizanidine Hcl] 2 MG Tablet) PO PRN (16:39)
[2025-01-12] MEDS ORDERED: TIZANIDINE 4 MG TABLET PO PRN (16:47)
[2025-01-12] MEDS: AMIODARONE HCL 200 MG TAB PO SCH (17:17)
[2025-01-12] MEDS: DIVALPROEX DR 500MG TAB PO SCH (21:00)
[2025-01-12] MEDS: LITHIUM CARBONATE 300 MG CAP PO SCH (21:00)
[2025-01-13 06:30] LABS: Absolute Lymphocytes (CBC) 0.8 K/uL (0.7-4.9); Absolute Monocytes 0.3 K/uL (0.1-1.3); Basophils % 0.1 % (0-1.3); Hematocrit 39.8 % (36.0-45.0); Hemoglobin 13.1 g/dL (12.0-15.0); Lymphocytes % 16.3 % (15.3-44.8); MCH 31.3 pg (27.0-35.0); MCHC 32.9 g/dL (32.0-36.0); MCV 95.2 fL (80-100); MPV 8.6 fL (7.6-11.3); Monocytes % 5.3 % (3.3-12.3); Neutrophils % 78.3 % (41.7-73.7); Nucleated Red Blood Cells % 0.2 % (0-0); Platelets 190 thou/uL (152-406); RBC Red Blood Cell Count 4.17 M/uL (3.86-4.86); Red Cell Distribution Width 13.5 % (12.1-15.2)
[2025-01-13 06:46] LABS: ALT/SGPT 21 U/L (13-56); AST/SGOT 18 U/L (15-37); Albumin 2.9 g/dL (3.4-5.0); Albumin/Globulin Ratio 0.7 (1.1-1.8); Alkaline Phosphatase 83 U/L (45-117); Anion Gap 7.9 mEq/L (5.0-15.0); BUN Blood Urea Nitrogen 17 mg/dL (7-18); Bicarbonate 21 mEq/L (21-32); Bilirubin Total 0.6 mg/dL (0.2-1.0); Globulin 3.9 g/dL (2.3-3.5); Glomerular Filtration Rate 52 ml/min (=/>90); Glucose Level 120 mg/dL (74-106); Magnesium 2.4 mg/dL (1.6-2.4); Potassium 4.9 mEq/L (3.5-5.1); Protein, Total 6.8 g/dL (6.4-8.2); Sodium Level 139 mEq/L (136-145)
[2025-01-13 06:51] LABS: C-Reactive Protein < 2.90 mg/L (<3.00)
[2025-01-13] MEDS ORDERED: HOME MED 1 EA UNK (Oxybutynin Chloride [Oxybutynin Chloride Er] 10 MG Tab.Er.24) PO SCH (09:00)
[2025-01-13] MEDS: OXYBUTYNIN ER 5 MG TAB PO SCH (09:11)
--- NOTE | 2025-01-13 23:55 | P.PN ---
Date of Service: 01/13/25 Subjective Patient feeling better. She did decide that she wants to try to go to [facility]. Consultation placed to management to try to get his retirement facility placement. Physical Examination - Vital Signs Reviewed - Physical Exam General: Alert, In no apparent distress, Oriented x2 Respiratory: Clear to auscultation bilaterally, Normal air movement Cardiovascular: Regular rate/rhythm, Normal S1 S2, No murmurs Gastrointestinal: Normal bowel sounds, Soft and benign, Non-distended, No tenderness Musculoskeletal: No clubbing, No swelling, No tenderness Integumentary: No rashes Neurological: No focal deficits; Generalized weakness Assessment & Plan - Problems (Diagnosis) (1) COVID-19 Current Visit: Yes Status: Acute (2) Atrial fibrillation Current Visit: No Status: Acute (3) Congestive heart failure Current Visit: No Status: Acute (4) Dehydration Current Visit: No Status: Acute (5) Failure to thrive in adult Current Visit: No Status: Acute (6) Generalized weakness Current Visit: No Status: Acute (7) Hypokalemia Current Visit: No Status: Acute - Plan Continue with plan of care as mentioned below: 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 Will get physical therapy evaluation 2.Atrial fibrillation; Continue with medication for rate control and will continue with anticoagulation as long as hemoglobin is stable 3.Congestive heart failure; Heart failure compensated 4.Hypokalemia; Continue with supplementation as needed 5.Failure to thrive; Encourage nutritional support 6.Generalized weakness; Continue with physical therapy and may benefit from retirement facility placement. Discharge Plan: Care Home Plan to discharge in: Greater than 2 days - Advance Directives Does patient have a Living Will: No Does patient have a Durable POA for Healthcare: No - Code Status/Comfort Care Code Status Assessed: Yes Code Status: Full Code Critical Care: No Time Spent Managing PTS Care (In Minutes): 30
[2025-01-14] MEDS: predniSONE 20 MG TAB PO SCH (09:29)
--- NOTE | 2025-01-14 12:24 | P.PN ---
Date of Service: 01/14/25 Subjective: no acute events overnight weak ROS: 10 point ROS as noted above, otherwise negative Physical Exam: GEN: Alert, oriented, NAD CV: Regular rate and rhythm, no edema Pulm: Nonlabored respirations on room air, clear bilaterally ABD: soft, nontender, nondistended Neuro: generalized weakness Problem List: Acute covid-19 infection Generalized weakness, failure to thrive chronic CHF CKD3 hx of a-fib, s/p permanent pacemaker hx of skin cancer, s/p excision Acute covid-19 infection Generalized weakness, failure to thrive on admission, presents with generalized weakness and malaise. +subjective fever and shortness of breath tested positive for covid (2/) reportedly independent in her ADLs using a walker until recently.during this current episode, she was unable to get out of bed continue oral prednisone breathing okay on room air afebrile since admission cm/ss consulted for SNF. Family in agreement with plan. Pending SNF auth continue PT chronic CHF CKD3 hx of a-fib, s/p permanent pacemaker hx of skin cancer, s/p excision confirm home meds, restart as appropriate VTE: Lovenox Code: Full Dispo: SNF - pending approval Time Spent Managing Pts Care (In Minutes): 55
--- NOTE | 2025-01-15 15:04 | P.PN ---
Date of Service: 01/15/25 Subjective: Awake, feeling better c/O of difficulty speaking, awaiting speech therapy Awaiting SNF ROS: 10 point ROS as noted above, otherwise negative Physical Exam: General: AAOx3, NAD HEENT: MMM, nare normal Head/Neck: Normocephalic, atraumatic, neck supple Respiratory: symmetrical chest expansion, lungs clear on ausultation, on RA Cardiac: RRR, no murmurs or gallops noted Extremities: No edema present, peripheral pulses 2+ Abdominal: soft and benign on palpation, Nontender Skin: warm pink and dry Neurological: clear speech, appropriate Problem List: Acute covid-19 infection Generalized weakness, failure to thrive Dysphagia chronic CHF CKD3 hx of a-fib, s/p permanent pacemaker hx of skin cancer, s/p excision Assessment and Plan Acute covid-19 infection Generalized weakness, failure to thrive Dysphagia on admission, presents with generalized weakness and malaise. +subjective fever and shortness of breath afebrile since admission tested positive for covid (2/) reportedly independent in her ADLs using a walker until recently.during this current episode, she was unable to get out of bed continue oral prednisone tolerating on room air awaiting SNF approval. Family in agreement with plan. 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
[2025-01-16 07:21] LABS: Hematocrit 45.9 % (36.0-45.0); Hemoglobin 14.9 g/dL (12.0-15.0); MCH 30.9 pg (27.0-35.0); MCHC 32.4 g/dL (32.0-36.0); MCV 95.4 fL (80-100); MPV 9.4 fL (7.6-11.3); Platelets 211 thou/uL (152-406); RBC Red Blood Cell Count 4.81 M/uL (3.86-4.86); Red Cell Distribution Width 13.8 % (12.1-15.2)
[2025-01-16 07:26] LABS: Anion Gap 7.4 mEq/L (5.0-15.0); Magnesium 2.7 mg/dL (1.6-2.4); Potassium 4.4 mEq/L (3.5-5.1)
--- NOTE | 2025-01-16 15:46 | P.PN ---
Date of Service: 01/16/25 Subjective: Feeling tired, tolerating treatment no new complaints Awaiting [facility] ROS: 10 point ROS as noted above, otherwise negative Physical Exam: General: Awake, alert, and oriented x3, NAD, afebrile HEENT: MMM, nare normal Head/Neck: Normocephalic, atraumatic, neck supple Respiratory: Clear BBS, nonlabored breathing, on RA Cardiac: NSR, S1 S2 present, no murmurs or gallops noted Extremities: No edema present, peripheral pulses 2+ Abdominal: soft and benign on palpation, Nontender Skin: warm pink and dry Neurological: clear speech, appropriate Problem List: Acute covid-19 infection Generalized weakness, failure to thrive Dysphagia chronic CHF CKD3 hx of a-fib, s/p permanent pacemaker hx of skin cancer, s/p excision Assessment and Plan Acute covid-19 infection Generalized weakness, failure to thrive Dysphagia on admission, presents with generalized weakness and malaise. +subjective fever and shortness of breath afebrile since admission tested positive for covid (2/) reportedly independent in her ADLs using a walker until recently.during this current episode, she was unable to get out of bed continue oral prednisone Stable on room air awaiting SNF approval. Family in agreement with plan. continue PT/RESEARCH LABORATORY SPECIALIST chronic CHF CKD3 hx of a-fib, s/p permanent pacemaker hx of skin cancer, s/p excision continue home meds as appropriate VTE: Lovenox Code: Full Dispo: SNF - pending approval
[2025-01-17 09:11] VITALS: O2SAT 98
--- NOTE | 2025-01-17 10:14 | P.DS ---
Admission Date: 01/12/25 Discharge Date: 01/17/25 Disposition: TRANSFER TO LONGTERM Discharge Condition: GOOD Reason for Admission: generalized weakness Brief History of Present Illness: Diagnosis Acute covid-19 infection Generalized weakness, failure to thrive Dysphagia chronic CHF CKD3 hx of a-fib, s/p permanent pacemaker hx of skin cancer, s/p excision HPI 01/11/25 Patient is a 79 year old female who presents with generalized weakness and malaise. Patient has a history of atrial fibrillation on amiodarone, CKD and vitamin D deficiency. She has had similar presentation in the past. She was reportedly independent in her ADLs using a walker until recently.during this current episode, she was unable to get out of bed due to the severity of her sx. She denies recent diarrhea or vomiting. Her appetite hasn't changed much. She reports subjective fever and shortness of breath. She tested postive for COVID 19. Her CXR is unremarkable. She was on room air during my evaluation. Patient usually with walker at home. Hospital Course: Patient was admitted and treated for the following diagnosis Acute covid-19 infection Generalized weakness, failure to thrive Dysphagia on admission, presents with generalized weakness and malaise. +subjective fever and shortness of breath afebrile since admission tested positive for covid (01/11) reportedly independent in her ADLs using a walker until recently.during this current episode, she was unable to get out of bed continue oral prednisone Stable on room air awaiting SNF approval. Family in agreement with plan. continue PT/RECREATION LEADER chronic CHF CKD3 hx of a-fib, s/p permanent pacemaker hx of skin cancer, s/p excision continue home meds as appropriate On 01/17/25, Devonte was seen on morning rounds and deemed hemodyncamically stable for discharge to [facility]. She will need to follow up with PCP and Dr. Rosario for continued medical management. Physical Exam: General: Awake, alert, and oriented x3, NAD, afebrile HEENT: MMM, nare normal Head/Neck: Normocephalic, atraumatic, neck supple Respiratory: Clear BBS, nonlabored breathing, on RA Cardiac: NSR, S1 S2 present, no murmurs or gallops noted Extremities: No edema present, peripheral pulses 2+ Abdominal: soft and benign on palpation, Nontender Skin: warm pink and dry Neurological: clear speech, appropriate Vital Signs/Physical Exam: Temp Pulse Resp BP Pulse Ox 97.6 F 70 16 101/72 96 01/17/25 08:00 01/17/25 08:00 01/17/25 08:00 01/17/25 08:00 01/17/25 08:00 Laboratory Data at Discharge: WBC 9.50 thou/uL (4.3-10.9) 01/16/25 06:25 Hgb 14.9 g/dL (12.0-15.0) 01/16/25 06:25 Hct 45.9 % (36.0-45.0) H 01/16/25 06:25 Plt Count 211 thou/uL (152-406) 01/16/25 06:25 Sodium 139 mEq/L (136-145) 01/16/25 06:25 Potassium 4.4 mEq/L (3.5-5.1) 01/16/25 06:25 BUN 26 mg/dL (7-18) H 01/16/25 06:25 Creatinine 1.23 mg/dL (0.55-1.02) H 01/16/25 06:25 Glucose 78 mg/dL (74-106) 01/16/25 06:25 Phosphorus 2.7 mg/dL (2.5-4.9) 01/12/25 06:02 Magnesium 2.7 mg/dL (1.6-2.4) H 01/16/25 06:25 Total Bilirubin 0.6 mg/dL (0.2-1.0) 01/13/25 06:01 AST 18 U/L (15-37) 01/13/25 06:01 ALT 21 U/L (13-56) 01/13/25 06:01 Alkaline Phosphatase 83 U/L (45-117) 01/13/25 06:01 Triglycerides 115 mg/dL (<150) 01/12/25 06:02 Cholesterol 139 mg/dL (<200) 01/12/25 06:02 HDL Cholesterol 40 mg/dL (40-60) 01/12/25 06:02 Cholesterol/HDL Ratio 3.48 01/12/25 06:02 Home Medications: Loratadine [Claritin*] 1 tab PO DAILY 10/07/24 Oxybutynin Chloride [Oxybutynin Chloride ER] 5 mg PO DAILY 10/07/24 Spironolactone 1 tab PO DAILY 10/07/24 Tizanidine HCl 1 tab PO BID PRN 10/07/24 Amiodarone HCl [Cordarone*] 1 tab PO DAILY 01/12/25 Amlodipine [Norvasc*] 1 tab PO DAILY 01/12/25 Divalproex Sodium 1 tab PO BID 01/12/25 [place] Carbonate [Lithotabs *] 1 tab PO BID 01/12/25 Physician Discharge Instructions: 1. Please call and schedule a follow-up appointment with your PCP in 3-5 days - Please follow-up with your PCP for medication refills/adjustments 2. Please call and schedule a follow-up appointment with Dr. Rosario in 3-5 days 3. Continue regular diet, pureed 4. activity restrictions fall precautions, will need continued physical therapy 5. Return to the ED if symptoms worsen Diet: Regular Activity: Fall precautions Followup: Dimas Rosario DO [Primary Care Provider] -
[2025-01-17 12:26] VITALS: BP 99/67; TEMP 97.8
--- NOTE | 2025-01-22 12:50 | EKG ---
Test Date: 2025-01-11 Test Time: 18:09:02 Global Engineering Manager: PH MEASUREMENT RESULTS: Intervals: Rate: 70 PA: QRSD: 176 QT: 510 QTc: 550 [place]: P: PA: QRS: -33 T: 99 INTERPRETIVE STATEMENTS: Ventricular-paced rhythm Abnormal ECG Compared to ECG 12/12/2024 10:32:59 Atrial-paced complex(es) or rhythm no longer present T-wave abnormality no longer present Electronically Signed On 01-22-25 12:24:37 VP OF TECHNOLOGY by Stanley Perez
== END 2025-01-17 13:00 | DRG 178 ==
LOC: ER 16:39 → 4TH 21:52 → OBSVTOIN 01-12 16:39
PROVIDERS: ADMIT Internal Medicine; ATTEND Internal Medicine
DX: U07.1 COVID-19 (principal); I13.0 Hypertensive heart and chronic kidney disease with heart failure and stage 1 through stage 4 chronic kidney disease, or unspecified chronic kidney disease; Z68.1 Body mass index [BMI] 19.9 or less, adult; R62.7 Adult failure to thrive; I50.9 Heart failure, unspecified; N18.30 Chronic kidney disease, stage 3 unspecified; I48.91 Unspecified atrial fibrillation; E87.6 Hypokalemia; E86.0 Dehydration; G72.9 Myopathy, unspecified; J44.9 Chronic obstructive pulmonary disease, unspecified; R13.10 Dysphagia, unspecified; Z88.5 Allergy status to narcotic agent; Z95.0 Presence of cardiac pacemaker; Z88.8 Allergy status to other drugs, medicaments and biological substances; Z98.51 Tubal ligation status; Z90.710 Acquired absence of both cervix and uterus; Z79.899 Other long term (current) drug therapy; Z85.828 Personal history of other malignant neoplasm of skin
CPT/HCPCS: 36415; 51702; 71045; 80048; 80053; 80061; 80076; 81001; 82550; 82947; 83605; 83735; 84100; 84439; 84443; 84481; 84484; 85025; 85027; 86140; 87804; 87811; 92610; 93005; 96360; 97110; 97116; 97161; 97530; 99285; G0378; J1650; J2470; J2919; J7040; J7512

== ENCOUNTER 2025-03-07 21:03 | Inpatient (IN) | payer OTHER ==
[2025-03-07] MEDS ORDERED: FENTANYL CITR 100 MCG/2 ML ONE (21:32)
[2025-03-07] MEDS ORDERED: ONDANSETRON 4 MG/2 ML VIAL ONE (21:32)
--- NOTE | 2025-03-07 22:16 | RAD REPORT ---
EXAM: XR Knee Right 3 View HISTORY: [facility] MAIN right knee pain Bed Name: 6 COMPARISON: None TECHNIQUE: 3 views of the right knee were obtained. FINDINGS: No knee effusion is seen. There is no evidence of acute fracture or dislocation. Advanced tricompartmental osteoarthritic changes with joint space loss most pronounced along the lateral weightbearing compartment No soft tissue swelling or other soft tissue abnormality is present. IMPRESSION: No evidence of acute osseous abnormality. Advanced degenerative changes as above.
--- NOTE | 2025-03-07 22:21 | RAD REPORT ---
EXAM: CT brain without contrast HISTORY: fall, neck pain COMPARISON: 01/02/2025 TECHNIQUE: Multiple contiguous axial images were obtained and a CT of the brain without contrast. Sag ittal and coronal reformats were performed. FINDINGS: No evidence of hydrocephalus, intracranial hemorrhage, or extra-axial fluid collection. The brain is normal in morphology. The calvarium is intact. The visualized paranasal sinuses and mastoid air cells are essentially clear . IMPRESSION: No evidence of acute intracranial abnormality. EXAM: CT of the cervical spine without contrast HISTORY: fall, neck pain COMPARISON: None TECHNIQUE: Multiple contiguous axial images were obtained in a CT of the cervical spine without contr ast. Sagittal and coronal reformats were performed. FINDINGS: The vertebral bodies demonstrate normal height and alignment. No evidence of acute fracture or subluxation.. Advanced multilevel degenerative changes contributing to foraminal stenosis bilaterally most pronounced at C4-5 No prevertebral soft tissue swelling is seen. The posterior facets are well aligned. Normal alignment of the skull base with the cervical spine is seen. The lung apices are unremarkable. Thyroid hypoattenuating nodules largest at the lower pole measuring 1.8 cm, can be further characterized by dedicated thyroid ultrasound if not previously performed IMPRESSION: No evidence of acute osseous abnormality of the cervical spine. Degenerative changes as above.
--- NOTE | 2025-03-07 22:28 | RAD REPORT ---
EXAM: CT CHEST, ABDOMEN AND PELVIS WITHOUT CONTRAST CLINICAL INDICATION: Female, 79 years old. [facility] MAIN fall , spinal pain Bed Name: 6 TECHNIQUE: CT chest, abdomen and pelvis was performed, without IV contrast, as per department protoco l. Axial, sagittal and coronal reconstructions were obtained. One or more of the following dose reduction techniques were used: Automated exposure control, adjustment of the mA and/or kV according to the patient size, and/or iterative reconstruction. Unless otherwise specified, incidental findings do not require dedicated imaging follow-up. COMPARISON: 12/12/2024 and 03/03/2024 FINDINGS: The lack of intravenous contrast limits the sensitivity of this exam for evaluation of solid visceral organs, vascular structures, and retroperitoneum. Chest: LOWER NECK/CHEST WALL: Visualized thyroid gland and soft tissues are normal. LUNGS AND AIRWAYS: Airways are clear. No evidence of airspace or interstitial process. No nodules. PLEURA: No pleural effusion. No pneumothorax. Hemidiaphragms are normally positioned. MEDIASTINUM AND LYMPH NODES: No mediastinal mass or fluid collection. Normal size mediastinal, hilar, and axillary lymph nodes. THORACIC AORTA: Normal caliber and configuration. PULMONARY ARTERIES: Normal caliber. HEART: Unremarkable. Abdomen/Pelvis LIVER: Normal in size and contour. No focal lesion. GALLBLADDER/BILE DUCTS: Status post cholecystectomy. No biliary ductal dilatation. PANCREAS: No mass, ductal dilation, or pilar-pancreatic fluid. SPLEEN: Normal size. No focal lesion. ADRENALS: Nonnodular adrenal thickening particularly on the left, stable. KIDNEYS AND URETERS: Normal size and contour. No hydronephrosis. GASTROINTESTINAL TRACT: Stomach is non-dilated. Small bowel has normal course and caliber. No colonic wall thickening or pericolonic inflammatory changes. PERITONEUM: No free fluid. LYMPH NODES: No lymphadenopathy. ABDOMINAL AORTA AND OTHER VESSELS: Normal caliber aorta and IVC. URINARY BLADDER: Normal contour. REPRODUCTIVE ORGANS: No pathologic process. MUSCULOSKELETAL: Advanced bilateral shoulder joint degenerative changes with joint effusions. ADDITIONAL FINDINGS: None IMPRESSION: No acute or traumatic abnormalities in the chest, abdomen, or pelvis.
[2025-03-08] MEDS ORDERED: NA CHLORIDE 0.9% 500 ML ONE (00:06)
[2025-03-08] MEDS ORDERED: NA CHLORIDE 0.9% 1,000 ML ONE ×2 (00:06→03:16)
[2025-03-08 00:26] LABS: Absolute Basophils 0.1 K/uL (0-0.5); Absolute Eosinophils 0.1 K/uL (0-0.5); Absolute Lymphocytes (CBC) 2.5 K/uL (0.7-4.9); Absolute Monocytes 0.5 K/uL (0.1-1.3); Absolute Neutrophil 2.4 K/uL (1.8-8.0); Basophils % 1.8 % (0-1.3); Eosinophils % 2.1 % (0-4.4); Hematocrit 32.5 % (36.0-45.0); Lymphocytes % 44.5 % (15.3-44.8); MCH 32.1 pg (27.0-35.0); MCHC 33.9 g/dL (32.0-36.0); MCV 94.6 fL (80-100); MPV 8.4 fL (7.6-11.3); Monocytes % 8.2 % (3.3-12.3); Neutrophils % 43.4 % (41.7-73.7); Nucleated Red Blood Cells % 0.2 % (0-0); Platelets 163 thou/uL (152-406); RBC Red Blood Cell Count 3.44 M/uL (3.86-4.86); Red Cell Distribution Width 17.6 % (12.1-15.2)
[2025-03-08 00:31] LABS: PT Prothrombin Time 11.5 SECONDS (10-13.0); Protime INR 1.01
[2025-03-08 00:42] LABS: AST/SGOT 16 U/L (15-37); Albumin 2.7 g/dL (3.4-5.0); Albumin/Globulin Ratio 0.8 (1.1-1.8); Alkaline Phosphatase 70 U/L (45-117); Anion Gap 8.6 mEq/L (5.0-15.0); BUN Blood Urea Nitrogen 20 mg/dL (7-18); Bicarbonate 27 mEq/L (21-32); Bilirubin Total 0.5 mg/dL (0.2-1.0); Globulin 3.3 g/dL (2.3-3.5); Glomerular Filtration Rate 35 ml/min (=/>90); Glucose Level 105 mg/dL (74-106); Magnesium 2.1 mg/dL (1.6-2.4); NT PRO-BNP 1911 pg/mL (<450); Potassium 3.6 mEq/L (3.5-5.1); Sodium Level 146 mEq/L (136-145); Troponin High Sensitivity 3.6 pg/mL (<58.9)
[2025-03-08 00:45] LABS: ALT/SGPT < 14 U/L (13-56); Bilirubin Direct < 0.2 mg/dL (0-0.2); Bilirubin Indirect, Calculated 0.3 mg/dL (0.2-0.8)
--- NOTE | 2025-03-08 01:14 | EDPHYS ---
Physician Documentation [facility] Name: Devonte Hager Age: 79 yrs Sex: Female : 1945 Arrival Date: 03/07/2025 Time: 21:03 Bed 6 Private MD: ED Physician Abdirizak Duron HPI: 03/07 21:08 This 79 yrs old Female presents to ER via Unassigned with complaints of fall. sp4 03/08 19:59 79-year-old female with history of atrial fibrillation, pacemaker, bipolar disorder, sp4 congestive heart failure, COPD, hypertensive disorder presents with acute near syncopal episode and fall at home. Patient reported she fell injuring her upper back and neck.. Historical: - Allergies: 03/07 21:20 codeine sulfate; cm10 21:20 Crestor; cm10 21:20 Cymbalta; cm10 21:20 Dimetapp Cold-Congestion; cm10 21:20 thorezine; cm10 21:20 Tramadol HCl; cm10 21:20 Vioxx; cm10 21:20 Zocor; cm10 - PMHx: 21:20 Atrial fibrillation; Bipolar disorder; Congestive heart failure; COPD; Hypertensive cm10 disorder; Cerebrovascular accident; - PSHx: 21:20 hysterectomy; pacemaker; tubal ligation; cm10 - Immunization history:: Adult Immunizations up to date. - Infectious Disease History:: Denies. - Social history:: Smoking status: unknown. - Family history:: not pertinent. ROS: 03/08 19:59 Constitutional: Negative for fever, chills, and weight loss, positive for generalized sp4 weakness, positive for syncopal episode, positive for fall at home, positive for neck and upper back pain All other systems are negative, Exam: 19:59 Constitutional: Patient is frail elderly female with generalized weakness and signs of sp4 physical deconditioning. Nontoxic-appearing Head/Face: Normocephalic, atraumatic. Eyes: Pupils equal round and reactive to light, extra-ocular motions intact. Lids and lashes normal. Conjunctiva and sclera are not injected. Cornea within normal limits. Periorbital areas with no swelling, redness, or edema. ENT: Nares patent. No nasal discharge, no septal abnormalities noted. Tympanic membranes are normal and external auditory canals are clear. Oropharynx with no redness, swelling, or masses, exudates, or evidence of obstruction, uvula midline. Mucous membranes moist. Neck: Trachea midline, no thyromegaly or masses palpated, and no cervical lymphadenopathy. Supple, full range of motion without nuchal rigidity, or vertebral point tenderness. Chest/axilla: Normal chest wall appearance and motion. Nontender with no deformity. No lesions are appreciated. Cardiovascular: Regular rate and rhythm with a normal S1 and S2. No gallops, murmurs, or rubs. Normal PMI, no JVD. No pulse deficits. Respiratory: Lungs have equal breath sounds bilaterally, clear to auscultation and percussion. No rales, rhonchi or wheezes noted. No increased work of breathing, no retractions or nasal flaring. Abdomen/GI: Soft, with normal bowel sounds. No distension or tympany. No guarding or rebound. No evidence of tenderness throughout. Back: No spinal tenderness. No costovertebral tenderness. Skin: Warm, dry with normal turgor. Normal color with no rashes, no lesions, and no evidence of cellulitis. MS/ Extremity: Pulses equal, no cyanosis. Neurovascular intact. Full, normal range of motion. Neuro: Awake and alert, GCS 15, oriented to person, place, time, and situation. Cranial nerves II-XII grossly intact. Motor strength 5/5 in all extremities. Sensory grossly intact. Psych: Awake, alert, with orientation to person, place and time. Behavior, mood, and affect are within normal limits 19:59 ECG was reviewed by the Attending Physician. EKG at 0025 ventricular paced rhythm at the rate of 70 Vital Signs: 03/07 21:24 BP 132 / 88; Pulse 71; Resp 15; Temp 97.6; Pulse Ox 97% on R/A; Weight 51.26 kg; Height cm10 5 ft. 5 in. ; Pain 9/10; 22:30 BP 130 / 84; Pulse 70; Resp 15; Pulse Ox 95% ; vc1 21:24 Body Mass Index 18.80 (51.26 kg, 165.1 cm) cm10 21:24 Pain Scale: Adult cm10 [place] Coma Score: 03/08 19:59 Eye Response: spontaneous(4). Motor Response: obeys commands(6). Verbal Response: sp4 oriented(5). Total: 15. MDM: 03/07 21:09 Medical Screening Exam initiated sp4 03/08 00:25 Differential Diagnosis altered mental status, sepsis, flu, Syncope, congestive heart sp4 failure, acute traumatic fall. Data reviewed: vital signs, nurses notes, EMS record, lab test result(s), EKG, radiologic studies, CT scan. Consideration of Admission/Observation Patient was admitted/placed on observation. Escalation of care including admission/observation considered. Management of patient was discussed with the following: Hospitalist: Alin LOPEZ . 01:09 ED course: CT - IMPRESSION: No acute or traumatic abnormalities in the chest, abdomen, sp4 or pelvis. . 01:14 ED course: EXAM: CT brain without contrast HISTORY: fall, neck pain COMPARISON: sp4 01/02/2025 TECHNIQUE: Multiple contiguous axial images were obtained and a CT of the brain without contrast. Sagittal and coronal reformats were performed. FINDINGS: No evidence of hydrocephalus, intracranial hemorrhage, or extra-axial fluid collection. The brain is normal in morphology. The calvarium is intact. The visualized paranasal sinuses and mastoid air cells are essentially clear. IMPRESSION: No evidence of acute intracranial abnormality. EXAM: CT of the cervical spine without contrast HISTORY: fall, neck pain COMPARISON: None TECHNIQUE: Multiple contiguous axial images were obtained in a CT of the cervical spine without contrast. Sagittal and coronal reformats were performed. FINDINGS: The vertebral bodies demonstrate normal height and alignment. No evidence of acute fracture or subluxation.. Advanced multilevel degenerative changes contributing to foraminal stenosis bilaterally most pronounced at C4-5 No prevertebral soft tissue swelling is seen. The posterior facets are well aligned. Normal alignment of the skull base with the cervical spine is seen. RADIOLOGY SERVICES REPORT The lung apices are unremarkable. Thyroid hypoattenuating nodules largest at the lower pole measuring 1.8 cm, can be further characterized by dedicated thyroid ultrasound if not previously performed IMPRESSION: No evidence of acute osseous abnormality of the cervical spine. Degenerative changes as above.. ED course: COMPARISON: 12/12/2024 and 03/03/2024 FINDINGS: The lack of intravenous contrast limits the sensitivity of this exam for evaluation of solid visceral organs, vascular structures, and retroperitoneum. Chest: LOWER NECK/CHEST WALL: Visualized thyroid gland and soft tissues are normal. LUNGS AND AIRWAYS: Airways are clear. No evidence of airspace or interstitial process. No nodules. PLEURA: No pleural effusion. No pneumothorax. Hemidiaphragms are normally positioned. MEDIASTINUM AND LYMPH NODES: No mediastinal mass or fluid collection. Normal size mediastinal, hilar, and axillary lymph nodes. THORACIC AORTA: Normal caliber and configuration. PULMONARY ARTERIES: Normal caliber. HEART: Unremarkable. Abdomen/Pelvis LIVER: Normal in size and contour. No focal lesion. GALLBLADDER/BILE DUCTS: Status post cholecystectomy. No biliary ductal dilatation. PANCREAS: No mass, ductal dilation, or pilar-pancreatic fluid. SPLEEN: Normal size. No focal lesion. ADRENALS: Nonnodular adrenal thickening particularly on the left, stable. KIDNEYS AND URETERS: Normal size and contour. No hydronephrosis. GASTROINTESTINAL TRACT: Stomach is non-dilated. Small bowel has normal course and caliber. No colonic wall thickening or pericolonic inflammatory changes. PERITONEUM: No free fluid. LYMPH NODES: No lymphadenopathy. ABDOMINAL AORTA AND OTHER VESSELS: Normal caliber aorta and IVC. RADIOLOGY SERVICES REPORT URINARY BLADDER: Normal contour. REPRODUCTIVE ORGANS: No pathologic process. MUSCULOSKELETAL: Advanced bilateral shoulder joint degenerative changes with joint effusions. ADDITIONAL FINDINGS: None IMPRESSION: No acute or traumatic abnormalities in the chest, abdomen, or pelvis.. ED course: HISTORY: [facility] right knee pain Bed Name: 6 COMPARISON: None TECHNIQUE: 3 views of the right knee were obtained. FINDINGS: No knee effusion is seen. There is no evidence of acute fracture or dislocation. Advanced tricompartmental osteoarthritic changes with joint space loss most pronounced along the lateral weightbearing compartment No soft tissue swelling or other soft tissue abnormality is present. IMPRESSION: No evidence of acute osseous abnormality. Advanced degenerative changes as above. . 03/07 23:39 Order name: Basic Metabolic Panel; Complete Time: 05:02 sp4 03/07 23:39 Order name: CBC with Diff; Complete Time: 01:06 4 03/07 23:39 Order name: LFT's; Complete Time: 05:02 sp4 03/07 23:39 Order name: Magnesium; Complete Time: 05:02 sp4 03/07 23:39 Order name: NT PRO-BNP; Complete Time: 05:02 sp4 03/07 23:39 Order name: PT-INR; Complete Time: 01:06 sp4 03/07 23:39 Order name: Troponin HS; Complete Time: 05:02 sp4 03/08 01:53 Order name: Thyroid Stimulating Hormone EDCT 03/08 01:53 Order name: Urinalysis w/ reflexes EDMS 03/08 01:54 Order name: Basic Metabolic Panel EDCT 03/08 01:54 Order name: Basic Metabolic Panel EDCT 03/08 01:54 Order name: CBC with Automated Diff EDMS 03/08 01:54 Order name: CBC with Automated Diff EDMS 03/08 04:21 Order name: Thyroid Stimulating Hormone; Complete Time: 05:02 EDCT 03/07 21:15 Order name: CT Head C Spine; Complete Time: 23:26 sp4 03/07 21:15 Order name: CT Chest Abdomen Pelvis W/O Contrast; Complete Time: 23:26 sp4 03/07 21:15 Order name: Knee Right 3 View XRAY; Complete Time: 23:26 sp4 03/07 23:39 Order name: EKG; Complete Time: 23:39 sp4 03/08 01:53 Order name: Physical Therapy Consult EDCT 03/07 23:39 Order name: Cardiac monitoring; Complete Time: 00:11 sp4 03/07 23:39 Order name: EKG - Nurse/Tech; Complete Time: 00:28 sp4 03/07 23:39 Order name: IV Saline Lock; Complete Time: 00:11 sp4 03/07 23:39 Order name: Labs collected and sent; Complete Time: 00:11 sp4 03/07 23:39 Order name: O2 Per Protocol; Complete Time: 00:11 sp4 03/07 23:39 Order name: O2 Sat Monitoring; Complete Time: 00:10 sp4 EC:25 Rate is 70 beats/min. Rhythm is regular, Paced. No ST changes noted. Clinical sp4 impression: No evidence of ischemia. Interpreted by me. Reviewed by me. Administered Medications: 03/07 21:39 Drug: fentaNYL (PF) IVP 25 mcg IVP once Route: IVP; Site: left hand; cm10 22:22 Follow up: Response: No adverse reaction cm10 21:39 Drug: Ondansetron IVP 4 mg IVP once; over 2 minutes Route: IVP; Site: left hand; cm10 22:22 Follow up: Response: No adverse reaction cm10 03/08 00:10 Drug: NS 0.9% IV 500 ml 500 ml IV at 1 bolus once; to be given as a bolus over 30 rg5 minutes Volume: 500 ml; Route: IV; Rate: 1 bolus; Site: left hand; 00:45 Follow up: IV Status: Completed infusion; IV Intake: 500ml rg5 00:10 Drug: NS 0.9% IV 1000 ml IV at 100 ml/hr once; to be given as a bolus over 60 minutes rg5 Route: IV; Rate: 100 ml/hr; Site: left hand; 01:34 Follow up: IV Status: Completed infusion; IV Intake: 1000ml rg5 Disposition: 20:03 Chart complete. sp4 Disposition Summary: 03/08/25 01:14 Hospitalization Ordered Notes: Hospitalization Status: Inpatient Admission sp4 Provider: Sejal Ogden sp4 Condition: Stable sp4 Problem: new sp4 Symptoms: have improved sp4 Bed/Room Type: Standard sp4 Location: Telemetry/MedSurg (Inpatient)(03/08/25 10:54) [facility] Room Assignment: [facility](03/08/25 10:54) [facility] Diagnosis - Acute near syncopal episode, generalized weakness, acute on chronic renal sp4 insufficiency, moderate dehydration, acute fall at home , closed head injury Forms: - Medication Reconciliation Form sp4 - SBAR form sp4 - Leadership Thank You Letter sp4 Signatures: Dispatcher [employer] [facility] Deepti Brasher rv1 Bina Ward 6 Abdirizak Duron MD MD sp4 Demetria Cao, RN RN cm10 Twin Dempsey, EDILBERTO RN rg5 Corrections: (The following items were deleted from the chart) 03/07 21:16 21:16 Knee Right 3 View+RAD.[email or web address] ordered. [facility] 03/08 01:32 01:14 Telemetry/MedSurg (Inpatient) sp4 rv1 01:32 01:14 sp4 rv1 10:54 01:32 BR ER HOLD rv1 bc6 10:54 01:32 ERHOLD- rv1 bc6
--- NOTE | 2025-03-08 01:14 | ER ---
Nurse's Notes [facility] Name: Devonte Hager Age: 79 yrs Sex: Female : 1945 Arrival Date: 03/07/2025 Time: 21:03 Bed 6 Private MD: Diagnosis: Acute near syncopal episode, generalized weakness, acute on chronic renal insufficiency, moderate dehydration, acute fall at home , closed head injury Presentation: 03/07 21:19 Chief complaint: EMS states: CALLED TO PATIENTS HOME FOR A FALL. PT SLIPPED AND FELL. cm10 PT HIT HEAD, NO LOC. PT COMPLAINING OF PAIN TO HEAD, NECK, CHEST AND KNEE. PT ARRIVED WITH C-COLLAR IN PLACE. Coronavirus screen: Client denies travel out of the [place] in the last 14 days. 21:19 Method Of Arrival: EMS: [facility] cm10 21:21 Ebola Screen: Patient denies travel to an Ebola-affected area in the 21 days before cm10 illness onset. Initial Sepsis Screen: Does the patient meet any 2 criteria? No. Patient's initial sepsis screen is negative. Does the patient have a suspected source of infection? No. Patient's initial sepsis screen is negative. Risk Assessment: Do you want to hurt yourself or someone else? Patient reports no desire to harm self or others. Onset of symptoms was March 07, 2025. Care prior to arrival: Cervical collar in place. Medication(s) given: Tylenol, 1000 mg, IV initiated. 22 GA, in the left hand. 21:21 Acuity: INGRIS 3 cm10 Triage Assessment: 21:25 General: Appears in no apparent distress. uncomfortable, Behavior is cooperative. Pain: cm10 Complains of pain in head, neck and chest. Neuro: No deficits noted. Level of Consciousness is awake, alert, obeys commands, Oriented to person, place, time, situation, Appropriate for age. Respiratory: No deficits noted. Airway is patent Respiratory effort is even, unlabored, Respiratory pattern is regular, symmetrical. Musculoskeletal: Reports pain in head, neck and chest. Historical: - Allergies: 21:20 codeine sulfate; cm10 21:20 Crestor; cm10 21:20 Cymbalta; cm10 21:20 Dimetapp Cold-Congestion; cm10 21:20 thorezine; cm10 21:20 Tramadol HCl; cm10 21:20 Vioxx; cm10 21:20 Zocor; cm10 - PMHx: 21:20 Atrial fibrillation; Bipolar disorder; Congestive heart failure; COPD; Hypertensive cm10 disorder; Cerebrovascular accident; - PSHx: 21:20 hysterectomy; pacemaker; tubal ligation; cm10 - Immunization history:: Adult Immunizations up to date. - Infectious Disease History:: Denies. - Social history:: Smoking status: unknown. - Family history:: not pertinent. Screenin:27 [facility] ED Fall Risk Assessment (Adult) History of falling in the last 3 months, cm10 including since admission Yes- fall prone (multiple falls) (3 pts) Confusion or Disorientation No (0 pts) Intoxicated or Sedated No (0 pts) Impaired Gait No (0 pts) Mobility Assist Device Used Yes (1 pt) Altered Elimination No (0 pt) Score/Fall Risk Level 3 or more points = High Risk Oriented to surroundings, Maintained a safe environment, Hourly rounding (assess needs \T\ fall precautionary measures) done. Abuse screen: Denies threats or abuse. Denies injuries from another. Nutritional screening: No deficits noted. Tuberculosis screening: No symptoms or risk factors identified. Assessment: 22:59 Reassessment: Patient appears in no apparent distress at this time. No changes from vc1 previously documented assessment. Patient and/or family updated on plan of care and expected duration. Pain level reassessed. Patient is alert, oriented x 3, equal unlabored respirations, skin warm/dry/pink. Vital Signs: 21:24 BP 132 / 88; Pulse 71; Resp 15; Temp 97.6; Pulse Ox 97% on R/A; Weight 51.26 kg; Height cm10 5 ft. 5 in. ; Pain 9/10; 22:30 BP 130 / 84; Pulse 70; Resp 15; Pulse Ox 95% ; vc1 21:24 Body Mass Index 18.80 (51.26 kg, 165.1 cm) cm10 21:24 Pain Scale: Adult cm10 Peggy Coma Score: 04 19:59 Eye Response: spontaneous(4). Motor Response: obeys commands(6). Verbal Response: sp4 oriented(5). Total: 15. ED Course: 03/07 21:07 Patient arrived in ED. rv1 21:08 Abdirizak Duron MD is Attending Physician. sp4 21:18 Demetria Cao, EDILBERTO is Primary Nurse. cm10 21:22 Triage completed. cm10 21:22 Arm band placed on right wrist. Patient placed in an exam room, on a stretcher. cm10 21:27 Knee Right 3 View XRAY In Process Unspecified. EDMS 21:30 Provided Education on: plan of care. vc1 21:39 Maintain EMS IV. Dressing intact. Good blood return noted. Site clean \T\ dry. Gauge \T\ cm 10 site: 22G LEFT HAND. Flushed with 10 mL NS. 21:40 Patient has correct armband on for positive identification. Bed in low position. Call cm10 light in reach. Side rails up X2. Pulse ox on. NIBP on. 21:53 CT Head C Spine In Process Unspecified. EDMS 21:53 CT Chest Abdomen Pelvis W/O Contrast In Process Unspecified. EDMS 22:22 Report given to EDILBERTO Murcia. cm10 03/08 00:27 Twin Dempsey RN is Primary Nurse. rg5 01:00 No provider procedures requiring assistance completed. rg5 01:00 Patient admitted, IV remains in place. intact, No redness/swelling at site. rg5 01:13 Sejal Ogden MD is Hospitalizing Provider. sp4 Administered Medications: 04 21:39 Drug: fentaNYL (PF) IVP 25 mcg IVP once Route: IVP; Site: left hand; cm10 22:22 Follow up: Response: No adverse reaction cm10 21:39 Drug: Ondansetron IVP 4 mg IVP once; over 2 minutes Route: IVP; Site: left hand; cm10 22:22 Follow up: Response: No adverse reaction 10 03/08 00:10 Drug: NS 0.9% IV 500 ml 500 ml IV at 1 bolus once; to be given as a bolus over 30 rg5 minutes Volume: 500 ml; Route: IV; Rate: 1 bolus; Site: left hand; 00:45 Follow up: IV Status: Completed infusion; IV Intake: 500ml rg5 00:10 Drug: NS 0.9% IV 1000 ml IV at 100 ml/hr once; to be given as a bolus over 60 minutes rg5 Route: IV; Rate: 100 ml/hr; Site: left hand; 01:34 Follow up: IV Status: Completed infusion; IV Intake: 1000ml rg5 Medication: 03/07 21:27 VIS not applicable for this client. cm10 Intake: 03/08 00:45 IV: 500ml; Total: 500ml. rg5 01:34 IV: 1000ml; Total: 1500ml. rg5 Outcome: 01:00 Admitted to ER Hold. Please see [facility] for further documentation. rg5 01:00 Condition: stable 01:00 Instructed on the need for admit, 01:14 Decision to Hospitalize by Provider. sp4 13:06 Patient left the ED. iw Signatures: Dispatcher [employer] EDAdriana Breen RN RN iw Kate Hewitt RN RN vc1 Deepti Brasher1 Abdirizak Duron MD MD sp4 Demetria Cao RN RN cm10 Twin Dempsey RN RN rg5
[2025-03-08] MEDS ORDERED: MAGNESIUM HYDROXIDE 8% 30 ML PO PRN (01:49)
--- NOTE | 2025-03-08 01:57 | P.HP ---
Patient History Date of Service: 03/08/25 Reason for admission: Fall History of Present Illness: 79-year-old female with a past medical history of congestive heart failure, A- fib presenting after a fall sustained at her assisted living facility. She says that she has been falling more frequently the last few days. She was taken to a clinic in [place]. She denies any chest pain, fevers or chills. She has been getting up to use the restroom more frequently. She states she was using a wal ker and upon encountering the rug she fell flat on her back. She laid on her back for approximately 30 minutes before she called EMS. She lived with her grandson for a little while however he is no longer in the residence. Allergies brompheniramine [From Dimetapp (brompheniramine-PPA)] Allergy (Verified 04/03/22 12:10) Nausea/Vomiting chlorpromazine [From Thorazine] Allergy (Verified 04/03/22 12:10) Nausea/Vomiting codeine Allergy (Verified 04/03/22 12:10) Nausea/Vomiting duloxetine [From Cymbalta] Allergy (Verified 04/03/22 12:10) Body Aches, Confusion phenylpropanolamine [From Dimetapp (brompheniramine-PPA)] Allergy (Verified 04/03/22 12:10) Nausea/Vomiting rofecoxib [From Vioxx] Allergy (Verified 04/03/22 12:10) Unknown rosuvastatin [From Crestor] Allergy (Verified 04/03/22 12:10) Muscle tightening simvastatin [From Zocor] Allergy (Verified 04/03/22 12:10) Muscle tigthening tramadol Allergy (Verified 04/03/22 12:10) Itching Home Medications: Loratadine [Claritin*] 1 tab PO DAILY 10/07/24 Oxybutynin Chloride [Oxybutynin Chloride ER] 5 mg PO DAILY 10/07/24 Spironolactone 1 tab PO DAILY 10/07/24 Tizanidine HCl 1 tab PO BID PRN 10/07/24 Amiodarone HCl [Cordarone*] 1 tab PO DAILY 01/12/25 Amlodipine [Norvasc*] 1 tab PO DAILY 01/12/25 Divalproex Sodium 1 tab PO BID 02/14/25 [place] Carbonate [Lithotabs *] 1 tab PO BID 01/12/25 - Past Medical/Surgical History Diabetic: No -: Atrial fibrillation -: Chronic anticoagulation -: CKD III (Dr. Rosario/ Dr. Mancini) -: HyperPTH/ Hypercalcemia -: Failure to thrive 01/04/2024 -: Skin cancer -: Permanent pacemaker -: Skin cancer excision -: Tubal ligation -: Hysterectomy - Family History Brother -: Lung disease Notes: secound brother SANDRO leg amputation reason unknown - Social History Alcohol use: No CD- Drugs: No Caffeine use: Yes Review of Systems 10-point ROS is otherwise unremarkable General: Weakness Eyes: Unremarkable ENT: Unremarkable Respiratory: Unremarkable Cardiovascular: Unremarkable Gastrointestinal: Unremarkable Genitourinary: Unremarkable Musculoskeletal: Unremarkable Integumentary: Unremarkable Neurological: Unremarkable Lymphatics: Unremarkable Physical Examination - Physical Exam General: In no apparent distress, Oriented x3, Cachectic, Other (Temporal wasting) HEENT: Atraumatic, Normocephalic Neck: Supple Respiratory: Clear to auscultation bilaterally Cardiovascular: No edema Capillary refill: <2 Seconds Gastrointestinal: Normal bowel sounds Musculoskeletal: No clubbing Integumentary: No rashes Neurological: Normal speech, Normal strength at 5/5 x4 extr Lymphatics: No axilla or inguinal lymphadenopathy - Studies Laboratory Data (last 24 hrs) 03/08/25 03/08/25 03/08/25 00:00 00:00 00:00 WBC 5.60 Hgb 11.0 L Hct 32.5 L Plt Count 163 PT 11.5 INR 1.01 Sodium 146 H Potassium 3.6 BUN 20 H Creatinine 1.48 H Glucose 105 Magnesium 2.1 Total Bilirubin 0.5 AST 16 ALT < 14 Alkaline Phosphatase 70 Assessment and Plan - Plan NAN on CKD Fall dehydration hypernatremia elevated BNP deconditioned Anemia Moderate protein calorie malnutrition Atrial fibrillation Hypertension continue IV fluids hold sedating meds (Depakote, loratadine, tizanidine) Imaging reviewed and without acute abnormalities recheck cbc and bmp in the am PT/OT consult Pain control Consult dietitian, BMI of 18, with temporal wasting Continue amiodarone Continue amlodipine DVT prophylaxis with SCDs - Advance Directives Does patient have a Living Will: No Does patient have a Durable POA for Healthcare: No
[2025-03-08] MEDS: NA CHLORIDE 0.9% 1,000 ML IV SCH (02:31)
[2025-03-08] MEDS ORDERED: AMLODIPINE 5 MG TAB ONE (08:44)
[2025-03-08] MEDS ORDERED: AMIODARONE HCL 200 MG TAB ONE (08:44)
[2025-03-08] MEDS: AMIODARONE HCL 200 MG TAB PO SCH (08:56)
[2025-03-08] MEDS: AMLODIPINE 5 MG TAB PO SCH (08:56)
--- NOTE | 2025-03-08 11:11 | P.PN ---
Subjective Date of Service: 03/08/25 Chief Complaint: Fall Subjective: No new changes No acute events overnight Review of Systems 10-point ROS is otherwise unremarkable Physical Examination - Vital Signs Temperature: 98.1 F Blood Pressure: 150/98 Pulse: 71 Respirations: 16 Pulse Ox (%): 98 - Physical Exam General: Alert, Oriented x3 HEENT: Atraumatic, Normocephalic Neck: Supple Respiratory: Clear to auscultation bilaterally Cardiovascular: No edema Gastrointestinal: Normal bowel sounds, Soft and benign Musculoskeletal: No clubbing, No swelling, No erythema, No tenderness Neurological: Normal gait, Normal speech, Normal strength at 5/5 x4 extr - Studies Laboratory Data (last 24 hrs) 03/08/25 03/08/25 03/08/25 00:00 00:00 00:00 WBC 5.60 Hgb 11.0 L Hct 32.5 L Plt Count 163 PT 11.5 INR 1.01 Sodium 146 H Potassium 3.6 BUN 20 H Creatinine 1.48 H Glucose 105 Magnesium 2.1 Total Bilirubin 0.5 AST 16 ALT < 14 Alkaline Phosphatase 70 Assessment And Plan - Plan 1. Multiple falls secondary to deconditioned status - CT of head, C-spine, chest x-ray all unremarkable, show no fracture or dislocation - Manage supportively: Pain control, PT/OT eval 2. History of essential hypertension - Resumed amlodipine 3. History of atrial fibrillation - Resumed amiodarone - No anticoagulation in light of history of multiple falls 4. Acute renal failure secondary to prerenal azotemia - Creatinine currently at 1.48. Baseline of 1.2 - On IV fluids 5. DVT prophylaxis - Subcu Lovenox Disposition: PT/OT eval to determine disposition
--- NOTE | 2025-03-08 11:45 | EKG ---
Test Date: 2025-03-08 Test Time: 00:25:21 Data Management Specialist: JAYCOB MEASUREMENT RESULTS: Intervals: Rate: 70 NV: QRSD: 164 QT: 514 QTc: 555 [place]: P: NV: QRS: -1 T: 94 INTERPRETIVE STATEMENTS: Ventricular-paced rhythm Abnormal ECG Compared to ECG 01/11/2025 18:09:02 No significant changes Electronically Signed On 03-08-25 11:44:12 CDT by Stanley Perez
[2025-03-08 13:31] LABS: Specific Gravity 1.008 (1.005-1.030); Urine Bilirubin NEGATIVE (Negative); Urine Blood Negative (Negative); Urine Clarity Clear (Clear); Urine Color Colorless (Yellow); Urine Glucose NEGATIVE (Negative); Urine Ketones NEGATIVE (Negative); Urine Microscopic Reflex YN NO UMIC; Urine Nitrite NEGATIVE (Negative); Urine Protein NEGATIVE (Negative); Urine Urobilinogen Normal (Normal)
[2025-03-08] MEDS: POTASSIUM CL SA 10 MEQ TAB PO ONE (14:33)
[2025-03-08] MEDS: LITHIUM CARBONATE 300 MG CAP PO SCH (20:19)
[2025-03-08] MEDS: DIVALPROEX ER 250 MG TAB PO SCH (20:19)
[2025-03-08] MEDS ORDERED: DIVALPROEX DR 500MG TAB PO SCH (21:00)
[2025-03-08] MEDS: CYCLOBENZAPRINE 10 MG TAB PO ONE (21:43)
[2025-03-09 06:50] LABS: Absolute Eosinophils 0.1 K/uL (0-0.5); Absolute Lymphocytes (CBC) 1.9 K/uL (0.7-4.9); Absolute Monocytes 0.3 K/uL (0.1-1.3); Absolute Neutrophil 1.6 K/uL (1.8-8.0); Basophils % 0.5 % (0-1.3); Eosinophils % 2.8 % (0-4.4); Hematocrit 31.1 % (36.0-45.0); Hemoglobin 10.4 g/dL (12.0-15.0); Lymphocytes % 48.3 % (15.3-44.8); MCHC 33.3 g/dL (32.0-36.0); MCV 96.2 fL (80-100); MPV 7.9 fL (7.6-11.3); Monocytes % 7.2 % (3.3-12.3); Neutrophils % 41.2 % (41.7-73.7); Nucleated Red Blood Cells % 0.1 % (0-0); Platelets 135 thou/uL (152-406); RBC Red Blood Cell Count 3.23 M/uL (3.86-4.86); Red Cell Distribution Width 17.4 % (12.1-15.2)
[2025-03-09 07:01] LABS: Anion Gap 4.6 mEq/L (5.0-15.0); Potassium 4.6 mEq/L (3.5-5.1)
--- NOTE | 2025-03-09 14:26 | P.PN ---
Date of Service: 03/09/25 Subjective: Seen resting in her chair after physical therapy. She states that she has pain. The pain is generalized. She is asking about her amiodarone medication. She feels as if she is very weak. She lives alone. She denies fevers and chills. Review of Systems 10-point ROS is otherwise unremarkable Physical Examination - Vital Signs Temperature: 98.1 F Blood Pressure: 150/98 Pulse: 71 Respirations: 16 Pulse Ox (%): 98 - Physical Exam General: Alert, Oriented x3 HEENT: Atraumatic, Normocephalic Neck: Supple Respiratory: Clear to auscultation bilaterally Cardiovascular: No edema Gastrointestinal: Normal bowel sounds, Soft and benign Musculoskeletal: No clubbing, No swelling, No erythema, No tenderness Neurological: Normal gait, Normal speech, Normal strength at 5/5 x4 extr - Studies Laboratory Data (last 24 hrs) 03/08/25 03/08/25 03/08/25 00:00 00:00 00:00 WBC 5.60 Hgb 11.0 L Hct 32.5 L Plt Count 163 PT 11.5 INR 1.01 Sodium 146 H Potassium 3.6 BUN 20 H Creatinine 1.48 H Glucose 105 Magnesium 2.1 Total Bilirubin 0.5 AST 16 ALT < 14 Alkaline Phosphatase 70 Assessment And Plan - Plan 1. Multiple falls secondary to deconditioned status - CT of head, C-spine, chest x-ray all unremarkable, show no fracture or dislocation - Manage supportively: Pain control, PT/OT eval - May need [facility] upon discharge 2. History of essential hypertension - Resumed amlodipine 3. History of atrial fibrillation - Resumed amiodarone - No anticoagulation in light of history of multiple falls 4. Acute renal failure secondary to prerenal azotemia - Creatinine currently at 1.48. Baseline of 1.2 - On IV fluids 5. Hypernatremia - Encourage patient to drink water to 150 mL every 6 hours 6. Elevated blood pressure - Will continue to monitor. Within acceptable range given age DVT prophylaxis - Subcu Lovenox Disposition: PT/OT eval to determine disposition
[2025-03-09] MEDS: ACETAMINOPHEN 500 MG TAB PO PRN (17:50)
[2025-03-09] MEDS ORDERED: HYDROMORPHONE HCL 1 MG/ML INJ IV PRN (20:30)
[2025-03-11 08:10] LABS: Absolute Eosinophils 0.1 K/uL (0-0.5); Absolute Lymphocytes (CBC) 1.6 K/uL (0.7-4.9); Absolute Monocytes 0.5 K/uL (0.1-1.3); Absolute Neutrophil 3.8 K/uL (1.8-8.0); Basophils % 0.7 % (0-1.3); Eosinophils % 2.2 % (0-4.4); Hematocrit 37.6 % (36.0-45.0); Hemoglobin 12.5 g/dL (12.0-15.0); Lymphocytes % 26.1 % (15.3-44.8); MCH 31.4 pg (27.0-35.0); MCHC 33.3 g/dL (32.0-36.0); MCV 94.2 fL (80-100); MPV 8.2 fL (7.6-11.3); Monocytes % 7.5 % (3.3-12.3); Neutrophils % 63.5 % (41.7-73.7); Nucleated Red Blood Cells % 0.2 % (0-0); Platelets 174 thou/uL (152-406); RBC Red Blood Cell Count 3.99 M/uL (3.86-4.86); Red Cell Distribution Width 17.1 % (12.1-15.2)
[2025-03-11 08:29] LABS: Anion Gap 7.2 mEq/L (5.0-15.0); Magnesium 2.5 mg/dL (1.6-2.4); Potassium 4.2 mEq/L (3.5-5.1)
[2025-03-11] MEDS: ONDANSETRON 4 MG/2 ML VIAL IV PRN (11:14)
--- NOTE | 2025-03-11 11:39 | P.PN ---
Subjective Date of Service: 03/11/25 Chief Complaint: Fall No acute events overnight Review of Systems 10-point ROS is otherwise unremarkable Physical Examination - Vital Signs Temperature: 97.7 F Blood Pressure: 132/75 Pulse: 75 Respirations: 16 Pulse Ox (%): 97 - Physical Exam General: Alert, In no apparent distress HEENT: Atraumatic Neck: Supple Respiratory: Clear to auscultation bilaterally, Diminished Cardiovascular: No edema Gastrointestinal: Normal bowel sounds Musculoskeletal: No clubbing, No swelling Neurological: Normal gait, Normal strength at 5/5 x4 extr Assessment And Plan - Plan 1. Multiple falls secondary to deconditioned status - CT of head, C-spine, chest x-ray all unremarkable, show no fracture or dislocation - Manage supportively: Pain control - PT/OT eval 2. History of essential hypertension - Resumed amlodipine 3. History of atrial fibrillation - Resumed amiodarone - No anticoagulation in light of history of multiple falls 4. Acute renal failure secondary to prerenal azotemia - Creatinine currently at 1.48. Baseline of 1.08 - resolved 5. DVT prophylaxis - Subcu Lovenox Disposition: PT/OT eval to determine disposition
[2025-03-12 06:53] LABS: Absolute Eosinophils 0.1 K/uL (0-0.5); Absolute Lymphocytes (CBC) 0.5 K/uL (0.7-4.9); Absolute Monocytes 0.3 K/uL (0.1-1.3); Absolute Neutrophil 2.8 K/uL (1.8-8.0); Basophils % 0.5 % (0-1.3); Eosinophils % 1.9 % (0-4.4); Hematocrit 37.7 % (36.0-45.0); Hemoglobin 12.6 g/dL (12.0-15.0); Lymphocytes % 12.8 % (15.3-44.8); MCH 31.5 pg (27.0-35.0); MCHC 33.5 g/dL (32.0-36.0); MCV 94.2 fL (80-100); MPV 8.3 fL (7.6-11.3); Monocytes % 8.9 % (3.3-12.3); Neutrophils % 75.9 % (41.7-73.7); Nucleated Red Blood Cells % 0.3 % (0-0); Platelets 149 thou/uL (152-406); RBC Red Blood Cell Count 4.01 M/uL (3.86-4.86); Red Cell Distribution Width 16.5 % (12.1-15.2)
[2025-03-12 06:56] LABS: Anion Gap 8.5 mEq/L (5.0-15.0); Potassium 4.5 mEq/L (3.5-5.1)
--- NOTE | 2025-03-12 12:59 | P.PN ---
Subjective Date of Service: 03/12/25 Chief Complaint: Fall Subjective: No chest pain or shortness of breath. c/o nausea. No abdominal pain. No obvious bleeding. Looks comfortable in the bed. Objective: General appearance: Alert and comfortable CVS: Normal S1 and S2 Lungs: Clear to auscultation bilaterally Abdomen: Soft, bowel sounds present, no tenderness Extremities: No lower extremity edema Physical Examination - Vital Signs Temperature: 98.2 F Blood Pressure: 120/68 Pulse: 91 Respirations: 17 Pulse Ox (%): 98 Assessment And Plan - Plan 1. Multiple falls secondary to deconditioned status - CT of head, C-spine, chest x-ray all unremarkable, show no fracture or dislocation - Manage supportively: Pain control, PT/OT eval - May need [facility] upon discharge 2. History of essential hypertension - Resumed amlodipine 3. History of atrial fibrillation - Resumed amiodarone - No anticoagulation in light of history of multiple falls 4. CKD 3a: - DC IV fluids 5. Hypernatremia - Encourage patient to drink free water -Na better 6. Thyroid nodule on CT scan: Follow-up with PCP with ultrasound.
[2025-03-13 06:50] LABS: Absolute Eosinophils 0.1 K/uL (0-0.5); Absolute Lymphocytes (CBC) 1.1 K/uL (0.7-4.9); Absolute Monocytes 0.7 K/uL (0.1-1.3); Absolute Neutrophil 3.3 K/uL (1.8-8.0); Basophils % 0.8 % (0-1.3); Eosinophils % 1.2 % (0-4.4); Hematocrit 40.7 % (36.0-45.0); Hemoglobin 13.7 g/dL (12.0-15.0); Lymphocytes % 21.3 % (15.3-44.8); MCH 32.2 pg (27.0-35.0); MCHC 33.6 g/dL (32.0-36.0); MCV 95.8 fL (80-100); MPV 8.8 fL (7.6-11.3); Monocytes % 13.9 % (3.3-12.3); Neutrophils % 62.8 % (41.7-73.7); Nucleated Red Blood Cells % 0.3 % (0-0); Platelets 141 thou/uL (152-406); RBC Red Blood Cell Count 4.25 M/uL (3.86-4.86)
[2025-03-13 06:58] LABS: Anion Gap 8.3 mEq/L (5.0-15.0); Potassium 4.3 mEq/L (3.5-5.1)
--- NOTE | 2025-03-13 16:13 | P.PN ---
Subjective Date of Service: 03/13/25 Patient has a lot of social issues and unable to go back home. Working on [facility]. She was recently there a few months ago and will request to go back there for therapy. Continue with medication for rate control. Review of Systems 10-point ROS is otherwise unremarkable Physical Examination - Vital Signs Temperature: 96.9 F Blood Pressure: 115/68 Pulse: 87 Respirations: 18 Pulse Ox (%): 97 - Physical Exam General: Alert, In no apparent distress, Oriented x3, Cachectic Respiratory: Clear to auscultation bilaterally, Normal air movement Cardiovascular: Regular rate/rhythm, Normal S1 S2, No murmurs Gastrointestinal: Normal bowel sounds, Soft and benign, Non-distended, No tenderness Musculoskeletal: No clubbing, No swelling, No tenderness Neurological: Cranial nerves 3-12 intact - Studies Medications List Reviewed: Yes Assessment & Plan - Problems (Diagnosis) (1) Atrial fibrillation Current Visit: No Status: Acute (2) Congestive heart failure Current Visit: No Status: Acute (3) Failure to thrive in adult Current Visit: No Status: Acute (4) Generalized weakness Current Visit: No Status: Acute - Plan Plan: 1. Atrial fibrillation; continue with medication for rate control 2. Generalized weakness; continue with physical therapy evaluation and out of bed and ambulate. Patient's long-term prognosis is to where she will probably need to be out of facility going forward. 3. Congestive heart failure; patient compensated. 4. Hypercalcemia; will correct accordingly 5. GI DVT prophylaxis Discharge Plan: Long-Term Plan to discharge in: Greater than 2 days - Advance Directives Does patient have a Living Will: No Does patient have a Durable POA for Healthcare: No - Code Status/Comfort Care Code Status Assessed: Yes Code Status: Full Code Critical Care: No Time Spent Managing PTS Care (In Minutes): 35
[2025-03-14 05:37] VITALS: BMI 18.7
[2025-03-14 07:42] LABS: Absolute Eosinophils 0.1 K/uL (0-0.5); Absolute Lymphocytes (CBC) 1.2 K/uL (0.7-4.9); Absolute Monocytes 0.6 K/uL (0.1-1.3); Absolute Neutrophil 3.3 K/uL (1.8-8.0); Basophils % 0.8 % (0-1.3); Eosinophils % 2.3 % (0-4.4); Hematocrit 38.1 % (36.0-45.0); Hemoglobin 12.7 g/dL (12.0-15.0); Lymphocytes % 22.5 % (15.3-44.8); MCH 31.7 pg (27.0-35.0); MCHC 33.4 g/dL (32.0-36.0); MCV 95.1 fL (80-100); MPV 8.7 fL (7.6-11.3); Monocytes % 10.8 % (3.3-12.3); Neutrophils % 63.6 % (41.7-73.7); Nucleated Red Blood Cells % 0.1 % (0-0); Platelets 174 thou/uL (152-406); Red Cell Distribution Width 16.7 % (12.1-15.2)
[2025-03-14 08:03] LABS: Anion Gap 11.7 mEq/L (5.0-15.0); Potassium 3.7 mEq/L (3.5-5.1)
[2025-03-14] MEDS: POTASSIUM CL SA 10 MEQ TAB PO ONE (09:41)
--- NOTE | 2025-03-15 07:04 | P.PN ---
Date of Service: 03/14/25 Subjective Patient is clinically still weak and needing therapy to strengthen herself. Will try to get snf facility placement at this time. Physical Examination - Vital Signs Reviewed - Physical Exam General: Alert, In no apparent distress, Oriented x3, Cachectic Respiratory: Clear to auscultation bilaterally, Normal air movement Cardiovascular: Regular rate/rhythm, Normal S1 S2, No murmurs Gastrointestinal: Normal bowel sounds, Soft and benign, Non-distended, No tenderness Musculoskeletal: No clubbing, No swelling, No tenderness Neurological: Generalized weakness but no focal deficits - Studies Medications List Reviewed: Yes Assessment & Plan - Problems (Diagnosis) (1) Atrial fibrillation Current Visit: No Status: Acute (2) Congestive heart failure Current Visit: No Status: Acute (3) Failure to thrive in adult Current Visit: No Status: Acute (4) Generalized weakness Current Visit: No Status: Acute - Plan Continue with plan of care as mentioned below: 1. Atrial fibrillation; continue with medication for rate control 2. Generalized weakness; continue with physical therapy evaluation and out of bed and ambulate. Patient's long-term prognosis is to where she will probably need to be out of facility going forward. 3. Congestive heart failure; patient compensated. 4. Hypercalcemia; will correct accordingly 5. Hypoalbuminemia; continue with nutritional supplementation 6. GI DVT prophylaxis Discharge Plan: Intermediate Plan to discharge in: Greater than 2 days - Advance Directives Does patient have a Living Will: No Does patient have a Durable POA for Healthcare: No - Code Status/Comfort Care Code Status Assessed: Yes Code Status: Full Code Critical Care: No Time Spent Managing PTS Care (In Minutes): 35
--- NOTE | 2025-03-15 07:05 | P.PN ---
Date of Service: 03/15/25 Subjective Patient doing well with no new complaints. She got really participating a significant amount with therapy and will encourage her to start increasing her activity level. Otherwise, waiting for placement at [facility]. Physical Examination - Vital Signs Reviewed - Physical Exam General: Alert, In no apparent distress, Oriented x3, Cachectic Respiratory: Clear to auscultation bilaterally, Normal air movement Cardiovascular: Regular rate/rhythm, Normal S1 S2, No murmurs Gastrointestinal: Normal bowel sounds, Soft and benign, Non-distended, No tenderness Musculoskeletal: No clubbing, No swelling, No tenderness Neurological: Generalized weakness but no focal deficits - Studies Medications List Reviewed: Yes Assessment & Plan - Problems (Diagnosis) (1) Atrial fibrillation Current Visit: No Status: Acute (2) Congestive heart failure Current Visit: No Status: Acute (3) Failure to thrive in adult Current Visit: No Status: Acute (4) Generalized weakness Current Visit: No Status: Acute - Plan Continue with plan of care as mentioned below: 1. Atrial fibrillation; continue with medication for rate control 2. Generalized weakness; continue with physical therapy evaluation and will encourage patient to get out of bed and ambulate. 3. Congestive heart failure; patient compensated. 4. Hypercalcemia; will correct accordingly 5. Hypoalbuminemia; continue with nutritional supplementation 6. GI DVT prophylaxis Discharge Plan: [facility] Plan to discharge in: Greater than 2 days - Advance Directives Does patient have a Living Will: No Does patient have a Durable POA for Healthcare: No - Code Status/Comfort Care Code Status Assessed: Yes Code Status: Full Code Critical Care: No Time Spent Managing PTS Care (In Minutes): 35
[2025-03-15 07:09] LABS: Absolute Basophils 0.1 K/uL (0-0.5); Absolute Lymphocytes (CBC) 1.3 K/uL (0.7-4.9); Absolute Monocytes 0.6 K/uL (0.1-1.3); Absolute Neutrophil 2.9 K/uL (1.8-8.0); Basophils % 1.5 % (0-1.3); Hematocrit 38.5 % (36.0-45.0); Hemoglobin 12.9 g/dL (12.0-15.0); Lymphocytes % 26.9 % (15.3-44.8); MCH 31.6 pg (27.0-35.0); MCHC 33.4 g/dL (32.0-36.0); MCV 94.7 fL (80-100); MPV 8.8 fL (7.6-11.3); Monocytes % 11.7 % (3.3-12.3); Neutrophils % 58.9 % (41.7-73.7); Platelets 195 thou/uL (152-406); RBC Red Blood Cell Count 4.07 M/uL (3.86-4.86); Red Cell Distribution Width 16.5 % (12.1-15.2)
[2025-03-15 07:25] LABS: Anion Gap 9.4 mEq/L (5.0-15.0); Potassium 4.4 mEq/L (3.5-5.1)
[2025-03-16 06:22] LABS: Absolute Eosinophils 0.1 K/uL (0-0.5); Absolute Lymphocytes (CBC) 1.6 K/uL (0.7-4.9); Absolute Monocytes 0.4 K/uL (0.1-1.3); Absolute Neutrophil 2.7 K/uL (1.8-8.0); Basophils % 0.7 % (0-1.3); Eosinophils % 2.2 % (0-4.4); Hematocrit 39.8 % (36.0-45.0); Hemoglobin 13.6 g/dL (12.0-15.0); MCH 32.3 pg (27.0-35.0); MCHC 34.2 g/dL (32.0-36.0); MCV 94.6 fL (80-100); MPV 9.1 fL (7.6-11.3); Neutrophils % 55.1 % (41.7-73.7); Platelets 210 thou/uL (152-406); RBC Red Blood Cell Count 4.21 M/uL (3.86-4.86); Red Cell Distribution Width 16.7 % (12.1-15.2)
[2025-03-16 06:36] LABS: Anion Gap 11.2 mEq/L (5.0-15.0); Potassium 4.2 mEq/L (3.5-5.1)
--- NOTE | 2025-03-16 06:56 | P.PN ---
Date of Service: 03/16/25 Subjective Patient continues to improve with no new complaints. Clinical symptoms are stable. Awaiting for placement. Physical Examination - Vital Signs Reviewed - Physical Exam General: Alert, In no apparent distress, Oriented x3, Cachectic Respiratory: Clear to auscultation bilaterally, Normal air movement Cardiovascular: Regular rate/rhythm, Normal S1 S2, No murmurs Gastrointestinal: Normal bowel sounds, Soft and benign, Non-distended, No tenderness Musculoskeletal: No clubbing, No swelling, No tenderness Neurological: Generalized weakness but no focal deficits - Studies Medications List Reviewed: Yes Assessment & Plan - Problems (Diagnosis) (1) Atrial fibrillation Current Visit: No Status: Acute (2) Congestive heart failure Current Visit: No Status: Acute (3) Failure to thrive in adult Current Visit: No Status: Acute (4) Generalized weakness Current Visit: No Status: Acute - Plan Continue with plan of care as mentioned below: 1. Atrial fibrillation; continue with medication for rate control 2. Generalized weakness; continue with physical therapy evaluation and will encourage patient to get out of bed and ambulate. 3. Congestive heart failure; patient compensated. 4. Hypercalcemia; will correct accordingly 5. Hypoalbuminemia; continue with nutritional supplementation 6. GI DVT prophylaxis Discharge Plan: [facility] Plan to discharge in: Greater than 2 days - Advance Directives Does patient have a Living Will: No Does patient have a Durable POA for Healthcare: No - Code Status/Comfort Care Code Status Assessed: Yes Code Status: Full Code Critical Care: No Time Spent Managing PTS Care (In Minutes): 35
[2025-03-16 08:03] LABS: Band Neutrophils 1 % (0-1); Blood Morphology Comment NOT SEEN (NOT SEEN); Differential Total Cells Count 100; Eosinophils 2 % (0-3); Lymphocytes 28 % (15-42); Metamyelocytes 1 % (0-0); Monocytes 9 % (0-10); Platelet Estimate ADEQ; Segmented Neutrophils 59 % (40-80)
[2025-03-17 07:22] LABS: Absolute Eosinophils 0.1 K/uL (0-0.5); Absolute Monocytes 0.6 K/uL (0.1-1.3); Absolute Neutrophil 4.3 K/uL (1.8-8.0); Basophils % 0.5 % (0-1.3); Hematocrit 41.5 % (36.0-45.0); Hemoglobin 14.1 g/dL (12.0-15.0); Lymphocytes % 28.1 % (15.3-44.8); MCH 32.1 pg (27.0-35.0); MCHC 33.9 g/dL (32.0-36.0); MCV 94.7 fL (80-100); MPV 9.1 fL (7.6-11.3); Monocytes % 8.4 % (3.3-12.3); Platelets 232 thou/uL (152-406); RBC Red Blood Cell Count 4.39 M/uL (3.86-4.86); Red Cell Distribution Width 16.5 % (12.1-15.2)
[2025-03-17 07:40] LABS: Anion Gap 7.4 mEq/L (5.0-15.0); Potassium 4.4 mEq/L (3.5-5.1)
[2025-03-17] MEDS: ONDANSETRON 4 MG (ODT) TAB PO PRN (13:52)
--- NOTE | 2025-03-18 01:13 | P.PN ---
Date of Service: 03/17/25 Subjective Patient continues to do well with no new complaints. Waiting for placement. Physical Examination - Vital Signs Reviewed - Physical Exam General: Alert, In no apparent distress, Oriented x3, Cachectic Respiratory: Clear to auscultation bilaterally Cardiovascular: Regular rate/rhythm, Normal S1 S2, No murmurs Gastrointestinal: Normal bowel sounds, Soft and benign, Non-distended, No tenderness Musculoskeletal: No clubbing, No swelling, No tenderness Neurological: Generalized weakness but no focal deficits - Studies Medications List Reviewed: Yes Assessment & Plan - Problems (Diagnosis) (1) Atrial fibrillation Current Visit: No Status: Acute (2) Congestive heart failure Current Visit: No Status: Acute (3) Failure to thrive in adult Current Visit: No Status: Acute (4) Generalized weakness Current Visit: No Status: Acute - Plan Continue with plan of care as mentioned below: 1. Atrial fibrillation; continue with medication for rate control ; continue with diuresing 2. Generalized weakness; continue with physical therapy evaluation and will encourage patient to get out of bed and ambulate. 3. Congestive heart failure; patient compensated. 4. Hypercalcemia; will correct accordingly; labs are pending 5. Hypoalbuminemia; continue with nutritional supplementation 6. GI DVT prophylaxis Discharge Plan: Long Term Plan to discharge in: Greater than 2 days - Advance Directives Does patient have a Living Will: No Does patient have a Durable POA for Healthcare: No - Code Status/Comfort Care Code Status Assessed: Yes Code Status: Full Code Critical Care: No Time Spent Managing PTS Care (In Minutes): 35
[2025-03-18 06:19] LABS: Absolute Basophils 0.1 K/uL (0-0.5); Absolute Eosinophils 0.1 K/uL (0-0.5); Absolute Lymphocytes (CBC) 1.9 K/uL (0.7-4.9); Absolute Monocytes 0.5 K/uL (0.1-1.3); Absolute Neutrophil 4.2 K/uL (1.8-8.0); Basophils % 1.6 % (0-1.3); Eosinophils % 1.1 % (0-4.4); Hematocrit 39.8 % (36.0-45.0); Hemoglobin 13.4 g/dL (12.0-15.0); Lymphocytes % 28.6 % (15.3-44.8); MCH 31.6 pg (27.0-35.0); MCHC 33.6 g/dL (32.0-36.0); MCV 93.8 fL (80-100); MPV 8.7 fL (7.6-11.3); Monocytes % 7.1 % (3.3-12.3); Neutrophils % 61.6 % (41.7-73.7); Nucleated Red Blood Cells % 0.1 % (0-0); Platelets 278 thou/uL (152-406); RBC Red Blood Cell Count 4.24 M/uL (3.86-4.86); Red Cell Distribution Width 16.3 % (12.1-15.2)
[2025-03-18 06:36] LABS: Albumin 2.7 g/dL (3.4-5.0); Albumin/Globulin Ratio 0.6 (1.1-1.8); Alkaline Phosphatase 78 U/L (45-117); Anion Gap 10.5 mEq/L (5.0-15.0); BUN Blood Urea Nitrogen 24 mg/dL (7-18); Bicarbonate 26 mEq/L (21-32); Bilirubin Total 0.5 mg/dL (0.2-1.0); Globulin 4.3 g/dL (2.3-3.5); Glomerular Filtration Rate 47 ml/min (=/>90); Glucose Level 92 mg/dL (74-106); Potassium 4.5 mEq/L (3.5-5.1); Sodium Level 137 mEq/L (136-145)
[2025-03-18 06:38] LABS: ALT/SGPT < 14 U/L (13-56); AST/SGOT < 10 U/L (15-37)
--- NOTE | 2025-03-18 07:37 | RAD REPORT ---
EXAM;Thyroid Para Parotid Gland CLINICAL INDICATION: Thyroid nodule. Abnormal enzymes COMPARISON: CT March 07, 2025 FINDINGS: Right lobe of thyroid gland measures 2.6 x 0.7 x 0.5 cm. It contains a 3 mm cyst.. Normal echotexture Left lobe of thyroid gland measures 3.5 x 1.8 x 1.8 cm. Normal echotexture 1.9 cm nodule inferior pole left lower lobe thyroid containing microcalcifications. It has smooth mar gins it is mostly solid but contains small cystic areas. Isthmus unremarkable IMPRESSION: 1.9 cm nodule left lobe thyroid gland TR4. Ultrasound-guided fine-needle aspiration recommended
[2025-03-18] MEDS ORDERED: PAMIDRONATE DISOD 30 MG VIAL IV ONE (09:00)
[2025-03-18] MEDS: PAMIDRONATE 90 MG in NA CHLORIDE 0.9% 250 ML IV SCH (10:40)
--- NOTE | 2025-03-20 02:56 | P.PN ---
Date of Service: 03/18/25 Subjective Patient continues to do well with no new complaints. Waiting for placement. Physical Examination - Vital Signs Reviewed - Physical Exam General: Alert, In no apparent distress, Oriented x3, Cachectic Respiratory: Clear to auscultation bilaterally Cardiovascular: Regular rate/rhythm, Normal S1 S2, No murmurs Gastrointestinal: Normal bowel sounds, Soft and benign, Non-distended, No tenderness Musculoskeletal: No clubbing, No swelling, No tenderness Neurological: Generalized weakness but no focal deficits - Studies Medications List Reviewed: Yes Assessment & Plan - Problems (Diagnosis) (1) Atrial fibrillation Current Visit: No Status: Acute (2) Congestive heart failure Current Visit: No Status: Acute (3) Failure to thrive in adult Current Visit: No Status: Acute (4) Generalized weakness Current Visit: No Status: Acute (5) Bipolar disorder Current Visit: No Status: Chronic (6) Hypercalcemia secondary to lithium Current Visit: No Status: Acute - Plan Continue with plan of care as mentioned below: 1. Atrial fibrillation; continue with medication for rate control; continue with diuresing 2. Generalized weakness; continue with physical therapy evaluation and will encourage patient to get out of bed and ambulate. 3. Congestive heart failure; patient compensated. 4. Hypercalcemia secondary to lithium; will correct accordingly; labs are pending. 5. Hypoalbuminemia; continue with nutritional supplementation 6. Bipolar disorder; patient currently on lithium which is the most likely cause of hypercalcemia. 7. GI DVT prophylaxis Discharge Plan: [facility] or Home with (Pt lives at [facility]) Plan to discharge in: Greater than 2 days - Advance Directives Does patient have a Living Will: No Does patient have a Durable POA for Healthcare: No - Code Status/Comfort Care Code Status Assessed: Yes Code Status: Full Code Critical Care: No Time Spent Managing PTS Care (In Minutes): 20
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
[2025-03-20 07:07] LABS: Absolute Basophils 0.1 K/uL (0-0.5); Absolute Eosinophils 0.1 K/uL (0-0.5); Absolute Lymphocytes (CBC) 1.6 K/uL (0.7-4.9); Absolute Monocytes 0.5 K/uL (0.1-1.3); Absolute Neutrophil 5.2 K/uL (1.8-8.0); Basophils % 1.1 % (0-1.3); Eosinophils % 1.1 % (0-4.4); Hematocrit 39.2 % (36.0-45.0); Hemoglobin 13.3 g/dL (12.0-15.0); Lymphocytes % 21.2 % (15.3-44.8); MCH 32.4 pg (27.0-35.0); MCHC 33.9 g/dL (32.0-36.0); MCV 95.5 fL (80-100); MPV 8.9 fL (7.6-11.3); Monocytes % 6.9 % (3.3-12.3); Neutrophils % 69.7 % (41.7-73.7); Nucleated Red Blood Cells % 0.1 % (0-0); Platelets 242 thou/uL (152-406); Red Cell Distribution Width 16.1 % (12.1-15.2)
[2025-03-20 07:14] LABS: Anion Gap 6.2 mEq/L (5.0-15.0); Magnesium 2.6 mg/dL (1.6-2.4); Potassium 4.2 mEq/L (3.5-5.1)
[2025-03-20 07:56] LABS: Band Neutrophils 2 % (0-1); Blood Morphology Comment NOT SEEN (NOT SEEN); Differential Total Cells Count 100; Lymphocytes 24 % (15-42); Metamyelocytes 1 % (0-0); Monocytes 6 % (0-10); Platelet Estimate ADEQ; Segmented Neutrophils 67 % (40-80)
--- NOTE | 2025-03-20 14:58 | P.PN ---
Subjective Date of Service: 03/20/25 Chief Complaint: Fall Subjective: No chest pain or shortness of breath. No nausea. No abdominal pain. No obvious bleeding. Looks comfortable in the bed. Objective: General appearance: Alert and comfortable CVS: Normal S1 and S2 Lungs: Clear to auscultation bilaterally Abdomen: Soft, bowel sounds present, no tenderness Extremities: No lower extremity edema Physical Examination - Vital Signs Temperature: 97.8 F Blood Pressure: 128/88 Pulse: 60 Respirations: 16 Pulse Ox (%): 98 - Studies Medications List Reviewed: Yes Assessment And Plan - Plan 1. Multiple falls secondary to deconditioned status - CT of head, C-spine, chest x-ray all unremarkable, show no fracture or dislocation - Manage supportively: Pain control, PT/OT eval - May need retirement upon discharge 2. History of essential hypertension - continue amlodipine 3. History of atrial fibrillation - Resumed amiodarone - No anticoagulation in light of history of multiple falls 4. CKD 3a: stable - DC IV fluids 5. Hypernatremia - Encourage patient to drink free water -Na better 6. Thyroid nodule on CT scan: ultrasound showed 1.9 cm nodule, rec FNS, o/p f/u with endocrine / ENT. 7. Hypercalcemia: Better now, PTH increased, vitamin D borderline low, need follow-up with PCP and endocrinology. 7. Bipolar disorder; patient currently on lithium which is the most likely cause of hypercalcemia. She is on Depakote as well. Will check lithium level. Plan discussed with patient and nursing staff, discussed with case management team, waiting for placement. .
[2025-03-20] MEDS: LORazepam 2 MG/ML VIAL IV ONE (19:54)
[2025-03-21 09:54] LABS: Valproic Acid (Depakene) Level 92.6 mcg/mL (50.0-100.0)
[2025-03-21 10:10] LABS: Absolute Basophils 0.1 K/uL (0-0.5); Absolute Lymphocytes (CBC) 1.4 K/uL (0.7-4.9); Absolute Monocytes 0.6 K/uL (0.1-1.3); Absolute Neutrophil 6.2 K/uL (1.8-8.0); Basophils % 0.7 % (0-1.3); Eosinophils % 0.5 % (0-4.4); Hematocrit 45.2 % (36.0-45.0); Hemoglobin 15.2 g/dL (12.0-15.0); Lymphocytes % 17.4 % (15.3-44.8); MCH 32.3 pg (27.0-35.0); MCHC 33.6 g/dL (32.0-36.0); MCV 96.1 fL (80-100); MPV 9.2 fL (7.6-11.3); Monocytes % 7.3 % (3.3-12.3); Neutrophils % 74.1 % (41.7-73.7); Platelets 327 thou/uL (152-406); RBC Red Blood Cell Count 4.71 M/uL (3.86-4.86); Red Cell Distribution Width 15.9 % (12.1-15.2)
[2025-03-21 12:06] LABS: Band Neutrophils 1 % (0-1); Blood Morphology Comment NOT SEEN (NOT SEEN); Differential Total Cells Count 100; Lymphocytes 16 % (15-42); Metamyelocytes 1 % (0-0); Monocytes 7 % (0-10); Myelocytes 1 % (0-0); Platelet Estimate ADEQ; Segmented Neutrophils 73 % (40-80)
--- NOTE | 2025-03-21 13:17 | P.PN ---
Subjective Date of Service: 03/21/25 Chief Complaint: Fall Subjective: No chest pain or shortness of breath. No nausea. No abdominal pain. No obvious bleeding. Looks comfortable in the bed. Objective: General appearance: Alert and comfortable CVS: Normal S1 and S2 Lungs: Clear to auscultation bilaterally Abdomen: Soft, bowel sounds present, no tenderness Extremities: No lower extremity edema Physical Examination - Vital Signs Temperature: 97.2 F Blood Pressure: 140/98 Pulse: 81 Respirations: 17 Pulse Ox (%): 98 - Studies Medications List Reviewed: Yes Assessment And Plan - Plan 1. Multiple falls secondary to deconditioned status - CT of head, C-spine, chest x-ray all unremarkable, show no fracture or dislocation - Manage supportively: Pain control, PT/OT eval - May need half-way upon discharge 2. History of essential hypertension - continue amlodipine 3. History of atrial fibrillation - Resumed amiodarone - No anticoagulation in light of history of multiple falls 4. CKD 3a: stable - off IV fluids 5. Hypernatremia - Encourage patient to drink free water -Na better 6. Thyroid nodule on CT scan: ultrasound showed 1.9 cm nodule, rec FNS, o/p f/u with endocrine / ENT. 7. Hypercalcemia: Better now, PTH increased, vitamin D borderline low, need follow-up with PCP and endocrinology. 7. Bipolar disorder; patient currently on lithium which is the most likely cause of hypercalcemia. She is on Depakote as well. lithium and valproic acid levels are high normal, monitor closely for toxicity. Plan discussed with patient (not sure how much she follows) and nursing staff, discussed with case management team, waiting for placement. .
[2025-03-21] MEDS: LORazepam 2 MG/ML VIAL ONE (22:15)
[2025-03-21] MEDS: LORazepam 2 MG/ML VIAL IV ONE (22:18)
[2025-03-22 06:32] LABS: Absolute Basophils 0.1 K/uL (0-0.5); Absolute Lymphocytes (CBC) 1.9 K/uL (0.7-4.9); Absolute Monocytes 0.9 K/uL (0.1-1.3); Absolute Neutrophil 7.7 K/uL (1.8-8.0); Basophils % 1.2 % (0-1.3); Eosinophils % 0.3 % (0-4.4); Hematocrit 46.3 % (36.0-45.0); Hemoglobin 15.5 g/dL (12.0-15.0); Lymphocytes % 17.4 % (15.3-44.8); MCH 31.8 pg (27.0-35.0); MCHC 33.4 g/dL (32.0-36.0); MCV 95.1 fL (80-100); Monocytes % 8.9 % (3.3-12.3); Neutrophils % 72.2 % (41.7-73.7); Nucleated Red Blood Cells % 0.1 % (0-0); Platelets 323 thou/uL (152-406); RBC Red Blood Cell Count 4.87 M/uL (3.86-4.86); Red Cell Distribution Width 16.1 % (12.1-15.2)
[2025-03-22 06:49] LABS: Anion Gap 9.2 mEq/L (5.0-15.0); Potassium 4.2 mEq/L (3.5-5.1)
--- NOTE | 2025-03-22 10:17 | RAD REPORT ---
EXAM: CT brain without contrast HISTORY: Confusion COMPARISON: 2023 TECHNIQUE: Multiple contiguous axial images were obtained and a CT of the brain without contrast.. Sagittal and coronal reconstruction performed. Automated exposure control, adjustment of the mA and/or kV according to patient size, and/or iterative reconstruction. Unless otherwise specified, incidental f indings do not require dedicated imaging follow-up FINDINGS: An intracranial bleed is not seen Ventricles are normal caliber No extra-axial fluid collection noted No significant hypodensity within the brain No fluid within the visualized sinuses or mastoids noted. IMPRESSION: No acute intracranial abnormality noted. If the patient continues to have symptoms to suggest an acute intracranial abnormality then MRI of th e brain would be recommended.
--- NOTE | 2025-03-22 10:30 | RAD REPORT ---
Procedure: Chest Single View HISTORY: Confusion COMPARISON: November 2024 FINDINGS: The lungs appear clear of acute infiltrate. No significant pleural effusion noted. The heart is mildly enlarged. Pacemaker leads in place IMPRESSION: No acute abnormality is displayed.
--- NOTE | 2025-03-22 14:42 | P.PN ---
Subjective Date of Service: 03/22/25 Chief Complaint: Fall Subjective: No chest pain or shortness of breath. No nausea. No abdominal pain. No obvious bleeding. Looks comfortable in the bed. somewhat confused today Objective: General appearance: Alert and comfortable CVS: Normal S1 and S2 Lungs: Clear to auscultation bilaterally Abdomen: Soft, bowel sounds present, no tenderness Extremities: No lower extremity edema SYSTEM ARCHITECT; follows some commands but confused Physical Examination - Vital Signs Temperature: 97.8 F Blood Pressure: 129/88 Pulse: 91 Respirations: 17 Pulse Ox (%): 94 - Studies Medications List Reviewed: Yes Assessment And Plan - Plan 1. Multiple falls secondary to deconditioned status - CT of head, C-spine, chest x-ray all unremarkable, show no fracture or dislocation - Manage supportively: Pain control, PT/OT eval - May need intermediate upon discharge 2. History of essential hypertension - continue amlodipine 3. History of atrial fibrillation - Resumed amiodarone - No anticoagulation in light of history of multiple falls 4. CKD 3a: stable - off IV fluids 5. Hypernatremia - Encouraged patient to drink free water -Na better 6. Thyroid nodule on CT scan: ultrasound showed 1.9 cm nodule, rec FNS, o/p f/u with endocrine / ENT. 7. Hypercalcemia: Better now, PTH increased, vitamin D borderline low, need follow-up with PCP and endocrinology. 8. Bipolar disorder; patient currently on lithium which is the most likely cause of hypercalcemia. She is on Depakote as well. lithium and valproic acid levels are high normal, monitor closely for toxicity. 9. Encephalopathy: CT head negative, chest x-ray negative, white count normal, no fever, hemoglobin trending up, creatinine little on the high side as well, looks like she is getting dehydrated, start IV fluids, recheck depakote and lithium levels, monitor closely. Plan discussed with nursing staff, discussed with case management team, waiting for placement. .
[2025-03-22] MEDS: NA CHLORIDE 0.9% 1,000 ML IV SCH (15:04)
[2025-03-22] MEDS: MELATONIN 3 MG TABLET PO PRN (19:51)
[2025-03-22] MEDS: ENSURE ENLIVE 237 ML CAN PO SCH (19:52)
[2025-03-23 06:17] LABS: Absolute Basophils 0.1 K/uL (0-0.5); Absolute Monocytes 1.1 K/uL (0.1-1.3); Absolute Neutrophil 6.9 K/uL (1.8-8.0); Basophils % 0.5 % (0-1.3); Eosinophils % 0.4 % (0-4.4); Hematocrit 42.6 % (36.0-45.0); Hemoglobin 14.4 g/dL (12.0-15.0); Lymphocytes % 19.4 % (15.3-44.8); MCH 32.2 pg (27.0-35.0); MCHC 33.8 g/dL (32.0-36.0); MCV 95.5 fL (80-100); Monocytes % 10.7 % (3.3-12.3); Nucleated Red Blood Cells % 0.2 % (0-0); Platelets 288 thou/uL (152-406); RBC Red Blood Cell Count 4.46 M/uL (3.86-4.86); Red Cell Distribution Width 16.2 % (12.1-15.2)
[2025-03-23 06:49] LABS: Anion Gap 5.9 mEq/L (5.0-15.0); Potassium 3.9 mEq/L (3.5-5.1); Valproic Acid (Depakene) Level 53.2 mcg/mL (50.0-100.0)
[2025-03-23 07:18] LABS: Specific Gravity 1.009 (1.005-1.030); Sqamous Epithelial <5 /HPF (None Seen); Urine Bacteria None Seen /HPF (<20); Urine Bilirubin NEGATIVE (Negative); Urine Blood Trace (Negative); Urine Clarity Clear (Clear); Urine Color Light-Yellow (Yellow); Urine Culture Reflex Order NOT NEEDED; Urine Glucose NEGATIVE (Negative); Urine Ketones NEGATIVE (Negative); Urine Microscopic Reflex YN ORDER UMIC; Urine Nitrite NEGATIVE (Negative); Urine Protein NEGATIVE (Negative); Urine RBC <5 /HPF (None Seen); Urine Urobilinogen Normal (Normal); Urine WBC <5 /HPF (<5)
--- NOTE | 2025-03-23 13:23 | P.PN ---
Subjective Date of Service: 03/23/25 Chief Complaint: Fall Subjective: No chest pain or shortness of breath. No nausea. No abdominal pain. No obvious bleeding. Looks comfortable in the bed. less confused today Objective: General appearance: Alert and comfortable, knows that she is in the hospital. CVS: Normal S1 and S2 Lungs: Clear to auscultation bilaterally Abdomen: Soft, bowel sounds present, no tenderness Extremities: No lower extremity edema Physical Examination - Vital Signs Temperature: 97.7 F Blood Pressure: 111/69 Pulse: 75 Respirations: 16 Pulse Ox (%): 98 - Studies Medications List Reviewed: Yes Assessment And Plan - Plan 1. Multiple falls secondary to deconditioned status - CT of head, C-spine, chest x-ray all unremarkable, show no fracture or dislocation - Manage supportively: Pain control, PT/OT eval - May need senior care upon discharge 2. History of essential hypertension - continue amlodipine 3. History of atrial fibrillation - Resumed amiodarone - No anticoagulation in light of history of multiple falls 4. CKD 3a: stable - off IV fluids 5. Hypernatremia - Encouraged patient to drink free water -Na better 6. Thyroid nodule on CT scan: ultrasound showed 1.9 cm nodule, rec FNS, o/p f/u with endocrine / ENT. 7. Hypercalcemia: Better now, PTH increased, vitamin D borderline low, need follow-up with PCP and endocrinology. 8. Bipolar disorder; patient currently on lithium which is the most likely cause of hypercalcemia. She is on Depakote as well. lithium and valproic acid levels are normal, monitor closely for toxicity. 9. Encephalopathy: Improving, CT head on 03/22 negative, chest x-ray negative, white count normal, no fever, looks dehydrated, started IV fluids, rechecked depakote and lithium levels, normal, monitor closely. Plan discussed with nursing staff, discussed with case management team, waiting for placement. 79-year-old patient admitted with multiple falls, waiting for long-term placement. Hypercalcemia, may be related to lithium, PTH is increased, vitamin D level borderline low, need follow-up with endocrinology. Poor oral intake, getting dehydrated, started on IV fluids, discussed with nursing staff to feed her. .
[2025-03-23] MEDS: hydrOXYzine HCL 25 MG TAB PO SCH (20:11)
[2025-03-23] MEDS: LORazepam 2 MG/ML VIAL IV ONE (22:39)
[2025-03-24] MEDS: VALPROIC ACID 250 MG/5 ML OSYR PO SCH (11:37)
--- NOTE | 2025-03-24 12:41 | P.PN ---
Date of Service: 03/24/25 Subjective: Bedside swallow test being done on my arrival. she is very weak and unable to take in more than a straw at a time. discussed with nursing at bedside. Will need formal swallow study as well as possible PEG tube if family decides to pursue that route Review of Systems 10-point ROS is otherwise unremarkable Physical Examination - Vital Signs Temperature: 98.1 F Blood Pressure: 150/98 Pulse: 71 Respirations: 16 Pulse Ox (%): 98 - Physical Exam General: Alert, Oriented x3 HEENT: Atraumatic, Normocephalic, temporal wasting Neck: Supple Respiratory: Clear to auscultation bilaterally Cardiovascular: No edema Gastrointestinal: Normal bowel sounds, Soft and benign Musculoskeletal: No clubbing, No swelling, No erythema, No tenderness Neurological: Normal gait, Normal speech, Normal strength at 5/5 x4 extr - Studies Laboratory Data (last 24 hrs) 03/08/25 03/08/25 03/08/25 00:00 00:00 00:00 WBC 5.60 Hgb 11.0 L Hct 32.5 L Plt Count 163 PT 11.5 INR 1.01 Sodium 146 H Potassium 3.6 BUN 20 H Creatinine 1.48 H Glucose 105 Magnesium 2.1 Total Bilirubin 0.5 AST 16 ALT < 14 Alkaline Phosphatase 70 Assessment And Plan - Plan 1. Multiple falls secondary to deconditioned status - CT of head, C-spine, chest x-ray all unremarkable, show no fracture or dislocation - Manage supportively: Pain control, PT/OT eval - May need snf upon discharge 2. History of essential hypertension - Resumed amlodipine 3. History of atrial fibrillation - Resumed amiodarone - No anticoagulation in light of history of multiple falls 4. Acute renal failure secondary to prerenal azotemia. Baseline of 1.1 - Approaching baseline levels. 5. Hypernatremia - resolved 6. Elevated blood pressure - Will continue to monitor. Within acceptable range given age 7. moderate protein calorie malnutrition - attempt bedside swallow. may need more formal swallowing study and if unable to complete may consider peg tube DVT prophylaxis - Subcu Lovenox Disposition: PT/OT eval to determine disposition
[2025-03-25] MEDS: LORazepam 2 MG/ML VIAL IV ONE (00:30)
[2025-03-25 06:09] LABS: Absolute Basophils 0.1 K/uL (0-0.5); Absolute Eosinophils 0.1 K/uL (0-0.5); Absolute Lymphocytes (CBC) 1.9 K/uL (0.7-4.9); Absolute Monocytes 1.5 K/uL (0.1-1.3); Absolute Neutrophil 6.8 K/uL (1.8-8.0); Basophils % 0.5 % (0-1.3); Eosinophils % 0.8 % (0-4.4); Hematocrit 38.9 % (36.0-45.0); Hemoglobin 12.7 g/dL (12.0-15.0); Lymphocytes % 18.2 % (15.3-44.8); MCH 31.9 pg (27.0-35.0); MCHC 32.7 g/dL (32.0-36.0); MCV 97.5 fL (80-100); MPV 8.5 fL (7.6-11.3); Neutrophils % 65.5 % (41.7-73.7); Nucleated Red Blood Cells % 0.1 % (0-0); Platelets 201 thou/uL (152-406); RBC Red Blood Cell Count 3.99 M/uL (3.86-4.86)
[2025-03-25 06:47] LABS: Anion Gap 6.5 mEq/L (5.0-15.0); Magnesium 2.5 mg/dL (1.6-2.4); Potassium 3.5 mEq/L (3.5-5.1)
[2025-03-25 08:50] LABS: Potassium 3.5 mEq/L (3.5-5.1)
[2025-03-25] MEDS: D5W 1,000 ML IV SCH ×2 (10:46→12:00)
[2025-03-25] MEDS: D5W 2,000 ML IV SCH (12:00)
[2025-03-25] MEDS: POTASSIUM CL 40 MEQ in NA CHLORIDE 0.9% 500 ML IV SCH (12:00)
[2025-03-25 13:01] LABS: Thyroid Stimulating Hormone 0.323 uIU/mL (0.358-3.740)
--- NOTE | 2025-03-25 15:35 | P.PN ---
Date of Service: 03/25/25 Subjective: Very confused and does not open eyes when being questioned. Will need formal swallow study as well as possible PEG tube if family decides to pursue that route Review of Systems 10-point ROS is otherwise unremarkable Physical Examination - Vital Signs Temperature: 98.1 F Blood Pressure: 150/98 Pulse: 71 Respirations: 16 Pulse Ox (%): 98 - Physical Exam General: Alert, Oriented x3 HEENT: Atraumatic, Normocephalic, temporal wasting Neck: Supple Respiratory: Clear to auscultation bilaterally Cardiovascular: No edema Gastrointestinal: Normal bowel sounds, Soft and benign Musculoskeletal: No clubbing, No swelling, No erythema, No tenderness Neurological: Normal gait, Normal speech, Normal strength at 5/5 x4 extr - Studies Laboratory Data (last 24 hrs) 03/08/25 03/08/25 03/08/25 00:00 00:00 00:00 WBC 5.60 Hgb 11.0 L Hct 32.5 L Plt Count 163 PT 11.5 INR 1.01 Sodium 146 H Potassium 3.6 BUN 20 H Creatinine 1.48 H Glucose 105 Magnesium 2.1 Total Bilirubin 0.5 AST 16 ALT < 14 Alkaline Phosphatase 70 Assessment And Plan - Plan 1. Multiple falls secondary to deconditioned status - CT of head, C-spine, chest x-ray all unremarkable, show no fracture or dislocation - Manage supportively: Pain control, PT/OT eval - May need group home upon discharge - May need ICU to closely monitor clinical status as patient does not able to eat or drink 2. Hypernatremia -Start D5W, consult nephrology 3. History of atrial fibrillation - Resumed amiodarone - No anticoagulation in light of history of multiple falls 4. Acute renal failure secondary to prerenal azotemia. Baseline of 1.1 - Approaching baseline levels. 5. Hypertension - Resume home amlodipine 6. Elevated blood pressure - Will continue to monitor. Within acceptable range given age 7. moderate protein calorie malnutrition - attempt bedside swallow. may need more formal swallowing study and if unable to complete may consider peg tube DVT prophylaxis - Subcu Lovenox Disposition: PT/OT eval to determine disposition
[2025-03-25 17:47] LABS: Specific Gravity < 1.005 (1.005-1.030); Urine Bilirubin NEGATIVE (Negative); Urine Blood Negative (Negative); Urine Clarity Clear (Clear); Urine Color Colorless (Yellow); Urine Glucose TRACE (Negative); Urine Ketones NEGATIVE (Negative); Urine Microscopic Reflex YN NO UMIC; Urine Nitrite NEGATIVE (Negative); Urine Protein NEGATIVE (Negative); Urine Urobilinogen Normal (Normal); Urine pH 6.5 (5.0-7.0)
[2025-03-25 22:52] LABS: AST/SGOT 12 U/L (15-37); Albumin 2.4 g/dL (3.4-5.0); Albumin/Globulin Ratio 0.8 (1.1-1.8); Alkaline Phosphatase 60 U/L (45-117); Anion Gap 5.8 mEq/L (5.0-15.0); BUN Blood Urea Nitrogen 8 mg/dL (7-18); Bicarbonate 24 mEq/L (21-32); Bilirubin Total 0.5 mg/dL (0.2-1.0); Globulin 3.2 g/dL (2.3-3.5); Glomerular Filtration Rate 59 ml/min (=/>90); Glucose Level 93 mg/dL (74-106); Potassium 3.8 mEq/L (3.5-5.1); Protein, Total 5.6 g/dL (6.4-8.2)
[2025-03-25 22:59] LABS: ALT/SGPT < 14 U/L (13-56); Sodium Level 156 mEq/L (136-145)
[2025-03-26] MEDS: D5W 1,000 ML IV SCH (01:00)
[2025-03-26 07:30] LABS: Absolute Basophils 0.1 K/uL (0-0.5); Absolute Eosinophils 0.1 K/uL (0-0.5); Absolute Lymphocytes (CBC) 1.8 K/uL (0.7-4.9); Absolute Neutrophil 5.4 K/uL (1.8-8.0); Basophils % 0.7 % (0-1.3); Eosinophils % 1.3 % (0-4.4); Hematocrit 33.4 % (36.0-45.0); Hemoglobin 11.4 g/dL (12.0-15.0); Lymphocytes % 21.9 % (15.3-44.8); MCH 32.9 pg (27.0-35.0); MCV 96.7 fL (80-100); MPV 8.4 fL (7.6-11.3); Monocytes % 11.7 % (3.3-12.3); Neutrophils % 64.4 % (41.7-73.7); Nucleated Red Blood Cells % 0.1 % (0-0); Platelets 177 thou/uL (152-406); RBC Red Blood Cell Count 3.45 M/uL (3.86-4.86); Red Cell Distribution Width 16.7 % (12.1-15.2)
[2025-03-26 07:44] LABS: Anion Gap 5.5 mEq/L (5.0-15.0); Potassium 3.5 mEq/L (3.5-5.1)
[2025-03-26 08:03] LABS: Blood Morphology Comment NOT SEEN (NOT SEEN); Platelet Estimate ADEQ; White Blood Cell Scan OK (OK)
[2025-03-26 10:54] VITALS: O2SAT 99
[2025-03-26] MEDS: THIAMINE 200 MG/2 ML INJ IVP SCH (11:00)
[2025-03-26] MEDS ORDERED: NACHLORIDE 0.45% 1,000 ML IV SCH (11:00)
[2025-03-26] MEDS ORDERED: LORazepam 2 MG/ML VIAL IV PRN (11:08)
[2025-03-26] MEDS ORDERED: MORPHINE 2 MG/ML SYR IV PRN (11:08)
--- NOTE | 2025-03-26 11:13 | P.PN ---
Subjective Date of Service: 03/26/25 Chief Complaint: Fall Subjective: confused, not able to obtain any history Objective: General appearance: Alert, confused CVS: Normal S1 and S2 Lungs: Clear to auscultation bilaterally Abdomen: Soft, bowel sounds present, no tenderness Extremities: No lower extremity edema Physical Examination - Vital Signs Temperature: 97.7 F Blood Pressure: 140/76 Pulse: 71 Respirations: 16 Pulse Ox (%): 99 - Studies Medications List Reviewed: Yes Assessment And Plan - Plan 1. Multiple falls secondary to deconditioned status - CT of head, C-spine, chest x-ray all unremarkable, show no fracture or dislocation - Managed supportively 2. History of essential hypertension - on amlodipine 3. History of atrial fibrillation - on amiodarone - No anticoagulation in light of history of multiple falls 4. CKD 3a: stable 5. Hypernatremia - IV fluids per renal 6. Thyroid nodule on CT scan: ultrasound showed 1.9 cm nodule, rec FNS 7. Hypercalcemia: Better now, PTH increased, vitamin D borderline low, 8. Bipolar disorder; patient currently on lithium which is the most likely cause of hypercalcemia. She is on Depakote as well. 9. Encephalopathy: Improved but worse again, CT head on 03/22 negative, chest x- ray negative, white count normal, no fever, looks dehydrated, started IV fluids, rechecked depakote and lithium levels Plan discussed with nursing staff, discussed with case management team. Plan discussed with POTyra, Deepti Luciano at bedside, due to patient's multiple medical problems and no clinical improvement, POA decided to enroll the patient into comfort cares and hospice, stop most of the medications and blood work, start comfort cares and comfort medications, DC to a facility with hospice versus keep her in the hospital depending on clinical decline.
[2025-03-26] MEDS: NACHLORIDE 0.45% 1,000 ML with POTASSIUM CL 20 MEQ IV SCH (11:26)
--- NOTE | 2025-03-26 12:46 | P.CNS ---
Date of Consult: 03/26/25 Reason for Consult: Hypernatremia Requesting Physician: Casey Hewitt Chief Complaint: Fall History of Present Illness: 79-year-old female with a past medical history of congestive heart failure, A- fib presenting after a fall sustained at her assisted living facility. She says that she has been falling more frequently the last few days. She was taken to a clinic in [place]. She denies any chest pain, fevers or chills. She has been getting up to use the restroom more frequently. She states she was using a walker and upon encountering the rug she fell flat on her back. She laid on her back for approximately 30 minutes before she called EMS. She lived with her grandson for a little while however he is no longer in the residence. 21:08 This 79 yrs old Female presents to ER via Unassigned with complaints of fall. sp4 03/08 19:59 79-year-old female with history of atrial fibrillation, pacemaker, bipolar disorder, sp4 congestive heart failure, COPD, hypertensive disorder presents with acute near syncopal episode and fall at home. Patient reported she fell injuring her upper back and neck.. Allergies brompheniramine [From Dimetapp (brompheniramine-PPA)] Allergy (Verified 04/03/22 12:10) Nausea/Vomiting chlorpromazine [From Thorazine] Allergy (Verified 04/03/22 12:10) Nausea/Vomiting codeine Allergy (Verified 04/03/22 12:10) Nausea/Vomiting duloxetine [From Cymbalta] Allergy (Verified 04/03/22 12:10) Body Aches, Confusion phenylpropanolamine [From Dimetapp (brompheniramine-PPA)] Allergy (Verified 04/03/22 12:10) Nausea/Vomiting rofecoxib [From Vioxx] Allergy (Verified 04/03/22 12:10) Unknown rosuvastatin [From Crestor] Allergy (Verified 04/03/22 12:10) Muscle tightening simvastatin [From Zocor] Allergy (Verified 04/03/22 12:10) Muscle tigthening tramadol Allergy (Verified 04/03/22 12:10) Itching Home medications list reviewed: Yes Home Medications: Oxybutynin Chloride [Oxybutynin Chloride ER] 5 mg PO DAILY 10/07/24 Spironolactone 1 tab PO DAILY 10/07/24 Amiodarone HCl [Cordarone*] 1 tab PO DAILY 01/12/25 Amlodipine [Norvasc*] 1 tab PO DAILY 01/12/25 Divalproex Sodium 1 tab PO BID 01/12/25 [place] Carbonate [Lithotabs *] 1 tab PO BID 01/12/25 Divalproex ER [Depakote *ER] 500 mg PO BID #60 tab 03/15/25 - Past Medical/Surgical History Diabetic: No -: Atrial fibrillation -: Chronic anticoagulation -: CKD III (Dr. Rosario/ Dr. Mancini) -: HyperPTH/ Hypercalcemia -: Failure to thrive 01/04/2024 -: Skin cancer -: Permanent pacemaker -: Skin cancer excision -: Tubal ligation -: Hysterectomy - Family History Brother Medical History: Lung disease Notes: secound brother SANDRO leg amputation reason unknown - Social History Smoking Status: Unknown if ever smoked Alcohol use: No CD- Drugs: No Caffeine use: Yes Review of Systems is unable to be obtained Physical Examination Temp Pulse Resp BP Pulse Ox 97.7 F 60 16 144/66 H 99 03/26/25 12:00 03/26/25 12:00 03/26/25 12:00 03/26/25 12:00 03/26/25 12:00 General: Moderate distress, Confused, Delirious HEENT: Atraumatic Neck: Supple Respiratory: Normal air movement Cardiovascular: No edema, Regular rate/rhythm Gastrointestinal: Soft and benign, Non-distended Musculoskeletal: No clubbing, No contractures Integumentary: No rashes, No cyanosis Neurological: Abnormal speech Imagings Data: [id number] Procedure: Chest Single View HISTORY: Confusion COMPARISON: November 2024 FINDINGS: The lungs appear clear of acute infiltrate. No significant pleural effusion noted. The heart is mildly enlarged. Pacemaker leads in place IMPRESSION: No acute abnormality is displayed. Conclusions/Impression: Stage I NAN likely due to hypovolemia/ dehydration CKD II -No NSAIDs -Continue IVF with D5W Hypernatremia -Continue IVF with D5W HTN with CKD -Continue Amlodipine Hypoalbuminemia -Encourage protein supplementation as tolerated Anemia in chronic illness -Monitor H&H HyperParathyroidism Hypercalcemia -Continue IVF -Continue cholecalciferol Case reviewed with Dr. Hewitt Thank you kindly for the consultation
[2025-03-26] MEDS: THIAMINE HCL IV SCH (14:13)
[2025-03-26] MEDS: NA CHLORIDE 0.9% IV SCH (14:13)
[2025-03-26 16:14] VITALS: BP 153/75; TEMP 97.8
--- NOTE | 2025-03-27 10:56 | P.DS ---
Admission Date: 03/08/25 Discharge Date: 03/26/25 Disposition: HOSPICE-MEDICAL FACILITY Discharge Condition: FAIR Reason for Admission: Fall Hospital Course: Discharge diagnosis: 1. Multiple falls secondary to deconditioned status - CT of head, C-spine, chest x-ray all unremarkable, show no fracture or dislocation 2. History of essential hypertension 3. History of atrial fibrillation 4. CKD 3a 5. Hypernatremia 6. Thyroid nodule on CT scan 7. Hypercalcemia: PTH increased, vitamin D borderline low, 8. Bipolar disorder 9. Encephalopathy, matabolic Plan discussed with nursing staff, d/w POA and discussed with case management team. Hospital course: 79-year-old patient admitted with multiple falls, she developed hypernatremia and encephalopathy, clinically she was getting worse, due to multiple medical problems, I discussed with POA about further plans, she agreed to start hospice / comfort cares, patient was made hospice and comfort cares in 03/26/2025. Vital Signs/Physical Exam: Temp Pulse Resp BP Pulse Ox 97.8 F 61 12 153/75 H 99 03/26/25 16:00 03/26/25 16:00 03/26/25 16:00 03/26/25 16:00 03/26/25 16:00 Laboratory Data at Discharge: WBC 8.30 thou/uL (4.3-10.9) 03/26/25 07:15 Hgb 11.4 g/dL (12.0-15.0) L D 03/26/25 07:15 Hct 33.4 % (36.0-45.0) L 03/26/25 07:15 Plt Count 177 thou/uL (152-406) 03/26/25 07:15 PT 11.5 SECONDS (10-13.0) 03/08/25 00:00 INR 1.01 03/08/25 00:00 Sodium 155 mEq/L (136-145) H* 03/26/25 07:15 Potassium 3.5 mEq/L (3.5-5.1) 03/26/25 07:15 BUN 7 mg/dL (7-18) 03/26/25 07:15 Creatinine 0.93 mg/dL (0.55-1.02) 03/26/25 07:15 Glucose 92 mg/dL (74-106) 03/26/25 07:15 Uric Acid 5.0 mg/dL (2.6-6.0) 03/25/25 08:19 Magnesium 2.5 mg/dL (1.6-2.4) H 03/25/25 05:54 Total Bilirubin 0.5 mg/dL (0.2-1.0) 03/25/25 21:55 AST 12 U/L (15-37) L 03/25/25 21:55 ALT < 14 U/L (13-56) 03/25/25 21:55 Alkaline Phosphatase 60 U/L (45-117) 03/25/25 21:55 Home Medications: Oxybutynin Chloride [Oxybutynin Chloride ER] 5 mg PO DAILY 10/07/24 Spironolactone 1 tab PO DAILY 10/07/24 Amiodarone HCl [Cordarone*] 1 tab PO DAILY 01/12/25 Amlodipine [Norvasc*] 1 tab PO DAILY 01/12/25 Divalproex Sodium 1 tab PO BID 01/12/25 [place] Carbonate [Lithotabs *] 1 tab PO BID 01/12/25 Divalproex ER [Depakote *ER] 500 mg PO BID #60 tab 03/15/25 New Medications: Divalproex ER [Depakote *ER] 500 mg PO BID #60 tab Physician Discharge Instructions: -DC IV and DC home -Follow-up with PCP in 1 to 2 weeks -Please call Dr. Goodrich at [phone] if any questions regarding hospital stay -Please call nursing station at [phone] if any nursing or medication questions -Return to the emergency room if symptoms worsen Diet: AHA Activity: Fall precautions Followup: Dimas Rosario DO [Primary Care Provider] - 1-2 Weeks
--- NOTE | 2025-03-27 11:49 | EKG ---
Test Date: 2025-03-23 Test Time: 23:07:51 Bee Worker: CATHERINE MEASUREMENT RESULTS: Intervals: Rate: 103 [place]: QRSD: 88 QT: 306 QTc: 400 [place]: P: [place]: QRS: 81 T: -84 INTERPRETIVE STATEMENTS: Demand pacemaker, interpretation is based on intrinsic rhythm Atrial fibrillation with rapid ventricular response with premature ventricular or aberrantly conducted complexes ST & T wave abnormality, consider inferolateral ischemia or digitalis effect Abnormal ECG Compared to ECG 03/08/2025 00:25:21 Ventricular premature complex(es) now present ST (T wave) deviation now present Possible ischemia now present Electronically Signed On 03-27-25 11:47:45 CDT by Stanley Perez
== END 2025-03-26 18:17 | disposition hospice, inpatient (51) | DRG 682 ==
LOC: ER 21:03 → ERHOLD 03-08 01:46 → 4TH 03-08 11:38
PROVIDERS: ADMIT Family Medicine; ATTEND Hospitalist
PROC: 02HV33Z Insertion of Infusion Device into Superior Vena Cava, Percutaneous Approach (ICD-10-PCS; principal; 2025-03-25)
DX: N17.9 Acute kidney failure, unspecified (principal); G93.41 Metabolic encephalopathy; E44.0 Moderate protein-calorie malnutrition; R64 Cachexia; Z68.1 Body mass index [BMI] 19.9 or less, adult; E87.0 Hyperosmolality and hypernatremia; I13.0 Hypertensive heart and chronic kidney disease with heart failure and stage 1 through stage 4 chronic kidney disease, or unspecified chronic kidney disease; I50.9 Heart failure, unspecified; N18.31 Chronic kidney disease, stage 3a; D63.1 Anemia in chronic kidney disease; E04.1 Nontoxic single thyroid nodule; I48.91 Unspecified atrial fibrillation; E83.52 Hypercalcemia; E21.3 Hyperparathyroidism, unspecified; F31.9 Bipolar disorder, unspecified; E86.0 Dehydration; E88.09 Other disorders of plasma-protein metabolism, not elsewhere classified; J44.9 Chronic obstructive pulmonary disease, unspecified; S09.90XA Unspecified injury of head, initial encounter; R62.7 Adult failure to thrive; R29.6 Repeated falls; Z88.5 Allergy status to narcotic agent; Z95.0 Presence of cardiac pacemaker; Z91.81 History of falling; Z79.01 Long term (current) use of anticoagulants; Z86.73 Personal history of transient ischemic attack (TIA), and cerebral infarction without residual deficits; Z79.899 Other long term (current) drug therapy; Z85.828 Personal history of other malignant neoplasm of skin; Z51.5 Encounter for palliative care; W18.30XA Fall on same level, unspecified, initial encounter; Y92.099 Unspecified place in other non-institutional residence as the place of occurrence of the external cause; Y93.9 Activity, unspecified; Y99.9 Unspecified external cause status
CPT/HCPCS: 36415; 70450; 71045; 71250; 72125; 74176; 76536; 80048; 80053; 80076; 80164; 80178; 81001; 81003; 82306; 82330; 83519; 83735; 83880; 83930; 83935; 83970; 84132; 84295; 84443; 84484; 84550; 85025; 85610; 93005; 96361; 96374; 96375; 97110; 97161; 97165; 97530; 99285; J2405; J2430; J3010; J3411; J3480; J7030; J7040; J7050; Q0162

== ENCOUNTER 2025-03-26 18:35 | Inpatient (IN) | payer OTHER ==
[2025-03-26] MEDS ORDERED: BISACODYL 10 MG RECTAL SUPP PR PRN (18:48)
[2025-03-26] MEDS ORDERED: SCOPOLAMINE HYDROBROMIDE PATCH TD PRN (18:48)
[2025-03-26] MEDS ORDERED: ONDANSETRON 4 MG (ODT) TAB PO PRN (18:49)
[2025-03-26] MEDS: HYDROMORPHONE HCL 2 MG/ML inj IV SCH (19:56)
[2025-03-27 01:36] VITALS: BMI 18.3
[2025-03-27] MEDS: HYDROMORPHONE HCL 2 MG/ML inj IV PRN (13:56)
[2025-03-28] MEDS: LORazepam 2 MG/ML VIAL IV PRN (08:29)
[2025-03-28 10:10] VITALS: O2SAT 95
[2025-03-28] MEDS: HYDROMORPHONE HCL 2 MG/ML inj IV SCH (11:00)
--- NOTE | 2025-03-28 11:49 | P.HP ---
Patient History Date of Service: 03/27/25 Reason for admission: HOSPICE FOR HEART FAILURE WITH ACUTE RENAL FAILURE, [facility]. History of Present Illness: IRMA HAS CHF HISTORY. SHE IS DEBILTIATED, AGITATED, FALLING OFTEN. SHE FAILED THERAPY BY HOSPITAL DOCTORS, FAMILY WANTS HOSPICE CARE SO [facility] WAS CALLED IN. I WENT OVER ALL MEDS WITH HOSPICE NURSE TO CONFIRM THEM. Allergies brompheniramine [From Dimetapp (brompheniramine-PPA)] Allergy (Verified 04/03/22 12:10) Nausea/Vomiting chlorpromazine [From Thorazine] Allergy (Verified 04/03/22 12:10) Nausea/Vomiting codeine Allergy (Verified 04/03/22 12:10) Nausea/Vomiting duloxetine [From Cymbalta] Allergy (Verified 04/03/22 12:10) Body Aches, Confusion phenylpropanolamine [From Dimetapp (brompheniramine-PPA)] Allergy (Verified 04/03/22 12:10) Nausea/Vomiting rofecoxib [From Vioxx] Allergy (Verified 04/03/22 12:10) Unknown rosuvastatin [From Crestor] Allergy (Verified 04/03/22 12:10) Muscle tightening simvastatin [From Zocor] Allergy (Verified 04/03/22 12:10) Muscle tigthening tramadol Allergy (Verified 04/03/22 12:10) Itching Home Medications: Oxybutynin Chloride [Oxybutynin Chloride ER] 5 mg PO DAILY 10/07/24 Spironolactone 1 tab PO DAILY 10/07/24 Amiodarone HCl [Cordarone*] 1 tab PO DAILY 01/12/25 Amlodipine [Norvasc*] 1 tab PO DAILY 01/12/25 Divalproex Sodium 1 tab PO BID 01/12/25 [place] Carbonate [Lithotabs *] 1 tab PO BID 01/12/25 Divalproex ER [Depakote *ER] 500 mg PO BID #60 tab 03/15/25 - Past Medical/Surgical History Diabetic: No -: Atrial fibrillation -: Chronic anticoagulation -: CKD III (Dr. Rosario/ Dr. Mancini) -: HyperPTH/ Hypercalcemia -: Failure to thrive 01/04/2024 -: Skin cancer -: Permanent pacemaker -: Skin cancer excision -: Tubal ligation -: Hysterectomy - Family History Brother -: Lung disease Notes: secound brother SANDRO leg amputation reason unknown - Social History Smoking Status: Never smoker Alcohol use: No CD- Drugs: No Caffeine use: Yes Review of Systems is unable to be obtained Physical Examination - Vital Signs Temperature: 98.7 F Blood Pressure: 92/51 Pulse: 109 Respirations: 18 Pulse Ox (%): 95 - Physical Exam General: Cachectic, Mild distress, Moderate distress (SEDATED) HEENT: Atraumatic, PERRLA, Mucous membr. moist/pink, EOMI, Sclerae nonicteric Neck: Supple, 2+ carotid pulse no bruit, No LAD, Without JVD or thyroid abnormality Respiratory: Clear to auscultation bilaterally, Normal air movement Cardiovascular: Regular rate/rhythm, Normal S1 S2 Gastrointestinal: Normal bowel sounds, No tenderness Musculoskeletal: No tenderness Integumentary: No rashes Lymphatics: No axilla or inguinal lymphadenopathy Assessment and Plan - Problems (Diagnosis) (1) Cachexia Current Visit: Yes Status: Chronic Plan: WORSE, HOSPICE CARE NOW (2) Agitation Current Visit: Yes Status: Acute (3) Congestive heart failure Current Visit: No Status: Chronic Plan: FAILED MEICAL MANAGEMENT. HOSPICE CARE PER FAMILY REQUEST. SHE QUALIFIES SHE HAS AGIATION AND IS IN PAIN WITHOUT IV MEDS. WE TRIED PATCH AND IT FAILED ORAL MEDS ARE NOT POSSIBLE SHE IS SEMICOMATOSE. (4) Failure to thrive in adult Current Visit: No Status: Acute - Advance Directives Does patient have a Living Will: No Does patient have a Durable POA for Healthcare: Yes
[2025-03-28] MEDS: HYDROMORPHONE HCL 1 MG/ML INJ IV ONE (11:53)
--- NOTE | 2025-03-28 12:04 | P.PN ---
Subjective Date of Service: 03/28/25 Chief Complaint: HOSPICE FOR HEART FAILURE WITH ACUTE RENAL FAILURE, AGITATION. Subjective: Worsening AGITATED TRIAL OF PATCH FAILED SHE IS BACK ON Q3H PAIN MEDS. I TALKED TO SONYA CASANOVA AT [facility]. I CALLED DAUGHTER PER HER REQUEST AND SHE DID NOT RECORD MAKER THE PHONE. Review of Systems is unable to be obtained Physical Examination - Vital Signs Temperature: 98.7 F Blood Pressure: 92/51 Pulse: 109 Respirations: 12 Pulse Ox (%): 95 - Physical Exam General: Cachectic, Moderate distress HEENT: Atraumatic, PERRLA, EOMI Neck: Supple, JVD not distended Respiratory: Clear to auscultation bilaterally, Normal air movement Cardiovascular: Regular rate/rhythm, Normal S1 S2 Gastrointestinal: Normal bowel sounds, No tenderness Musculoskeletal: No tenderness Integumentary: No rashes Lymphatics: No axilla or inguinal lymphadenopathy - Studies Medications List Reviewed: Yes Assessment And Plan - Current Problems (Diagnosis) (1) Cachexia Current Visit: Yes Status: Chronic Plan: WORSE, HOSPICE CARE NOW (2) Agitation Current Visit: Yes Status: Acute Plan: CONTINUE ATIVAN PRN. RESTRAINS PRN. (3) Congestive heart failure Current Visit: No Status: Chronic Plan: FAILED MEICAL MANAGEMENT. HOSPICE CARE PER FAMILY REQUEST. SHE QUALIFIES SHE HAS AGIATION AND IS IN PAIN WITHOUT IV MEDS. WE TRIED PATCH AND IT FAILED ORAL MEDS ARE NOT POSSIBLE SHE IS SEMICOMATOSE. SHE IS STARTING TO HAVE LOW BP. (4) Failure to thrive in adult Current Visit: No Status: Acute
[2025-03-29] MEDS: ACETAMINOPHEN 650MG/RECT SUPP PR PRN (08:46)
--- NOTE | 2025-03-29 13:14 | P.PN ---
Subjective Date of Service: 03/29/25 Chief Complaint: HOSPICE FOR HEART FAILURE WITH ACUTE RENAL FAILURE, AGITATION. AGITATED TRIAL OF PATCH FAILED SHE IS BACK ON Q3H PAIN MEDS. I TALKED TO SONYA CASANOVA AT [facility]. 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 RAPIDLY WORSE COMATOSE RAPID BREATHING LOW BP. Review of Systems is unable to be obtained Physical Examination - Vital Signs Temperature: 97.8 F Blood Pressure: 87/40 Pulse: 113 Respirations: 18 Pulse Ox (%): 93 - Physical Exam General: Cachectic, Moderate distress, Comatose HEENT: Atraumatic, PERRLA, EOMI Neck: Supple, JVD not distended Respiratory: Clear to auscultation bilaterally, Normal air movement Cardiovascular: Regular rate/rhythm, Normal S1 S2 Gastrointestinal: Normal bowel sounds, No tenderness Musculoskeletal: No tenderness Integumentary: No rashes Lymphatics: No axilla or inguinal lymphadenopathy - Studies Medications List Reviewed: Yes Assessment And Plan - Current Problems (Diagnosis) (1) Cachexia Current Visit: Yes Status: Chronic Plan: WORSE, HOSPICE CARE NOW (2) Agitation Current Visit: Yes Status: Acute Plan: CONTINUE ATIVAN PRN. RESTRAINS PRN. (3) Congestive heart failure Current Visit: No Status: Chronic Plan: FAILED MEICAL MANAGEMENT. HOSPICE CARE PER FAMILY REQUEST. SHE QUALIFIES SHE HAS AGIATION AND IS IN PAIN WITHOUT IV MEDS. WE TRIED PATCH AND IT FAILED ORAL MEDS ARE NOT POSSIBLE SHE IS SEMICOMATOSE. SHE IS STARTING TO HAVE LOW BP. MEDS ARE CONTROLLING HER SS. (4) Failure to thrive in adult Current Visit: No Status: Acute
[2025-03-29 20:48] VITALS: BP 80/39
[2025-03-30 03:38] VITALS: TEMP 100.5
--- NOTE | 2025-03-30 16:12 | P.DS ---
Admission Date: 03/26/25 Discharge Date: 03/30/25 Disposition: Reason for Admission: HOSPICE FOR HEART FAILURE WITH ACUTE RENAL FAILURE, AGITATION. - Problems (1) Cachexia Status: Chronic (2) Agitation Status: Acute (3) Congestive heart failure Status: Chronic (4) Failure to thrive in adult Status: Acute Brief History of Present Illness: IRMA HAS CHF HISTORY. SHE IS DEBILTIATED, AGITATED, FALLING OFTEN. SHE FAILED THERAPY BY HOSPITAL DOCTORS, FAMILY WANTS HOSPICE CARE SO IP WAS CALLED IN. I WENT OVER ALL MEDS WITH HOSPICE NURSE TO CONFIRM THEM. Hospital Course: IRMA WAS RAPIDLY GETTING WORSE WITH DYSPNEA, RAPID BREATING AND PAUSES YESTERDAY. LAST NIGHT ABOUT 4 SHE EXPECTED PEACEFULLY. Vital Signs/Physical Exam: Temp Pulse Resp BP Pulse Ox 100.5 F 119 H 19 80/39 L 93 03/30/25 03:37 03/29/25 20:00 03/30/25 04:07 03/29/25 20:00 03/29/25 17:00 Home Medications: Oxybutynin Chloride [Oxybutynin Chloride ER] 5 mg PO DAILY 10/07/24 Spironolactone 1 tab PO DAILY 10/07/24 Amiodarone HCl [Cordarone*] 1 tab PO DAILY 01/12/25 Amlodipine [Norvasc*] 1 tab PO DAILY 01/12/25 Divalproex Sodium 1 tab PO BID 01/12/25 Toluca Carbonate [Lithotabs *] 1 tab PO BID 01/12/25 Divalproex ER [Depakote *ER] 500 mg PO BID #60 tab 03/15/25 Followup: Cal Isaac MD [Primary Care Provider] -
== END 2025-03-30 04:45 | disposition expired | DRG 951 ==
LOC: 4TH 18:35
PROVIDERS: ADMIT Internal Medicine; ATTEND Internal Medicine
DX: Z51.5 Encounter for palliative care (principal)
CPT/HCPCS: J1171